=== PATIENT | male | born 1995 | race Caucasian/White ===

== ENCOUNTER 2023-02-11 20:08 | Emergency (ER) | payer OTHER, SELFPAY ==
[2023-02-11 20:14] VITALS: BP 122/84; PULSE 125; RESP 16; TEMP 36.9; O2SAT 99; BMI 52.3
--- NOTE | 2023-02-11 20:29 | ED.ANXIETY1 ---
HPI - Anxiety General Chief Complaint: Anxiety Stated Complaint: ALTERED MENTAL STATE Time Seen by Provider: 02/11/23 20:21 Source: patient Mode of arrival: walk-in Limitations: no limitations History of Present Illness HPI narrative: History of opiate abuse. IV heroin. States he was at [facility] center and was treated with suboxone and weaned off. has not used Heroin in 11 days. Last dose of Suboxone was 3 days ago. He does not have a past history of depression or suicide attempts. States he has several times in the past from opiate overdose. States tonight he found out that his girlfriend has been cheating on him. States he was upset and hurt by it and is going to work himself through this. States his family became concern that he would hurt himself and dropped him off here for clearance. States he has not thoughts of harming himself or his girlfriend. He is hurt because he did want to her but now he realizes he has to move on. States he is only here because his family insisted. He denies using any drugs and has no plans to use opiates. States he is upset about his girlfriend but feels that should be expected Related Data Home Medications Medication Instructions Recorded Confirmed No Known Home Medications 02/11/23 02/11/23 Allergies Allergy/AdvReac Type Severity Reaction Status Date / Time Penicillins Allergy Hives Verified 02/11/23 20:19 Review of Systems ROS Status of ROS 10 or more systems reviewed and unremarkable except as noted in history and below [facility] PFS Social History Smoking status: Current every day smoker Exam Constitutional Vital Signs, click to edit/add: Last Vital Signs Temp 98.4 F 02/11/23 20:14 Pulse 125 H 02/11/23 20:14 Resp 16 02/11/23 20:14 BP 122/84 02/11/23 20:14 Pulse Ox 99 02/11/23 20:14 O2 Del Method Room Air 02/11/23 20:14 Common normals: no apparent distress, average body habitus, oriented x3, no limitations, healthy appearing, alert and well nourished [facility] Common normals: normocephalic and head/scalp atraumatic Eye Common normals: PERRL, EOMs intact bilaterally and conjunctivae normal Respiratory Common normals: normal respiratory effort, no retractions, no use of accessory muscles and clear to auscultation bilaterally Cardio Common normals: regular rate, regular rhythm, S1 normal heart sound and S2 normal heart sound GI Common normals: Normal to inspection, nondistended, normoactive bowel sounds present, soft to palpation and non-tender Extremity Common normals: normal to inspection and full ROM Neuro Common normals: oriented x3, CN's II-XII intact bilaterally and moves all extremities Psych Common normals: mental status grossly normal, thought process normal, cooperative and speech normal Attitude: engaged Activity/motor behavior: appropriate eye contact Speech: normal speech Thought process: normal thought process Thought content: normal thought content Attention/concentration: attention grossly intact Insight: insight good Judgement: judgment good Course Vital Signs Vital signs: Vital Signs Temperature 98.4 F 02/11/23 20:14 Pulse Rate 125 H 02/11/23 20:14 Respiratory Rate 16 02/11/23 20:14 Blood Pressure 122/84 02/11/23 20:14 Pulse Oximetry 99 02/11/23 20:14 Oxygen Delivery Method Room Air 02/11/23 20:14 Temperature 98.4 F 02/11/23 20:14 Pulse Rate 125 H 02/11/23 20:14 Respiratory Rate 16 02/11/23 20:14 Blood Pressure 122/84 02/11/23 20:14 Pulse Oximetry 99 02/11/23 20:14 Oxygen Delivery Method Room Air 02/11/23 20:14 MDM - Anxiety MDM Narrative Medical decision making narrative: patient upset that his girlfriend reportedly is cheating on him. He has past history of heroin abuse but completed rehab and has not used Heroin for 11 days. 13 year history of Opiate abuse. Just left detox center and feels he is doing well and states he has no plan to restart Heroin. Found out about his girlfriend cheating today and became upset. States his family dropped him off here to be cleared concerned he would harm himself. He states he has no plan to harm himself and is only here because his family insisted. He does not have a past history of suicide attempt and does not feel suicidal or homicidal at this time Clinically I do not see a need for in patient treatment for his stress related to his girlfriend cheating. He can follow up with his PCP for assistance if needed Discharge Plan Discharge Chief Complaint: Anxiety Clinical Impression: Reactive depression (situational) Patient Disposition: Home, Self-Care Mode of Transportation: Private Vehicle Prescriptions / Home Meds: No Action No Known Home Medications Instructions: Depression (ED) Stand Alone Forms: Portal Instructions Referrals: ZANA PEPE [Primary Care Provider] - 1 week Discharge Date/Time: 02/11/23 21:07
== END 2023-02-11 21:07 | disposition home or self-care (01) ==
PROVIDERS: Emergency Provider Internal Medicine; PCP Family Medicine
DX: F43.21 Adjustment disorder with depressed mood (principal); F11.11 Opioid abuse, in remission; F17.200 Nicotine dependence, unspecified, uncomplicated
CPT/HCPCS: 99285

== ENCOUNTER 2023-04-17 19:28 | Emergency (ER) | payer OTHER, SELFPAY ==
--- NOTE | 2023-04-17 19:30 | ECG_ITS ---
[facility] Test Date: 2023-04-17 Pat Name: STEPHEN PABON Department: Room: - Gender: Male Telephone Claims Representative: : 1995 Requested By: ZANA PEPE Order Number: [id number] Reading MD: MANAV BROWN Measurements Intervals [place] Rate: 124 P: 61 LA: 126 QRS: 58 QRSD: 96 T: -1 QT: 310 QTc: 384 Interpretive Statements 1120 Sinus tachycardia 1970 with occasional ectopic premature complexes 4068 Nonspecific Twave abnormality 9140 abnormal rhythm ECG Electronically Signed On 04-18-2023 6:40:26 EST by MANAV BROWN
[2023-04-17 19:31] VITALS: BP 133/79; PULSE 112; RESP 20; TEMP 36.8; O2SAT 97
--- NOTE | 2023-04-17 19:32 | ED.PSYCH1 ---
HPI - Psych General Chief Complaint: Psychiatric Symptoms Stated Complaint: Suicidal Time Seen by Provider: 04/17/23 19:29 History of Present Illness HPI Narrative: cc - alleged suicidal ideation The patient was brought in by EMS for allegedly claiming that he was suicidal. The patient denies this on arrival. He told us that his best friend and his girlfriend have hooked up and that made him anxious and upset when he found out about it. He said that the best friend is the one who actually called 911 and told him that the patient was suicidal to get rid of me . He admits to using methamphetamine within the last 12 to 24 hours. He cannot tell if he is active on he used or when his last use was. He reiterated that he has anxiety occasionally feels some depression but denies any suicidality at this time. Denies any recent self injury. Denies any plan to hurt himself. Patient states that he used to take medication for depression but I weaned myself off of them . He is not currently attending any counseling. He has previously been hospitalized for psych reasons but he initially told us he had not. Related Data Home Medications Medication Instructions Recorded Confirmed No Known Home Medications 02/11/23 02/11/23 Allergies Allergy/AdvReac Type Severity Reaction Status Date / Time Penicillins Allergy Hives Verified 04/17/23 19:37 PFSH PFS Social History Smoking status: Current every day smoker Exam Constitutional Vital Signs, click to edit/add: Last Vital Signs Temp 98.3 F 04/17/23 19:31 Pulse 112 H 04/17/23 19:31 Resp 20 04/17/23 19:31 BP 133/79 04/17/23 19:31 Pulse Ox 97 04/17/23 19:31 Course Vital Signs Vital signs: Vital Signs Temperature 98.3 F 04/17/23 19:31 Pulse Rate 112 H 04/17/23 19:31 Respiratory Rate 20 04/17/23 19:31 Blood Pressure 133/79 04/17/23 19:31 Pulse Oximetry 97 04/17/23 19:31 Temperature 98.3 F 04/17/23 19:31 Pulse Rate 112 H 04/17/23 19:31 Respiratory Rate 20 04/17/23 19:31 Blood Pressure 133/79 04/17/23 19:31 Pulse Oximetry 97 04/17/23 19:31 MDM - Psych MDM Narrative Medical decision making narrative: Suicide precautions initiated. EKG obtained. Blood drawn and sent for testing. Urine also ordered to be obtained and sent for testing. EKG reveals sinus tachycardia, likely associated with methamphetamine use. Blood testing was unremarkable. White blood cell count barely elevated at 13,000. Left shift is noted. This is likely reactionary from the methamphetamine use. CMP was negative. Ethanol, salicylate and acetaminophen levels also negative. he was medically cleared for psychiatric evaluation and potential transfer. [facility] and talked with the patient. She told us that the patient was lying to her, not being truthful regarding his prior psych history and was not taking his meds. After talking with police and getting more info, the patient was pink-slipped by [facility] and he will be admitted to [address] for additional psychiatric evaluation and care. Dr Mccarty accepted, per [facility] Lab Data Attestation: I reviewed the patient's lab results. Labs: Lab Results 04/17/23 04/17/23 Range/Units 19:42 21:05 WBC 13.0 H (4.0-11.0) 10^3/uL RBC 4.77 (4.70-6.10) 10^6/uL Hgb 14.3 (14.0-18.0) g/dL Hct 43.3 (42.0-54.0) % MCV 90.8 (80.0-94.0) fL MCH 30.0 (25.9-34.0) pg MCHC 33.0 (29.9-35.2) g/dL RDW 12.1 (11.0-15.0) % Plt Count 228 (150-450) 10^3/uL MPV 10.1 (9.5-13.5) fL Neut % (Auto) 79.2 H (43.0-75.0) % Lymph % (Auto) 13.3 L (20.5-60.0) % [place] % (Auto) 6.1 (1.7-12.0) % Eos % (Auto) 0.7 L (0.9-7.0) % Baso % (Auto) 0.5 (0.2-2.0) % Neut # (Auto) 10.3 H (1.4-6.5) 10^3/uL Lymph # (Auto) 1.7 (1.2-3.8) 10^3/uL [place] # (Auto) 0.8 (0.3-0.8) 10^3/uL Eos # (Auto) 0.1 (0.0-0.7) 10^3/uL Baso # (Auto) 0.1 (0.0-0.1) 10^3/uL Abs Immat Gran (auto) 0.03 (0.00-0.03) 10^3/uL Imm/Tot Granulo (auto) 0.2 (0.0-0.5) % Sodium 142 (136-145) mmol/L Potassium 3.7 (3.5-5.1) mmol/L Chloride 104 (98-107) mmol/L Carbon Dioxide 29.1 (21.0-32.0) mmol/L Anion Gap 12.6 BUN 10.0 (7.0-18.0) mg/dL Creatinine 0.94 (0.70-1.30) mg/dL Est GFR ( Amer) >60 (>=60) Est GFR (Non-Af Amer) >60 (>=60) BUN/Creatinine Ratio 10.6 Glucose 117 H (74-106) mg/dL Calcium 8.8 (8.5-10.1) mg/dL Total Bilirubin 1.1 H (0.2-1.0) mg/dL AST 19 (15-37) U/L ALT 20 (16-63) U/L Alkaline Phosphatase 94 (46-116) U/L Total Protein 7.7 (6.4-8.2) g/dL Albumin 4.0 (3.4-5.0) g/dL Globulin 3.7 g/dL Albumin/Globulin Ratio 1.1 Salicylates <2.8 (<=19.9) mg/dL Urine Opiates Screen Negative (NEGATIVE) Ur Buprenorphine Scrn Negative (NEGATIVE) Ur Oxycodone Screen Negative (NEGATIVE) Urine Methadone Screen Negative (NEGATIVE) Acetaminophen <2.0 L (10.0-30.0) ug/mL Ur Barbiturates Screen Negative (NEGATIVE) U Tricyclic Antidepress Negative (NEGATIVE) Ur Phencyclidine Scrn Negative (NEGATIVE) Ur Amphetamines Screen Positive A (NEGATIVE) U Methamphetamines Scrn Positive A (NEGATIVE) U Benzodiazepines Scrn Negative (NEGATIVE) Urine Cocaine Screen Positive A (NEGATIVE) U Cannabinoids Screen Positive A (NEGATIVE) Ethanol Quant <3 mg/dL ECG Data Attestation: I personally reviewed and interpreted this ECG as follows: Interpretation: EKG interpretation: Emergency Department physician interpretation. Sinus tachycardia at 124bpm. Normal axis. Shortened RR interval. No QTc prolongation. No ST segment elevation or depression. Discharge Plan Discharge Chief Complaint: Psychiatric Symptoms Clinical Impression: Depression, Suicidal ideation, Active substance abuse Patient Disposition: [facility] Time of Disposition Decision: 22:47 Discharge Location: [facility]
--- OUTSIDE RECORDS SUMMARY | 2023-04-17 19:42 | XMS_ITS | CCD ---
Author Name Unknown Address [address] [place] [address] Organization [facility] Care Team Providers Care Data Management Consultant Name Role Phone Unavailable, Family Physician Unavailable Un available Unavailable, Family Physician Unavailable Un available Moysaenbaldo, Karl Unavailable Unavailable Tommy, Aimee A Unavailable Unavailable Tommy, Aimee A Unavailable Unavailable NONE, XXXX Unavailable Unavailable Hajdari, Astrit H Unavailable Unavailable Hajdari, Astrit H Unavailable Unavailable Tommy, Aimee A Unavailable Unavailable Becca Toribio CNP Primary Care Provider DR ZANA PEPE Primary Care Unavailable ANIKA, DR MALIHA Pedroza Attending Unavailluisa DONALDSON, DR MALIHA Pedroza Consulting Unavailluisa DONALDSON, DR MALIHA Pedroza Admitting UnavailMD Perlita Tamayo Primary Care Provider MD Kwan León Admit Provider [phone] MD Kwan León Attending Provider Kwan León Admitting Unavailable Kwan León Attending Unavailable Shaikh Conway Primary Care Unavailable Jesús Mccarty Admitting Unavailab Jesús Jara Attending Unavailab Shaikh Stark Primary Care Unavailable Allergies Allergy Classification Reported Allergen(s) Allergy Type Date of Onset Reaction(s) Facility (2 sources) cefTRIAXone; Translations: [Rocephin] Drug Allergy 5 AOF [facility] Repository (1 source) Penicillin; Translations: [penicillin] Drug Allergy AOF [facility] Repository (20 sources) Penicillins; Translations: [Penicillins] Allergy to substance 5 Hives / Urticaria [facility] Repository Medications Current Medications Medication Drug Class(es) Dates Sig (Normalized) Sig (Original) 1.5 ml buprenorphine 200 mg/ml prefilled syringe (20 sources) Partial Opioid Agonist Start: 11-23-2021 Sublocade 100 MG/0.5ML Subcutaneous Solution Prefilled Syringe 11/23/2021 Provider: Becca Toribio CNP Start: 11-23-2021 Sublocade 300 MG/1.5ML Subcutaneous Solution Prefilled Syringe 11/23/2021 Provider: Becca Toribio CNP 24 hr buPROPion hydrochloride 300 mg extended release oral tablet (20 sources) Aminoketone Start: 10-26-2022 take 300 mg by mouth once daily in the morning Bupropion Hcl Active 300 MG PO Every morning October 26, 2022 12:00am Start: 11-08-2021 End: 12-01-2021 take 1 tablet by mouth every twelve hours Wellbutrin SR 150 MG Oral Tablet Extended Release 12 Hour 11/08/2021 - 12/01/2021 Provider: Becca Toribio CNP Start: 11-06-2021 End: 11-06-2021 take 1 tablet by mouth every twelve hours Wellbutrin SR 150 MG Oral Tablet Extended Release 12 Hour 11/06/2021 - 11/06/2021 Provider: docusate sodium 100 mg oral capsule (15 sources) Start: 11-13-2021 Colace 100 MG Oral Capsule 11/13/2021 Provider: Marily Terrazas CNP gabapentin 600 mg oral tablet (20 sources) Anti-epileptic Agent Start: 10-26-2022 take 600 mg by mouth three times daily Gabapentin Active 600 MG PO Three times daily October 26, 2022 12:00am Start: 08-28-2021 End: 12-01-2021 Gabapentin 800 MG Oral Table t 09/07/2021 - 09/19/2021 Provider: Becca Toribio CNP Start: 11-30-2016 End: 01-31-2021 take 300 mg by mouth three times daily Gabapentin Discontinued 300 MG PO Three times daily November 30, 2016 12:00am January 31, 2021 1:29pm lofexidine 0.18 mg oral tablet (3 sources) Start: 01-03-2022 Lucemyra 0.18 MG Oral Tablet 01/03/2022 Provider: Becca Toribio CNP naloxone hydrochloride 40 mg/ml nasal spray (20 sources) Opioid Antagonist Start: 09-07-2021 End: 11-20-2021 Narcan 4 MG/0.1ML Nasal Liquid 11/20/2021 Provider: Becca Toribio CNP naltrexone 380 mg injection (1 source) Opioid Antagonist Start: 03-29-2022 Vivitrol 380 MG Intramuscular Suspension Reconstituted 03/29/2022 Provider: Becca Toribio CNP Start: 03-29-2022 Vivitrol 380 M G Intramuscular Suspension Reconstituted 03/29/2022 Provider: Becca Toribio CNP nicotine 2 mg chewing gum (1 source) Cholinergic Nicotinic Agonist Start: 10-26-2022 Nicotine (Polacrilex) Active 2 MG BUCCAL Q2H October 26, 2022 12:00am OXcarbazepine 300 mg oral tablet (9 sources) Anti-epileptic Agent Start: 12-01-2021 OXcarbazepine 300 MG Oral Tablet 12/01/2021 Provider: Becca Toribio CNP traZODone hydrochloride 50 mg oral tablet (20 sources) Serotonin Reuptake Inhibitor Start: 10-26-2022 take 50 mg by mouth once daily at bedtime Trazodone Active 50 MG PO Daily at bedtime October 26, 2022 12:00am Start: 11-06-2021 End: 12-01-2021 traZODone HCl 100 MG Oral Ta blet 11/06/2021 - 11/06/2021 Provider: Start: 11-27-2016 End: 01-31-2021 take 50 mg by mouth at bedtime Trazodone Discontinued 50 MG PO Bedtime November 27, 2016 12:00am January 31, 2021 1:29pm Completed/Discontinued Medications Medication Drug Class(es) Dates Sig (Normalized) Sig (Original) buprenorphine 8 mg / naloxone 2 mg sublingual film (20 sources) Partial Opioid Agonist, Opioid Antagonist Start: 11-13-2021 End: 01-09-2022 Suboxone 8-2 MG Sublingual Film 11/20/2021 - 11/23/2021 Provider: Becca Toribio CNP Start: 11-06-2021 End: 11-13-2021 Buprenorphine HCl-Naloxone H Cl 8-2 MG Sublingual Tablet Sublingual 11/13/2021 - 11/13/2021 Provider: Marily Terrazas CNP citalopram 20 mg oral tablet (2 sources) Serotonin Reuptake Inhibitor Start: 11-30-2016 End: 01-31-2021 take 20 mg by mouth once daily Citalopram Discontinued 20 MG PO Daily November 30, 2016 12:00am January 31, 2021 1:29pm Start: 11-27-2016 End: 11-30-2016 take 30 mg by mouth once daily Citalopram Discontinued 30 MG PO Daily November 27, 2016 12:00am November 30, 2016 9:41am clindamycin 300 mg oral capsule (9 sources) Lincosamide Antibacterial Start: 12-01-2021 End: 12-22-2021 Clindamycin HCl 300 MG Oral Capsule 12/01/2021 - 12/22/2021 Provider: Becca Toribio CNP cloNIDine hydrochloride 0.1 mg oral tablet (20 sources) Central alpha-2 Adrenergic Agonist Start: 12-01-2021 End: 01-08-2022 cloNIDine HCl 0.1 MG Oral Tablet 12/01/2021 - 01/08/2022 Provider: Becca Toribio CNP Start: 09-19-2021 End: 11-06-2021 cloNIDine HCl 0.2 MG Oral Ta blet 09/19/2021 - 11/06/2021 Provider: Becca Toribio CNP Start: 09-07-2021 End: 09-19-2021 cloNIDine HCl 0.1 MG Oral Ta blet 09/07/2021 - 09/19/2021 Provider: Becca Toribio CNP DULoxetine 30 mg delayed release oral capsule (1 source) Serotonin and Norepinephrine Reuptake Inhibitor Start: 02-01-2021 End: 10-27-2022 take 1 capsule by mouth once daily Duloxetine (Cymbalta) 30 mg capsule,delayed release(DR/EC) Discontinued 30 MG PO Daily February 01, 2021 1:00am October 27, 2022 9:38am lithium carbonate 300 mg oral tablet (2 sources) Start: 11-30-2016 End: 01-31-2021 take 300 mg by mouth twice daily Tobin Carbonate Discontinued 300 MG PO Twice daily November 30, 2016 12:00am January 31, 2021 1:29pm Start: 11-27-2016 End: 11-30-2016 take 300 mg by mouth three times daily Tobin Carbonate Discontinued 300 MG PO Three times daily November 27, 2016 12:00am November 30, 2016 9:41am methocarbamol 750 mg oral tablet (20 sources) Muscle Relaxant Start: 08-28-2021 End: 11-06-2021 Methocarbamol 750 MG Oral Tablet 08/28/2021 - 11/06/2021 Provider: minocycline 100 mg oral tablet (20 sources) Tetracycline-class Drug Start: 09-19-2021 End: 11-06-2021 Minocycline HCl 100 MG Oral Tablet 09/19/2021 - 11/06/2021 Provider: Becca Toribio CNP OLANZapine 5 mg oral tablet (20 sources) Atypical Antipsychotic Start: 09-07-2021 End: 11-06-2021 OLANZapine 5 MG Oral Tablet 09/07/2021 - 11/06/2021 Provider: Becca Toribio CNP promethazine hydrochloride 12.5 mg oral tablet (20 sources) Phenothiazine Start: 09-07-2021 End: 11-06-2021 Promethazine HCl 12.5 MG Oral Tablet 09/07/2021 - 11/06/2021 Provider: Becca Toribio CNP Problems Active Problems Problem Classification Problem Date Documented Da te Episodic/Chronic Anxiety disorders (20 sources) Generalized anxiety disorder; Translations: [Generalized anxiety disorder] Onset: 09-07-2021 Chronic Cardiac dysrhythmias (1 source) Atrial fibrillation with rapid ventricular response; Translations: [Unspecified atrial fibrillation] 01-31-2021 Chronic Mood disorders (20 sources) Bipolar disorder; Translations: [Bipolar disorder, unspecified] Onset: 09-07-2021 Chronic Respiratory failure; insufficiency; arrest (adult) (4 sources) Respiratory arrest; Translations: [RESPIRATORY ARREST] Onset: 10-20-2021 Episodic Substance-related disorders (20 sources) Opioid dependence; Translations: [Opioid dependence, uncomplicated] Onset: 09-07-2021 Chronic Suicide and intentional self-inflicted injury (1 source) Suicidal thoughts; Translations: [Suicidal ideations] 11-27-2016 Episodic Unclassified (1 source) POISN FENTANYL/FENT ANALOG ACC INIT; Translations: [POISN FENTANYL/FENT ANALOG ACC INIT] Onset: 10-23-2021 Past or Other Problems Problem Classification Problem Date Documented Da te Episodic/Chronic Immunizations and screening for infectious disease (20 sources) Encounter for screening for human immunodeficiency virus [HIV]; Translations: [Screening For Hiv] Onset: 2 Episodic Other gastrointestinal disorders (15 sources) Constipation; Translations: [Constipation, unspecified] Onset: 2 11-13-2021 Episodic Other screening for suspected conditions (not mental disorders or infectious disease) (20 sources) Encounter for screening for diabetes mellitus; Translations: [Diabetes Risk Test Score] Onset: 2 Episodic Residual codes; unclassified (20 sources) Finding of body mass index; Translations: [Body mass index (observable entity)] Onset: 2 Episodic Results Test Name Value Interpretation Reference Range Facility Cholesterol [Mass/volume] in Serum or PlasmaOrdered By: Kwan León on 10-26-2022 Cholesterol [Mass/Vol] 163 mg/dL 140-200 [facility] Comment on above: Chol less than 200 m g/dl low riskChol 201-239 mg/dl borderline riskChol 240 mg/dl and greater high risk Cholesterol in LDL Calc [Mas s/Vol]Ordered By: Kwan León on 10-26-2022 Cholesterol in LDL [Mass/Vol] 90 mg/dL 0-100 [facility] Comment on above: LDL ATP III CLASSIFI CATIONLDL less than 100 mg/dL OptimalLDL 100-129 mg/dL Near or above optimalLDL 130-159 mg/dL Borderline highLDL 160-189 mg/dL HighLDL greater than 189 mg/dL Very high Cholesterol in VLDL Calc [Ma ss/Vol]Ordered By: Kwan León on 10-26-2022 Cholesterol in VLDL [Mass/Vol] 19 mg/dL [facility] Free T4 (Free Thyroxine)on 0 10-26-2022 Free T4 [Mass/Vol] 0.96 ng/dL Normal 0.61-1.12 [facility] Comment on above: Performed By: #### V [id number], T4F, LIPID, TSH3 wRFLX #### [address] Lipid Panelon 10-26-2022 Cholesterol [Mass/Vol] 163 mg/dL Normal 140-200 [facility] Comment on above: Result Comment: Chol less than 200 mg/dl low risk Chol 201-239 mg/dl borderline risk Chol 240 mg/dl and greater high risk Performed By: #### V [id number], T4F, LIPID, TSH3 wRFLX #### [facility] [address] Cholesterol in HDL [Mass/Vol] 54 mg/dL Normal 23-92 [facility] Comment on above: Result Comment: HDL CHOL ATP-III CLASSIFICATION Cardiovascular Risk HDL > or equal to 60 mg/dL LOW HDL < 40 mg/dL HIGH Performed By: #### V [id number], T4F, LIPID, TSH3 wRFLX #### [facility] [address] Cholesterol.total/Cho lesterol in HDL [Mass ratio] 3.0 {ratio} Normal <5.0 [facility] Comment on above: Performed By: #### V [id number], T4F, LIPID, TSH3 wRFLX #### [facility] [address] LDL Cholesterol,Calculate d 90 mg/dL Normal 0-100 [facility] Comment on above: Result Comment: LDL ATP III CLASSIFICATION LDL less than 100 mg/dL Optimal LDL 100-129 mg/dL Near or above optimal LDL 130-159 mg/dL Borderline high LDL 160-189 mg/dL High LDL greater than 189 mg/dL Very high Performed By: #### V [id number], T4F, LIPID, TSH3 wRFLX #### [facility] [address] Triglyceride w/Reflex 97 mg/dL Normal 0-149 [facility] Comment on above: Result Comment: TRIG ATP III CLASSIFICATION TRIG less than 150 mg/dL Normal TRIG 150-199 mg/dL Borderline high TRIG 200-500 mg/dL High TRIG greater than 500 mg/dL Very high Standard traceable to the Center for Disease Conrtrol and Prevention (CDC) test method. Performed By: #### V [id number], T4F, LIPID, TSH3 wRFLX #### [facility] [address] [place] [id number] [facility] VLDL CHOLESTEROL 19 mg/dL Normal [facility] Comment on above: Performed By: #### V [id number], T4F, LIPID, TSH3 wRFLX #### [facility] [address] Serum or plasma high density lipoprotein (HDL) cholesterol measurementOrdered By: Kwan León on 10-26-2022 Cholesterol in HDL [Mass/Vol] 54 mg/dL 23-92 [facility] Comment on above: HDL CHOL ATP-III CLA SSIFICATION Cardiovascular RiskHDL > or equal to 60 mg/dL LOWHDL < 40 mg/dL HIGH Serum or plasma total choles terol/high density lipoprotein (HDL) cholesterol mass ratOrdered By: Kwan León on 10-26-2022 Cholesterol.total/Cho lesterol in HDL [Mass ratio] 3.0 {ratio} <5.0 [facility] Thyroid Stim Hormone w/Rflxo n 10-26-2022 Thyroid Stim Hormone w/Rflx 0.41 u[iU]/mL Low 0.45-5.33 [facility] Comment on above: Performed By: #### V [id number], T4F, LIPID, TSH3 wRFLX #### [facility] [address] Thyrotropin [Units/volume] i n Serum or PlasmaOrdered By: Kwan León on 10-26-2022 TSH Qn 0.41 m[IU]/L 0.45-5.33 [facility] Thyroxine (T4) free [Mass/vo lume] in Serum or PlasmaOrdered By: Kwan León on 10-26-2022 Free T4 [Mass/Vol] 0.96 ng/dL 0.61-1.12 [facility] Triglyceride [Mass/volume] i n Serum or PlasmaOrdered By: Kwan León on 10-26-2022 Triglyceride [Mass/Vol] 97 mg/dL 0-149 [facility] Comment on above: TRIG ATP III CLASSIF ICATIONTRIG less than 150 mg/dL NormalTRIG 150-199 mg/dL Borderline highTRIG 200-500 mg/dL High TRIG greater than 500 mg/dL Very highStandard traceable to the Center for Disease Conrtrol and Prevention (CDC) test method. Vitamin D 25 Hydroxy Totalon 10-26-2022 Vitamin D 25 Hydroxy Total 18.7 ng/mL Low 30-100 [facility] Comment on above: Result Comment: KIMBERLEY MIN D STATUS 25([place])VITAMIN D RANGE (ng/mL) Deficient <20 Insufficient 20 to <30 Sufficient 30 to 100 Reference: Juan Manuel Curtis, Santy WAYNE, et al. Evaluation,treatment, and prevention of vitamin D deficiency; an Endocrine Society clinical practice guideline. JCEM. 2010; 96(7):1911-30. PERFORMED BY: [facility] [address] [place] [address] PATHOLOGIST MANAGER PACKAGING FAY MALCOLM M.D. Performed By: #### V [id number], T4F, LIPID, TSH3 wRFLX #### [facility] [address] Vitamin D+Metabolites [Mass/ volume] in Serum or PlasmaOrdered By: Kwan León on 10-26-2022 Vitamin D+Metabolites [Mass/Vol] 18.7 ng/mL 30-100 [facility] Comment on above: VITAMIN D STATUS 25( [place])VITAMIN D RANGE (ng/mL) Deficient <20 Insufficient 20 to <30Sufficient 30 to 100Reference: Juan Manuel Curtis Bischoff-Ferrari HA, et al. Evaluation,treatment, and prevention of vitamin D deficiency; an Endocrine Society clinical practice guideline. JCEM. 2010; 96(7):1911-30. Coding Summary.on 07-25-2017 Coding Summary. CODING DATE: 018 FINAL [facility] STATUS: Home (Routine DC) PAYOR: [place] ADMIT DX: REASON FOR VISIT DX: R51 Headache R11.2 Nausea with vomiting, unspecified FINAL DX: PRINCIPAL: G44.309 Post-traumatic headache, unspecified, not intractable SECONDARY: F07.81 Postconcussional syndrome R11.2 Nausea with vomiting, unspecified F17.210 Nicotine dependence, cigarettes, uncomplicated Z88.0 Allergy status to penicillin Z88.1 Allergy status to other antibiotic agents status PROCEDURES DOCTOR NAME DATE NOTE: The code number assigned matches the documented diagnosis and / or procedure in the patient's chart. However, the narrative phrase printed from the coding software may appear abbreviated, or result in slightly different terminology. Coded By: Joselyn Martinez Date Saved: 07/25/2017 11:45 am Normal [facility] Auto Diffon 07-24-2017 Basophils Auto #/vol (Bld) 0.7 % Normal 0.0-2.0 [facility] Comment on above: Order Comment: Order Added by Discern Expert. Performed By: #### 2 [id number], 9185318, 0438660, 3121862, 3330072, [id number] ####[address] [place] [address] Basophils/Leukocytes Auto Pure number fraction (Bld) 0.0 E9/L Normal 0.0-0.2 [facility] Comment on above: Order Comment: Order Added by Discern Expert. Performed By: #### 2 043608, 2284491, 1760420, 4099141, 0114522, [id number] ####[facility] [address] [place] [address] Eosinophils/100 WBC Auto (Bld) 0.4 % Normal 0.0-8.0 [facility] Comment on above: Order Comment: Order Added by Discern Expert. Performed By: #### 2 396398, 9576974, 7776350, 8129052, 4608266, 54842553 ####[facility] [address] [place] [address] Eosinophils/Leukocyte s Auto Pure number fraction (Bld) 0.0 E9/L Normal 0.0-0.5 [facility] Comment on above: Order Comment: Order Added by Discern Expert. Performed By: #### 2 708263, 9571630, 4975457, 7771278, 4822127, [id number] ####[facility] [address] [place] [address] Lymphocytes/100 WBC Auto (Bld) 27.6 % Normal 14.0-50.0 [facility] Comment on above: Order Comment: Order Added by Discern Expert. Performed By: #### 2 563523, 9600234, 5162753, 2733075, 0036167, 72921281 ####[address] [place] [address] Lymphocytes/Leukocyte s Auto Pure number fraction (Bld) 1.6 E9/L Normal 1.0-4.0 [facility] Comment on above: Order Comment: Order Added by Iftikhar Expert. Performed By: #### 2 610614, 7141548, 2242931, 7767632, 4903446, 55569542 ####[address] [place] [address] Monocytes/100 WBC Auto (Bld) 6.8 % Normal 4.0-14.0 [facility] Comment on above: Order Comment: Order Added by Iftikhar Expert. Performed By: #### 2 477174, 2844445, 6852305, 5519741, 8934216, 99112576 ####[address] [address] Monocytes/Leukocytes Auto Pure number fraction (Bld) 0.4 E9/L Normal 0.2-1.0 [facility] Comment on above: Order Comment: Order Added by Iftikhar Expert. Performed By: #### 2 204227, 4695756, 9309028, 4205027, 1242992, 70477417 ####[address] [place] [address] Neutrophils/100 WBC Auto (Bld) 64.5 % Normal 36.0-75.0 [facility] Comment on above: Order Comment: Order Added by Iftikhar Expert. Performed By: #### 2 560627, 2815324, 1971410, 5712761, 8738072, 09680630 ####[address] [place] [address] Neutrophils/Leukocyte s Auto Pure number fraction (Bld) 3.8 E9/L Normal 2.0-7.5 [facility] Comment on above: Order Comment: Order Added by Iftikhar Expert. Performed By: #### 2 339259, 1606691, 8908341, 0146092, 4024390, 25064777 ####[facility] [address] [place] [address] BMPon 07-24-2017 Creatinine mass conc 0.9 mg/dL Normal 0.5-1.3 [facility] Comment on above: Performed By: #### 2 478501, 0891901, 0334716, 4978453, 4900637, 10815962 ####[facility] [address] [place] [address] Urea nitrogen mass conc 10 mg/dL Normal 5-21 [facility] Comment on above: Performed By: #### 2 216075, 0697558, 4006315, 7218919, 2418091, 53741507 ####[facility] [address] [place] [address] Urea nitrogen/Creatinine mass ratio 11 No Units Normal 10-20 [facility] Comment on above: Performed By: #### 2 045749, 7495477, 0869077, 5271355, 7659244, 23446732 ####[facility] [address] [place] [address] Anion gap 3 molar conc 12 mmol/L Normal 6-16 [facility] Comment on above: Performed By: #### 2 631143, 2942752, 5768120, 4303574, 6024834, 18246004 ####[facility] [address] [place] [address] Calcium mass conc 9.2 mg/dL Normal 8.9-11.1 [facility] Comment on above: Performed By: #### 2 198399, 4995917, 7425606, 2369626, 3623609, 26961593 ####[facility] [address] [place] [address] Chloride molar conc 104 mmol/L Normal 101-111 [facility] Comment on above: Performed By: #### 2 758260, 9733168, 9272633, 3680789, 5211972, 30839875 ####[facility] [address] [place] [address] CO2 molar conc 27 mmol/L Normal 21-31 [facility] Comment on above: Performed By: #### 2 953521, 5287602, 7885139, 2804073, 8253478, 65493342 ####[facility] [address] [place] [address] Glucose mass conc 92 mg/dL Normal 55-199 [facility] Comment on above: Result Comment: If t his glucose result represents a fasting glucose, interpretation should refer to the following reference range: 55-99 mg/dL Performed By: #### 2 804315, 5287021, 5739211, 0467761, 8149869, 04623836 ####[facility] [address] [place] [address] Potassium molar conc 4.2 mmol/L Normal 3.5-5.3 [facility] Comment on above: Performed By: #### 2 543287, 7030092, 3667934, 6792906, 6766943, 78514309 ####[facility] [address] [place] [address] Sodium molar conc 139 mmol/L Normal 135-145 [facility] Comment on above: Performed By: #### 2 975848, 5888183, 4751186, 8524924, 0950813, 37881619 ####[facility] [address] [place] [address] CBC w/ Auto Diffon 8 Erythrocyte distribution width Auto Ratio (RBC) 13.6 % Normal 10.9-14.2 [facility] Comment on above: Performed By: #### 2 477847, 2594016, 5773211, 6746256, 4016381, 75986883 ####[facility] [address] [place] [address] Hematocrit Auto Volume Fraction (Bld) 43.7 % Normal 37.7-49.0 [facility] Comment on above: Performed By: #### 2 209436, 0057066, 0474798, 7105513, 3034997, 52932158 ####[address] [place] [address] Hemoglobin mass conc (Bld) 15.1 g/dL Normal 13.5-17.5 [facility] Comment on above: Performed By: #### 2 579139, 5144949, 3709579, 3884597, 6873769, 55151807 ####[place] [address] MCH Auto Entitic mass (RBC) 30.8 pg Normal 27.0-34.0 [facility] Comment on above: Performed By: #### 2 706810, 7785692, 1511417, 7782952, 2414136, 74997084 ####[place] [address] MCHC Auto mass conc (RBC) 34.6 g/dL Normal 31.4-39.3 [facility] Comment on above: Performed By: #### 2 505811, 4900193, 9146361, 9162059, 7546030, 75101887 ####[place] [address] MCV Auto Entitic volume (RBC) 89.2 fL Normal 80.0-100.0 [facility] Comment on above: Performed By: #### 2 658416, 7041730, 7544400, 8063355, 1480822, 12822753 ####[place] [address] Platelet mean volume Auto Entitic volume (Bld) 8.1 fL Normal 6.4-10.8 [facility] Comment on above: Performed By: #### 2 313488, 4885237, 3955028, 8104959, 7821783, 92248760 ####[address] [address] Platelets Auto #/vol (Bld) 216.0 E9/L Normal 150.0-500.0 [facility] Comment on above: Performed By: #### 2 961824, 9114238, 0591715, 9238374, 3192327, [id number] ####[facility] [id number] [place] [address] RBC Auto #/vol (Bld) 4.9 E12/L Normal 4.3-5.9 [facility] Comment on above: Performed By: #### 2 [id number] ####[facility] [id number] [place] [id number] WBC corrected for nucl RBC Auto #/vol (Bld) 5.9 E9/L Normal 4.0-11.0 [facility] Comment on above: Performed By: #### 2 [id number], [id number] ####[address] [address] ED Clinical Summaryon 2017 ED Clinical Summary (Inserted Image. Eden ble to display) [place] [id number] ED Clinical SummaryPerson Information Name: BENITO [facility]AND[facility] Age[facility] 21 Years : 1995 12:00 AM Sex: Male Language:Pashto PCP: AIMEE MORATAYA Marital Status:Single Visit Id: Visit Reason:Vomiting; Dizziness; Headache; S/P CONCUSSION Speciality: Acuity: 3 Enc Type: Emergency Med Service: Emergency Arrival:07/24/2017 1:04 PM Discharge: 07/24/2017 3:26 PM LOS: 000 02:22 Checkin:07/24/2017 1:04 PM Checkout: 07/24/2017 3:26 PM Dispo Type: Home (Routine DC) EVENTS:Event Name Event Status Request Date/Time Start Date/Time Complete Date/Time Arrive Complete 07/24/2017 1:04 PM 07/24/2017 1:04 PM 07/24/2017 1:04 PM Document Home Meds Request 07/24/2017 1:04 PM Triage Complete 07/24/2017 1:04 PM 07/24/2017 1:30 PM 07/24/2017 1:[address] Exam Complete 07/24/2017 1:09 PM 07/24/2017 1:09 PM 07/24/2017 1:09 PM Registration Complete 07/24/2017 1:09 PM 07/24/2017 1:19 PM 07/24/2017 2:00 PM Bed Assign Complete 07/24/2017 1:19 PM 07/24/2017 1:19 PM 07/24/2017 1:19 PM RN Exam Complete 07/24/2017 1:19 PM 07/24/2017 1:51 PM 07/24/2017 1:[address] Exam Complete 07/24/2017 1:23 PM 07/24/2017 1:23 PM 07/24/2017 1:23 PM EKG Cancel 07/24/2017 1:29 PM 07/24/2017 1:32 PM Meds Admin Complete 07/24/2017 1:33 PM 07/24/2017 2:33 PM Pending Labs Complete 07/24/2017 1:33 PM 07/24/2017 2:30 PM Lab Complete 07/24/2017 1:33 PM 07/24/2017 2:30 PM Urine Collect Complete 07/24/2017 1:33 PM 07/24/2017 2:20 PM Meds Admin Complete 07/24/2017 1:41 PM 07/24/2017 2:19 PM Reg Complete Request 07/24/2017 2:00 PM Pending Labs Complete 07/24/2017 2:08 PM 07/24/2017 2:08 PM 07/24/2017 2:30 PM Lab Complete 07/24/2017 2:08 PM 07/24/2017 2:08 PM 07/24/2017 2:30 PM Pending Labs Complete 07/24/2017 2:13 PM 07/24/2017 2:13 PM 07/24/2017 2:13 PM Lab Complete 07/24/2017 2:13 PM 07/24/2017 2:13 PM 07/24/2017 2:13 PM Discharge Complete 07/24/2017 3:13 PM 07/24/2017 3:26 PM 07/24/2017 3:26 PM Transfer Complete 07/24/2017 3:26 PM 07/24/2017 3:26 PM 07/24/2017 3:26 PM ADDRESS[facility] [address] [facility] [id number] PHYS DOC NOTES: MEDICAL INFORMATION: Prescriptions Given:Prescription Display ondansetron (Zofran ODT 4 mg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 Phone: Start: 11-23-2021 End: 11-23-2021 General Afshan Akhtar [facility] Work Phone: [facility] Work Phone: Start: 11-20-2021 End: 11-20-2021 General Afshan Akhtar [facility] Work Phone: [facility] Work Phone: Start: 11-20-2021 End: 11-20-2021 ambulatory Becca Malu [employer]IOR [employer] DAT[employer] DEVELOPER Work Phone: [facility] Work Phone: Start: 11-13-2021 End: 11-13-2021 General Chaparrita Emersons [facility] Work Phone: [facility] Work Phone: Start: 11-13-2021 End: 11-13-2021 General Chaparrita Rangelmons [facility] Work Phone: [facility] Work Phone: Start: 11-13-2021 End: 11-13-2021 ambulatory Marily Terrazas [employer]IOR [employer] DEVELOPER Work Phone: [facility] Work Phone: Start: 11-06-2021 End: 11-06-2021 General Afshan Akhtar [facility] Work Phone: [facility] Work Phone: Start: 11-06-2021 End: 11-06-2021 ambulatory Becca Malu [employer]IOR [employer] DAT[employer] DEVELOPER Work Phone: [facility] Work Phone: Start: 11-06-2021 End: 11-06-2021 General Becca Malu [employer]IOR [employer] DAT[employer] DEVELOPER Work Phone: [facility] Work Phone: Start: 10-20-2021 End: 10-20-[address] ZANA PEPE Facility: Start: 09-22-2021 End: 09-22-2021 ambulatory Becca Malu [employer]IOR [employer] DAT[employer] DEVELOPER Work Phone: [facility] Work Phone: Start: 09-22-2021 End: 09-22-2021 General Afshan Akhtar [facility] Work Phone: [facility] Work Phone: Start: 09-19-2021 End: 09-19-2021 General Afshan Akhtar [facility] Work Phone: [facility] Work Phone: Start: 09-19-2021 End: 09-19-2021 ambulatory Becca Malu [employer]ENIOR [employer] DAT[employer] DEVELOPER Work Phone: [facility] Work Phone: Start: 09-19-2021 End: 09-19-2021 General Becca Malu [employer]IOR [employer] DAT[employer] DEVELOPER Work Phone: [facility] Work Phone: Start: 09-15-2021 End: 09-15-2021 [facility] visit, estab pt Daryloni LÓPEZ Work Phone: [facility] Work Phone: Start: 09-15-2021 End: 09-15-2021 ambulatory Becca Toribio [employer]IOR [employer] DAT[employer] DEVELOPER Work Phone: [facility] Work Phone: Start: 09-12-2021 End: 09-12-2021 Nursing evaluation of patient and report Marily Terrazas [employer] DEVELOPER Work Phone: [facility] Work Phone: Start: 09-07-2021 End: 09-07-2021 FQ visit, estab pt Chaparrita Mccullough [facility] Work Phone: [facility] Work Phone: Start: 09-07-2021 End: 09-07-2021 FQ visit new patient Becca Toribio [employer]IOR [employer] DAT[employer] DEVELOPER Work Phone: [facility] Work Phone: Start: 07-24-2017 End: 07-24-2017 Emergency department patient visit Toni Alfonso Facility:[facility] Start: 07-21-2017 End: 07-21-2017 Emergency department patient visit Family Physician Unavailable Facility:[facility] Start: 07-04-2017 End: 07-05-2017 Patient encounter procedure Aimee Sanders Facility:[facility] Procedures Date Procedure Procedure Detail Performing Clinician Start: 01-03-2022 Current tobacco smoker Becca Toribio [employer] DEVELOPER Work Phone: Start: 01-03-2022 Drug test prsmv read direct optical obs pr date Becca Malu DONATO Work Phone: Start: 01-03-2022 Most recent diastoli c blood pressure 80-89 mm hg Becca Toribio [employer]IOR [employer] DEVELOPER Work Phone: Start: 01-03-2022 Most recent systolic blood press 130-139mm hg Becca Toribio CNP Work Phone: Start: 01-03-2022 Psychotherapy w/bethany ent 30 minutes Afshan Akhtar [facility] Work Phone: Start: 01-03-2022 Pt scrnd tobacco use rcvd tobacco cessation talk Becca Toribio [employer]IOR [employer] DAT[employer] DEVELOPER Work Phone: Start: 12-22-2021 Drug test prsmv read direct optical obs pr date Marily Terrazas [employer]IOR [employer] DAT[employer] DEVELOPER Work Phone: Start: 12-22-2021 Most recent diastoli c blood pressure 80-89 mm hg Marily Terrazas [employer]IOR [employer] DAT[employer] DEVELOPER Work Phone: Start: 12-22-2021 Most recent systolic blood pres>/equal 140 mm hg Marily Terrazas [employer]ENIOR [employer] DAT[employer] DEVELOPER Work Phone: Start: 12-22-2021 Psychotherapy w/bethany ent 30 minutes Chaparrita Mccullough [facility] Work Phone: Start: 12-08-2021 Current tobacco smoker Marily Terrazas SENIOR SQL DATAB[employer] DEVELOPER Work Phone: Start: 12-08-2021 Drug test prsmv read direct optical obs pr date Marily Terrazas [employer]IOR SQL DAT[employer] DEVELOPER Work Phone: Start: 12-08-2021 Most recent diastoli c blood pressure < 80 mm hg Marily Terrazas [employer]ENIOR SQL DAT[employer] DEVELOPER Work Phone: Start: 12-08-2021 Most recent systolic blood pressure <130 mm hg Marily Terrazas [employer]ENIOR SQL DAT[employer] DEVELOPER Work Phone: Start: 12-08-2021 Psychotherapy w/bethany ent 30 minutes Chaparrita Mccullough [facility] Work Phone: Start: 12-08-2021 Pt scrnd tobacco use rcvd tobacco cessation talk Marily Terrazas [employer]IOR SQL DAT[employer] DEVELOPER Work Phone: Start: 12-01-2021 Drug test prsmv read direct optical obs pr date Becca Toribio [employer]IOR SQL DAT[employer] DEVELOPER Work Phone: Start: 12-01-2021 Most recent diastol blood pres >/equal 90 mm hg Becca Toribio [employer]ENIOR SQL DAT[employer] DEVELOPER Work Phone: Start: 12-01-2021 Most recent systolic blood press 130-139mm hg Becca Toribio SENIOR SQL DATAB[employer] DEVELOPER Work Phone: Start: 12-01-2021 Psychotherapy w/bethany ent 30 minutes Afshan Akhtar [facility] Work Phone: Start: 11-23-2021 Drug test prsmv read direct optical obs pr date Becca Toribio [employer]IOR [employer] DAT[employer] DEVELOPER Work Phone: Start: 11-23-2021 Most recent diastoli c blood pressure 80-89 mm hg Becca Toribio SENIOR SQL DATAB[employer] DEVELOPER Work Phone: Start: 11-23-2021 Most recent systolic blood pressure <130 mm hg Becca Toribio [employer]ENIOR SQL DAT[employer] DEVELOPER Work Phone: Start: 11-23-2021 Psychotherapy w/bethany ent 30 minutes Afshan Akhtar [facility] Work Phone: Start: 11-20-2021 Current tobacco smoker Becca Toribio [employer]ENIOR SQL DAT[employer] DEVELOPER Work Phone: Start: 11-20-2021 Drug test prsmv read direct optical obs pr date Becca Toribio SENIOR SQL DATAB[employer] DEVELOPER Work Phone: Start: 11-20-2021 Pt scrnd tobacco use rcvd tobacco cessation talk Becca Toribio CNP Work Phone: Start: 11-13-2021 Current tobacco smoker Marily Terrazas CNP Work Phone: Start: 11-13-2021 Drug test prsmv read direct optical obs pr date Marily Terrazas CNP Work Phone: Start: 11-13-2021 Most recent diastol blood pres >/equal 90 mm hg Marily Terrazas [employer]ENIOR SQL DAT[employer] DEVELOPER Work Phone: Start: 11-13-2021 Most recent diastoli c blood pressure 80-89 mm hg Marily Terrazas SENIOR SQL DATAB[employer] DEVELOPER Work Phone: Start: 11-13-2021 Most recent systolic blood pres>/equal 140 mm hg Marily Terrazas SENIOR SQL DAT[employer] DEVELOPER Work Phone: Start: 11-13-2021 Most recent systolic blood pressure <130 mm hg Marily Terrazas CNP Work Phone: Start: 11-13-2021 Psychotherapy w/bethany ent 30 minutes Chaparrita Mccullough [facility] Work Phone: Start: 11-13-2021 Pt scrnd tobacco use rcvd tobacco cessation talk Marily Terrazas [employer]ENIOR SQL DAT[employer] DEVELOPER Work Phone: Start: 11-06-2021 Drug test prsmv read direct optical obs pr date Becca Toribio [employer]ENIOR SQL DATAB[employer] DEVELOPER Work Phone: Start: 11-06-2021 Most recent diastol blood pres >/equal 90 mm hg Becca Toribio CNP Work Phone: Start: 11-06-2021 Most recent systolic blood pressure <130 mm hg Becca Toribio CNP Work Phone: Start: 11-06-2021 Psychotherapy w/bethany ent 30 minutes Afshan Akhtar [facility] Work Phone: Start: 09-22-2021 Current tobacco smoker Becca Toribio CNP Work Phone: Start: 09-22-2021 Most recent diastoli c blood pressure 80-89 mm hg Becca Toribio CNP Work Phone: Start: 09-22-2021 Most recent systolic blood press 130-139mm hg Becca Toribio CNP Work Phone: Start: 09-22-2021 Psychotherapy w/bethany ent 30 minutes [facility] Work Phone: Start: 09-19-2021 Current tobacco smoker Becca Toribio CNP Work Phone: Start: 09-19-2021 Drug test prsmv read direct optical obs pr date Becca Louer SENIOR SQL DATAB[employer] DEVELOPER Work Phone: Start: 09-19-2021 Psychotherapy w/bethany ent 30 minutes Afshan Akhtar [facility] Work Phone: Start: 09-19-2021 Pt scrnd tobacco use rcvd tobacco cessation talk Becca Toribio SENIOR SQL DAT[employer] DEVELOPER Work Phone: Start: 09-15-2021 Psychotherapy w/bethany ent 30 minutes Dary STOVALLW Work Phone: Start: 09-15-2021 Pt scrnd tobacco use rcvd tobacco cessation talk Dary STOVALLW Work Phone: Start: 09-12-2021 Drug test prsmv read direct optical obs pr date Marily Carrionen [employer]ENIOR SQL DATABASE DEVELOPER Work Phone: Start: 09-07-2021 Drug test prsmv read direct optical obs pr date Becca Toribio [employer]IOR [employer] DAT[employer] DEVELOPER Work Phone: Start: 09-07-2021 Ear Pressure Equaliz ation Tube, Insertion, Bilaterally Becca Toribio [employer]IOR [employer] DAT[employer] DEVELOPER Work Phone: Start: 09-07-2021 Hemoglobin glycosylated a1c Becca Toribio [employer]IOR [employer] DAT[employer] DEVELOPER Work Phone: Start: 09-07-2021 Most recent diastoli c blood pressure 80-89 mm hg Becca Toribio SENIOR SQL DAT[employer] DEVELOPER Work Phone: Start: 09-07-2021 Most recent systolic blood pres>/equal 140 mm hg Becca Toribio SENIOR SQL DATAB[employer] DEVELOPER Work Phone: Start: 09-07-2021 Psychotherapy w/bethany ent 30 minutes Chaparrita Mccullough [facility] Work Phone: Start: 09-07-2021 Tonsillectomy and adenoidectomy Becca Toribio S[employer]IOR SQL DAT[employer] DEVELOPER Work Phone: Plan of Treatment Date Care Activity Detail Author Start: 10-27-2022 [facility] Start: 10-25-2022 Hospital admission [facility] Start: 03-29-2022 Medical Substance Abuse [facility] Work Phone: Start: 01-09-2022 Medical Substance Abuse [facility] Work Phone: Start: 01-03-2022 End: 01-03-2022 Patient education based on identified need [facility] offered active listening and supportive feedback; normalized emotions and feelings, also provided pt time to process current issues and sources for triggers. ~Utilized MA; supported benefits of inpatient tx. ~Discussed tx options; promoted development of sober support, use of healthy coping methods, and seeking help, when needed [facility] Start: 12-29-2021 Medical Substance Abuse [facility] Work Phone: Start: 12-27-2021 Antibody screen [facility] Start: 12-27-2021 CBC W Auto Differential panel - Blood CBC WITH DIFF [facility] Start: 12-27-2021 Lipid 1996 panel - Serum or Plasma LIPID PROFILE [facility] Start: 12-27-2021 Reagin Ab [Presence] in Serum by RPR RPR [facility] Start: 12-27-2021 Thyrotropin [Units/volume] in Serum or Plasma TSH [facility] Start: 12-22-2021 End: 12-22-2021 Patient education based on identified need [facility] Start: 12-15-2021 Medical Substance Abuse [facility] Work Phone: Start: 12-08-2021 End: 12-08-2021 Patient education based on identified need [facility] Start: 12-07-2021 Medical Substance Abuse [facility] Work Phone: Start: 12-01-2021 End: 12-01-2021 Patient education based on identified need [facility] Start: 12-01-2021 Medical Substance Abuse [facility] Work Phone: Start: 11-23-2021 End: 11-23-2021 Patient education based on identified need [facility] Start: 11-23-2021 Medical Substance Abuse [facility] Work Phone: Start: 11-20-2021 End: 11-20-2021 Patient education based on identified need [facility] Start: 11-20-2021 Medical Substance Abuse [facility] Work Phone: Start: 11-13-2021 End: 11-13-2021 Patient education based on identified need [facility] Start: 11-06-2021 End: 11-06-2021 Patient education based on identified need [facility] Start: 09-22-2021 Medical Substance Abuse [facility] Work Phone: Start: 09-22-2021 End: 09-22-2021 Patient education based on identified need [facility] Start: 09-19-2021 End: 09-19-2021 Patient education based on identified need [facility] Start: 09-19-2021 Medical Substance Abuse [facility] Work Phone: Start: 09-15-2021 End: 09-15-2021 Patient education based on identified need [facility] Start: 09-15-2021 Medical Substance Abuse [facility] Work Phone: Start: 09-12-2021 Nursing evaluation of patient and report Nurse Visit [facility] Work Phone: Start: 09-07-2021 End: 09-07-2021 Patient education based on identified need [facility] Patient Education Depression, [place] ult ([place] [facility] [place] Instructions [facility] Work Phone: Patient referral [facility] Work Phone: Payers Date Payer Category Payer Self-pay [id number] 2017 Unknown [id number] 1994 Unknown [id number] 1994 Unknown [id number] 1994 Unknown [id number] 1960 Medicaid [id number] Private Health Insurance [id number] Unknown [id number] Unknown [id number] [id number] Social History Date Type Detail Facility Assertion [facility] Assertion Gender identity finding (finding) [facility] Assertion Finding relating to sexual activity (finding) [facility] Finding of sexua l orientation (finding) [facility] Sexually active (finding) [facility] Assertion Intravenous drug user (finding) [facility] Assertion Exposure to poll ution (event) [facility] Tobacco smoking status Unknown if ever smoked [facility] Work Phone: Assertion Benzodiazepine m isuse (finding) [facility] Assertion Opiate misuse (finding) [facility] Assertion Cigarette smoker (finding) [facility] Start: 10-25-2022 Assertion Smoker (finding) [facility] Moderate cigaret te smoker (10-19 cigs/day) (finding) [facility] Assertion Lives with paren ts (finding) [facility] Assertion Emotional stress (finding) [facility] Assertion Patient has move d away (finding) [facility] Assertion Currently not se xually active (finding) [facility] Assertion Social drinker (finding) [facility] Assertion Light cigarette smoker (1-9 cigs/day) (finding) [facility] Assertion Contraception (finding) [facility] Start: 1995 Sex Assigned At Male [facility] NEGATED: Highlighted row Assertion Contraception (finding) [facility] NEGATED: Highlighted row Assertion [facility] NEGATED: Highlighted row Assertion Current drinker of alcohol (finding) [facility] NEGATED: Highlighted row Assertion Exposure to pollution (event) [facility] Work Phone: NEGATED: Highlighted row Assertion Finding relating to drug misuse behavior (finding) [facility] Goals Date Patient Goal Desired Activity /State Functional Status Date Assessment Result Facility 10-27-2022 Functional status Patient at [facility] Work Phone: Mental Status Date Assessment Result Facility 10-27-2022 Cognitive function Cognitive Sta tus Patient at [facility] Work Phone: Cognitive function Oriented to t jose, place, and person Oriented to person, time and place (finding) [facility] Work Phone: Clinical Notes 09-07-2021 to 10-27-2022 Note Date & Type Note Facility 10-27-2022 Hospital Discharg e instructions Additional Instructions Important Contact Information You can call [facility] at [phone] any time day or night if you have emergent questions concerning your inpatient stay and to obtain information for obtaining testing results. If at any time you are feeling an increase in your psychiatric symptoms, call your physician or behavioral healthcare provider. If any time you have thoughts of harming yourself or others contact one of the following: Call (available 10/09) Crisis Text Line (available 10/09) text 4HOPE to [phone] [facility] Hope Line (available 8 a.m. Midnight) call [phone] ([phone]) [facility] Work Phone: 10-26-2022 Progress note Note Date/Time October 26, 2022 1:51pm [facility] [address] [place] [address] Psychiatry Progress Note Signed Patient: Benito Land MR#: [id number] : 1995 Acct:[id number] Age/Sex: 26 / M Adm Date: 3 Loc: 1S Room: [address] [place] [address] Type : ADM IN Attending Dr: Kwan León MD Copies to: ~ Date of Service: 10/26/2022 Subjective Subjective Narrative: Mr. Land reports feeling the same since admission. He denies any SI, HI, AVH. He reports that his appetite is good and just feels sleepy . No new concerns to report. Mental Status Exam Appearance: grossly normal Mental Status: mental status grossly normal Mood: dysthymic mood Affect: dysphoric affect Speech and Movement: speech and movement normal and speech clear Attitude: cooperative Thought Process: normal Thought Content: Denied hallucinations, no homicidality, no suicidality Insight: fair Judgment: fair Patient was personally seen by me on the day of the encounter. I reviewed the history and performed the thomas elements of the physical examination. I formulated the plan of care and confirmed this with the medical student as notedbelow. Exam Physical Exam Vital Signs: Temp Pulse Resp BP Pulse Ox O2 Del Method 97.4 F L 73 16 95/56 L 96 Room Air 10/26/22 07:30 10/26/22 07:30 10/26/22 07:30 10/26/22 07:30 10/26/22 07:30 10/26/22 07:30 Objective Labs Labs: Abnormal Labs 10/26/22 06:35 25-OH Vitamin D Total 18.7 L TSH 3rd Generation 0.41 L Assessment/Plan Assessment/Plan (1) Major depressive disorder, recurrent: Code(s): F33.9 - Major depressive disorder, recurrent, unspecified Status: Acute Plan Patient presenting concern for depression and suicidal ideation History of meth and opiate use, currently sober for 7 days Continue Wellbutrin 300mg daily and increase Neurontin 600mg 3 times a day Plan for discharge tomorrow We will try to get release of information for [facility] Continue to monitor mental status Encourage group participation and medication compliance Risk benefits alternatives explained Documented By: Kwan León MD 10/26/22914 Signed By: <Electronically signed by Kwan León MD> 10/26/22 8818 [facility] Work Phone: 1(697) 852-580009-07-2023 History and physical note Author Kwan León [facility] October 25, 2022 1:46pm Note Date/Time October 25, 2022 1:46pm [facility] [address] [place] [address] Psychiatry H&P Signed Patient: Benito Land MR#: [id number] : 1995 Acct:[id number] Age/Sex: 26 / M Adm Date: 3 Loc: Room: [address] [place] [address] Type: ADM IN Attending Dr: Kwan León MD Copies to: MD Shaikh Man Kendall MD~ Date of Service: 10/25/2022 HPI History of Present Illness History of present illness: Mr. Land is a 26 year old male who reported due to depression and suicidal ideation with plan to overdose on opiates Upon assessment, patient reported that he wanted to get psych medication. He reported that he has been struggling in dealing with his substance use. He reported that he had thoughts of overdosing on opiates. He reported that he hasbeen struggling with anxiety and depression. He reported that he has been isolating and not doing much of things that he normally enjoys. He denied any current hallucinations but did report some substance-induced psychosis in the past. He stated that he does not think he has had any bipolar symptoms but it was difficult for him to know since he uses methamphetamine for the past 4 years. He reported that he is currently 7 days sober. Past psych history: Depression, anxiety Past hospitalizations: Reported prior psychiatric hospitalizations for depression and overdose Past suicide attempts: Reported intentional overdoses in the past Family psych history: Depression and anxiety Previous medications: Cymbalta, Haldol, Lamictal, lithium, Prozac, Effexor Alcohol and drug use: Reported methamphetamine use over the past 4 years and heroin use over the past 13 years Living: Homeless Employment: Unemployed Review of symptoms: Constitutional: Denies chills and Denies fever(s) Eyes: Denies change in vision ENT: Denies abnormal hearing Cardiovascular: Denies chest pain Respiratory: Denies chest congestion and Denies cough Gastrointestinal: Denies change in bowel habits Genitourinary: Denies dysuria Musculoskeletal: Denies atrophy and Denies myalgias Integumentary/Breasts: Denies dry skin Neurologic: Denies abnormal gait and Denies abnormal movements Psychiatric: Reports depression, anxiety and suicidal ideation Physical exam: Const: cooperative Nutritional Appearance: average body habitus Orientation: alert, awake and oriented x3 HEENT: Head normal to inspection, hearing grossly normal bilaterally, external nose normal, face symmetric Eyes: appearance normal, both eyes and all related structures, sclerae normal Neck: normal visual inspection and full ROM Resp: normal respiratory effort, able to speak in complete sentences and symmetric chest movement Cardio: regular rate GI: normal to inspection and non-distended : deferred Skin: no rashes or lesions noted Neuro: CNI: Normal olfaction CNI: normal olfaction CNII: Visual herrera intact, CNIII,IV,: EOM intact, no nystagmus. Pupils equal, round, reactive to light and accommodation, CNV: Sensation intact to light touch, CNVII: Raises eyebrows, smile/frown, puff out cheeks symmetrically, CNVIII: Hearing intact bilaterally, CNIX,X: Voice normal, soft palate elevation normal, symmetrical, CNXI: Shoulder shrug strong, equal bilaterally, CNXII: Tongue protrusion midline, movement symmetrical. Extrem: normal to inspection and full ROM Mental Status Exam: Appearance: grossly normal Mental Status: mental status grossly normal Mood: dysthymic and anxious mood Affect: dysphoric affect Speech and Movement: speech and movement normal and speech clear Attitude: cooperative Thought Process: normal Thought Content: Denied hallucinations, no homicidality, reported suicidality Insight: fair Judgment: fair [facility] Medical History History of heroin use History of narcotic addiction No pertinent past medical history Social History Smoking Status: Current every day smoker Tobacco Type: cigarettes Substance Use Type: Former User Substance Abuse Comment: heroin 1 week ago; occasional ETOH Social History Comments: Lives with grand parents. Meds Medications and Allergies Allergies Penicillins Allergy (Verified 01/31/21 18:44) Hives Home Medications duloxetine 30 mg capsule,delayed release (Cymbalta) 30 mg PO DAILY #30 caps 02/01/21 [Rx] Assessment/Plan (1) Major depressive disorder, recurrent: Code(s): F33.9 - Major depressive disorder, recurrent, unspecified Status: Acute Plan Patient presenting concern for depression and suicidal ideation History of meth and opiate use, currently sober for 7 days Start Wellbutrin 300 mg daily Restart Neurontin 300 mg 3 times a day We will try to get release of information for [facility] Continue to monitor mental status Encourage group participation and medication compliance Risk benefits alternatives explained Documented By: Kwan León MD 10/25/22 1343 Signed By: <Electronically signed by Kwan León MD> 10/25/22 1346 [facility] Work Phone: 1(614) 945-647211-16-2022 Evaluation note Includes: Assessments for all patient encounters Findings Encounter Date Opioid dependence BH Substance Abuse w rox [facility] 01/03/2022 Opioid dependence, on agonist therapy BH Substance Abuse with Afshan Akhtar [facility] 01/03/2022 Bipolar disorder NOS BH Substance Abuse with Chaparrita Mccullough [facility] 12/22/2021 Generalized anxiety disorder BH Substanc e Abuse with Chaparrita Mccullough [facility] 12/22/2021 Opioid dependence uncomplicated BH Subst ance Abuse with Chaparrita Mccullough [facility] 12/22/2021 [Z68.23 - Body mass index [B MA] 23.0-23.9, adult] assessment of body mass index Medical Substance Abuse with Marilyjarod Carrionen [employer]IOR [employer] DEVELOPER 12/22/2021 Opioid dependence uncomplicated Medical Substance Abuse with Mariyl Nini [employer] DAT[employer] DEVELOPER 12/22/2021 Bipolar disorder NOS BH Substance Abuse with Chaparrita Mccullough [facility] 12/08/2021 Generalized anxiety disorder BH Substanc e Abuse with Chaparrita Mccullough [facility] 12/08/2021 Opioid dependence uncomplicated BH Subst ance Abuse with Chaparrita Mccullough [facility] 12/08/2021 [Z68.23 - Body mass index [B MA] 23.0-23.9, adult] assessment of body mass index Medical Substance Abuse with Marilyjarod Carrionen S[employer]IOR SQL DAT[employer]ASE DEVELOPER 12/08/2021 Opioid dependence BH Substance Abuse w ith Afshan Akhtar [facility] 12/01/2021 Opioid dependence, on agonist therapy BH Substance Abuse with Afshan Akhtar [facility] 12/01/2021 [Body mass index [BMI] 23.0- 23.9, adult] assessment of body mass index Medical Substance Abuse with Becca Malu [employer]IOR SQL DAT[employer]ASE DEVELOPER 12/01/2021 Opioid dependence uncomplicated Medical Substance Abuse with Becca Malu [employer]IOR SQL DAT[employer] DEVELOPER 12/01/2021 Opioid dependence BH Substance Abuse w ith Afshan Akhtar [facility] 11/23/2021 Opioid dependence, on agonist therapy BH Substance Abuse with Afshan Akhtar [facility] 11/23/2021 Assessment of body mass inde x [Body mass index [BMI] 23.0-23.9, adult] Medical Substance Abuse with Becca Malu S[employer]IOR SQL DATABASE DEVELOPER 11/23/2021 Opioid dependence uncomplicated Medical Substance Abuse with Becca Malu [employer]IOR SQL DAT[employer]ASE DEVELOPER 11/23/2021 Opioid dependence BH Substance Abuse w ith Afshan Akhtar [facility] 11/20/2021 Opioid dependence, on agonist therapy BH [facility] 11/20/2021 Assessment of body mass inde x [Body mass index [BMI] 23.0-23.9, adult] Medical Substance Abuse with Becca Malu [employer]IOR SQL DAT[employer]ASE DEVELOPER 11/20/2021 Bipolar disorder NOS BH Substance Abuse with [facility]cc[facility] 11/13/2021 Generalized anxiety disorder BH Substanc e Abuse with Chap[facility]rita [facility]ccullough [facility] 11/13/2021 Opioid dependence uncomplicated BH Subst ance Abuse with Chap[facility]rita [facility]ccullough [facility] 11/13/2021 Z68.22 - Body mass index [BM I] 22.0-22.9, adult Medical Substance Abuse with Marily Terrazas [employer] SQL DAT[employer] DEVELOPER 11/13/2021 Opioid dependence BH Substance Abuse w ith Afshanjustus [facility]esAkhtar [facility] 11/06/2021 Assessment of body mass inde x [Body mass index [BMI] 22.0-22.9, adult] Medical Substance Abuse with Becca Malu [employer]IOR SQL DAT[employer]ASE DEVELOPER 11/06/2021 Opioid dependence uncomplicated Medical Substance Abuse with Becca Malu [employer]IOR SQL DAT[employer]ASE DEVELOPER 11/06/2021 Opioid dependence BH Substance Abuse w ith Afshan Cespedeserson [facility] 09/22/2021 Stimulant abuse BH Substance Abuse w ith Afshan [facility] 09/22/2021 Assessment of body mass inde x [Body mass index [BMI] 21.0-21.9, adult] Medical Substance Abuse with Becca Malu [employer]IOR SQL DAT[employer]ASE DEVELOPER 09/22/2021 Opioid dependence uncomplicated Medical Substance Abuse with Becca Malu SENIOR SQL DATABASE DEVELOPER 09/22/2021 Opioid dependence BH Substance Abuse w ith Afshan [facility] 09/19/2021 Stimulant abuse - uncomplicated BH Subst ance Abuse with Afshan [facility] 09/19/2021 Assessment of body mass inde x [Body mass index [BMI] 21.0-21.9, adult] Medical Substance Abuse with Becca Malu [employer]IOR SQL DAT[employer]ASE DEVELOPER 09/19/2021 Opioid dependence uncomplicated Medical Substance Abuse with Becca Malu [employer]IOR SQL DAT[employer] DEVELOPER 09/19/2021 Generalized anxiety disorder BH Establis hed 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 09/15/2021 Nicotine dependence continuous BH Establ ished 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 09/15/2021 Opioid dependence uncomplicated BH Estab lished Patient with Dary Clancy 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 09/15/2021 Assessment of body mass inde x [Body mass index [BMI] 19.9 or less, adult] Medical Substance Abuse with Becca Malu [employer]IOR SQL DAT[employer] DEVELOPER 09/15/2021 Opioid dependence uncomplicated Medical Substance Abuse with Becca Malu [employer]IOR [employer] DAT[employer] DEVELOPER 09/15/2021 Bipolar I disorder, most rec ent episode BH Established Patient with Chaparrita Mccullough [facility] 09/07/2021 Generalized anxiety disorder Establis hed Patient with Chaparrita Mccullough [facility] 09/07/2021 Opioid dependence uncomplicated Estab lished Patient with Chaparrita Mccullough [facility] 09/07/2021 Assessment of body mass inde x [Body mass index [BMI] 23.0-23.9, adult] Medical New Patient with Becca Malu [employer]IOR [employer] DAT[employer] DEVELOPER 09/07/2021 Bipolar disorder NOS Medical New Patient with Becca Malu [employer]IOR SQL DAT[employer] DEVELOPER 09/07/2021 Diabetes Risk Test Score was 1.0 score 09/07/2021 Medical New Patient with Becca Malu [employer]IOR [employer] DAT[employer] DEVELOPER 09/07/2021 Generalized anxiety disorder Medical New Patient with Becca Malu [employer]IOR SQL DAT[employer] DEVELOPER 09/07/2021 Opioid dependence uncomplicated Medical New Patient with Becca Malu [employer]IOR SQL DAT[employer] DEVELOPER 09/07/2021 Screening for HIV Medical New Patient with Becca Malu [employer]IOR SQL DAT[employer] DEVELOPER 09/07/2021 [facility] Work Phone: 1(801) 591-888511-16-2022 Evaluation note Includes: Assessments for all patient encounters Findings Encounter Date Opioid dependence Substance Abuse with Afshan Akhtar [facility] 01/03/2022 Last Documented On 2 6:52AM ; [facility] Opioid dependence, on agonist therapy Substance Abuse with Afshan Akhtar [facility] 01/03/2022 Last Documented On 2 6:52AM ; [facility] Bipolar disorder NOS Substance Abuse with Flor herine Mccullough [facility] 12/22/2021 Last Documented On 2 10:49PM ; [facility] Generalized anxiety disorder Substanc e Abuse with Chaparrita Mccullough [facility] 12/22/2021 Last Documented On 2 10:49PM ; [facility] Opioid dependence uncomplicated BH Subst ance Abuse with Chaparrita Mccullough [facility] 12/22/2021 Last Documented On 2 10:49PM ; [facility] [Z68.23 - Body mass index [B MA] 23.0-23.9, adult] assessment of body mass index Medical Substance Abuse with Marily Nini [employer]IOR SQL DAT[employer] DEVELOPER 12/22/2021 Last Documented On 2 3:34PM ; [facility] Opioid dependence uncomplicated Medical Substance Abuse with Marily Nini [employer]IOR SQL DAT[employer] DEVELOPER 12/22/2021 Last Documented On 2 3:34PM ; [facility] Bipolar disorder NOS BH Substance Abuse with Flor herine Mccullough [facility] 12/08/2021 Last Documented On 2 11:37PM ; [facility] Generalized anxiety disorder BH Substanc e Abuse with Chaparrita Mccullough [facility] 12/08/2021 Last Documented On 2 11:37PM ; [facility] Opioid dependence uncomplicated BH Subst ance Abuse with Chaparrita Mccullough [facility] 12/08/2021 Last Documented On 2 11:37PM ; [facility] [Z68.23 - Body mass index [B MA] 23.0-23.9, adult] assessment of body mass index Medical Substance Abuse with Marily Nini [employer]IOR SQL DAT[employer] DEVELOPER 12/08/2021 Last Documented On 2 1:47PM ; [facility] Opioid dependence BH Substance Abuse with Afshan Akhtar [facility] 12/01/2021 Last Documented On 2 10:18AM ; [facility] Opioid dependence, on agonist therapy BH Substance Abuse with Afshan Akhtar [facility] 12/01/2021 Last Documented On 2 10:18AM ; [facility] [Body mass index [BMI] 23.0- 23.9, adult] assessment of body mass index Medical Substance Abuse with Becca Malu SENIOR SQL DATABASE DEVELOPER 12/01/2021 Last Documented On 2 5:45AM ; [facility] Opioid dependence uncomplicated Medical Substance Abuse with Becca Malu SENIOR SQL DATABASE DEVELOPER 12/01/2021 Last Documented On 2 5:45AM ; [facility] Opioid dependence Substance Abuse with Afshan Akhtar [facility] 11/23/2021 Last Documented On 2 10:30AM ; [facility] Opioid dependence, on agonist therapy BH Substance Abuse with Afshan Akhtar [facility] 11/23/2021 Last Documented On 2 10:30AM ; [facility] Assessment of body mass inde x [Body mass index [BMI] 23.0-23.9, adult] Medical Substance Abuse with Becca Malu SENIOR SQL DATABASE DEVELOPER 11/23/2021 Last Documented On 2 11:27AM ; [facility] Opioid dependence uncomplicated Medical Substance Abuse with Becca Malu SENIOR SQL DATABASE DEVELOPER 11/23/2021 Last Documented On 2 11:27AM ; [facility] Opioid dependence BH Substance Abuse with Afshan Akhtar [facility] 11/20/2021 Last Documented On 2 10:45AM ; [facility] Opioid dependence, on agonist therapy Substance Abuse with Afshan Akhtar [facility] 11/20/2021 Last Documented On 2 10:45AM ; [facility] Assessment of body mass inde x [Body mass index [BMI] 23.0-23.9, adult] Medical Substance Abuse with Becca Malu SENIOR SQL DATABASE DEVELOPER 11/20/2021 Last Documented On 2 5:17AM ; [facility] Bipolar disorder NOS Substance Abuse with Flor herine Mccullough [facility] 11/13/2021 Last Documented On 2 11:27PM ; [facility] Generalized anxiety disorder BH Substanc e Abuse with Chaparrita Mccullough [facility] 11/13/2021 Last Documented On 2 11:27PM ; [facility] Opioid dependence uncomplicated Subst ance Abuse with Chaparrita Mccullough [facility] 11/13/2021 Last Documented On 2 11:27PM ; [facility] Z68.22 - Body mass index [BM I] 22.0-22.9, adult Medical Substance Abuse with Marily Terrazas SENIOR SQL DATABASE DEVELOPER 11/13/2021 Last Documented On 2 5:29PM ; [facility] Opioid dependence Substance Abuse with Afshanjustus CespedesAkhtar [facility] 11/06/2021 Last Documented On 2 2:46PM ; [facility] Assessment of body mass inde x [Body mass index [BMI] 22.0-22.9, adult] Medical Substance Abuse with Becca Malu SENIOR SQL DATABASE DEVELOPER 11/06/2021 Last Documented On 2 6:00AM ; [facility] Opioid dependence uncomplicated Medical Substance Abuse with Becca Malu SENIOR SQL DATABASE DEVELOPER 11/06/2021 Last Documented On 2 6:00AM ; [facility] Opioid dependence Substance Abuse with Afshan Akhtar [facility] 09/22/2021 Last Documented On 2 12:51PM ; [facility] Stimulant abuse Substance Abuse with Afshanjustus alexanderannamarie [facility] 09/22/2021 Last Documented On 2 12:51PM ; [facility] Assessment of body mass inde x [Body mass index [BMI] 21.0-21.9, adult] Medical Substance Abuse with Becca Malu SENIOR SQL DATABASE DEVELOPER 09/22/2021 Last Documented On 2 1:56PM ; [facility] Opioid dependence uncomplicated Medical Substance Abuse with Becca Malu SENIOR SQL DATABASE DEVELOPER 09/22/2021 Last Documented On 2 1:56PM ; [facility] Opioid dependence BH Substance Abuse with Afshan Akhtar [facility] 09/19/2021 Last Documented On 2 12:56PM ; [facility] Stimulant abuse - uncomplicated Subst ance Abuse with Afshan Akhtar [facility] 09/19/2021 Last Documented On 2 12:56PM ; [facility] Assessment of body mass inde x [Body mass index [BMI] 21.0-21.9, adult] Medical Substance Abuse with Becca Malu SENIOR SQL DATABASE DEVELOPER 09/19/2021 Last Documented On 2 7:23PM ; [facility] Opioid dependence uncomplicated Medical Substance Abuse with Becca Malu SENIOR SQL DATABASE DEVELOPER 09/19/2021 Last Documented On 2 7:23PM ; [facility] Generalized anxiety disorder Established [place] ent with Adry Port Jervis 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 09/15/2021 Last Documented On 2 9:37AM ; [facility] Nicotine dependence continuous BH Establ ished 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 09/15/2021 Last Documented On 2 9:37AM ; [facility] Opioid dependence uncomplicated BH Estab lished 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 09/15/2021 Last Documented On 2 9:37AM ; [facility] Assessment of body mass inde x [Body mass index [BMI] 19.9 or less, adult] Medical Substance Abuse with Becca Malu SENIOR SQL DATABASE DEVELOPER 09/15/2021 Last Documented On 2 5:46AM ; [facility] Opioid dependence uncomplicated Medical Substance Abuse with Becca Malu SENIOR SQL DATABASE DEVELOPER 09/15/2021 Last Documented On 2 5:46AM ; [facility] Bipolar I disorder, most rec ent episode BH Established Patient with Chaparrita Mccullough [facility] 09/07/2021 Last Documented On 2 9:13PM ; [facility] Generalized anxiety disorder Establis hed Patient with Chaparrita Mccullough [facility] 09/07/2021 Last Documented On 2 9:13PM ; [facility] Opioid dependence uncomplicated Estab lished Patient with Chaparrita Mccullough [facility] 09/07/2021 Last Documented On 2 9:13PM ; [facility] Assessment of body mass inde x [Body mass index [BMI] 23.0-23.9, adult] Medical New Patient with Becca Malu SENIOR SQL DATABASE DEVELOPER 09/07/2021 Last Documented On 2 9:40AM ; [facility] Bipolar disorder NOS Medical New Patient with Ca ssie Malu SENIOR SQL DATABASE DEVELOPER 09/07/2021 Last Documented On 2 9:40AM ; [facility] Diabetes Risk Test Score was 1.0 score 09/07/2021 Medical New Patient with Becca Malu SENIOR SQL DATABASE DEVELOPER 09/07/2021 Last Documented On 2 9:40AM ; [facility] Generalized anxiety disorder Medical New Patient with Becca Malu SENIOR SQL DATABASE DEVELOPER 09/07/2021 Last Documented On 2 9:40AM ; [facility] Opioid dependence uncomplicated Medical New [place] ent with Becca Malu SENIOR SQL DATABASE DEVELOPER 09/07/2021 Last Documented On 2 9:40AM ; [facility] Screening for HIV Medical New Patient with Kimberly e Malu SENIOR SQL DATABASE DEVELOPER 09/07/2021 Last Documented On 2 9:40AM ; [facility] Work Phone: 1(697) 927-864511-04-2022 Evaluation note Includes: Assessments for all patient encounters Findings Encounter Date Bipolar disorder NOS Substance Abuse with Chaparrita Mccullough [facility] 12/22/2021 Generalized anxiety disorder BH Substanc e Abuse with Chaparrita Mccullough [facility] 12/22/2021 Opioid dependence uncomplicated BH Subst ance Abuse with Chaparrita Mccullough [facility] 12/22/2021 [Z68.23 - Body mass index [B MA] 23.0-23.9, adult] assessment of body mass index Medical Substance Abuse with Marily Nini SENIOR SQL DATABASE DEVELOPER 12/22/2021 Opioid dependence uncomplicated Medical Substance Abuse with Marily Nini SENIOR SQL DAT[employer]ASE DEVELOPER 12/22/2021 Bipolar disorder NOS BH Substance Abuse with Chaparrita Mccullough [facility] 12/08/2021 Generalized anxiety disorder BH Substanc e Abuse with Chaparrita Mccullough [facility] 12/08/2021 Opioid dependence uncomplicated BH Subst ance Abuse with Chaparrita Mccullough [facility] 12/08/2021 [Z68.23 - Body mass index [B MA] 23.0-23.9, adult] assessment of body mass index Medical Substance Abuse with Marily Nini SENIOR SQL DATABASE DEVELOPER 12/08/2021 Opioid dependence BH Substance Abuse w ith Afshan Akhtar [facility] 12/01/2021 Opioid dependence, on agonist therapy BH Substance Abuse with Afshanjustus Akhtar [facility] 12/01/2021 [Body mass index [BMI] 23.0- 23.9, adult] assessment of body mass index Medical Substance Abuse with Becca Malu SENIOR SQL DATABASE DEVELOPER 12/01/2021 Opioid dependence uncomplicated Medical Substance Abuse with Becca Malu SENIOR SQL DATABASE DEVELOPER 12/01/2021 Opioid dependence BH Substance Abuse w ith Afshan Akhtar [facility] 11/23/2021 Opioid dependence, on agonist therapy BH Substance Abuse with Afshan Akhtar [facility] 11/23/2021 Assessment of body mass inde x [Body mass index [BMI] 23.0-23.9, adult] Medical Substance Abuse with Becca Malu SENIOR SQL DATABASE DEVELOPER 11/23/2021 Opioid dependence uncomplicated Medical Substance Abuse with Becca Malu SENIOR SQL DATABASE DEVELOPER 11/23/2021 Opioid dependence BH Substance Abuse w ith Afsahn Akhtar [facility] 11/20/2021 Opioid dependence, on agonist therapy BH Substance Abuse with Afshan Akhtar [facility] 11/20/2021 Assessment of body mass inde x [Body mass index [BMI] 23.0-23.9, adult] Medical Substance Abuse with Becca Malu SENIOR SQL DATABASE DEVELOPER 11/20/2021 Bipolar disorder NOS BH Substance Abuse with Chaparrita Mccullough [facility] 11/13/2021 Generalized anxiety disorder BH Substanc e Abuse with Chaparrita Mccullough [facility] 11/13/2021 Opioid dependence uncomplicated BH Subst ance Abuse with Chaparrita Mccullough [facility] 11/13/2021 Z68.22 - Body mass index [BM I] 22.0-22.9, adult Medical Substance Abuse with Marily Terrazas SENIOR SQL DATABASE DEVELOPER 11/13/2021 Opioid dependence BH Substance Abuse w ith Afshan Akhtar [facility] 11/06/2021 Assessment of body mass inde x [Body mass index [BMI] 22.0-22.9, adult] Medical Substance Abuse with Becca Malu SENIOR SQL DATABASE DEVELOPER 11/06/2021 Opioid dependence uncomplicated Medical Substance Abuse with Becca Malu SENIOR SQL DATABASE DEVELOPER 11/06/2021 Opioid dependence BH Substance Abuse w ith Afshan Akhtar [facility] 09/22/2021 Stimulant abuse BH Substance Abuse w ith Afshan Akhtar [facility] 09/22/2021 Assessment of body mass inde x [Body mass index [BMI] 21.0-21.9, adult] Medical Substance Abuse with Becca Malu SENIOR SQL DATABASE DEVELOPER 09/22/2021 Opioid dependence uncomplicated Medical Substance Abuse with Becca Malu SENIOR SQL DATABASE DEVELOPER 09/22/2021 Opioid dependence BH Substance Abuse w ith Afshan Akhtar [facility] 09/19/2021 Stimulant abuse - uncomplicated BH Subst ance Abuse with Afshan Akhtar [facility] 09/19/2021 Assessment of body mass inde x [Body mass index [BMI] 21.0-21.9, adult] Medical Substance Abuse with Becca Malu SENIOR SQL DATABASE DEVELOPER 09/19/2021 Opioid dependence uncomplicated Medical Substance Abuse with Becca Malu SENIOR SQL DATABASE DEVELOPER 09/19/2021 Generalized anxiety disorder Establis hed 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 09/15/2021 Nicotine dependence continuous BH Establ ished 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 09/15/2021 Opioid dependence uncomplicated BH Estab lished 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 09/15/2021 Assessment of body mass inde x [Body mass index [BMI] 19.9 or less, adult] Medical Substance Abuse with Becca Malu SENIOR SQL DATABASE DEVELOPER 09/15/2021 Opioid dependence uncomplicated Medical Substance Abuse with Becca Malu SENIOR SQL DATABASE DEVELOPER 09/15/2021 Bipolar I disorder, most rec ent episode Established Patient with Chaparrita Mccullough [facility] 09/07/2021 Generalized anxiety disorder Establis hed Patient with Chaparrita Mccullough [facility] 09/07/2021 Opioid dependence uncomplicated Estab lished Patient with Chaparrita Mccullough [facility] 09/07/2021 Assessment of body mass inde x [Body mass index [BMI] 23.0-23.9, adult] Medical New Patient with Becca Malu SENIOR SQL DATABASE DEVELOPER 09/07/2021 Bipolar disorder NOS Medical New Patient with Becca Malu SENIOR SQL DATABASE DEVELOPER 09/07/2021 Diabetes Risk Test Score was 1.0 score 09/07/2021 Medical New Patient with Becca Malu SENIOR SQL DATABASE DEVELOPER 09/07/2021 Generalized anxiety disorder Medical New Patient with Becca Malu SENIOR SQL DATABASE DEVELOPER 09/07/2021 Opioid dependence uncomplicated Medical New Patient with Becca Malu SENIOR SQL DATABASE DEVELOPER 09/07/2021 Screening for HIV Medical New Patient with Becca Malu SENIOR SQL DATABASE DEVELOPER 09/07/2021 [facility] Work Phone: 1(199) 754-722011-04-2022 Reason for referral (narrative)* Date Encounter Description Provider Reason for Referral 12/22/21 Medical Substance Abuse Marily Terrazas CNP Referral To Mental Health Team 09/22/21 Substance Abuse Afshan Akhtar [facility]-S Referral To Mental Health Team 09/07/21 Established Patient Chaparritaandrez Rangelmons [facility]-S Referral To Mental Health Team [facility] Work Phone: 1(817) 623-886510-21-2022 Evaluation note Includes: Assessments for all patient encounters Findings Encounter Date Bipolar disorder NOS BH Substance Abuse with Chaparrita Mccullough [facility] 12/08/2021 Generalized anxiety disorder BH Substanc e Abuse with Chaparrita Mccullough [facility]-S 12/08/2021 Opioid dependence uncomplicated BH Subst ance Abuse with Chaparrita Mccullough [facility]-S 12/08/2021 [Z68.23 - Body mass index [B MA] 23.0-23.9, adult] assessment of body mass index Medical Substance Abuse with Marily Terrazas SENIOR SQL DATABASE DEVELOPER 12/08/2021 Opioid dependence BH Substance Abuse w ith Afshan Akhtar [facility] 12/01/2021 Opioid dependence, on agonist therapy BH Substance Abuse with Afshan Akhtar [facility] 12/01/2021 [Body mass index [BMI] 23.0- 23.9, adult] assessment of body mass index Medical Substance Abuse with Becca Malu SENIOR SQL DATABASE DEVELOPER 12/01/2021 Opioid dependence uncomplicated Medical Substance Abuse with Becca Malu SENIOR SQL DATABASE DEVELOPER 12/01/2021 Opioid dependence BH Substance Abuse w ith Afshan Akhtar [facility]-S 11/23/2021 Opioid dependence, on agonist therapy BH Substance Abuse with Afshan Akhatr LPCC-S 11/23/2021 Assessment of body mass inde x [Body mass index [BMI] 23.0-23.9, adult] Medical Substance Abuse with Becca Malu SENIOR SQL DATABASE DEVELOPER 11/23/2021 Opioid dependence uncomplicated Medical Substance Abuse with Becca Malu SENIOR SQL DATABASE DEVELOPER 11/23/2021 Opioid dependence BH Substance Abuse w ith Afshan Akhtar [facility]-S 11/20/2021 Opioid dependence, on agonist therapy BH Substance Abuse with Afshan Akhtar [facility] 11/20/2021 Assessment of body mass inde x [Body mass index [BMI] 23.0-23.9, adult] Medical Substance Abuse with Becca Malu SENIOR SQL DATABASE DEVELOPER 11/20/2021 Bipolar disorder NOS BH Substance Abuse with Chaparrita Mccullough [facility]-S 11/13/2021 Generalized anxiety disorder BH Substanc e Abuse with Chaparrita Mccullough LP[facility]-S 11/13/2021 Opioid dependence uncomplicated BH Subst ance Abuse with Chaparrita Mccullough LP[facility]-S 11/13/2021 Z68.22 - Body mass index [BM I] 22.0-22.9, adult Medical Substance Abuse with Marily Nini SENIOR SQL DATABASE DEVELOPER 11/13/2021 Opioid dependence BH Substance Abuse w ith Afshan Cespedeserson [facility]-S 11/06/2021 Assessment of body mass inde x [Body mass index [BMI] 22.0-22.9, adult] Medical Substance Abuse with Becca Malu SENIOR SQL DATABASE DEVELOPER 11/06/2021 Opioid dependence uncomplicated Medical Substance Abuse with Becca Malu SENIOR SQL DATABASE DEVELOPER 11/06/2021 Opioid dependence BH Substance Abuse w ith Afshan Cespedeserson [facility]-S 09/22/2021 Stimulant abuse BH Substance Abuse w ith Afshan Akhtar [facility] 09/22/2021 Assessment of body mass inde x [Body mass index [BMI] 21.0-21.9, adult] Medical Substance Abuse with Becca Malu SENIOR SQL DATABASE DEVELOPER 09/22/2021 Opioid dependence uncomplicated Medical Substance Abuse with Becca Malu SENIOR SQL DATABASE DEVELOPER 09/22/2021 Opioid dependence BH [facility]/2021 Stimulant abuse - uncomplicated BH Subst ance Abuse with Afshan Akhtar [facility] 09/19/2021 Assessment of body mass inde x [Body mass index [BMI] 21.0-21.9, adult] Medical Substance Abuse with Becca Malu SENIOR SQL DATABASE DEVELOPER 09/19/2021 Opioid dependence uncomplicated Medical Substance Abuse with Becca Malu SENIOR SQL DATABASE DEVELOPER 09/19/2021 Generalized anxiety disorder BH Establis hed 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 09/15/2021 Nicotine dependence continuous BH Establ ished 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 09/15/2021 Opioid dependence uncomplicated BH Estab lished 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 09/15/2021 Assessment of body mass inde x [Body mass index [BMI] 19.9 or less, adult] Medical Substance Abuse with Becca Malu SENIOR SQL DATABASE DEVELOPER 09/15/2021 Opioid dependence uncomplicated Medical Substance Abuse with Becca Malu SENIOR SQL DATABASE DEVELOPER 09/15/2021 Bipolar I disorder, most rec ent episode BH Established Patient with Chaparrita Mccullough [facility]-S 09/07/2021 Generalized anxiety disorder BH Establis hed Patient with Chaparrita Mccullough [facility]-S 09/07/2021 Opioid dependence uncomplicated BH Estab lished Patient with Chaparrita Rangelmons [facility]-S 09/07/2021 Assessment of body mass inde x [Body mass index [BMI] 23.0-23.9, adult] Medical New Patient with Becca Louer SENIOR SQL DATABASE DEVELOPER 09/07/2021 Bipolar disorder NOS Medical New Patient with Becca Malu SENIOR SQL DATABASE DEVELOPER 09/07/2021 Diabetes Risk Test Score was 1.0 score 09/07/2021 Medical New Patient with Becca Malu SENIOR SQL DATABASE DEVELOPER 09/07/2021 Generalized anxiety disorder Medical New Patient with Becca Malu SENIOR SQL DATABASE DEVELOPER 09/07/2021 Opioid dependence uncomplicated Medical New Patient with Becca Malu SENIOR SQL DATABASE DEVELOPER 09/07/2021 Screening for HIV Medical New Patient with Becca Malu SENIOR SQL DATABASE DEVELOPER 09/07/2021 [facility] Work Phone: [phone]) 908-386310-17-2022 History general Narrative - Reported Includes: Medical History in patient's chart Description Last Updated No suicidal ideation 12/04/2021 No suicidal intent 12/04/2021 No suicidal plans 12/04/2021 Has sex without a condom 09/07/2021 Not planning to have a baby in the next 12 months 09/07/2021 Partners sexually transmitted infection status known 09/07/2021 History of extraction of wisdom tooth History of tooth extraction 09/07/2021 History of anxiety disorder NOS 09/08/19 History of coronary artery disease 09/07 History of depression 09/07/2021 History of diabetes mellitus 09/07/2021 History of psychiatric disorders 022 No previous hospitalizations 09/07/2021 [facility] Work Phone: 1(144) 302-238310-17-2022 History general Narrative - Reported Includes: Medical History in patient's chart Description Last Updated No suicidal ideation 12/04/2021 Last Documented On 2 10:18AM ; [facility] No suicidal intent 12/04/2021 Last Documented On 2 10:18AM ; [facility] No suicidal plans 12/04/2021 Last Documented On 2 10:18AM ; [facility] Has sex without a condom 09/07/2021 Last Documented On 2 9:13PM ; [facility] Not planning to have a baby in the next 12 months 09/07/2021 Last Documented On 2 9:13PM ; [facility] Partners sexually transmitted infection status known 09/07/2021 Last Documented On 2 9:13PM ; [facility] History of extraction of wisdom tooth Last Documented On 2 9:40AM ; [facility] History of tooth extraction 09/07/2021 Last Documented On 2 9:40AM ; [facility] History of anxiety disorder NOS 09/08/19 Last Documented On 2 9:40AM ; [facility] History of coronary artery disease 09/07 Last Documented On 2 9:40AM ; [facility] History of depression 09/07/2021 Last Documented On 2 9:40AM ; [facility] History of diabetes mellitus 09/07/2021 Last Documented On 2 9:40AM ; [facility] History of psychiatric disorders 022 Last Documented On 2 9:40AM ; [facility] No previous hospitalizations 09/07/2021 Last Documented On 2 9:40AM ; [facility] Work Phone: [phone]) 578-259910-14-2022 Evaluation note Includes: Assessments for all patient encounters Findings Encounter Date Opioid dependence BH Substance Abuse w ith Afshan Akhtar [facility] 12/01/2021 Opioid dependence, on agonist therapy BH [facility]/01/[facility]21 [Body mass index [BMI] 23.0- 23.9, adult] assessment of body mass index Medical Substance Abuse with Becca Toribio SENIOR SQL DATABASE DEVELOPER 12/01/2021 Opioid dependence uncomplicated Medical Substance Abuse with Becca Toribio SENIOR SQL DATABASE DEVELOPER 12/01/2021 Opioid dependence BH Substance Abuse w ith Afshan Akhtar [facility] 11/23/2021 Opioid dependence, on agonist therapy BH Substance [facility] 11/23/2021 Assessment of body mass inde x [Body mass index [BMI] 23.0-23.9, adult] Medical Substance Abuse with Becca Malu SENIOR SQL DATABASE DEVELOPER 11/23/2021 Opioid dependence uncomplicated Medical Substance Abuse with Becca Malu SENIOR SQL DATABASE DEVELOPER 11/23/2021 Opioid dependence BH Substance Abuse w ith Afshanjustus CespedesAkhtar LPCC-S 11/20/2021 Opioid dependence, on agonist therapy BH Substance Abuse with Afshan Akhtar [facility] 11/20/2021 Assessment of body mass inde x [Body mass index [BMI] 23.0-23.9, adult] Medical Substance Abuse with Becca Malu SENIOR SQL DATABASE DEVELOPER 11/20/2021 Bipolar disorder NOS BH Substance Abuse with [facility] 11/13/2021 Generalized anxiety disorder BH Substanc e Abuse with Chaparrita Mccullough [facility] 11/13/2021 Opioid dependence uncomplicated BH Subst ance Abuse with [facility]rita [facility]ccull[facility] 11/13/2021 Z68.22 - Body mass index [BM I] 22.0-22.9, adult Medical Substance Abuse with Marily Terrazas SENIOR SQL DATABASE DEVELOPER 11/13/2021 Opioid dependence BH Substance Abuse w ith [facility]an [facility]erson [facility] 11/06/2021 Assessment of body mass inde x [Body mass index [BMI] 22.0-22.9, adult] Medical Substance Abuse with Becca Malu SENIOR SQL DATABASE DEVELOPER 11/06/2021 Opioid dependence uncomplicated Medical Substance Abuse with Becca Malu SENIOR SQL DATABASE DEVELOPER 11/06/2021 Opioid dependence BH Substance Abuse w ith [facility] 09/22/2021 Stimulant abuse BH Substance Abuse w ith Afshan Akhtar [facility] 09/22/2021 Assessment of body mass inde x [Body mass index [BMI] 21.0-21.9, adult] Medical Substance Abuse with Becca Malu SENIOR SQL DATABASE DEVELOPER 09/22/2021 Opioid dependence uncomplicated Medical Substance Abuse with Becca Malu SENIOR SQL DATABASE DEVELOPER 09/22/2021 Opioid dependence BH Substance Abuse w ith Afshan Akhtar [facility] 09/19/2021 Stimulant abuse - uncomplicated BH Subst ance Abuse with Afshan Akhtar [facility] 09/19/2021 Assessment of body mass inde x [Body mass index [BMI] 21.0-21.9, adult] Medical Substance Abuse with Becca Malu SENIOR SQL DATABASE DEVELOPER 09/19/2021 Opioid dependence uncomplicated Medical Substance Abuse with Becca Malu SENIOR SQL DATABASE DEVELOPER 09/19/2021 Generalized anxiety disorder BH Establis hed 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 09/15/2021 Nicotine dependence continuous BH Establ ished 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 09/15/2021 Opioid dependence uncomplicated BH Estab lished 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 09/15/2021 Assessment of body mass inde x [Body mass index [BMI] 19.9 or less, adult] Medical Substance Abuse with Becca Malu SENIOR SQL DATABASE DEVELOPER 09/15/2021 Opioid dependence uncomplicated Medical Substance Abuse with Becca Malu SENIOR SQL DATABASE DEVELOPER 09/15/2021 Bipolar I disorder, most rec ent episode Established Patient with Chaparrita Mccullough [facility] 09/07/2021 Generalized anxiety disorder Establis hed Patient with Chaparrita Mccullough [facility] 09/07/2021 Opioid dependence uncomplicated BH Estab lished Patient with Chaparrita Mccullough [facility] 09/07/2021 Assessment of body mass inde x [Body mass index [BMI] 23.0-23.9, adult] Medical New Patient with Becca Malu SENIOR SQL DATABASE DEVELOPER 09/07/2021 Bipolar disorder NOS Medical New Patient with Becca Malu SENIOR SQL DATABASE DEVELOPER 09/07/2021 Diabetes Risk Test Score was 1.0 score 09/07/2021 Medical New Patient with Becca Malu SENIOR SQL DATABASE DEVELOPER 09/07/2021 Generalized anxiety disorder Medical New Patient with Becca Malu SENIOR SQL DATABASE DEVELOPER 09/07/2021 Opioid dependence uncomplicated Medical New Patient with Becca Malu SENIOR SQL DATABASE DEVELOPER 09/07/2021 Screening for HIV Medical New Patient with Becca Malu SENIOR SQL DATABASE DEVELOPER 09/07/2021 [facility] Work Phone: [phone]) [phone] Evaluation note Includes: Assessments for all patient encounters Findings Encounter Date [Z68.23 - Body mass index [B MA] 23.0-23.9, adult] assessment of body mass index Medical Substance Abuse with Marily Terrazas SENIOR SQL DATABASE DEVELOPER 12/08/2021 Opioid dependence BH Substance Abuse w rox Akhtar [facility] 12/01/2021 Opioid dependence, on agonist therapy BH Substance Abuse with Afshan Akhtar [facility] 12/01/2021 [Body mass index [BMI] 23.0- 23.9, adult] assessment of body mass index Medical Substance Abuse with Becca Malu SENIOR SQL DATABASE DEVELOPER 12/01/2021 Opioid dependence uncomplicated Medical Substance Abuse with Becca Malu SENIOR SQL DATABASE DEVELOPER 12/01/2021 Opioid dependence BH Substance Abuse w ith Afshan Cespedeserson [facility] 11/23/2021 Opioid dependence, on agonist therapy BH Substance Abuse with Afshan Cespedeserson [facility] 11/23/2021 Assessment of body mass inde x [Body mass index [BMI] 23.0-23.9, adult] Medical Substance Abuse with Becca Malu SENIOR SQL DATABASE DEVELOPER 11/23/2021 Opioid dependence uncomplicated Medical Substance Abuse with Becca Malu SENIOR SQL DATABASE DEVELOPER 11/23/2021 Opioid dependence BH Substance Abuse w ith Afshan Cespedeserson [facility] 11/20/2021 Opioid dependence, on agonist therapy BH Substance Abuse with Afshan Akhtar [facility] 11/20/2021 Assessment of body mass inde x [Body mass index [BMI] 23.0-23.9, adult] Medical Substance Abuse with Becca Malu SENIOR SQL DATABASE DEVELOPER 11/20/2021 Bipolar disorder NOS BH Substance Abuse with Chaparrita Mccullough [facility] 11/13/2021 Generalized anxiety disorder BH Substanc e Abuse with Chaparrita Mccullough [facility] 11/13/2021 Opioid dependence uncomplicated BH Subst ance Abuse with Chaparrita Mccullough [facility] 11/13/2021 Z68.22 - Body mass index [BM I] 22.0-22.9, adult Medical Substance Abuse with Marily Terrazas SENIOR SQL DATABASE DEVELOPER 11/13/2021 Opioid dependence BH Substance Abuse w ith Afshan Cespedeserson [facility] 11/06/2021 Assessment of body mass inde x [Body mass index [BMI] 22.0-22.9, adult] Medical Substance Abuse with Becca Malu SENIOR SQL DATABASE DEVELOPER 11/06/2021 Opioid dependence uncomplicated Medical Substance Abuse with Becca Malu SENIOR SQL DATABASE DEVELOPER 11/06/2021 Opioid dependence BH Substance Abuse w ith Afshan Cespedeserson [facility] 09/22/2021 Stimulant abuse BH Substance Abuse w [facility] Afshan Akhtar [facility] 09/22/2021 Assessment of body mass inde x [Body mass index [BMI] 21.0-21.9, adult] Medical Substance Abuse with Becca Malu SENIOR SQL DATABASE DEVELOPER 09/22/2021 Opioid dependence uncomplicated Medical Substance Abuse with Becca Malu SENIOR SQL DATABASE DEVELOPER 09/22/2021 Opioid dependence Substance Abuse w ith Afshan Akhtar [facility] 09/19/2021 Stimulant abuse - uncomplicated Subst ance Abuse with Afshanjustus CespedesAkhtar [facility]-S 09/19/2021 Assessment of body mass inde x [Body mass index [BMI] 21.0-21.9, adult] Medical Substance Abuse with Becca Malu SENIOR SQL DATABASE DEVELOPER 09/19/2021 Opioid dependence uncomplicated Medical Substance Abuse with Becca Malu SENIOR SQL DATABASE DEVELOPER 09/19/2021 Generalized anxiety disorder Establis hed 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 09/15/2021 Nicotine dependence continuous Establ ished 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 09/15/2021 Opioid dependence uncomplicated BH Estab lished 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 09/15/2021 Assessment of body mass inde x [Body mass index [BMI] 19.9 or less, adult] Medical Substance Abuse with Becca Malu SENIOR SQL DATABASE DEVELOPER 09/15/2021 Opioid dependence uncomplicated Medical Substance Abuse with Becca Malu SENIOR SQL DATABASE DEVELOPER 09/15/2021 Bipolar I disorder, most rec ent episode Established Patient with Chaparrita Mccullough [facility] 09/07/2021 Generalized anxiety disorder Establis hed Patient with Chaparrita Mccullough [facility] 09/07/2021 Opioid dependence uncomplicated BH Estab lished Patient with Chaparrita Mccullough [facility] 09/07/2021 Assessment of body mass inde x [Body mass index [BMI] 23.0-23.9, adult] Medical New Patient with Becca Malu SENIOR SQL DATABASE DEVELOPER 09/07/2021 Bipolar disorder NOS Medical New Patient with Becca Malu SENIOR SQL DATABASE DEVELOPER 09/07/2021 Diabetes Risk Test Score was 1.0 score 09/07/2021 Medical New Patient with Becca Malu SENIOR SQL DATABASE DEVELOPER 09/07/2021 Generalized anxiety disorder Medical New Patient with Becca Malu SENIOR SQL DATABASE DEVELOPER 09/07/2021 Opioid dependence uncomplicated Medical New Patient with Becca Malu SENIOR SQL DATABASE DEVELOPER 09/07/2021 Screening for HIV Medical New Patient with Becca Malu SENIOR SQL DATABASE DEVELOPER 09/07/2021 [facility] Work Phone: 1(680) 324-124410-03-2022 Evaluation note Includes: Assessments for all patient encounters Findings Encounter Date Opioid dependence BH Substance Abuse w ith Afshan Cespedeserson [facility] 11/20/2021 Opioid dependence, on agonist therapy BH Substance Abuse with Afshan Akhtar [facility] 11/20/2021 Assessment of body mass inde x [Body mass index [BMI] 23.0-23.9, adult] Medical Substance Abuse with Becca Malu SENIOR SQL DATABASE DEVELOPER 11/20/2021 Bipolar disorder NOS BH Substance Abuse with Chaparrita Mccullough [facility] 11/13/2021 Generalized anxiety disorder BH Substanc e Abuse with Chaparrita Mccullough [facility] 11/13/2021 Opioid dependence uncomplicated BH Subst ance Abuse with [facility] 11/13/2021 Z68.22 - Body mass index [BM I] 22.0-22.9, adult Medical Substance Abuse with Marily Carrionen SENIOR SQL DATABASE DEVELOPER 11/13/2021 Opioid dependence BH Substance Abuse w ith [facility]ped[facility]erson [facility] 11/06/2021 Assessment of body mass inde x [Body mass index [BMI] 22.0-22.9, adult] Medical Substance Abuse with Becca Malu SENIOR SQL DATABASE DEVELOPER 11/06/2021 Opioid dependence uncomplicated Medical Substance Abuse with Becca Malu SENIOR SQL DATABASE DEVELOPER 11/06/2021 Opioid dependence BH Substance Abuse w ith Afshan Akhtar [facility] 09/22/2021 Stimulant abuse BH Substance Abuse w ith Afshan Akhtar [facility] 09/22/2021 Assessment of body mass inde x [Body mass index [BMI] 21.0-21.9, adult] Medical Substance Abuse with Becca Malu SENIOR SQL DATABASE DEVELOPER 09/22/2021 Opioid dependence uncomplicated Medical Substance Abuse with Becca Malu [employer]IOR SQL DAT[employer]ASE DEVELOPER 09/22/2021 Opioid dependence BH Substance Abuse w ith Afshan Akhtar [facility] 09/19/2021 Stimulant abuse - uncomplicated BH Subst ance Abuse with Afshan Akhtar [facility] 09/19/2021 Assessment of body mass inde x [Body mass index [BMI] 21.0-21.9, adult] Medical Substance Abuse with Becca Malu SENIOR SQL DAT[employer]ASE DEVELOPER 09/19/2021 Opioid dependence uncomplicated Medical Substance Abuse with Becca Malu SENIOR SQL DATAB[employer] DEVELOPER 09/19/2021 Generalized anxiety disorder BH Establis hed Patient with Dary Clancy 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 09/15/2021 Nicotine dependence continuous Establ ished 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 09/15/2021 Opioid dependence uncomplicated BH Estab lished 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 09/15/2021 Assessment of body mass inde x [Body mass index [BMI] 19.9 or less, adult] Medical Substance Abuse with Becca Malu SENIOR SQL DATABASE DEVELOPER 09/15/2021 Opioid dependence uncomplicated Medical Substance Abuse with Becca Malu SENIOR SQL DAT[employer]ASE DEVELOPER 09/15/2021 Bipolar I disorder, most rec ent episode BH Established Patient with Chaparrita Mccullough [facility] 09/07/2021 Generalized anxiety disorder Establis hed Patient with Chaparrita Mccullough [facility] 09/07/2021 Opioid dependence uncomplicated BH Estab lished Patient with Chaparrita Mccullough [facility] 09/07/2021 Assessment of body mass inde x [Body mass index [BMI] 23.0-23.9, adult] Medical New Patient with Becca Malu SENIOR SQL DATABASE DEVELOPER 09/07/2021 Bipolar disorder NOS Medical New Patient with Becca Malu SENIOR SQL DATABASE DEVELOPER 09/07/2021 Diabetes Risk Test Score was 1.0 score 09/07/2021 Medical New Patient with Becca Malu [employer]IOR [employer] DAT[employer] DEVELOPER 09/07/2021 Generalized anxiety disorder Medical New Patient with Becca Malu SENIOR SQL DAT[employer]ASE DEVELOPER 09/07/2021 Opioid dependence uncomplicated Medical New Patient with Becca Malu SENIOR SQL DATABASE DEVELOPER 09/07/2021 Screening for HIV Medical New Patient with Becca Malu SENIOR SQL DATABASE DEVELOPER 09/07/2021 [facility] Work Phone: [phone]) [phone] Evaluation note Includes: Assessments for all patient encounters Findings Encounter Date Z68.22 - Body mass index [BM I] 22.0-22.9, adult Medical Substance Abuse with Marily Terrazas SENIOR SQL DAT[employer]ASE DEVELOPER 11/13/2021 Opioid dependence BH Substance Abuse w ith Afshan [facility]htar [facility] 11/06/2021 Assessment of body mass inde x [Body mass index [BMI] 22.0-22.9, adult] Medical Substance Abuse with Becca Malu SENIOR SQL DAT[employer]ASE DEVELOPER 11/06/2021 Opioid dependence uncomplicated Medical Substance Abuse with Becca Malu SENIOR SQL DATABASE DEVELOPER 11/06/2021 Opioid dependence BH [facility] 09/22/2021 Stimulant abuse BH Substance Abuse w ith Afshan Akhtar [facility] 09/22/2021 Assessment of body mass inde x [Body mass index [BMI] 21.0-21.9, adult] Medical Substance Abuse with Becca Malu SENIOR SQL DATABASE DEVELOPER 09/22/2021 Opioid dependence uncomplicated Medical Substance Abuse with Becca Malu SENIOR SQL DATABASE DEVELOPER 09/22/2021 Opioid dependence BH Substance Abuse w ith Afshan Akhtar [facility] 09/19/2021 Stimulant abuse - uncomplicated BH Subst ance Abuse with Afshan Cespedeserson [facility] 09/19/2021 Assessment of body mass inde x [Body mass index [BMI] 21.0-21.9, adult] Medical Substance Abuse with Becca Malu SENIOR SQL DATABASE DEVELOPER 09/19/2021 Opioid dependence uncomplicated Medical Substance Abuse with Becca Malu SENIOR SQL DATABASE DEVELOPER 09/19/2021 Generalized anxiety disorder BH Establis hed 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 09/15/2021 Nicotine dependence continuous BH Establ ished 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 09/15/2021 Opioid dependence uncomplicated BH Estab lished 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 09/15/2021 Assessment of body mass inde x [Body mass index [BMI] 19.9 or less, adult] Medical Substance Abuse with Becca Malu SENIOR SQL DATABASE DEVELOPER 09/15/2021 Opioid dependence uncomplicated Medical Substance Abuse with Becca Malu SENIOR SQL DATABASE DEVELOPER 09/15/2021 Bipolar I disorder, most rec ent episode BH Established Patient with Chaparrita Mccullough [facility] 09/07/2021 Generalized anxiety disorder BH Establis hed Patient with Chaparrita Mccullough [facility] 09/07/2021 Opioid dependence uncomplicated BH Estab lished Patient with Chaparrita Mccullough [facility] 09/07/2021 Assessment of body mass inde x [Body mass index [BMI] 23.0-23.9, adult] Medical New Patient with Becca Malu SENIOR SQL DATABASE DEVELOPER 09/07/2021 Bipolar disorder NOS Medical New Patient with Becca Malu SENIOR SQL DATABASE DEVELOPER 09/07/2021 Diabetes Risk Test Score was 1.0 score 09/07/2021 Medical New Patient with Becca Malu SENIOR SQL DATABASE DEVELOPER 09/07/2021 Generalized anxiety disorder Medical New Patient with Becca Malu SENIOR SQL DATABASE DEVELOPER 09/07/2021 Opioid dependence uncomplicated Medical New Patient with Becca Malu SENIOR SQL DATABASE DEVELOPER 09/07/2021 Screening for HIV Medical New Patient with Becca Malu SENIOR SQL DATABASE DEVELOPER 09/07/2021 [facility] Work Phone: 1([phone]) [phone] Evaluation note Includes: Assessments for all patient encounters Findings Encounter Date Bipolar disorder NOS BH Substance Abuse with Chaparrita Mccullough [facility] 11/13/2021 Generalized anxiety disorder BH Substanc e Abuse with Chaparrita Mccullough [facility] 11/13/2021 Opioid dependence uncomplicated BH Subst ance Abuse with Chaparrita Mccullough [facility] 11/13/2021 Z68.22 - Body mass index [BM I] 22.0-22.9, adult Medical Substance Abuse with Marily Carrionen SENIOR SQL DATABASE DEVELOPER 11/13/2021 Opioid dependence BH [facility]stance [facility]/06/2021 Assessment of body mass inde x [Body mass index [BMI] 22.0-22.9, adult] Medical Substance Abuse with Becca Malu SENIOR SQL DATABASE DEVELOPER 11/06/2021 Opioid dependence uncomplicated Medical Substance Abuse with Becca Malu SENIOR SQL DATABASE DEVELOPER 11/06/2021 Opioid dependence BH Substance Abuse w ith [facility] 09/22/2021 Stimulant abuse BH Substance Abuse w ith Afshan Akhtar [facility] 09/22/2021 Assessment of body mass inde x [Body mass index [BMI] 21.0-21.9, adult] Medical Substance Abuse with Becca Malu SENIOR SQL DATABASE DEVELOPER 09/22/2021 Opioid dependence uncomplicated Medical Substance Abuse with Becca Malu SENIOR SQL DATABASE DEVELOPER 09/22/2021 Opioid dependence BH Substance Abuse w ith Afshan Akhtar [facility] 09/19/2021 Stimulant abuse - uncomplicated BH Subst ance Abuse with Afshan Akhtar [facility] 09/19/2021 Assessment of body mass inde x [Body mass index [BMI] 21.0-21.9, adult] Medical Substance Abuse with Becca Malu SENIOR SQL DATABASE DEVELOPER 09/19/2021 Opioid dependence uncomplicated Medical Substance Abuse with Becca Malu SENIOR SQL DATABASE DEVELOPER 09/19/2021 Generalized anxiety disorder BH Establis hed 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 09/15/2021 Nicotine dependence continuous BH Establ ished 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 09/15/2021 Opioid dependence uncomplicated BH Estab lished 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 09/15/2021 Assessment of body mass inde x [Body mass index [BMI] 19.9 or less, adult] Medical Substance Abuse with Becca Malu SENIOR SQL DATABASE DEVELOPER 09/15/2021 Opioid dependence uncomplicated Medical Substance Abuse with Becca Malu SENIOR SQL DATABASE DEVELOPER 09/15/2021 Bipolar I disorder, most rec ent episode BH Established Patient with Chaparrita Mccullough [facility] 09/07/2021 Generalized anxiety disorder Establis hed Patient with Chaparrita Mccullough [facility] 09/07/2021 Opioid dependence uncomplicated BH Estab lished Patient with Chaparrita Mccullough [facility] 09/07/2021 Assessment of body mass inde x [Body mass index [BMI] 23.0-23.9, adult] Medical New Patient with Becca Malu SENIOR SQL DATABASE DEVELOPER 09/07/2021 Bipolar disorder NOS Medical New Patient with Becca Malu SENIOR SQL DATABASE DEVELOPER 09/07/2021 Diabetes Risk Test Score was 1.0 score 09/07/2021 Medical New Patient with Becca Malu SENIOR SQL DATABASE DEVELOPER 09/07/2021 Generalized anxiety disorder Medical New Patient with Becca Malu SENIOR SQL DATABASE DEVELOPER 09/07/2021 Opioid dependence uncomplicated Medical New Patient with Becca Malu SENIOR SQL DATABASE DEVELOPER 09/07/2021 Screening for HIV Medical New Patient with Becca Malu SENIOR SQL DATABASE DEVELOPER 09/07/2021 [facility] Work Phone: 1([phone]) [phone] Evaluation note Includes: Assessments for all patient encounters Findings Encounter Date Opioid dependence BH Substance Abuse w ith Afshan Akhtar [facility] 11/06/2021 Assessment of body mass inde x [Body mass index [BMI] 22.0-22.9, adult] Medical Substance Abuse with Becca Malu SENIOR SQL DATABASE DEVELOPER 11/06/2021 Opioid dependence BH Substance Abuse w ith Afshan Akhtar [facility] 09/22/2021 Stimulant abuse BH Substance Abuse w ith Afshan Cespedeserson [facility] 09/22/2021 Assessment of body mass inde x [Body mass index [BMI] 21.0-21.9, adult] Medical Substance Abuse with Becca Malu SENIOR SQL DATABASE DEVELOPER 09/22/2021 Opioid dependence uncomplicated Medical Substance Abuse with Becca Malu SENIOR SQL DATABASE DEVELOPER 09/22/2021 Opioid dependence BH Substance Abuse w ith Afshan Akhtar [facility] 09/19/2021 Stimulant abuse - uncomplicated BH Subst ance Abuse with Af[facility]anjustus [facility] 09/19/2021 Assessment of body mass inde x [Body mass index [BMI] 21.0-21.9, adult] Medical Substance Abuse with Becca Malu SENIOR SQL DATABASE DEVELOPER 09/19/2021 Opioid dependence uncomplicated Medical Substance Abuse with Becca Malu SENIOR SQL DATABASE DEVELOPER 09/19/2021 Generalized anxiety disorder BH Establis hed 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 09/15/2021 Nicotine dependence continuous BH Establ ished 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 09/15/2021 Opioid dependence uncomplicated BH Estab lished 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 09/15/2021 Assessment of body mass inde x [Body mass index [BMI] 19.9 or less, adult] Medical Substance Abuse with Becca Malu SENIOR SQL DATABASE DEVELOPER 09/15/2021 Opioid dependence uncomplicated Medical Substance Abuse with Becca Malu SENIOR SQL DATABASE DEVELOPER 09/15/2021 Bipolar I disorder, most rec ent episode BH Established Patient with Chap[facility]rita [facility]ccull[facility] 09/07/2021 Generalized anxiety disorder BH Establis hed Patient with Chaparrita Mccullough [facility] 09/07/2021 Opioid dependence uncomplicated BH Estab lished Patient with Chaparrita Mccullough [facility] 09/07/2021 Assessment of body mass inde x [Body mass index [BMI] 23.0-23.9, adult] Medical New Patient with Becca Malu SENIOR SQL DATABASE DEVELOPER 09/07/2021 Bipolar disorder NOS Medical New Patient with Becca Malu SENIOR SQL DATABASE DEVELOPER 09/07/2021 Diabetes Risk Test Score was 1.0 score 09/07/2021 Medical New Patient with Becca Malu SENIOR SQL DATABASE DEVELOPER 09/07/2021 Generalized anxiety disorder Medical New Patient with Becca Malu SENIOR SQL DATABASE DEVELOPER 09/07/2021 Opioid dependence uncomplicated Medical New Patient with Becca Malu SENIOR SQL DATABASE DEVELOPER 09/07/2021 Screening for HIV Medical New Patient with Becca Malu SENIOR SQL DATABASE DEVELOPER 09/07/2021 [facility] Work Phone: 1([phone]) [phone] Evaluation note Includes: Assessments for all patient encounters Findings Encounter Date Opioid dependence BH Substance Abuse w ith [facility]shan [facility] 11/06/2021 Assessment of body mass inde x [Body mass index [BMI] 22.0-22.9, adult] Medical Substance Abuse with Becca Malu SENIOR SQL DATABASE DEVELOPER 11/06/2021 Opioid dependence uncomplicated Medical Substance Abuse with Becca Malu SENIOR SQL DATABASE DEVELOPER 11/06/2021 Opioid dependence BH Substance Abuse w ith Afshan Cespedeserson [facility] 09/22/2021 Stimulant abuse BH Substance Abuse w ith Afshan Cespedeserson [facility] 09/22/2021 Assessment of body mass inde x [Body mass index [BMI] 21.0-21.9, adult] Medical Substance Abuse with Becca Malu SENIOR SQL DATABASE DEVELOPER 09/22/2021 Opioid dependence uncomplicated Medical Substance Abuse with Becca Malu SENIOR SQL DATABASE DEVELOPER 09/22/2021 Opioid dependence BH Substance Abuse w ith Afshan Cespedeserson [facility] 09/19/2021 Stimulant abuse - uncomplicated Subst ance Abuse with Afshan Akhtar [facility] 09/19/2021 Assessment of body mass inde x [Body mass index [BMI] 21.0-21.9, adult] Medical Substance Abuse with Becca Malu SENIOR SQL DATABASE DEVELOPER 09/19/2021 Opioid dependence uncomplicated Medical Substance Abuse with Becca Malu SENIOR SQL DATABASE DEVELOPER 09/19/2021 Generalized anxiety disorder Establis hed 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 09/15/2021 Nicotine dependence continuous BH Establ ished 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 09/15/2021 Opioid dependence uncomplicated BH Estab lished 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 09/15/2021 Assessment of body mass inde x [Body mass index [BMI] 19.9 or less, adult] Medical Substance Abuse with Becca Malu SENIOR SQL DATABASE DEVELOPER 09/15/2021 Opioid dependence uncomplicated Medical Substance Abuse with Becca Malu SENIOR SQL DATABASE DEVELOPER 09/15/2021 Bipolar I disorder, most rec ent episode Established Patient with Chaparrita Mccullough [facility] 09/07/2021 Generalized anxiety disorder BH Establis hed Patient with Chaparrita Mccullough [facility] 09/07/2021 Opioid dependence uncomplicated BH Estab lished Patient with Chaparrita Mccullough [facility] 09/07/2021 Assessment of body mass inde x [Body mass index [BMI] 23.0-23.9, adult] Medical New Patient with Becca Malu SENIOR SQL DATABASE DEVELOPER 09/07/2021 Bipolar disorder NOS Medical New Patient with Becca Malu SENIOR SQL DATABASE DEVELOPER 09/07/2021 Diabetes Risk Test Score was 1.0 score 09/07/2021 Medical New Patient with Becca Malu SENIOR SQL DATABASE DEVELOPER 09/07/2021 Generalized anxiety disorder Medical New Patient with Becca Malu SENIOR SQL DATABASE DEVELOPER 09/07/2021 Opioid dependence uncomplicated Medical New Patient with Becca Malu SENIOR SQL DATABASE DEVELOPER 09/07/2021 Screening for HIV Medical New Patient with Becca Malu SENIOR SQL DATABASE DEVELOPER 09/07/2021 [facility] Work Phone: 1([phone]) [phone] Evaluation note Includes: Assessments for all patient encounters Findings Encounter Date Opioid dependence BH Substance Abuse w ith Afshan Akhtar [facility] 09/22/2021 Stimulant abuse BH Substance Abuse w ith Afshan Akhtar [facility] 09/22/2021 Assessment of body mass inde x [Body mass index [BMI] 21.0-21.9, adult] Medical Substance Abuse with Becca Malu SENIOR SQL DATABASE DEVELOPER 09/22/2021 Opioid dependence uncomplicated Medical Substance Abuse with Becca Malu SENIOR SQL DATABASE DEVELOPER 09/22/2021 Opioid dependence BH Substance Abuse w ith Afshan Akhtar [facility] 09/19/2021 Stimulant abuse - uncomplicated Subst ance Abuse with Afshan Akhtar [facility] 09/19/2021 Assessment of body mass inde x [Body mass index [BMI] 21.0-21.9, adult] Medical Substance Abuse with Becca Malu SENIOR SQL DATABASE DEVELOPER 09/19/2021 Opioid dependence uncomplicated Medical Substance Abuse with Becca Malu SENIOR SQL DATABASE DEVELOPER 09/19/2021 Generalized anxiety disorder BH Establis hed 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 09/15/2021 Nicotine dependence continuous BH Establ ished 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 09/15/2021 Opioid dependence uncomplicated BH Estab lished 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 09/15/2021 Assessment of body mass inde x [Body mass index [BMI] 19.9 or less, adult] Medical Substance Abuse with Becca Malu SENIOR SQL DATABASE DEVELOPER 09/15/2021 Opioid dependence uncomplicated Medical Substance Abuse with Becca Malu SENIOR SQL DATABASE DEVELOPER 09/15/2021 Bipolar I disorder, most rec ent episode BH Established Patient with Chaparrita Mccullough [facility] 09/07/2021 Generalized anxiety disorder BH Establis hed Patient with Chaparrita Mccullough [facility] 09/07/2021 Opioid dependence uncomplicated BH Estab lished Patient with Chaparrita Mccullough [facility] 09/07/2021 Assessment of body mass inde x [Body mass index [BMI] 23.0-23.9, adult] Medical New Patient with Becca Malu SENIOR SQL DATABASE DEVELOPER 09/07/2021 Bipolar disorder NOS Medical New Patient with Becca Malu SENIOR SQL DATABASE DEVELOPER 09/07/2021 Diabetes Risk Test Score was 1.0 score 09/07/2021 Medical New Patient with Becca Malu SENIOR SQL DATABASE DEVELOPER 09/07/2021 Generalized anxiety disorder Medical New Patient with Becca Malu SENIOR SQL DATABASE DEVELOPER 09/07/2021 Opioid dependence uncomplicated Medical New Patient with Becca Malu SENIOR SQL DATABASE DEVELOPER 09/07/2021 Screening for HIV Medical New Patient with Becca Malu SENIOR SQL DATABASE DEVELOPER 09/07/2021 [facility] Work Phone: 1([phone]) 755-352608-02-2022 Evaluation note Includes: Assessments for all patient encounters Findings Encounter Date Opioid dependence BH Substance Abuse w ith Afshan Akhtar [facility] 09/19/2021 Stimulant abuse - uncomplicated Subst ance Abuse with Afshan Akhtar [facility] 09/19/2021 Assessment of body mass inde x [Body mass index [BMI] 21.0-21.9, adult] Medical Substance Abuse with Becca Malu SENIOR SQL DATABASE DEVELOPER 09/19/2021 Opioid dependence uncomplicated Medical Substance Abuse with Becca Malu SENIOR SQL DATABASE DEVELOPER 09/19/2021 Generalized anxiety disorder Establis hed 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 09/15/2021 Nicotine dependence continuous BH Establ ished 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 09/15/2021 Opioid dependence uncomplicated BH Estab lished 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 09/15/2021 Assessment of body mass inde x [Body mass index [BMI] 19.9 or less, adult] Medical Substance Abuse with Becca Malu SENIOR SQL DATABASE DEVELOPER 09/15/2021 Opioid dependence uncomplicated Medical Substance Abuse with Becca Malu SENIOR SQL DATABASE DEVELOPER 09/15/2021 Bipolar I disorder, most rec ent episode BH Established Patient with Chaparrita Mccullough [facility] 09/07/2021 Generalized anxiety disorder BH Establis hed Patient with Chaparrita Mccullough [facility] 09/07/2021 Opioid dependence uncomplicated BH Estab lished Patient with Chaparrita Mccullough [facility] 09/07/2021 Assessment of body mass inde x [Body mass index [BMI] 23.0-23.9, adult] Medical New Patient with Becca Malu SENIOR SQL DATABASE DEVELOPER 09/07/2021 Bipolar disorder NOS Medical New Patient with Becca Malu SENIOR SQL DATABASE DEVELOPER 09/07/2021 Diabetes Risk Test Score was 1.0 score 09/07/2021 Medical New Patient with Becca Malu SENIOR SQL DATABASE DEVELOPER 09/07/2021 Generalized anxiety disorder Medical New Patient with Becca Malu SENIOR SQL DATABASE DEVELOPER 09/07/2021 Opioid dependence uncomplicated Medical New Patient with Becca Malu SENIOR SQL DATABASE DEVELOPER 09/07/2021 Screening for HIV Medical New Patient with Becca Malu SENIOR SQL DATABASE DEVELOPER 09/07/2021 [facility] Work Phone: 1(250) [phone] Evaluation note Includes: Assessments for all patient encounters Findings Encounter Date Generalized anxiety disorder Establis hed 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 09/15/2021 Nicotine dependence continuous Establ ished 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 09/15/2021 Opioid dependence uncomplicated BH Estab lished 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 09/15/2021 Assessment of body mass inde x [Body mass index [BMI] 19.9 or less, adult] Medical Substance Abuse with Becca Malu SENIOR SQL DATABASE DEVELOPER 09/15/2021 Bipolar I disorder, most rec ent episode Established Patient with Chaparrita Mccullough [facility] 09/07/2021 Generalized anxiety disorder Establis hed Patient with Chaparrita Mccullough [facility] 09/07/2021 Opioid dependence uncomplicated Estab lished Patient with Chaparrita Mccullough [facility] 09/07/2021 Assessment of body mass inde x [Body mass index [BMI] 23.0-23.9, adult] Medical New Patient with Becca Malu SENIOR SQL DATABASE DEVELOPER 09/07/2021 Bipolar disorder NOS Medical New Patient with Becca Malu SENIOR SQL DATABASE DEVELOPER 09/07/2021 Diabetes Risk Test Score was 1.0 score 09/07/2021 Medical New Patient with Becca Malu SENIOR SQL DATABASE DEVELOPER 09/07/2021 Generalized anxiety disorder Medical New Patient with Becca Malu SENIOR SQL DATABASE DEVELOPER 09/07/2021 Opioid dependence uncomplicated Medical New Patient with Becca Malu SENIOR SQL DATABASE DEVELOPER 09/07/2021 Screening for HIV Medical New Patient with Becca Malu SENIOR SQL DATABASE DEVELOPER 09/07/2021 [facility] Work Phone: 1(282) [phone] Evaluation note Includes: Assessments for all patient encounters Findings Encounter Date Generalized anxiety disorder BH Establis hed 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 09/15/2021 Nicotine dependence continuous BH Establ ished 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 09/15/2021 Opioid dependence uncomplicated BH Estab lished 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 09/15/2021 Assessment of body mass inde x [Body mass index [BMI] 19.9 or less, adult] Medical Substance Abuse with Becca Malu SENIOR SQL DATABASE DEVELOPER 09/15/2021 Opioid dependence uncomplicated Medical Substance Abuse with Becca Malu SENIOR SQL DATABASE DEVELOPER 09/15/2021 Bipolar I disorder, most rec ent episode BH Established Patient with Chaparrita Mccullough [facility] 09/07/2021 Generalized anxiety disorder BH Establis hed Patient with Chaparrita Mccullough [facility] 09/07/2021 Opioid dependence uncomplicated Estab lished Patient with Chaparrita Mccullough [facility] 09/07/2021 Assessment of body mass inde x [Body mass index [BMI] 23.0-23.9, adult] Medical New Patient with Becca Malu SENIOR SQL DATABASE DEVELOPER 09/07/2021 Bipolar disorder NOS Medical New Patient with Becca Malu SENIOR SQL DATABASE DEVELOPER 09/07/2021 Diabetes Risk Test Score was 1.0 score 09/07/2021 Medical New Patient with Becca Malu SENIOR SQL DATABASE DEVELOPER 09/07/2021 Generalized anxiety disorder Medical New Patient with Becca Malu SENIOR SQL DATABASE DEVELOPER 09/07/2021 Opioid dependence uncomplicated Medical New Patient with Becca Malu SENIOR SQL DATABASE DEVELOPER 09/07/2021 Screening for HIV Medical New Patient with Becca Malu SENIOR SQL DATABASE DEVELOPER 09/07/2021 [facility] Work Phone: 1([phone]) [phone] Evaluation note Includes: Assessments for all patient encounters Findings Encounter Date Bipolar I disorder, most rec ent episode BH Established Patient with Chaparrita Mccullough [facility] 09/07/2021 Generalized anxiety disorder BH Establis hed Patient with Chaparrita Mccullough [facility] 09/07/2021 Opioid dependence uncomplicated BH Estab lished Patient with Chaparrita Mccullough [facility] 09/07/2021 Assessment of body mass inde x [Body mass index [BMI] 23.0-23.9, adult] Medical New Patient with Becca Malu SENIOR SQL DATABASE DEVELOPER 09/07/2021 Diabetes Risk Test Score was 1.0 score 09/07/2021 Medical New Patient with Becca Malu SENIOR SQL DATABASE DEVELOPER 09/07/2021 Screening for HIV Medical New Patient with Becca Malu SENIOR SQL DATABASE DEVELOPER 09/07/2021 [facility] Work Phone: 1(421) [phone] Evaluation note Includes: Assessments for all patient encounters Findings Encounter Date Bipolar I disorder, most rec ent episode BH Established Patient with Chaparrita Mccullough [facility] 09/07/2021 Generalized anxiety disorder BH Establis hed Patient with Chaparrita Mccullough LPCC-S 09/07/2021 Opioid dependence uncomplicated BH Estab lished Patient with Chaparrita Mccullough LPCC-S 09/07/2021 Assessment of body mass inde x [Body mass index [BMI] 23.0-23.9, adult] Medical New Patient with Becca Malu SENIOR SQL DATABASE DEVELOPER 09/07/2021 Bipolar disorder NOS Medical New Patient with Becca Malu SENIOR SQL DATABASE DEVELOPER 09/07/2021 Diabetes Risk Test Score was 1.0 score 09/07/2021 Medical New Patient with Becca Malu SENIOR SQL DATABASE DEVELOPER 09/07/2021 Generalized anxiety disorder Medical New Patient with Becca Malu SENIOR SQL DATABASE DEVELOPER 09/07/2021 Opioid dependence uncomplicated Medical New Patient with Becca Malu SENIOR SQL DATABASE DEVELOPER 09/07/2021 Screening for HIV Medical New Patient with Becca Malu SENIOR SQL DATABASE DEVELOPER 09/07/2021 Health [facility] Work Phone: 1(528) 894-294607-21-2022 History general Narrative - Reported Includes: Medical History in patient's chart Description Last Updated Has sex without a condom 09/07/2021 Not planning to have a baby in the next 12 months 09/07/2021 Partners sexually transmitted infection status known 09/07/2021 [facility] Work Phone: 1(512) 740-396607-21-2022 History general Narrative - Reported Includes: Medical History in patient's chart Description Last Updated Has sex without a condom 09/07/2021 Not planning to have a baby in the next 12 months 09/07/2021 Partners sexually transmitted infection status known 09/07/2021 History of extraction of wisdom tooth History of tooth extraction 09/07/2021 History of anxiety disorder NOS 09/08/19 History of coronary artery disease 09/07 History of depression 09/07/2021 History of diabetes mellitus 09/07/2021 History of psychiatric disorders 022 No previous hospitalizations 09/07/2021 [facility] Work Phone: Evaluation note Includes: Assessments for all patient encounters Findings Encounter Date Opioid dependence BH Substance Abuse w ith Afshan Hermilo LPCC-S 09/19/2021 Stimulant abuse - uncomplicated Subst ance Abuse with Afshanjustus CespedesAkhtar LPCC-S 09/19/2021 Assessment of body mass inde x [Body mass index [BMI] 21.0-21.9, adult] Medical Substance Abuse with Becca Malu SENIOR SQL DATABASE DEVELOPER 09/19/2021 Generalized anxiety disorder Establis hed 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 09/15/2021 Nicotine dependence continuous Establ ished 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 09/15/2021 Opioid dependence uncomplicated Estab lished 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 09/15/2021 Assessment of body mass inde x [Body mass index [BMI] 19.9 or less, adult] Medical Substance Abuse with Becca Malu SENIOR SQL DATABASE DEVELOPER 09/15/2021 Opioid dependence uncomplicated Medical Substance Abuse with Becca Malu SENIOR SQL DATABASE DEVELOPER 09/15/2021 Bipolar I disorder, most rec ent episode Established Patient with Chaparrita Mccullough LPCC-S 09/07/2021 Generalized anxiety disorder Establis hed Patient with Chaparrita Mccullough LPCC-S 09/07/2021 Opioid dependence uncomplicated Estab lished Patient with Chaparrita Mccullough LPCC-S 09/07/2021 Assessment of body mass inde x [Body mass index [BMI] 23.0-23.9, adult] Medical New Patient with Becca Malu SENIOR SQL DATABASE DEVELOPER 09/07/2021 Bipolar disorder NOS Medical New Patient with Becca Malu SENIOR SQL DATABASE DEVELOPER 09/07/2021 Diabetes Risk Test Score was 1.0 score 09/07/2021 Medical New Patient with Becca Malu SENIOR SQL DATABASE DEVELOPER 09/07/2021 Generalized anxiety disorder Medical New Patient with Becca Malu SENIOR SQL DATABASE DEVELOPER 09/07/2021 Opioid dependence uncomplicated Medical New Patient with Becca Malu SENIOR SQL DATABASE DEVELOPER 09/07/2021 Screening for HIV Medical New Patient with Becca Malu SENIOR SQL DATABASE DEVELOPER 09/07/2021 [facility] Work Phone: Evaluation note Includes: Assessments for all patient encounters Findings Encounter Date Opioid dependence BH Substance Abuse w ith Afshan Akhtar LPCC-S 09/22/2021 Stimulant abuse BH Substance Abuse w ith Afshan Akhtar LPCC-S 09/22/2021 Assessment of body mass inde x [Body mass index [BMI] 21.0-21.9, adult] Medical Substance Abuse with Becca Malu SENIOR SQL DATABASE DEVELOPER 09/22/2021 Opioid dependence BH Substance Abuse w ith Afshan Akhtar LPCC-S 09/19/2021 Stimulant abuse - uncomplicated Subst ance Abuse with Afshan Akhatr LPCC-S 09/19/2021 Assessment of body mass inde x [Body mass index [BMI] 21.0-21.9, adult] Medical Substance Abuse with Becca Malu SENIOR SQL DATABASE DEVELOPER 09/19/2021 Opioid dependence uncomplicated Medical Substance Abuse with Becca Malu SENIOR SQL DATABASE DEVELOPER 09/19/2021 Generalized anxiety disorder BH Establis hed 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 09/15/2021 Nicotine dependence continuous BH Establ ished 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 09/15/2021 Opioid dependence uncomplicated BH Estab lished 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 09/15/2021 Assessment of body mass inde x [Body mass index [BMI] 19.9 or less, adult] Medical Substance Abuse with Becca Malu SENIOR SQL DATABASE DEVELOPER 09/15/2021 Opioid dependence uncomplicated Medical Substance Abuse with Becac Malu SENIOR SQL DATABASE DEVELOPER 09/15/2021 Bipolar I disorder, most rec ent episode BH Established Patient with Chaparrita Mccullough LPCC-S 09/07/2021 Generalized anxiety disorder BH Establis hed Patient with Chaparrita Mccullough LPCC-S 09/07/2021 Opioid dependence uncomplicated BH Estab lished Patient with Chaparrita Mccullough LPCC-S 09/07/2021 Assessment of body mass inde x [Body mass index [BMI] 23.0-23.9, adult] Medical New Patient with Becca Malu SENIOR SQL DATABASE DEVELOPER 09/07/2021 Bipolar disorder NOS Medical New Patient with Becca Malu SENIOR SQL DATABASE DEVELOPER 09/07/2021 Diabetes Risk Test Score was 1.0 score 09/07/2021 Medical New Patient with Becca Malu SENIOR SQL DATABASE DEVELOPER 09/07/2021 Generalized anxiety disorder Medical New Patient with Becca Malu SENIOR SQL DATABASE DEVELOPER 09/07/2021 Opioid dependence uncomplicated Medical New Patient with Becca Malu SENIOR SQL DATABASE DEVELOPER 09/07/2021 Screening for HIV Medical New Patient with Becca Malu SENIOR SQL DATABASE DEVELOPER 09/07/2021 [facility] Work Phone: Evaluation note Includes: Assessments for all patient encounters Findings Encounter Date Opioid dependence BH Substance Abuse w ith Afshan Akhtar LPCC-S 09/22/2021 Stimulant abuse BH Substance Abuse w ith Afshan Akhtar LPCC-S 09/22/2021 Assessment of body mass inde x [Body mass index [BMI] 21.0-21.9, adult] Medical Substance Abuse with Becca Malu SENIOR SQL DATABASE DEVELOPER 09/22/2021 Opioid dependence uncomplicated Medical Substance Abuse with Becca Malu SENIOR SQL DATABASE DEVELOPER 09/22/2021 Opioid dependence BH Substance Abuse w ith Afshan Cespedeserson LPCC-S 09/19/2021 Stimulant abuse - uncomplicated Subst ance Abuse with Afshan Akhtar LPCC-S 09/19/2021 Assessment of body mass inde x [Body mass index [BMI] 21.0-21.9, adult] Medical Substance Abuse with Becca Malu SENIOR SQL DATABASE DEVELOPER 09/19/2021 Opioid dependence uncomplicated Medical Substance Abuse with Becca Malu SENIOR SQL DATABASE DEVELOPER 09/19/2021 Generalized anxiety disorder BH Establis hed 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 09/15/2021 Nicotine dependence continuous Establ ished 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 09/15/2021 Opioid dependence uncomplicated Estab lished 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 09/15/2021 Assessment of body mass inde x [Body mass index [BMI] 19.9 or less, adult] Medical Substance Abuse with Becca Malu SENIOR SQL DATABASE DEVELOPER 09/15/2021 Opioid dependence uncomplicated Medical Substance Abuse with Becca Malu SENIOR SQL DATABASE DEVELOPER 09/15/2021 Bipolar I disorder, most rec ent episode BH Established Patient with Chaparritaandrez Mccullough LPCC-S 09/07/2021 Generalized anxiety disorder BH Establis hed Patient with Chaparrita Mccullough LPCC-S 09/07/2021 Opioid dependence uncomplicated BH Estab lished Patient with Chaparrita Mccullough LPCC-S 09/07/2021 Assessment of body mass inde x [Body mass index [BMI] 23.0-23.9, adult] Medical New Patient with Becca Malu SENIOR SQL DATABASE DEVELOPER 09/07/2021 Bipolar disorder NOS Medical New Patient with Becca Malu SENIOR SQL DATABASE DEVELOPER 09/07/2021 Diabetes Risk Test Score was 1.0 score 09/07/2021 Medical New Patient with Becca Malu SENIOR SQL DATABASE DEVELOPER 09/07/2021 Generalized anxiety disorder Medical New Patient with Becca Malu SENIOR SQL DATABASE DEVELOPER 09/07/2021 Opioid dependence uncomplicated Medical New Patient with Becca Malu SENIOR SQL DATABASE DEVELOPER 09/07/2021 Screening for HIV Medical New Patient with Becca Malu SENIOR SQL DATABASE DEVELOPER 09/07/2021 [facility] Work Phone: Evaluation note Includes: Assessments for all patient encounters Findings Encounter Date Opioid dependence BH Substance Abuse w ith Afshan Akhtar LPCC-S 11/23/2021 Opioid dependence, on agonist therapy BH Substance Abuse with Afshan Akhtar LPCC-S 11/23/2021 Assessment of body mass inde x [Body mass index [BMI] 23.0-23.9, adult] Medical Substance Abuse with Becca Malu SENIOR SQL DATABASE DEVELOPER 11/23/2021 Opioid dependence BH Substance Abuse w ith Afshan Hermilo LPCC-S 11/20/2021 Opioid dependence, on agonist therapy BH Substance Abuse with Afshan Akhtar LPCC-S 11/20/2021 Assessment of body mass inde x [Body mass index [BMI] 23.0-23.9, adult] Medical Substance Abuse with Becca Malu SENIOR SQL DATABASE DEVELOPER 11/20/2021 Bipolar disorder NOS BH Substance Abuse with Chaparrita Mccullough LPCC-S 11/13/2021 Generalized anxiety disorder BH Substanc e Abuse with Chaparrita Mccullough LPCC-S 11/13/2021 Opioid dependence uncomplicated BH Subst ance Abuse with Chaparrita Mccullough LPCC-S 11/13/2021 Z68.22 - Body mass index [BM I] 22.0-22.9, adult Medical Substance Abuse with Marily Terrazas SENIOR SQL DATABASE DEVELOPER 11/13/2021 Opioid dependence BH Substance Abuse w ith Afshan Akhtar LPCC-S 11/06/2021 Assessment of body mass inde x [Body mass index [BMI] 22.0-22.9, adult] Medical Substance Abuse with Becca Malu SENIOR SQL DATABASE DEVELOPER 11/06/2021 Opioid dependence uncomplicated Medical Substance Abuse with Becca Malu SENIOR SQL DATABASE DEVELOPER 11/06/2021 Opioid dependence BH Substance Abuse w ith Afshan Cespedeserson LPCC-S 09/22/2021 Stimulant abuse BH Substance Abuse w ith Afshan Cespedeserson LPCC-S 09/22/2021 Assessment of body mass inde x [Body mass index [BMI] 21.0-21.9, adult] Medical Substance Abuse with Becca Malu SENIOR SQL DATABASE DEVELOPER 09/22/2021 Opioid dependence uncomplicated Medical Substance Abuse with Becca Malu SENIOR SQL DATABASE DEVELOPER 09/22/2021 Opioid dependence BH Substance Abuse w ith Afshan Akhtar LPCC-S 09/19/2021 Stimulant abuse - uncomplicated BH Subst ance Abuse with Afshan Akhtar LPCC-S 09/19/2021 Assessment of body mass inde x [Body mass index [BMI] 21.0-21.9, adult] Medical Substance Abuse with Becca Malu SENIOR SQL DATABASE DEVELOPER 09/19/2021 Opioid dependence uncomplicated Medical Substance Abuse with Becca Malu SENIOR SQL DATABASE DEVELOPER 09/19/2021 Generalized anxiety disorder BH Establis hed 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 09/15/2021 Nicotine dependence continuous BH Establ ished 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 09/15/2021 Opioid dependence uncomplicated BH Estab lished 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 09/15/2021 Assessment of body mass inde x [Body mass index [BMI] 19.9 or less, adult] Medical Substance Abuse with Becca Malu SENIOR SQL DATABASE DEVELOPER 09/15/2021 Opioid dependence uncomplicated Medical Substance Abuse with Becca Malu SENIOR SQL DATABASE DEVELOPER 09/15/2021 Bipolar I disorder, most rec ent episode BH Established Patient with Chaparrita Mccullough LPCC-S 09/07/2021 Generalized anxiety disorder BH Establis hed Patient with Chaparrita Mccullough LPCC-S 09/07/2021 Opioid dependence uncomplicated BH Estab lished Patient with Chaparrita Mccullough LPCC-S 09/07/2021 Assessment of body mass inde x [Body mass index [BMI] 23.0-23.9, adult] Medical New Patient with Becca Malu SENIOR SQL DATABASE DEVELOPER 09/07/2021 Bipolar disorder NOS Medical New Patient with Becca Malu SENIOR SQL DATABASE DEVELOPER 09/07/2021 Diabetes Risk Test Score was 1.0 score 09/07/2021 Medical New Patient with Becca Malu SENIOR SQL DATABASE DEVELOPER 09/07/2021 Generalized anxiety disorder Medical New Patient with Becca Malu SENIOR SQL DATABASE DEVELOPER 09/07/2021 Opioid dependence uncomplicated Medical New Patient with Becca Malu SENIOR SQL DATABASE DEVELOPER 09/07/2021 Screening for HIV Medical New Patient with Becca Malu SENIOR SQL DATABASE DEVELOPER 09/07/2021 [facility] Work Phone: Evaluation note Includes: Assessments for all patient encounters Findings Encounter Date Opioid dependence BH [facility] Opioid dependence, on agonist therapy BH [facility]/23/2021 Assessment of body mass inde x [Body mass index [BMI] 23.0-23.9, adult] Medical Substance Abuse with Becca Malu SENIOR SQL DATABASE DEVELOPER 11/23/2021 Opioid dependence uncomplicated Medical Substance Abuse with Becca Malu SENIOR SQL DATABASE DEVELOPER 11/23/2021 Opioid dependence BH Substance Abuse w ith Af[facility]anjustus [facility]ht[facility]/20/2021 Opioid dependence, on agonist therapy BH Substance [facility] 11/20/2021 Assessment of body mass inde x [Body mass index [BMI] 23.0-23.9, adult] Medical Substance Abuse with Becac Malu SENIOR SQL DATABASE DEVELOPER 11/20/2021 Bipolar disorder NOS BH Substance Abuse with [facility]ull[facility] 11/13/2021 Generalized anxiety disorder BH Substanc e Abuse with [facility]ull[facility] 11/13/2021 Opioid dependence uncomplicated BH Subst ance Abuse with Chaparrita Mccullough [facility] 11/13/2021 Z68.22 - Body mass index [BM I] 22.0-22.9, adult Medical Substance Abuse with Marily Terrazas SENIOR SQL DATABASE DEVELOPER 11/13/2021 Opioid dependence BH Substance [facility] w ith [facility] 11/06/2021 Assessment of body mass inde x [Body mass index [BMI] 22.0-22.9, adult] Medical Substance Abuse with Becca Amlu SENIOR SQL DATABASE DEVELOPER 11/06/2021 Opioid dependence uncomplicated Medical Substance Abuse with Becca Malu SENIOR SQL DATABASE DEVELOPER 11/06/2021 Opioid dependence BH Substance Abuse w ith Afshan Cespedeserson LPCC-S 09/22/2021 Stimulant abuse BH Substance Abuse w ith Afshan Cespedeserson LPCC-S 09/22/2021 Assessment of body mass inde x [Body mass index [BMI] 21.0-21.9, adult] Medical Substance Abuse with Becca Malu SENIOR SQL DATABASE DEVELOPER 09/22/2021 Opioid dependence uncomplicated Medical Substance Abuse with Becca Malu SENIOR SQL DATABASE DEVELOPER 09/22/2021 Opioid dependence BH Substance Abuse w ith Afshan Akhtar LPCC-S 09/19/2021 Stimulant abuse - uncomplicated BH Subst ance Abuse with Afshan Akhtar LPCC-S 09/19/2021 Assessment of body mass inde x [Body mass index [BMI] 21.0-21.9, adult] Medical Substance Abuse with Becca Malu SENIOR SQL DATABASE DEVELOPER 09/19/2021 Opioid dependence uncomplicated Medical Substance Abuse with Becca Malu SENIOR SQL DATABASE DEVELOPER 09/19/2021 Generalized anxiety disorder Establis hed 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 09/15/2021 Nicotine dependence continuous BH Establ ished 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 09/15/2021 Opioid dependence uncomplicated BH Estab lished 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 09/15/2021 Assessment of body mass inde x [Body mass index [BMI] 19.9 or less, adult] Medical Substance Abuse with Becca Malu SENIOR SQL DATABASE DEVELOPER 09/15/2021 Opioid dependence uncomplicated Medical Substance Abuse with Becca Malu SENIOR SQL DATABASE DEVELOPER 09/15/2021 Bipolar I disorder, most rec ent episode Established Patient with Chaparrita Mccullough LPCC-S 09/07/2021 Generalized anxiety disorder BH Establis hed Patient with Chaparrita Mccullough LPCC-S 09/07/2021 Opioid dependence uncomplicated BH Estab lished Patient with Chaparrita Mccullough LPCC-S 09/07/2021 Assessment of body mass inde x [Body mass index [BMI] 23.0-23.9, adult] Medical New Patient with Becca Malu SENIOR SQL DATABASE DEVELOPER 09/07/2021 Bipolar disorder NOS Medical New Patient with Becca Malu SENIOR SQL DATABASE DEVELOPER 09/07/2021 Diabetes Risk Test Score was 1.0 score 09/07/2021 Medical New Patient with Becac Malu SENIOR SQL DATABASE DEVELOPER 09/07/2021 Generalized anxiety disorder Medical New Patient with Becca Toribio SENIOR SQL DATABASE DEVELOPER 09/07/2021 Opioid dependence uncomplicated Medical New Patient with Becca Toribio SENIOR SQL DATABASE DEVELOPER 09/07/2021 Screening for HIV Medical New Patient with Becca Toribio CNP 09/07/2021 Health [facility] Work Phone: Evaluation note* Diagnosis Onset Date Resolution Status Major depressive disorder, recurrent acute [facility] Work Phone: History general Narrative - Reported Includes: Medical History in patient's chart Description Last Updated No suicidal ideation 12/04/2021 No suicidal intent 12/04/2021 No suicidal plans 12/04/2021 Has sex without a condom 09/07/2021 Not planning to have a baby in the next 12 months 09/07/2021 Partners sexually transmitted infection status known 09/07/2021 History of extraction of wisdom tooth History of tooth extraction 09/07/2021 History of anxiety disorder NOS 09/08/19 22 History of coronary artery disease 09/07 History of depression 09/07/2021 History of diabetes mellitus 09/07/2021 History of psychiatric disorders 022 No previous hospitalizations 09/07/2021 [facility] Work Phone: History of Present illness Narrative History of Present Illness not supported for this document type No History of Present Illness [facility] Work Phone: Instructions Instructions not supported for this document type No [facility] Instructions Includes: Instructions for all patient encounters Education and Decision Aids were provided during visit for: BHP offered active listening and supportive feedback; normalized emotions and feelings, also provided pt time to process current issues and sources for triggers. ~Utilized MA; supported benefits of inpatient tx. ~Discussed tx options; promoted development of sober support, use of healthy coping methods, and seeking help, when needed Last Documented On 2 6:51AM ; [facility] Discussed nutritional needs teach healthy choices including fruits and vegetables Last Documented On 2 2:53PM ; [facility] Patient education about a pr oper diet Last Documented On 2 2:53PM ; [facility] Discussed concerns about exe rcise : promote physical activity Last Documented On 2 2:53PM ; [facility] Encouraged pt to develop andre f-awareness and stay busy. ~ ~Pt reports he is staying sober his way, not the perfect way (ie., support groups, treatment, positive supports. Last Documented On 2 11:37PM ; [facility] Discussed nutritional needs teach healthy choices including fruits and vegetables Last Documented On 2 1:14PM ; [facility] Patient education about a pr oper diet Last Documented On 2 1:14PM ; [facility] Discussed concerns about exe rcise : promote physical activity Last Documented On 2 1:14PM ; [facility] provided active listenin g, support and helped pt process though current symptoms and stressor(s) effectiveness of medication, coping mechanisms, and self-care practices. ~Encouraged pt to consider benefits of receiving immediate tx that could be provided at identified inpatient facility Last Documented On 2 10:17AM ; [facility] Discussed nutritional needs teach healthy choices including fruits and vegetables Last Documented On 2 3:07PM ; [facility] Patient education about a pr oper diet Last Documented On 2 3:07PM ; [facility] Discussed concerns about exe rcise : promote physical activity ~ ~Discussed treatment options with Dr Paz, will start on oxcarzepine 300mg twice a day with clonidine as needed for anxiety ~ ~This is just start of medication and will evaluate symptoms and add more medication as tolerated ~ ~Patient encouraged to follow up with psychiatry ~ ~Follow up for MSA in one week Last Documented On 2 5:45AM ; [facility] Provided supporitve listenin g and empathy. ~Helped pt/parent to process thoughts and concerns; supported pt in his ability to make personal health choices. ~Explored support system; discussed benefits of tx; encouraged pt to connect and engage in services. ~Supported contacting the center, as needed, using healthy coping methods and seeking sober support, when needed Last Documented On 2 10:23AM ; [facility] Discussed nutritional needs teach healthy choices including fruits and vegetables Last Documented On 2 9:38AM ; [facility] Patient education about a pr oper diet Last Documented On 2 9:38AM ; [facility] Discussed concerns about exe rcise : promote physical activity ~ ~Discussed sublocade, will work on getting it ordered ~ ~Follow up in one week Last Documented On 2 11:27AM ; [facility] provided supportive liste ranjit and reflective feedback; monitored mood and functioning. ~Explored recent lapse; discussed alcohol and other drugl use, sources for support, coping methods, and medication. ~Utilized MA ~Encouraged pt to connect with MH and Psych provider/s as well as other sources of sober support (community-based recovery groups Last Documented On 2 10:44AM ; [facility] Discussed nutritional needs teach healthy choices including fruits and vegetables Last Documented On 2 5:47PM ; [facility] Patient education about a pr oper diet Last Documented On 2 5:47PM ; [facility] Discussed concerns about exe rcise : promote physical activity ~ ~Will give 3 days of suboxone, fentanyl needs to be negative to recieve more ~ ~Discussed microdosing if any signs of withdrawl after taking suboxone, start out with 1/4 strip every 1-2 hours at first to make sure it does not throw you into excessive withdrawls Last Documented On 2 5:17AM ; [facility] Discussed nutritional needs teach healthy choices including fruits and vegetables Last Documented On 2 4:33PM ; [facility] Patient education about a pr oper diet Last Documented On 2 4:33PM ; [facility] Discussed concerns about exe rcise : promote physical activity Last Documented On 2 4:33PM ; [facility] and supportive feedback validated and normalized pts. feelings while assisting pt. in processing recent events. ~Discussed lifestyle changes to address symptoms. ~Supported patients personal health goals; encouraged pt to ask for help, when needed Last Documented On 2 2:45PM ; [facility] Discussed nutritional needs teach healthy choices including fruits and vegetables Last Documented On 2 6:18PM ; [facility] Patient education about a pr oper diet Last Documented On 2 6:18PM ; [facility] Discussed concerns about exe rcise : promote physical activity ~ ~Will give suboxone to bridge until inpatient rehab Last Documented On 2 5:52AM ; [facility] [facility] Provided supportive listenin g and empathic feedback ~Utilized MA ~Discussed and explored hx and motivation for recovery ~Explored tx options; provided psychoeducation ~Acknowledged and validated emotions ~Supported pt's right to make his own choices ~Promoted use of comfort medication/s, avoid people, places, as needed ~Encouraged pt to contact the center with questiosn or concerns Last Documented On 2 12:49PM ; [facility] Discussed nutritional needs teach healthy choices including fruits and vegetables Last Documented On 2 10:31AM ; [facility] Patient education about a pr oper diet Last Documented On 2 10:31AM ; [facility] Discussed concerns about exe rcise : promote physical activity ~ ~Call saturday after going to [facility] resource novelty Last Documented On 2 1:56PM ; [facility] Provided supportive, empathi c listening and reflective feedback; encouraged, explored, and supported the pt as he processed thoughts, and concerns. ~Utilized MA; acknowledged and validated pt's emotions. ~Explored and assessed mood, symptoms, and functioning; discussed mental health needs/tx options. ~Promoted use of healthy coping methods and seeking support, when needed Last Documented On 2 12:56PM ; [facility] Reviewed side effects and Ri sks/Benefits analysis Last Documented On 2 12:53PM ; [facility] Discussed nutritional needs teach healthy choices including fruits and vegetables Last Documented On 2 11:40AM ; [facility] Patient education about a pr oper diet Last Documented On 2 11:40AM ; [facility] Discussed concerns about exe rcise : promote physical activity ~ ~Discussed with patient that suboxone is recommended due to his continued use ~ ~Patient is strongly against suboxone and believe that if he can take something that helps with the Meth withdrawls that he will be able to be completely clean ~ ~Follow up on Saturday ~ ~Call office before using and can schedule suboxone induction Last Documented On 2 7:23PM ; [facility] provided supportive and active listening, allowing patient the space to discuss concerns and normalized emotions. P collaborated with provider and patient to determine most effective treatment plan. Patient and [facility] explored coping strategies that could improve symptoms discussed today. P educated patient on options for continued detox from opiates. Patient and [facility] discussed relapse prevention stragies and encourage he utilize support system as well as prescribed medication. Patient states, I can get through the detox that isn't the problem. I need something for my mental health . Patient reports understanding that detox should be completed before starting medication for mood, patient is agreeable. Patient agreeable to consider individual therapy to address mental health concerns. Patient provided with a list of counseling options. ~ Last Documented On 2 9:36AM ; [facility] Discussed nutritional needs teach healthy choices including fruits and vegetables Last Documented On 2 11:34AM ; [facility] Patient education about a pr oper diet Last Documented On 2 11:34AM ; [facility] Discussed concerns about exe rcise : promote physical activity ~ ~If patient cannot stay clean for the time it takes to get on vivitrol Suboxone is recommended ~ ~Follow up next Saturday for evaluation Last Documented On 2 5:46AM ; [facility] Discussed nutritional needs teach healthy choices including fruits and vegetables Last Documented On 2 5:34PM ; [facility] Patient education about a pr oper diet Last Documented On 2 5:34PM ; [facility] Discussed concerns about exe rcise : promote physical activity ~ ~Take comfort medications, next UDS is Saturday then full appointment Saturday with [facility], Saturday should be first appropriate UDS Last Documented On 2 9:35AM ; [facility] Work Phone: Patient problem outcome Narrative Includes: Evaluations & Outcomes for active Goals No [facility] Work Phone: Progress note* Progress note Date Encounter Last Documented by 03/29/2022 [Patient Encounter] Hernandez dominguez on 03/29/2022; 8:47 AM, Becca Toribio CNP; [facility] Active Problems & Conditions - F31.9 - Bipolar Disorder Nos - K59.00 - Constipation - F41.1 - Generalized Anxiety Disorder - F11.20 - Opioid Dependence Uncomplicated Current Medication - Colace 100 MG Oral Capsule take 1 capsule by mouth once daily at bedtime, 30 days, 11 refills - Gabapentin 800 MG Oral Tablet Take one tablet three times per day, 30 days, 2 refills - Lucemyra 0.18 MG Oral Tablet Take three tablets every 5 hours during peek withdrawal symptoms, decrease to 1-2 tablets as needed for withdrawal symptoms, 30 days, 0 refills - Narcan 4 MG/0.1ML Nasal Liquid One spray in nostril every 1-2 minutes until awake as needed for over dose, 30 days, 3 refills - OXcarbazepine 300 MG Oral Tablet Take one tablet two times per day, 30 days, 1 refills - Sublocade 100 MG/0.5ML Subcutaneous Solution Prefilled Syringe Inject on syringe (100mg) subcutaneously one time per month, 28 days, 11 refills - Sublocade 300 MG/1.5ML Subcutaneous Solution Prefilled Syringe One injection subcutaneously one time per month, 28 days, 1 refills - Suboxone 8-2 MG Sublingual Film dissolve 1 film completely under tongue twice daily x 8 days , do not eat or drink for 30 minutes afterwards ., 8 days, 0 refills Past Medical/Surgical History Reported: Has sex without a condom. Medical: No previous hospitalizations. Partners sexually transmitted infection status known. : Not planning to have a baby in the next 12 months. Physical Exam: No suicidal ideation No suicidal plans No suicidal intent Diagnoses: Coronary artery disease. Diabetes mellitus. Depression Anxiety disorder NOS Procedural: - Tooth extraction - Insertion of ear pressure equalization tubes in both ears Surgical: - Extraction of wisdom tooth - Tonsillectomy with adenoidectomy Allergies - PENICILLINS Reaction: Hives / Urticaria Family History Maternal: Depression Plan StartCited- Opioid dependence, uncomplicated Vivitrol 380 MG each Inject intrarmuscular every month, 28 days, 11 refills EndCited Advance Directives - Declined to Provide Advance [facility]ive [facility]No Reason for Referral RecordedHealth [facility] Work Phone: Review of systems Narrative - Reported Review of Systems not supported for this document type No [facility] Work Phone: Summary Purpose Family History No Family History Records Found Description Last Updated Maternal history of depression 2 Description Last Updated Maternal history of depression 2 Last Documented On 2 9:40AM ; [facility] Relationship Condition Age at Onset Recorded Date/T jose Not Specified No pertinent family history Unknown Advance Directives No Advanced Directives Records Found Directive Pat Aware Third Alliance Party Effective Date Reviewed Sta tus Declined to Provide Advance Directive Yes 12/22/2021 Current and Verified Note: Patient refuse d advanced directives at this time. Advance Directive Response Recorded Date/ Time Advance Directives No November 27, 2016 4:09am Physical Exam Physical Exam not supported for this document type No Physical Exam Recorded Physical Exam not supported for this document type No Physical Exam Recorded Physical Exam not supported for this document type No Physical Exam Recorded Physical Exam not supported for this document type No Physical Exam Recorded Physical Exam not supported for this document type No Physical Exam Recorded Physical Exam not supported for this document type No Physical Exam Recorded Physical Exam not supported for this document type No Physical Exam Recorded Physical Exam not supported for this document type No Physical Exam Recorded Physical Exam not supported for this document type No Physical Exam Recorded Physical Exam not supported for this document type No Physical Exam Recorded Physical Exam not supported for this document type No Physical Exam Recorded Physical Exam not supported for this document type No Physical Exam Recorded Physical Exam not supported for this document type No Physical Exam Recorded Physical Exam not supported for this document type No Physical Exam Recorded Physical Exam not supported for this document type No Physical Exam Recorded Physical Exam not supported for this document type No Physical Exam Recorded Physical Exam not supported for this document type No Physical Exam Recorded Physical Exam not supported for this document type No Physical Exam Recorded Physical Exam not supported for this document type No Physical Exam Recorded Physical Exam not supported for this document type No Physical Exam Recorded Physical Exam not supported for this document type No Physical Exam Recorded Physical Exam not supported for this document type No Physical Exam Recorded Physical Exam not supported for this document type No Physical Exam Recorded Physical Exam not supported for this document type No Physical Exam Recorded Physical Exam not supported for this document type No Physical Exam Recorded Physical Exam not supported for this document type No Physical Exam Recorded Physical Exam not supported for this document type No Physical Exam Recorded Physical Exam not supported for this document type No Physical Exam Recorded Physical Exam not supported for this document type No Physical Exam Recorded Chief Complaint and Reason for Visit Chief Complaint MDD Reason for Visit Major depressive dis order, recurrent Additional Source Comments (unrecognized sect ion and content) No Status Records FoundNo Status Records FoundNo Status Records FoundNo Status Records Found INFORMATION SOURCE (unrecogn ized section and content) DATE CREATED AUTHOR 09/08/2017 [facility] DATE CREATED AUTHOR AUTHOR'S ORGANIZ ATION 02/01/2018 [facility] DATE CREATED AUTHOR AUTHOR'S ORGANIZ ATION 10/27/2021 [facility] DATE CREATED AUTHOR AUTHOR'S ORGANIZ ATION 02/07/2023 [facility] Care Teams (unrecognized sec tion and content) Team Status: Active Member Role Status Dates Shaikh Man MD Primary Care Provider Active Team Status: Inactive Member Role Status Dates Shaikh Man MD Primary Care Provider Active Kwan León MD Admit Provider, Attending Provider Active FOR RECORDS PERTAINING TO PATIENTS WHO ARE OR HAVE BEEN ENROLLED IN A CHEMICAL DEPENDENCY/SUBSTANCEABUSE PROGRAM, SOME INFORMATION MAY BE OMITTED. This clinical summary was aggregated from multiple sources. Caution should be exercised in using it in the provision of clinical care. This summary normalizes information from multiple sources, and as a consequence, information in this document may materially change the coding, format and clinical context of patient data. In addition, data may be omitted in some cases. CLINICAL DECISIONS SHOULD BE BASED ON THE PRIMARY CLINICAL RECORDS. [employer] provides no warranty or guarantee of the accuracy or completeness of information in this document.
[2023-04-17 19:50] LABS: Basophils Absolute Auto 0.1 10^3/uL (0.0-0.1); Basophils Percent Auto 0.5 % (0.2-2.0); Eosinophils Absolute Auto 0.1 10^3/uL (0.0-0.7); Eosinophils Percent Auto 0.7 % (0.9-7.0); Hematocrit 43.3 % (42.0-54.0); Hemoglobin 14.3 g/dL (14.0-18.0); Immature Granulocytes Abs Auto 0.03 10^3/uL (0.00-0.03); Immature Granulocytes Pct Auto 0.2 % (0.0-0.5); Lymphocytes Absolute Auto 1.7 10^3/uL (1.2-3.8); Lymphocytes Percent Auto 13.3 % (20.5-60.0); Mean Corpuscular Volume 90.8 fL (80.0-94.0); Mean Platelet Volume 10.1 fL (9.5-13.5); Monocytes Absolute Auto 0.8 10^3/uL (0.3-0.8); Monocytes Percent Auto 6.1 % (1.7-12.0); Neutrophils Absolute Auto 10.3 10^3/uL (1.4-6.5); Neutrophils Percent Auto 79.2 % (43.0-75.0); Platelet Count 228 10^3/uL (150-450); Red Blood Count 4.77 10^6/uL (4.70-6.10); Red Cell Distribution Width 12.1 % (11.0-15.0)
[2023-04-17 20:10] LABS: Salicylate <2.8 mg/dL (<=19.9)
[2023-04-17 20:12] LABS: Acetaminophen <2.0 ug/mL (10.0-30.0); Alanine Aminotransferase 20 U/L (16-63); Anion Gap 12.6; Aspartate Amino Transferase 19 U/L (15-37); BUN Creatinine Ratio 10.6; Bilirubin Total 1.1 mg/dL (0.2-1.0); Calcium 8.8 mg/dL (8.5-10.1); Carbon Dioxide 29.1 mmol/L (21.0-32.0); Chloride 104 mmol/L (98-107); Estimated GFR (African America >60 (>=60); Estimated GFR (Non-African Ame >60 (>=60); Glucose 117 mg/dL (74-106); Potassium 3.7 mmol/L (3.5-5.1); Sodium 142 mmol/L (136-145)
[2023-04-17 20:13] LABS: Albumin Globulin Ratio 1.1; Alkaline Phosphatase 94 U/L (46-116); Ethanol <3 mg/dL; Globulin 3.7 g/dL; Total Protein 7.7 g/dL (6.4-8.2)
[2023-04-17 21:24] LABS: Amphetamine Screen Urine POSITIVE (NEGATIVE); Barbiturates Screen Urine NEGATIVE (NEGATIVE); Benzodiazepines Screen Urine NEGATIVE (NEGATIVE); Buprenorphine Screen Urine NEGATIVE (NEGATIVE); Cannabinoid Screen Urine POSITIVE (NEGATIVE); Cocaine Screen Urine POSITIVE (NEGATIVE); Methadone Screen Urine NEGATIVE (NEGATIVE); Methamphetamines Screen Urine POSITIVE (NEGATIVE); Opiate Screen Urine NEGATIVE (NEGATIVE); Oxycodone Screen Urine NEGATIVE (NEGATIVE); Phencyclidine Screen Urine NEGATIVE (NEGATIVE); Tricyclic Antidepressant Urine NEGATIVE (NEGATIVE)
== END 2023-04-18 01:08 ==
PROVIDERS: Emergency Provider Emergency Medicine; PCP Family Medicine
DX: F15.10 Other stimulant abuse, uncomplicated (principal); R45.851 Suicidal ideations; F32.A Depression, unspecified; F17.210 Nicotine dependence, cigarettes, uncomplicated
CPT/HCPCS: 36415; 80053; 80179; 80307; 80320; 80329; 85025; 93005; 99285

== ENCOUNTER 2023-05-11 23:04 | Emergency (ER) | payer OTHER, SELFPAY ==
[2023-05-11 23:05] VITALS: BP 121/98; PULSE 73; RESP 20; TEMP 36.9; O2SAT 97; BMI 41.9
--- OUTSIDE RECORDS SUMMARY | 2023-05-11 23:12 | XMS_ITS | CCD ---
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 [facility] Work Phone: [facility] Work Phone: Start: 02-15-2022 End: 02-15-2022 Patient encounter procedure Becca Toribio CNP Work Phone: [facility] Work Phone: Start: 02-15-2022 End: 02-15-2022 Patient encounter procedure Becca Toribio CNP Work Phone: [facility] Work Phone: Start: 01-03-2022 End: 01-03-2022 ambulatory Becca Toribio CNP Work Phone: [facility] Work Phone: Start: 01-03-2022 End: 01-03-2022 General Afshan Akhtar [facility] Work Phone: [facility] Work Phone: Start: 12-22-2021 End: 12-22-2021 General Chaparrita Mccullough [facility] Work Phone: [facility] Work Phone: Start: 12-22-2021 End: 12-22-2021 ambulatory Marily Terrazas [employer] Work Phone: [facility] Work Phone: Start: 12-08-2021 End: 12-08-2021 General Chaparrita Mccullough [facility] Work Phone: [facility] Work Phone: Start: 12-08-2021 End: 12-08-2021 General Chaparrita Mccullough [facility] Work Phone: [facility] Work Phone: Start: 12-08-2021 End: 12-08-2021 ambulatory Marily Terrazas [employer] Work Phone: [facility] Work Phone: Start: 12-04-2021 End: 12-04-2021 General Afshan Akhtar [facility] Work Phone: [facility] Work Phone: Start: 12-04-2021 End: 12-04-2021 Patient encounter procedure Becca Toribio [employer] Work Phone: [facility] Work Phone: Start: 12-01-2021 End: 12-01-2021 General Afshan Akhtar [facility] Work Phone: [facility] Work Phone: Start: 12-01-2021 End: 12-01-2021 ambulatory Becca Louer [employer] Work Phone: [facility] Work Phone: Start: 11-23-2021 End: 11-23-2021 General Afshan Akhtar [facility] Work Phone: [facility] Work Phone: Start: 11-23-2021 End: 11-23-2021 ambulatory Becca Malu [employer] Work Phone: [facility] Work Phone: Start: 11-23-2021 End: 11-23-2021 General Afshan Akhtar [facility] Work Phone: [facility] Work Phone: Start: 11-20-2021 End: 11-20-2021 General Afshan Akhtar [facility] Work Phone: [facility] Work Phone: Start: 11-20-2021 End: 11-20-2021 ambulatory Becca Malu [employer] Work Phone: [facility] Work Phone: Start: 11-13-2021 End: 11-13-2021 General Chaparrita Emersons [facility] Work Phone: [facility] Work Phone: Start: 11-13-2021 End: 11-13-2021 General Chaparrita Emersons [facility] Work Phone: [facility] Work Phone: Start: 11-13-2021 End: 11-13-2021 ambulatory Marily Terrazas [employer] Work Phone: [facility] Work Phone: Start: 11-06-2021 End: 11-06-2021 General Afshan Akhtar [facility] Work Phone: [facility] Work Phone: Start: 11-06-2021 End: 11-06-2021 ambulatory Becca Malu [employer] Work Phone: [facility] Work Phone: Start: 11-06-2021 End: 11-06-2021 General Becca Toribio [employer] Work Phone: [facility] Work Phone: Start: 10-20-2021 End: 10-20-[address] ZANA PEPE Facility: Start: 09-22-2021 End: 09-22-2021 ambulatory Becca Toribio [employer] Work Phone: [facility] Work Phone: Start: 09-22-2021 End: 09-22-2021 General Afshan Akhtar [facility] Work Phone: [facility] Work Phone: Start: 09-19-2021 End: 09-19-2021 General Afshan Akhtar [facility] Work Phone: [facility] Work Phone: Start: 09-19-2021 End: 09-19-2021 ambulatory Becca Toribio [employer] Work Phone: [facility] Work Phone: Start: 09-19-2021 End: 09-19-2021 General Becca Toribio [employer] Work Phone: [facility] Work Phone: Start: 09-15-2021 End: 09-15-2021 FQHC visit, estab pt Dary Clancy [employer] Work Phone: [facility] End Work Phone: Start: 09-15-2021 End: 09-15-2021 ambulatory Becca Toribio [employer] Work Phone: [facility] Work Phone: Start: 09-12-2021 End: 09-12-2021 Nursing evaluation of patient and report Marily Terrazas CNP Work Phone: [facility] Work Phone: Start: 09-07-2021 End: 09-07-2021 FQ visit, estab pt Chaparritamane Mccullough [facility] Work Phone: [facility] Work Phone: Start: 09-07-2021 End: 09-07-2021 FQ visit new patient Becca Toribio CNP Work Phone: [facility] Work Phone: Start: 07-24-2017 End: 07-24-2017 Emergency department patient visit Toni Alfonso Facility:[facility] Start: 07-21-2017 End: 07-21-2017 Emergency department patient visit Family [facility] Facility:[facility] Start: 07-04-2017 End: 07-05-2017 Patient encounter procedure Aimee Sanders Facility:[facility] Procedures Date Procedure Procedure Detail Performing Clinician Start: 01-03-2022 Current tobacco smoker Becca Toribio CNP Work Phone: Start: 01-03-2022 Drug test prsmv read direct optical obs pr date Becca Toribio [employer] Work Phone: Start: 01-03-2022 Most recent diastoli c blood pressure 80-89 mm hg Becca Toribio [employer] Work Phone: Start: 01-03-2022 Most recent systolic blood press 130-139mm hg Becca Toribio [employer] Work Phone: Start: 01-03-2022 Psychotherapy w/bethany ent 30 minutes Afshan Akhtar [facility] Work Phone: Start: 01-03-2022 Pt scrnd tobacco use rcvd tobacco cessation talk Becca Toribio [employer] Work Phone: Start: 12-22-2021 Drug test prsmv read direct optical obs pr date Marily Terrazas [employer]ED[employer] Work Phone: Start: 12-22-2021 Most recent diastoli c blood pressure 80-89 mm hg Marily Terrazas CNP Work Phone: Start: 12-22-2021 Most recent systolic blood pres>/equal 140 mm hg Marily Terrazas [employer] Work Phone: Start: 12-22-2021 Psychotherapy w/bethany ent 30 minutes Chaparrita Mccullough [facility] Work Phone: Start: 12-08-2021 Current tobacco smoker Marily Terrazas [employer] Work Phone: Start: 12-08-2021 Drug test prsmv read direct optical obs pr date Marily Terrazas CNP Work Phone: Start: 12-08-2021 Most recent diastoli c blood pressure < 80 mm hg Marily Terrazas [employer] Work Phone: Start: 12-08-2021 Most recent systolic blood pressure <130 mm hg Marily Terrazas CNP Work Phone: Start: 12-08-2021 Psychotherapy w/bethany ent 30 minutes Chaparrita Mccullough [facility] Work Phone: Start: 12-08-2021 Pt scrnd tobacco use rcvd tobacco cessation talk Marily Terrazas CNP Work Phone: Start: 12-01-2021 Drug test prsmv read direct optical obs pr date Becca Toribio [employer] Work Phone: Start: 12-01-2021 Most recent diastol blood pres >/equal 90 mm hg Becca Toribio [employer] Work Phone: Start: 12-01-2021 Most recent systolic blood press 130-139mm hg Becca Toribio [employer] Work Phone: Start: 12-01-2021 Psychotherapy w/bethany ent 30 minutes Afshan Akhtar [facility] Work Phone: Start: 11-23-2021 Drug test prsmv read direct optical obs pr date Becca Louer [employer] Work Phone: Start: 11-23-2021 Most recent diastoli c blood pressure 80-89 mm hg Becca Toribio CNP Work Phone: Start: 11-23-2021 Most recent systolic blood pressure <130 mm hg Becca Toribio [employer] Work Phone: Start: 11-23-2021 Psychotherapy w/bethany ent 30 minutes Afshan Akhtar [facility] Work Phone: Start: 11-20-2021 Current tobacco smoker Becca Toribio CNP Work Phone: Start: 11-20-2021 Drug test prsmv read direct optical obs pr date Becca Toribio [employer] Work Phone: Start: 11-20-2021 Pt scrnd tobacco use rcvd tobacco cessation talk Becca Toribio [employer] FEEDER Work Phone: Start: 11-13-2021 Current tobacco smoker Marily Terrazas CNP Work Phone: Start: 11-13-2021 Drug test prsmv read direct optical obs pr date Marily Terrazas CNP Work Phone: Start: 11-13-2021 Most recent diastol blood pres >/equal 90 mm hg Marily Terrazas CNP Work Phone: Start: 11-13-2021 Most recent diastoli c blood pressure 80-89 mm hg Marily Terrazas CNP Work Phone: Start: 11-13-2021 Most recent systolic blood pres>/equal 140 mm hg Marily Terrazas [employer] Work Phone: Start: 11-13-2021 Most recent systolic blood pressure <130 mm hg Marily Terrazas [employer] FEEDER Work Phone: Start: 11-13-2021 Psychotherapy w/bethany ent 30 minutes Chaparrita Mccullough [facility] Work Phone: Start: 11-13-2021 Pt scrnd tobacco use rcvd tobacco cessation talk Marily Terrazas [employer] Work Phone: Start: 11-06-2021 Drug test prsmv read direct optical obs pr date Becca Toribio CNP Work Phone: Start: 11-06-2021 Most recent diastol blood pres >/equal 90 mm hg Becca Toribio CNP Work Phone: Start: 11-06-2021 Most recent systolic blood pressure <130 mm hg Becca Toribio CNP Work Phone: Start: 11-06-2021 Psychotherapy w/bethany ent 30 minutes Afshan Akhtar [facility] Work Phone: Start: 09-22-2021 Current tobacco smoker Becca Toribio CNP Work Phone: Start: 09-22-2021 Most recent diastoli c blood pressure 80-89 mm hg Becca Toribio CNP Work Phone: Start: 09-22-2021 Most recent systolic blood press 130-139mm hg Becca Toribio CNP Work Phone: Start: 09-22-2021 Psychotherapy w/bethany ent 30 minutes Afshan Akhtar [facility] Work Phone: Start: 09-19-2021 Current tobacco smoker Becca Toribio CNP Work Phone: Start: 09-19-2021 Drug test prsmv read direct optical obs pr date Becca Toribio CNP Work Phone: Start: 09-19-2021 Psychotherapy w/bethany ent 30 minutes Afshan Akhtar [facility] Work Phone: Start: 09-19-2021 Pt scrnd tobacco use rcvd tobacco cessation talk Becca Toribio CNP Work Phone: Start: 09-15-2021 Psychotherapy w/bethany ent 30 minutes Dary Clancy [employer] Work Phone: Start: 09-15-2021 Pt scrnd tobacco use rcvd tobacco cessation talk Dary [place] [employer] IN[employer] Work Phone: Start: 09-12-2021 Drug test prsmv read direct optical obs pr date Marily Nini [employer]EDER Work Phone: Start: 09-07-2021 Drug test prsmv read direct optical obs pr date Becca Toribio CNP Work Phone: Start: 09-07-2021 Ear Pressure Equaliz ation Tube, Insertion, Bilaterally Becca Toribio CNP Work Phone: Start: 09-07-2021 Hemoglobin glycosylated a1c Becca Toribio [employer] Work Phone: Start: 09-07-2021 Most recent diastoli c blood pressure 80-89 mm hg Becca Toribio CNP Work Phone: Start: 09-07-2021 Most recent systolic blood pres>/equal 140 mm hg Becca Toribio CNP Work Phone: Start: 09-07-2021 Psychotherapy w/bethany ent 30 minutes Chaparrita Mccullough [facility] Work Phone: Start: 09-07-2021 Tonsillectomy and adenoidectomy Becca Toribio CNP Work Phone: Plan of Treatment Date Care Activity Detail Author Start: 10-27-2022 [facility] Start: 10-25-[address] [facility] Start: 03-29-2022 Medical Substance Abuse [facility] Work Phone: Start: 01-09-2022 Medical Substance Abuse [facility] Work Phone: Start: 01-03-2022 End: 01-03-2022 Patient education based on identified need [facility] offered active listening and supportive feedback; normalized emotions and feelings, also provided pt time to process current issues and sources for triggers. ~Utilized ID; supported benefits of inpatient tx. ~Discussed tx options; promoted development of sober support, use of healthy coping methods, and seeking help, when needed [facility] Start: 12-29-2021 Medical Substance Abuse [facility] Work Phone: Start: 12-27-2021 Antibody screen [facility] Start: 12-27-2021 CBC W Auto Differential panel - Blood CBC WITH DIFF [facility] Start: 12-27-2021 Lipid 1996 panel - Serum or Plasma LIPID PROFILE [facility] Start: 12-27-2021 Reagin Ab [Presence] in Serum by RPR RPR [facility] Start: 12-27-2021 Thyrotropin [Units/volume] in Serum or Plasma TSH [facility] Start: 12-22-2021 End: 12-22-2021 Patient education based on identified need [facility] Start: 12-15-2021 Medical Substance Abuse [facility] Work Phone: Start: 12-08-2021 End: 12-08-2021 Patient education based on identified need [facility] Start: 12-07-2021 Medical Substance Abuse [facility] Work Phone: Start: 12-01-2021 End: 12-01-2021 Patient education based on identified need [facility] Start: 12-01-2021 Medical Substance Abuse [facility] Work Phone: Start: 11-23-2021 End: 11-23-2021 Patient education based on identified need [facility] Start: 11-23-2021 Medical Substance Abuse [facility] Work Phone: Start: 11-20-2021 End: 11-20-2021 Patient education based on identified need [facility] Start: 11-20-2021 Medical Substance Abuse [facility] Work Phone: Start: 11-13-2021 End: 11-13-2021 Patient education based on identified need [facility] Start: 11-06-2021 End: 11-06-2021 Patient education based on identified need [facility] Start: 09-22-2021 Medical Substance Abuse [facility] Work Phone: Start: 09-22-2021 End: 09-22-2021 Patient education based on identified need [facility] Start: 09-19-2021 End: 09-19-2021 Patient education based on identified need [facility] Start: 09-19-2021 Medical Substance Abuse [facility] Work Phone: Start: 09-15-2021 End: 09-15-2021 Patient education based on identified need [facility] Start: 09-15-2021 Medical Substance Abuse [facility] Work Phone: Start: 09-12-2021 Nursing evaluation of patient and report Nurse Visit [facility] Work Phone: Start: 09-07-2021 End: 09-07-2021 Patient education based on identified need [facility] Patient Education Depression, Ad ult ([place]) [facility] [place] Instructions [facility] Work Phone: Patient referral [facility] Work Phone: Payers Date Payer Category Payer Self-pay [id number] 2017 Unknown [id number] 1994 Unknown [id number] 1994 Unknown [id number] 1994 Unknown [id number] 1960 Medicaid [id number] Private Health Insurance [id number] Unknown [id number] Unknown [id number] [id number] Unknown [id number] [id number] Social History Date Type Detail Facility Assertion [facility] Assertion Gender identity finding (finding) [facility] Assertion Finding relating to sexual activity (finding) [facility] Assertion Finding of sexua l orientation (finding) [facility] Assertion Sexually active (finding) [facility] Assertion Intravenous drug user (finding) [facility] Assertion Exposure to poll ution (event) [facility] Tobacco smoking status Unknown if ever smoked [facility] Work Phone: Assertion Benzodiazepine m isuse (finding) [facility] Assertion Opiate misuse (finding) [facility] Assertion Cigarette smoker (finding) [facility] Start: 10-25-2022 Assertion Smoker (finding) [facility] Assertion Moderate cigaret te smoker (10-19 cigs/day) (finding) [facility] Assertion Lives with paren ts (finding) [facility] Assertion Emotional stress (finding) [facility] Assertion Patient has move d away (finding) [facility] Assertion Currently not se xually active (finding) [facility] Assertion Social drinker (finding) [facility] Assertion Light cigarette smoker (1-9 cigs/day) (finding) [facility] Assertion Contraception (finding) [facility] Start: [address] Sex [address] Male [facility] NEGATED: Highlighted row Assertion Contraception (finding) [facility] NEGATED: Highlighted row Assertion [facility] NEGATED: Highlighted row Assertion Current drinker of alcohol (finding) [facility] NEGATED: Highlighted row Assertion Exposure to pollution (event) [facility] Work Phone: NEGATED: Highlighted row Assertion Finding relating to drug misuse behavior (finding) [facility] Goals Date Patient Goal Desired Activity /State Functional Status Date Assessment Result Facility 10-27-2022 Functional status Patient at [facility] Work Phone: Mental Status Date Assessment Result Facility 10-27-2022 Cognitive function Cognitive Sta tus Patient at [facility] Work Phone: Cognitive function Oriented to t jose, place, and person Oriented to person, time and place (finding) [facility] Work Phone: Clinical Notes 09-07-2021 to 10-27-2022 Note Date & Type Note Facility 10-27-2022 Hospital Discharg e instructions Additional Instructions Important Contact Information You can call [facility] at [phone] any time day or night if you [...] Text Line (available 10/09) text 4HOPE to [phone] [facility] Hope Line (available 8 a.m. Midnight) call [phone] ([phone]) [facility] Work Phone: 10-26-2022 Progress note Note Date/Time October 26, 2022 1:51pm [facility] [address] [place] [address] Psychiatry Progress Note Signed Patient: Benito Land MR#: [id number] : 1995 Acct:[id number] Age/Sex: 26 / M Adm Date: 3 Loc: Room: [address] [place] [address] Type : ADM IN Attending Dr: Kwan [...] alternatives explained Documented By: Kwan León MD 10/26/22 0915 Signed By: <Electronically signed by Kwan León MD> 10/26/22 1351 [facility] Work Phone: 1(258) 871-321809-07-2023 History and physical note Author Kwan León [facility] October 25, 2022 1:46pm Note Date/Time October 25, 2022 1:46pm [facility] [address] [place] [address] Psychiatry H&P Signed Patient: Benito Land MR#: [id number] : 1995 Acct:[id number] Age/Sex: 26 / M Adm Date: 3 Loc: Room: [address] [place] [address] Type: ADM IN Attending Dr: Kwan León [...] homicidality, reported suicidality Insight: fair Judgment: fair [facility] Medical History History of heroin use History [...] by Kwan León MD> 10/25/22 1346 [facility] Work Phone: 1(596) 516-427611-16-2022 Evaluation note Includes: Assessments for all patient encounters Findings Encounter Date Opioid dependence Substance Abuse w ith Afshan Akhtar [facility] 01/03/2022 Opioid dependence, on agonist therapy Substance Abuse with Afshanjustus Akhtar [facility] 01/03/2022 Bipolar disorder NOS Substance Abuse with Chaparrita Mccullough [facility] 12/22/2021 Generalized anxiety disorder Substanc e Abuse with Chaparrita Mccullough [facility] 12/22/2021 Opioid dependence uncomplicated BH Subst ance Abuse with Chaparrita Mccullough [facility] 12/22/2021 [Z68.23 - Body mass index [B ID] 23.0-23.9, adult] assessment of body mass index Medical Substance Abuse with Marily Carrionen [facility] 12/22/2021 Opioid dependence uncomplicated Medical Substance Abuse with Marily Nini [facility] 12/22/2021 Bipolar disorder NOS BH Substance Abuse with Chaparrita Mccullough [facility] 12/08/2021 Generalized anxiety disorder BH Substanc e Abuse with Chaparrita Mccullough [facility] 12/08/2021 Opioid dependence uncomplicated BH Subst ance Abuse with Chaparrita Mccullough [facility] 12/08/2021 [Z68.23 - Body mass index [B ID] 23.0-23.9, adult] assessment of body mass index Medical Substance Abuse with Marily Nini [facility] 12/08/2021 Opioid dependence BH Substance Abuse w ith Afshan Akhtar [facility] 12/01/2021 Opioid dependence, on agonist therapy BH Substance Abuse with Afshan Akhtar [facility] 12/01/2021 [Body mass index [BMI] 23.0- 23.9, adult] assessment of body mass index Medical Substance Abuse with Becca Malu [facility] 12/01/2021 Opioid dependence uncomplicated Medical Substance Abuse with Becca Malu [employer] 12/01/2021 Opioid dependence BH Substance Abuse w ith Afshan Akhtar [facility] 11/23/2021 Opioid dependence, on agonist therapy BH Substance Abuse with Afshan Akhtar [facility] 11/23/2021 Assessment of body mass inde x [Body mass index [BMI] 23.0-23.9, adult] Medical Substance Abuse with Becca Malu [facility] 11/23/2021 Opioid dependence uncomplicated Medical Substance Abuse with Becca Malu [facility] 11/23/2021 Opioid dependence BH Substance Abuse w ith Afshan Akhtar [facility] 11/20/2021 Opioid dependence, on agonist therapy BH Substance Abuse with Afshan Akhtar [facility] 11/20/2021 Assessment of body mass inde x [Body mass index [BMI] 23.0-23.9, adult] Medical Substance Abuse with Becca Malu [facility] 11/20/2021 Bipolar disorder NOS BH Substance Abuse with Chaparrita Mccullough [facility] 11/13/2021 Generalized anxiety disorder Substanc e Abuse with Chaparritamane Mccullough [facility] 11/13/2021 Opioid dependence uncomplicated BH Subst ance Abuse with Chaparrita Mccullough [facility] 11/13/2021 Z68.22 - Body mass index [BM I] 22.0-22.9, adult Medical Substance Abuse with Marily Nini [facility] 11/13/2021 Opioid dependence BH Substance Abuse w ith Afshan Cespedeserson [facility] 11/06/2021 Assessment of body mass inde x [Body mass index [BMI] 22.0-22.9, adult] Medical Substance Abuse with Becca Malu [facility] 11/06/2021 Opioid dependence uncomplicated Medical Substance Abuse with Becca Malu [employer] 11/06/2021 Opioid dependence BH Substance Abuse w ith Afshan Cespedeserson [facility] 09/22/2021 Stimulant abuse BH Substance Abuse w ith Afshanjustus CespedesAkhtar [facility] 09/22/2021 Assessment of body mass inde x [Body mass index [BMI] 21.0-21.9, adult] Medical Substance Abuse with Becca Malu [employer] [employer] 09/22/2021 Opioid dependence uncomplicated Medical Substance Abuse with Becca Malu [employer] FEED[facility] 09/22/2021 Opioid dependence BH Substance Abuse w ith Afshan Cespedeserson [facility] 09/19/2021 Stimulant abuse - uncomplicated BH Subst ance Abuse with Afshan Akhtar [facility] 09/19/2021 Assessment of body mass inde x [Body mass index [BMI] 21.0-21.9, adult] Medical Substance Abuse with Becca Malu [employer] [employer] 09/19/2021 Opioid dependence uncomplicated Medical Substance Abuse with Becca Malu [facility] 09/19/2021 Generalized anxiety disorder Establis hed 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 09/15/2021 Nicotine dependence continuous Establ ished 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 09/15/2021 Opioid dependence uncomplicated Estab lished 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 09/15/2021 Assessment of body mass inde x [Body mass index [BMI] 19.9 or less, adult] Medical Substance Abuse with Becca Malu [employer] [employer] 09/15/2021 Opioid dependence uncomplicated Medical Substance Abuse with Becca Malu [employer] [employer] 09/15/2021 Bipolar I disorder, most rec ent episode BH Established Patient with Chaparrita Mccullough [facility] 09/07/2021 Generalized anxiety disorder Establis hed Patient with Chaparrita Mccullough [facility] 09/07/2021 Opioid dependence uncomplicated Estab lished Patient with Chaparrita Mccullough [facility] 09/07/2021 Assessment of body mass inde x [Body mass index [BMI] 23.0-23.9, adult] Medical New Patient with Becca Malu [employer] 09/07/2021 Bipolar disorder NOS Medical New Patient with Becca Malu [employer] [employer] 09/07/2021 Diabetes Risk Test Score was 1.0 score 09/07/2021 Medical New Patient with Becca Malu [employer] 09/07/2021 Generalized anxiety disorder Medical New Patient with Becca Malu [employer] [employer] 09/07/2021 Opioid dependence uncomplicated Medical New Patient with Becca Malu [employer] FEED[facility] 09/07/2021 Screening for HIV Medical New Patient with Becca Malu [employer] FEEDER 09/07/2021 [facility] Work Phone: [phone]) 771-334311-16-2022 Evaluation note Includes: Assessments for all patient encounters Findings Encounter Date Opioid dependence Substance Abuse with Afshan Akhtar [facility] 01/03/2022 Last Documented On 2 6:52AM ; [facility] Opioid dependence, on agonist therapy Substance Abuse with Afshan Akhtar [facility] 01/03/2022 Last Documented On 2 6:52AM ; [facility] Bipolar disorder NOS Substance Abuse with Flor herine Mccullough [facility] 12/22/2021 Last Documented On 2 10:49PM ; [facility] Generalized anxiety disorder Substanc e Abuse with Chaparrita Mccullough [facility] 12/22/2021 Last Documented On 2 10:49PM ; [facility] Opioid dependence uncomplicated Subst ance Abuse with Chaparrita Mccullough [facility] 12/22/2021 Last Documented On 2 10:49PM ; [facility] [Z68.23 - Body mass index [B ID] 23.0-23.9, adult] assessment of body mass index Medical Substance Abuse with Marily Terrazas [facility] 12/22/2021 Last Documented On 2 3:34PM ; [facility] Opioid dependence uncomplicated Medical Substance Abuse with Marily Nini [employer] [employer] 12/22/2021 Last Documented On 2 3:34PM ; [facility] Bipolar disorder NOS BH Substance Abuse with Flor herine Mccullough [facility] 12/08/2021 Last Documented On 2 11:37PM ; [facility] Generalized anxiety disorder BH Substanc e Abuse with Chaparrita Mccullough [facility] 12/08/2021 Last Documented On 2 11:37PM ; [facility] Opioid dependence uncomplicated BH Subst ance Abuse with Chaparrita Mccullough [facility] 12/08/2021 Last Documented On 2 11:37PM ; [facility] [Z68.23 - Body mass index [B ID] 23.0-23.9, adult] assessment of body mass index Medical Substance Abuse with Marily Nini [employer] [employer] 12/08/2021 Last Documented On 2 1:47PM ; [facility] Opioid dependence BH Substance Abuse with Afshan Akhtar [facility] 12/01/2021 Last Documented On 2 10:18AM ; [facility] Opioid dependence, on agonist therapy Substance Abuse with Afshan Akhtar [facility] 12/01/2021 Last Documented On 2 10:18AM ; [facility] [Body mass index [BMI] 23.0- 23.9, adult] assessment of body mass index Medical Substance Abuse with Becca Malu [employer] [employer] 12/01/2021 Last Documented On 2 5:45AM ; [facility] Opioid dependence uncomplicated Medical Substance Abuse with Becca Malu [employer] FE[employer] 12/01/2021 Last Documented On 2 5:45AM ; [facility] Opioid dependence BH Substance Abuse with Afshan Akhtar [facility] 11/23/2021 Last Documented On 2 10:30AM ; [facility] Opioid dependence, on agonist therapy BH Substance Abuse with Afshan Akhtar [facility] 11/23/2021 Last Documented On 2 10:30AM ; [facility] Assessment of body mass inde x [Body mass index [BMI] 23.0-23.9, adult] Medical Substance Abuse with Becca Malu [employer] FEED[facility] 11/23/2021 Last Documented On 2 11:27AM ; [facility] Opioid dependence uncomplicated Medical Substance Abuse with Becca Malu [employer] FEEDER 11/23/2021 Last Documented On 2 11:27AM ; [facility] Opioid dependence BH Substance Abuse with Afshan Akhtar [facility] 11/20/2021 Last Documented On 2 10:45AM ; [facility] Opioid dependence, on agonist therapy BH Substance Abuse with Afshan Akhtar [facility] 11/20/2021 Last Documented On 2 10:45AM ; [facility] Assessment of body mass inde x [Body mass index [BMI] 23.0-23.9, adult] Medical Substance Abuse with Becca Malu [employer] 11/20/2021 Last Documented On 2 5:17AM ; [facility] Bipolar disorder NOS Substance Abuse with Flor herine Mccullough [facility] 11/13/2021 Last Documented On 2 11:27PM ; [facility] Generalized anxiety disorder BH Substanc e Abuse with Chaparrita Mccullough [facility] 11/13/2021 Last Documented On 2 11:27PM ; [facility] Opioid dependence uncomplicated BH Subst ance Abuse with Chaparrita Mccullough [facility] 11/13/2021 Last Documented On 2 11:27PM ; [facility] Z68.22 - Body mass index [BM I] 22.0-22.9, adult Medical Substance Abuse with Marily Terrazas [employer] 11/13/2021 Last Documented On 2 5:29PM ; [facility] Opioid dependence BH Substance Abuse with Afshan Akhtar [facility] 11/06/2021 Last Documented On 2 2:46PM ; [facility] Assessment of body mass inde x [Body mass index [BMI] 22.0-22.9, adult] Medical Substance Abuse with Becca Malu [employer] FEED[facility] 11/06/2021 Last Documented On 2 6:00AM ; [facility] Opioid dependence uncomplicated Medical Substance Abuse with Becca Malu [employer] FEEDER 11/06/2021 Last Documented On 2 6:00AM ; [facility] Opioid dependence BH Substance Abuse with Afshanjustus CespedesAkhtar [facility] 09/22/2021 Last Documented On 2 12:51PM ; [facility] Stimulant abuse Substance Abuse with Afshanjustus hector [facility] 09/22/2021 Last Documented On 2 12:51PM ; [facility] Assessment of body mass inde x [Body mass index [BMI] 21.0-21.9, adult] Medical Substance Abuse with Becca Malu [employer] FEEDER 09/22/2021 Last Documented On 2 1:56PM ; [facility] Opioid dependence uncomplicated Medical Substance Abuse with Becca Malu [employer]STATIC[employer]ER FEEDER 09/22/2021 Last Documented On 2 1:56PM ; [facility] Opioid dependence Substance Abuse with Afshanjustus CespedesAkhtar [facility] 09/19/2021 Last Documented On 2 12:56PM ; [facility] Stimulant abuse - uncomplicated Subst ance Abuse with Afshanjustus Akhtar [facility] 09/19/2021 Last Documented On 2 12:56PM ; [facility] Assessment of body mass inde x [Body mass index [BMI] 21.0-21.9, adult] Medical Substance Abuse with Becca Malu [employer] 09/19/2021 Last Documented On 2 7:23PM ; [facility] Opioid dependence uncomplicated Medical Substance Abuse with Becca Malu [employer] FEEDER 09/19/2021 Last Documented On 2 7:23PM ; [facility] Generalized anxiety disorder BH Established [place] ent with Dary Griffithville [employer] INSTRUCTOR 09/15/2021 Last Documented On 2 9:37AM ; [facility] Nicotine dependence continuous BH Establ ished 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 09/15/2021 Last Documented On 2 9:37AM ; [facility] Opioid dependence uncomplicated Estab lished Patient with Daryloni Clancy [employer] IN[employer] 09/15/2021 Last Documented On 2 9:37AM ; [facility] Assessment of body mass inde x [Body mass index [BMI] 19.9 or less, adult] Medical Substance Abuse with Becca Malu [employer] 09/15/2021 Last Documented On 2 5:46AM ; [facility] Opioid dependence uncomplicated Medical Substance Abuse with Becca Malu [employer] FEEDER 09/15/2021 Last Documented On 2 5:46AM ; [facility] Bipolar I disorder, most rec ent episode BH Established Patient with Chaparrita Mccullough [facility] 09/07/2021 Last Documented On 2 9:13PM ; [facility] Generalized anxiety disorder BH Establis hed Patient with Chaparrita Mccullough [facility] 09/07/2021 Last Documented On 2 9:13PM ; [facility] Opioid dependence uncomplicated Estab lished Patient with Chaparrita Mccullough [facility] 09/07/2021 Last Documented On 2 9:13PM ; [facility] Assessment of body mass inde x [Body mass index [BMI] 23.0-23.9, adult] Medical New Patient with Becca Malu [employer] 09/07/2021 Last Documented On 2 9:40AM ; [facility] Bipolar disorder NOS Medical New Patient with Ca ssie Malu [employer] FE[employer]ER 09/07/2021 Last Documented On 2 9:40AM ; [facility] Diabetes Risk Test Score was 1.0 score 09/07/2021 Medical New Patient with Becca Malu [employer] FEEDER 09/07/2021 Last Documented On 2 9:40AM ; [facility] Generalized anxiety disorder Medical New Patient with Becca Malu [employer] FEEDER 09/07/2021 Last Documented On 2 9:40AM ; [facility] Opioid dependence uncomplicated Medical New [place] ent with Becca Malu DE[employer]ER FEEDER 09/07/2021 Last Documented On 2 9:40AM ; [facility] Screening for HIV Medical New Patient with Kimberly e Malu [employer] FEEDER 09/07/2021 Last Documented On 2 9:40AM ; [facility] Work Phone: 1(972) 991-565311-04-2022 Evaluation note Includes: Assessments for all patient encounters Findings Encounter Date Bipolar disorder NOS BH Substance Abuse with Chaparrita Mccullough [facility] 12/22/2021 Generalized anxiety disorder BH Substanc e Abuse with Chaparrita Mccullough [facility] 12/22/2021 Opioid dependence uncomplicated BH Subst ance Abuse with Chaparrita Mccullough [facility] 12/22/2021 [Z68.23 - Body mass index [B ID] 23.0-23.9, adult] assessment of body mass index Medical Substance Abuse with Marily Nini [employer] 12/22/2021 Opioid dependence uncomplicated Medical Substance Abuse with Marily Nini [employer] FEED[facility] 12/22/2021 Bipolar disorder NOS BH Substance Abuse with Chaparrita Mccullough [facility] 12/08/2021 Generalized anxiety disorder BH Substanc e Abuse with Chaparrita Mccullough [facility] 12/08/2021 Opioid dependence uncomplicated BH Subst ance Abuse with Chaparrita Mccullough [facility] 12/08/2021 [Z68.23 - Body mass index [B ID] 23.0-23.9, adult] assessment of body mass index Medical Substance Abuse with Marily Nini [employer] 12/08/2021 Opioid dependence BH Substance Abuse w ith Afshan Akhtar [facility] 12/01/2021 Opioid dependence, on agonist therapy BH Substance Abuse with Afshan Akhtar [facility] 12/01/2021 [Body mass index [BMI] 23.0- 23.9, adult] assessment of body mass index Medical Substance Abuse with Becca Malu [employer] FEEDER 12/01/2021 Opioid dependence uncomplicated Medical Substance Abuse with Becca Malu DESTATIC[employer]ER FEEDER 12/01/2021 Opioid dependence BH Substance Abuse w ith Afshan Akhtar [facility] 11/23/2021 Opioid dependence, on agonist therapy BH Substance Abuse with Afshan Akhtar [facility] 11/23/2021 Assessment of body mass inde x [Body mass index [BMI] 23.0-23.9, adult] Medical Substance Abuse with Becca Malu [employer] FEEDER 11/23/2021 Opioid dependence uncomplicated Medical Substance Abuse with Becca Malu DESTATIC[employer]ER FEEDER 11/23/2021 Opioid dependence BH Substance Abuse w ith [facility]erson [facility] 11/20/2021 Opioid dependence, on agonist therapy BH Substance Abuse with Afshan Akhtar [facility] 11/20/2021 Assessment of body mass inde x [Body mass index [BMI] 23.0-23.9, adult] Medical Substance Abuse with Becca Malu [employer] FEEDER 11/20/2021 Bipolar disorder NOS BH Substance Abuse with Chaparrita Mccullough [facility] 11/13/2021 Generalized anxiety disorder BH Substanc e Abuse with Chaparrita Mccullough [facility] 11/13/2021 Opioid dependence uncomplicated BH Subst ance Abuse with Chaparrita Mccullough [facility] 11/13/2021 Z68.22 - Body mass index [BM I] 22.0-22.9, adult Medical Substance Abuse with Marily Carrionen [employer] [employer] 11/13/2021 Opioid dependence BH Substance Abuse w ith Afshan Cespedeserson [facility] 11/06/2021 Assessment of body mass inde x [Body mass index [BMI] 22.0-22.9, adult] Medical Substance Abuse with Becca Malu [employer] FEEDER 11/06/2021 Opioid dependence uncomplicated Medical Substance Abuse with Becca Malu DESTATIC[employer]ER FEEDER 11/06/2021 Opioid dependence BH Substance Abuse w ith Afshan Akhtar [facility] 09/22/2021 Stimulant abuse BH Substance Abuse w ith Afshan Akhtar [facility] 09/22/2021 Assessment of body mass inde x [Body mass index [BMI] 21.0-21.9, adult] Medical Substance Abuse with Becca Malu [employer] FEEDER 09/22/2021 Opioid dependence uncomplicated Medical Substance Abuse with Becca Malu DESTATIC[employer]ER FEEDER 09/22/2021 Opioid dependence BH Substance Abuse w ith Afshan Akhtar [facility] 09/19/2021 Stimulant abuse - uncomplicated BH Subst ance Abuse with Afshan Akhtar [facility] 09/19/2021 Assessment of body mass inde x [Body mass index [BMI] 21.0-21.9, adult] Medical Substance Abuse with Becca Malu DE[employer] FEEDER 09/19/2021 Opioid dependence uncomplicated Medical Substance Abuse with Becca Malu DESTATIC[employer]ER FEEDER 09/19/2021 Generalized anxiety disorder BH Establis hed Patient with Dary LÓPEZ 09/15/2021 Nicotine dependence continuous Establ ished 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 09/15/2021 Opioid dependence uncomplicated BH Estab lished 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 09/15/2021 Assessment of body mass inde x [Body mass index [BMI] 19.9 or less, adult] Medical Substance Abuse with Becca Malu DE[employer]ER FEEDER 09/15/2021 Opioid dependence uncomplicated Medical Substance Abuse with Becca Malu DESTATIC[employer]ER FEEDER 09/15/2021 Bipolar I disorder, most rec ent episode Established Patient with Chaparrita Mccullough [facility] 09/07/2021 Generalized anxiety disorder Establis hed Patient with Chaparrita Mccullough [facility] 09/07/2021 Opioid dependence uncomplicated Estab lished Patient with Chaparrita Mccullough [facility] 09/07/2021 Assessment of body mass inde x [Body mass index [BMI] 23.0-23.9, adult] Medical New Patient with Becca Malu [employer] FEEDER 09/07/2021 Bipolar disorder NOS Medical New Patient with Becca Malu [employer] FEEDER 09/07/2021 Diabetes Risk Test Score was 1.0 score 09/07/2021 Medical New Patient with Becca Malu [employer] FEED[employer] 09/07/2021 Generalized anxiety disorder Medical New Patient with Becca Malu [employer]ER FEEDER 09/07/2021 Opioid dependence uncomplicated Medical New Patient with Becca Malu [employer]ER FEEDER 09/07/2021 Screening for HIV Medical New Patient with Becca Malu [employer]ER FEEDER 09/07/2021 [facility] Work Phone: 1(671) 199-585411-04-2022 Reason for referral (narrative)* Date Encounter Description Provider Reason for Referral 12/22/21 Medical Substance Abuse Marily Terrazas [employer] Referral To Mental Health Team 09/22/21 Substance Abuse Afshan Akhtar [facility] Referral To Mental Health Team 09/07/21 Established Patient Chaparrita Mccullough [facility] Referral To Mental Health Team [facility] Work Phone: 1(247) 166-186510-21-2022 Evaluation note Includes: Assessments for all patient encounters Findings Encounter Date Bipolar disorder NOS Substance Abuse with Chaparrita Mccullough [facility] 12/08/2021 Generalized anxiety disorder Substanc e Abuse with Chaparrita Mccullough [facility] 12/08/2021 Opioid dependence uncomplicated BH Subst ance Abuse with Chaparrita Mccullough [facility] 12/08/2021 [Z68.23 - Body mass index [B ID] 23.0-23.9, adult] assessment of body mass index Medical Substance Abuse with Marilyjarod Carrionen [employer] 12/08/2021 Opioid dependence BH Substance Abuse w ith Afshan Akhtar [facility] 12/01/2021 Opioid dependence, on agonist therapy BH Substance Abuse with Afshan Akhtar [facility] 12/01/2021 [Body mass index [BMI] 23.0- 23.9, adult] assessment of body mass index Medical Substance Abuse with Becca Malu DE[employer] FEEDER 12/01/2021 Opioid dependence uncomplicated Medical Substance Abuse with Becca Malu DESTATIC[employer]ER FEEDER 12/01/2021 Opioid dependence BH Substance Abuse w ith Afshan Akhtar [facility] 11/23/2021 Opioid dependence, on agonist therapy BH Substance Abuse with Afshan Akhtar [facility] 11/23/2021 Assessment of body mass inde x [Body mass index [BMI] 23.0-23.9, adult] Medical Substance Abuse with Becca Malu [employer] FEEDER 11/23/2021 Opioid dependence uncomplicated Medical Substance Abuse with Ebcca Malu DE[employer]ER FEEDER 11/23/2021 Opioid dependence BH Substance Abuse w ith Afshan Akhtar [facility] 11/20/2021 Opioid dependence, on agonist therapy BH Substance Abuse with Afshan Akhtar [facility]-S 11/20/2021 Assessment of body mass inde x [Body mass index [BMI] 23.0-23.9, adult] Medical Substance Abuse with Becca Malu [employer]ER 11/20/2021 Bipolar disorder NOS BH Substance Abuse with Chaparrita Mccullough [facility]-S 11/13/2021 Generalized anxiety disorder BH Substanc e Abuse with Chaparrita Mccullough [facility]-S 11/13/2021 Opioid dependence uncomplicated BH Subst ance Abuse with Chaparrita Mccullough [facility]-S 11/13/2021 Z68.22 - Body mass index [BM I] 22.0-22.9, adult Medical Substance Abuse with Marilyjarod Carrionen [employer]EDER 11/13/2021 Opioid dependence BH Substance Abuse w ith Afshan Akhtar [facility]-S 11/06/2021 Assessment of body mass inde x [Body mass index [BMI] 22.0-22.9, adult] Medical Substance Abuse with Becca Malu [employer] FEEDER 11/06/2021 Opioid dependence uncomplicated Medical Substance Abuse with Becca Malu [employer]STATIC[employer]ER FEEDER 11/06/2021 Opioid dependence BH Substance Abuse w ith Afshan Akhtar [facility]-S 09/22/2021 Stimulant abuse BH Substance Abuse w ith Afshan Cespedeserson LP[facility]-S 09/22/2021 Assessment of body mass inde x [Body mass index [BMI] 21.0-21.9, adult] Medical Substance Abuse with Becca Malu [employer] FEEDER 09/22/2021 Opioid dependence uncomplicated Medical Substance Abuse with Becca Malu DESTATIC[employer]ER FEEDER 09/22/2021 Opioid dependence BH Substance Abuse w ith Afshan Cespedeserson LP[facility]-S 09/19/2021 Stimulant abuse - uncomplicated Subst ance Abuse with Afshan Akhtar LP[facility]-S 09/19/2021 Assessment of body mass inde x [Body mass index [BMI] 21.0-21.9, adult] Medical Substance Abuse with Becca Malu [employer] FEEDER 09/19/2021 Opioid dependence uncomplicated Medical Substance Abuse with Becca Malu DESTATICIZER FEEDER 09/19/2021 Generalized anxiety disorder Establis hed 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 09/15/2021 Nicotine dependence continuous Establ ished 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 09/15/2021 Opioid dependence uncomplicated Estab lished 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 09/15/2021 Assessment of body mass inde x [Body mass index [BMI] 19.9 or less, adult] Medical Substance Abuse with Becca Malu [employer] FEEDER 09/15/2021 Opioid dependence uncomplicated Medical Substance Abuse with Becca Malu DESTATIC[employer]ER FEEDER 09/15/2021 Bipolar I disorder, most rec ent episode Established Patient with Chaparrita Mccullough [facility]-S 09/07/2021 Generalized anxiety disorder Establis hed Patient with Chaparrita Mccullough LPCC-S 09/07/2021 Opioid dependence uncomplicated BH Estab lished Patient with Chaparrita Mccullough LPCC-S 09/07/2021 Assessment of body mass inde x [Body mass index [BMI] 23.0-23.9, adult] Medical New Patient with Becca Malu [employer] FEEDER 09/07/2021 Bipolar disorder NOS Medical New Patient with Becca Malu [employer]ER FEEDER 09/07/2021 Diabetes Risk Test Score was 1.0 score 09/07/2021 Medical New Patient with Becca Toribio [employer] FEEDER 09/07/2021 Generalized anxiety disorder Medical New Patient with Becca Toribio [employer]ER FEEDER 09/07/2021 Opioid dependence uncomplicated Medical New Patient with Becca Toribio [employer]ER FEEDER 09/07/2021 Screening for HIV Medical New Patient with Becca Toribio [employer]ER FEEDER 09/07/2021 [facility] Work Phone: [phone]) 411-844610-17-2022 History general Narrative - Reported Includes: Medical [...] psychiatric disorders 022 No previous hospitalizations 09/07/2021 [facility] Work Phone: 1(870) 630-814810-17-2022 History general Narrative - Reported Includes: Medical History in patient's chart Description Last Updated No suicidal ideation 12/04/2021 Last Documented On 2 10:18AM ; [facility] No suicidal intent 12/04/2021 Last Documented On 2 10:18AM ; [facility] No suicidal plans 12/04/2021 Last Documented On 2 10:18AM ; [facility] Has sex without a condom 09/07/2021 Last Documented On 2 9:13PM ; [facility] Not planning to have a baby in the next 12 months 09/07/2021 Last Documented On 2 9:13PM ; [facility] sexually transmitted infection status known 09/07/2021 Last Documented On 2 9:13PM ; [facility] History of extraction of wisdom tooth Last Documented On 2 9:40AM ; [facility] History of tooth extraction 09/07/2021 Last Documented On 2 9:40AM ; [facility] History of anxiety disorder NOS 09/08/19 22 Last Documented On 2 9:40AM ; [facility] History of coronary artery disease 09/07 Last Documented On 2 9:40AM ; [facility] History of depression 09/07/2021 Last Documented On 2 9:40AM ; [facility] History of diabetes mellitus 09/07/2021 Last Documented On 2 9:40AM ; [facility] History of psychiatric disorders 022 Last Documented On 2 9:40AM ; [facility] No previous hospitalizations 09/07/2021 Last Documented On 2 9:40AM ; [facility] Work Phone: [phone]) [phone] Evaluation note Includes: Assessments for all patient encounters Findings Encounter Date Opioid dependence BH Substance Abuse w ith [facility] 12/01/2021 Opioid dependence, on agonist therapy BH Substance Abuse with Afshanjustus CespedesAkhtar [facility] 12/01/2021 [Body mass index [BMI] 23.0- 23.9, adult] assessment of body mass index Medical Substance Abuse with Becca Malu [employer] FEEDER 12/01/2021 Opioid dependence uncomplicated Medical Substance Abuse with Becca Malu [employer]ER FEEDER 12/01/2021 Opioid dependence BH Substance Abuse w ith Afshan Cespedeserson [facility]-S 11/23/2021 Opioid dependence, on agonist therapy BH Substance Abuse with Afshan Akhtar LPCC-S 11/23/2021 Assessment of body mass inde x [Body mass index [BMI] 23.0-23.9, adult] Medical Substance Abuse with Becca Malu [employer] FEEDER 11/23/2021 Opioid dependence uncomplicated Medical Substance Abuse with Becca Malu DE[employer] FEEDER 11/23/2021 Opioid dependence BH Substance Abuse w ith Afshan Cespedeserson [facility]CC-S 11/20/2021 Opioid dependence, on agonist therapy BH Substance Abuse with Afshan Akhtar [facility]CC-S 11/20/2021 Assessment of body mass inde x [Body mass index [BMI] 23.0-23.9, adult] Medical Substance Abuse with Becca Malu [employer] FEEDER 11/20/2021 Bipolar disorder NOS BH Substance Abuse with Chaparrita Mccullough [facility]CC-S 11/13/2021 Generalized anxiety disorder BH Substanc e Abuse with Chaparrita Mccullough LPCC-S 11/13/2021 Opioid dependence uncomplicated BH Subst ance Abuse with Chaparrita Mccullough [facility] 11/13/2021 Z68.22 - Body mass index [BM I] 22.0-22.9, adult Medical Substance Abuse with Marily Terrazas DE[employer] FEEDER 11/13/2021 Opioid dependence BH Substance Abuse w ith Afshanjustus CespedesAkhtar [facility] 11/06/2021 Assessment of body mass inde x [Body mass index [BMI] 22.0-22.9, adult] Medical Substance Abuse with Becca Malu [employer] FEEDER 11/06/2021 Opioid dependence uncomplicated Medical Substance Abuse with Becca Malu DESTATIC[employer]ER FEEDER 11/06/2021 Opioid dependence BH Substance Abuse w ith Afshan Akhtar [facility]-S 09/22/2021 Stimulant abuse BH Substance Abuse w ith Afshan Akhtar LPCC-S 09/22/2021 Assessment of body mass inde x [Body mass index [BMI] 21.0-21.9, adult] Medical Substance Abuse with Becca Malu DE[employer] FEEDER 09/22/2021 Opioid dependence uncomplicated Medical Substance Abuse with Becca Malu DESTATIC[employer]ER FEEDER 09/22/2021 Opioid dependence BH Substance Abuse w ith Afshan Akhtar [facility]-S 09/19/2021 Stimulant abuse - uncomplicated BH Subst ance Abuse with Afshan Akhtar [facility]-S 09/19/2021 Assessment of body mass inde x [Body mass index [BMI] 21.0-21.9, adult] Medical Substance Abuse with Becca Malu [employer] FEEDER 09/19/2021 Opioid dependence uncomplicated Medical Substance Abuse with Becca Malu DESTATIC[employer]ER FEEDER 09/19/2021 Generalized anxiety disorder BH Establis hed 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 09/15/2021 Nicotine dependence continuous BH Establ ished 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 09/15/2021 Opioid dependence uncomplicated BH Estab lished Patient with Dary Clancy [employer] IN[employer]CTOR 09/15/2021 Assessment of body mass inde x [Body mass index [BMI] 19.9 or less, adult] Medical Substance Abuse with Becca Malu DE[employer] FEEDER 09/15/2021 Opioid dependence uncomplicated Medical Substance Abuse with Becca Malu DESTATICIZER FEEDER 09/15/2021 Bipolar I disorder, most rec ent episode BH Established Patient with Chaparrita Mccullough LPCC-S 09/07/2021 Generalized anxiety disorder Establis hed Patient with Chaparrita Mccullough LPCC-S 09/07/2021 Opioid dependence uncomplicated BH Estab lished Patient with Chaparrita Mccullough LPCC-S 09/07/2021 Assessment of body mass inde x [Body mass index [BMI] 23.0-23.9, adult] Medical New Patient with Becca Malu DE[employer]ER FEEDER 09/07/2021 Bipolar disorder NOS Medical New Patient with Becca Malu [employer] FEEDER 09/07/2021 Diabetes Risk Test Score was 1.0 score 09/07/2021 Medical New Patient with Becca Malu DESTATIC[employer]ER FEEDER 09/07/2021 Generalized anxiety disorder Medical New Patient with Becca Malu DESTATIC[employer]ER FEEDER 09/07/2021 Opioid dependence uncomplicated Medical New Patient with Becca Malu DESTATICIZER FEEDER 09/07/2021 Screening for HIV Medical New Patient with Becca Malu DESTATICIZER FEEDER 09/07/2021 [facility] Work Phone: [phone] Evaluation note Includes: Assessments for all patient encounters Findings Encounter Date [Z68.23 - Body mass index [B ID] 23.0-23.9, adult] assessment of body mass index Medical Substance Abuse with Marily Terrazas DE[employer]ER FEEDER 12/08/2021 Opioid dependence BH Substance Abuse w ith Afshan Akhtar [facility]CC-S 12/01/2021 Opioid dependence, on agonist therapy BH Substance Abuse with Afshan Akhtar [facility]CC-S 12/01/2021 [Body mass index [BMI] 23.0- 23.9, adult] assessment of body mass index Medical Substance Abuse with Becca Malu DESTATIC[employer]ER FEEDER 12/01/2021 Opioid dependence uncomplicated Medical Substance Abuse with Becca Malu DESTATIC[employer]ER FEEDER 12/01/2021 Opioid dependence BH Substance Abuse w ith Afshan Akhtar [facility]CC-S 11/23/2021 Opioid dependence, on agonist therapy BH Substance Abuse with Afshan Akhtar [facility]-S 11/23/2021 Assessment of body mass inde x [Body mass index [BMI] 23.0-23.9, adult] Medical Substance Abuse with Becca Malu DESTATIC[employer]ER FEEDER 11/23/2021 Opioid dependence uncomplicated Medical Substance Abuse with Becca Malu DESTATIC[employer]ER FEEDER 11/23/2021 Opioid dependence BH Substance Abuse w ith Afshan Akhtar [facility]-S 11/20/2021 Opioid dependence, on agonist therapy BH Substance Abuse with Afshan Akhtar [facility]-S 11/20/2021 Assessment of body mass inde x [Body mass index [BMI] 23.0-23.9, adult] Medical Substance Abuse with Becca Malu DESTATIC[employer]ER FEEDER 11/20/2021 Bipolar disorder NOS BH Substance Abuse with Chaparrita Mccullough [facility]CC-S 11/13/2021 Generalized anxiety disorder BH Substanc e Abuse with Chaparrita Mccullough LPCC-S 11/13/2021 Opioid dependence uncomplicated BH Subst ance Abuse with Chaparrita Mccullough [facility]CC-S 11/13/2021 Z68.22 - Body mass index [BM I] 22.0-22.9, adult Medical Substance Abuse with Marily Carrionen DE[employer] FEEDER 11/13/2021 Opioid dependence BH Substance Abuse w ith Afshan Akhtar [facility]-S 11/06/2021 Assessment of body mass inde x [Body mass index [BMI] 22.0-22.9, adult] Medical Substance Abuse with Becca Malu DE[employer] FEEDER 11/06/2021 Opioid dependence uncomplicated Medical Substance Abuse with Becca Malu DESTATIC[employer]ER FEEDER 11/06/2021 Opioid dependence BH Substance Abuse w ith Afshan Akhtar [facility] 09/22/2021 Stimulant abuse BH Substance Abuse w ith Afshan Akhtar [facility]-S 09/22/2021 Assessment of body mass inde x [Body mass index [BMI] 21.0-21.9, adult] Medical Substance Abuse with Becca Malu DESTATIC[employer]ER FEEDER 09/22/2021 Opioid dependence uncomplicated Medical Substance Abuse with Becca Malu DESTATICIZER FEEDER 09/22/2021 Opioid dependence BH Substance Abuse w ith Afshan Akhtar [facility]CC-S 09/19/2021 Stimulant abuse - uncomplicated BH Subst ance Abuse with Afshan Akhtar LPCC-S 09/19/2021 Assessment of body mass inde x [Body mass index [BMI] 21.0-21.9, adult] Medical Substance Abuse with Becca Malu DESTATICIZER FEEDER 09/19/2021 Opioid dependence uncomplicated Medical Substance Abuse with Becca Malu DESTATICIZER FEEDER 09/19/2021 Generalized anxiety disorder Establis hed 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 09/15/2021 Nicotine dependence continuous BH Establ ished 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 09/15/2021 Opioid dependence uncomplicated BH Estab lished 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 09/15/2021 Assessment of body mass inde x [Body mass index [BMI] 19.9 or less, adult] Medical Substance Abuse with Becca Malu DESTATIC[employer]ER FEEDER 09/15/2021 Opioid dependence uncomplicated Medical Substance Abuse with Becca Malu DESTATICIZER FEEDER 09/15/2021 Bipolar I disorder, most rec ent episode BH Established Patient with Chaparrita Mccullough LPCC-S 09/07/2021 Generalized anxiety disorder BH Establis hed Patient with Chaparrita Mccullough LPCC-S 09/07/2021 Opioid dependence uncomplicated BH Estab lished Patient with Chaparrita Mccullough LPCC-S 09/07/2021 Assessment of body mass inde x [Body mass index [BMI] 23.0-23.9, adult] Medical New Patient with Becca Malu DESTATIC[employer]ER FEEDER 09/07/2021 Bipolar disorder NOS Medical New Patient with Becca Malu DESTATICIZER FEEDER 09/07/2021 Diabetes Risk Test Score was 1.0 score 09/07/2021 Medical New Patient with Becca Malu DESTATIC[employer]ER FEEDER 09/07/2021 Generalized anxiety disorder Medical New Patient with Becca Malu DESTATICIZER FEEDER 09/07/2021 Opioid dependence uncomplicated Medical New Patient with Becca Malu DESTATICIZER FEEDER 09/07/2021 Screening for HIV Medical New Patient with Becca Malu DESTATICIZER FEEDER 09/07/2021 [facility] Work Phone: [phone]) [phone] Evaluation note Includes: Assessments for all patient encounters Findings Encounter Date Opioid dependence BH Substance Abuse w ith Afshan Akhtar LPCC-S 11/20/2021 Opioid dependence, on agonist therapy BH Substance Abuse with Afshanjustus Akhtar LPCC-S 11/20/2021 Assessment of body mass inde x [Body mass index [BMI] 23.0-23.9, adult] Medical Substance Abuse with Becca Malu DESTATICIZER FEEDER 11/20/2021 Bipolar disorder NOS BH Substance Abuse with Chaparrita Mccullough [facility] 11/13/2021 Generalized anxiety disorder BH Substanc e Abuse with Chaparrita Mccullough [facility] 11/13/2021 Opioid dependence uncomplicated BH Subst ance Abuse with Chaparrita Mccullough [facility] 11/13/2021 Z68.22 - Body mass index [BM I] 22.0-22.9, adult Medical Substance Abuse with Marily Terrazas [employer] FEEDER 11/13/2021 Opioid dependence BH Substance Abuse w ith Afshan Cespedeserson [facility] 11/06/2021 Assessment of body mass inde x [Body mass index [BMI] 22.0-22.9, adult] Medical Substance Abuse with Becca Malu DE[employer]ER FEEDER 11/06/2021 Opioid dependence uncomplicated Medical Substance Abuse with Becca Malu DESTATICIZER FEEDER 11/06/2021 Opioid dependence BH Substance Abuse w ith Afshan Cespedeserson [facility] 09/22/2021 Stimulant abuse BH Substance Abuse w [facility] Afshanjustus CespedesAkhtar [facility] 09/22/2021 Assessment of body mass inde x [Body mass index [BMI] 21.0-21.9, adult] Medical Substance Abuse with Becca Malu DESTATIC[employer]ER FEEDER 09/22/2021 Opioid dependence uncomplicated Medical Substance Abuse with Becca Malu DESTATICIZER FEEDER 09/22/2021 Opioid dependence BH Substance Abuse w ith Afshan Cespedeserson [facility] 09/19/2021 Stimulant abuse - uncomplicated BH Subst ance Abuse with Afshan Akhtar [facility] 09/19/2021 Assessment of body mass inde x [Body mass index [BMI] 21.0-21.9, adult] Medical Substance Abuse with Becca Malu DESTATICIZER FEEDER 09/19/2021 Opioid dependence uncomplicated Medical Substance Abuse with Becca Malu DESTATICIZER FEEDER 09/19/2021 Generalized anxiety disorder BH Establis hed 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 09/15/2021 Nicotine dependence continuous BH Establ ished 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 09/15/2021 Opioid dependence uncomplicated BH Estab lished 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 09/15/2021 Assessment of body mass inde x [Body mass index [BMI] 19.9 or less, adult] Medical Substance Abuse with Becca Malu DE[employer]ER FEEDER 09/15/2021 Opioid dependence uncomplicated Medical Substance Abuse with Becca Malu DESTATIC[employer]ER FEEDER 09/15/2021 Bipolar I disorder, most rec ent episode BH Established Patient with Chaparrita Mccullough [facility]CC-S 09/07/2021 Generalized anxiety disorder BH Establis hed Patient with Chaparrita Mccullough [facility]-S 09/07/2021 Opioid dependence uncomplicated BH Estab lished Patient with Chaparrita Mccullough [facility]-S 09/07/2021 Assessment of body mass inde x [Body mass index [BMI] 23.0-23.9, adult] Medical New Patient with Becca Malu DESTATICIZER FEEDER 09/07/2021 Bipolar disorder NOS Medical New Patient with Becca Malu DESTATIC[employer]ER FEEDER 09/07/2021 Diabetes Risk Test Score was 1.0 score 09/07/2021 Medical New Patient with Becca Malu DESTATIC[employer]ER FEEDER 09/07/2021 Generalized anxiety disorder Medical New Patient with Becca Malu DESTATICIZER FEEDER 09/07/2021 Opioid dependence uncomplicated Medical New Patient with Becca Malu DESTATICIZER FEEDER 09/07/2021 Screening for HIV Medical New Patient with Becca Malu DESTATIC[employer]ER FEEDER 09/07/2021 [facility] Work Phone: [phone]) [phone] Evaluation note Includes: Assessments for all patient encounters Findings Encounter Date Z68.22 - Body mass index [BM I] 22.0-22.9, adult Medical Substance Abuse with Marily Nini [employer] FEEDER 11/13/2021 Opioid dependence BH Substance Abuse w ith Afshan Akhtar [facility] 11/06/2021 Assessment of body mass inde x [Body mass index [BMI] 22.0-22.9, adult] Medical Substance Abuse with Becca Malu DESTATICIZER FEEDER 11/06/2021 Opioid dependence uncomplicated Medical Substance Abuse with Becca Malu DESTATICIZER FEEDER 11/06/2021 Opioid dependence BH Substance Abuse w ith Afshan Akhtar [facility] 09/22/2021 Stimulant abuse BH Substance Abuse w ith Afshan Akhtar [facility] 09/22/2021 Assessment of body mass inde x [Body mass index [BMI] 21.0-21.9, adult] Medical Substance Abuse with Becca Malu DESTATIC[employer]ER FEEDER 09/22/2021 Opioid dependence uncomplicated Medical Substance Abuse with Becca Malu DESTATICIZER FEEDER 09/22/2021 Opioid dependence BH Substance Abuse w [facility] Afshan Akhtar LP[facility]-S 09/19/2021 Stimulant abuse - uncomplicated Subst ance Abuse with Afshan Akhtar LP[facility]-S 09/19/2021 Assessment of body mass inde x [Body mass index [BMI] 21.0-21.9, adult] Medical Substance Abuse with Becca Malu DE[employer]IZER FEEDER 09/19/2021 Opioid dependence uncomplicated Medical Substance Abuse with Becca Malu DESTATICIZER FEEDER 09/19/2021 Generalized anxiety disorder Establis hed 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 09/15/2021 Nicotine dependence continuous BH Establ ished 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 09/15/2021 Opioid dependence uncomplicated BH Estab lished 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 09/15/2021 Assessment of body mass inde x [Body mass index [BMI] 19.9 or less, adult] Medical Substance Abuse with Becca Malu DESTATICIZER FEEDER 09/15/2021 Opioid dependence uncomplicated Medical Substance Abuse with Becca Malu DESTATICIZER FEEDER 09/15/2021 Bipolar I disorder, most rec ent episode Established Patient with Chaparrita Mccullough [facility] 09/07/2021 Generalized anxiety disorder Establis hed Patient with Chaparrita Mccullough [facility]-S 09/07/2021 Opioid dependence uncomplicated BH Estab lished Patient with Chaparrita Mccullough [facility]-S 09/07/2021 Assessment of body mass inde x [Body mass index [BMI] 23.0-23.9, adult] Medical New Patient with Becca Malu DE[employer]ER FEEDER 09/07/2021 Bipolar disorder NOS Medical New Patient with Becca Malu DE[employer]ER FEEDER 09/07/2021 Diabetes Risk Test Score was 1.0 score 09/07/2021 Medical New Patient with Becca Malu DE[employer]ER FEEDER 09/07/2021 Generalized anxiety disorder Medical New Patient with Becca Malu DESTATICIZER FEEDER 09/07/2021 Opioid dependence uncomplicated Medical New Patient with Becca Malu DESTATICIZER FEEDER 09/07/2021 Screening for HIV Medical New Patient with Becca Malu DESTATICIZER FEEDER 09/07/2021 [facility] Work Phone: 1([phone]) 606-486209-26-2022 Evaluation note Includes: Assessments for all patient encounters Findings Encounter Date Bipolar disorder NOS Substance Abuse with Chaparrita Mccullough [facility] 11/13/2021 Generalized anxiety disorder Substanc e Abuse with Chaparritaandrez Emersons [facility] 11/13/2021 Opioid dependence uncomplicated BH Subst ance Abuse with Chaparrita Mccullough [facility] 11/13/2021 Z68.22 - Body mass index [BM I] 22.0-22.9, adult Medical Substance Abuse with Marily Nini [employer] FEEDER 11/13/2021 Opioid dependence BH Substance Abuse w ith Afshan Cespedeserson [facility] 11/06/2021 Assessment of body mass inde x [Body mass index [BMI] 22.0-22.9, adult] Medical Substance Abuse with Becca Malu DESTATIC[employer]ER FEEDER 11/06/2021 Opioid dependence uncomplicated Medical Substance Abuse with Becca Malu DESTATICIZER FEEDER 11/06/2021 Opioid dependence BH Substance Abuse w ith Afshan Akhtar [facility] 09/22/2021 Stimulant abuse BH Substance Abuse w ith Afshan Akhtar [facility] 09/22/2021 Assessment of body mass inde x [Body mass index [BMI] 21.0-21.9, adult] Medical Substance Abuse with Becca Malu DE[employer]ER FEEDER 09/22/2021 Opioid dependence uncomplicated Medical Substance Abuse with Becca Malu DESTATIC[employer]ER FEEDER 09/22/2021 Opioid dependence BH Substance Abuse w ith Afshan Cespedeserson [facility] 09/19/2021 Stimulant abuse - uncomplicated BH Subst ance Abuse with Afshan Akhtar [facility] 09/19/2021 Assessment of body mass inde x [Body mass index [BMI] 21.0-21.9, adult] Medical Substance Abuse with Becca Malu DE[employer]ER FEEDER 09/19/2021 Opioid dependence uncomplicated Medical Substance Abuse with Becca Malu DESTATIC[employer]ER FEEDER 09/19/2021 Generalized anxiety disorder Establis hed 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 09/15/2021 Nicotine dependence continuous Establ ished 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 09/15/2021 Opioid dependence uncomplicated BH Estab lished 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 09/15/2021 Assessment of body mass inde x [Body mass index [BMI] 19.9 or less, adult] Medical Substance Abuse with Becca Malu DE[employer]ER FEEDER 09/15/2021 Opioid dependence uncomplicated Medical Substance Abuse with Becca Malu DESTATIC[employer]ER FEEDER 09/15/2021 Bipolar I disorder, most rec ent episode Established Patient with Chaparrita Mccullough [facility] 09/07/2021 Generalized anxiety disorder BH Establis hed Patient with Chaparrita Mccullough [facility] 09/07/2021 Opioid dependence uncomplicated BH Estab lished Patient with Chaparrita Mccullough [facility] 09/07/2021 Assessment of body mass inde x [Body mass index [BMI] 23.0-23.9, adult] Medical New Patient with Becca Malu DE[employer]ER FEEDER 09/07/2021 Bipolar disorder NOS Medical New Patient with Becca Malu DESTATIC[employer]ER FEEDER 09/07/2021 Diabetes Risk Test Score was 1.0 score 09/07/2021 Medical New Patient with Becca Malu [employer] FEEDER 09/07/2021 Generalized anxiety disorder Medical New Patient with Becca Malu DE[employer]ER FEEDER 09/07/2021 Opioid dependence uncomplicated Medical New Patient with Becca Malu DESTATIC[employer]ER FEEDER 09/07/2021 Screening for HIV Medical New Patient with Becca Malu DESTATICIZER FEEDER 09/07/2021 [facility] Work Phone: 1([phone]) 289-882709-19-2022 Evaluation note Includes: Assessments for all patient encounters Findings Encounter Date Opioid dependence BH Substance Abuse w ith Afshan Akhtar LPCC-S 11/06/2021 Assessment of body mass inde x [Body mass index [BMI] 22.0-22.9, adult] Medical Substance Abuse with Becca Malu [employer]ER 11/06/2021 Opioid dependence BH Substance Abuse w ith Afshan Akhtar LPCC-S 09/22/2021 Stimulant abuse BH Substance Abuse w ith Afshan Akhtar LPCC-S 09/22/2021 Assessment of body mass inde x [Body mass index [BMI] 21.0-21.9, adult] Medical Substance Abuse with Becca Malu [employer] FEEDER 09/22/2021 Opioid dependence uncomplicated Medical Substance Abuse with Becca Malu [employer]STATIC[employer] FEEDER 09/22/2021 Opioid dependence BH Substance Abuse w ith Afshan Akhtar LPCC-S 09/19/2021 Stimulant abuse - uncomplicated BH Subst ance Abuse with Afshan Akhtar LPCC-S 09/19/2021 Assessment of body mass inde x [Body mass index [BMI] 21.0-21.9, adult] Medical Substance Abuse with Becca Malu [employer] FEEDER 09/19/2021 Opioid dependence uncomplicated Medical Substance Abuse with Becca Malu DESTATIC[employer]ER FEEDER 09/19/2021 Generalized anxiety disorder BH Establis hed 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 09/15/2021 Nicotine dependence continuous BH Establ ished 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 09/15/2021 Opioid dependence uncomplicated BH Estab lished 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 09/15/2021 Assessment of body mass inde x [Body mass index [BMI] 19.9 or less, adult] Medical Substance Abuse with Becca Malu [employer] FEEDER 09/15/2021 Opioid dependence uncomplicated Medical Substance Abuse with Becca Malu [employer] FEEDER 09/15/2021 Bipolar I disorder, most rec ent episode Established Patient with Chaparrita Mccullough LPCC-S 09/07/2021 Generalized anxiety disorder BH Establis hed Patient with Chaparrita Mccullough LPCC-S 09/07/2021 Opioid dependence uncomplicated BH Estab lished Patient with Chaparrita Mccullough LPCC-S 09/07/2021 Assessment of body mass inde x [Body mass index [BMI] 23.0-23.9, adult] Medical New Patient with Becca Malu [employer] FEEDER 09/07/2021 Bipolar disorder NOS Medical New Patient with Becca Malu [employer] FEEDER 09/07/2021 Diabetes Risk Test Score was 1.0 score 09/07/2021 Medical New Patient with Becca Malu [employer] FEEDER 09/07/2021 Generalized anxiety disorder Medical New Patient with Becca Malu [employer] FEEDER 09/07/2021 Opioid dependence uncomplicated Medical New Patient with Becca Malu [employer] FEEDER 09/07/2021 Screening for HIV Medical New Patient with Becca Malu [employer] FEEDER 09/07/2021 [facility] Work Phone: [phone]) [phone] Evaluation note Includes: Assessments for all patient encounters Findings Encounter Date Opioid dependence BH Substance Abuse w ith Afshan Akhtar LPCC-S 11/06/2021 Assessment of body mass inde x [Body mass index [BMI] 22.0-22.9, adult] Medical Substance Abuse with Becca Malu [employer] FEEDER 11/06/2021 Opioid dependence uncomplicated Medical Substance Abuse with Becca Malu DESTATIC[employer] FEEDER 11/06/2021 Opioid dependence BH Substance Abuse w ith Afshan Akhtar LPCC-S 09/22/2021 Stimulant abuse BH Substance Abuse w ith Afshan Akhtar LPCC-S 09/22/2021 Assessment of body mass inde x [Body mass index [BMI] 21.0-21.9, adult] Medical Substance Abuse with Becca Malu [employer] FEEDER 09/22/2021 Opioid dependence uncomplicated Medical Substance Abuse with Becca Malu DESTATIC[employer] FEEDER 09/22/2021 Opioid dependence BH Substance Abuse w rox Akhtar LPCC-S 09/19/2021 Stimulant abuse - uncomplicated BH Subst ance Abuse with Afshan Akhtar LPCC-S 09/19/2021 Assessment of body mass inde x [Body mass index [BMI] 21.0-21.9, adult] Medical Substance Abuse with Becca Malu [employer] FEEDER 09/19/2021 Opioid dependence uncomplicated Medical Substance Abuse with Becca Malu [employer] FEEDER 09/19/2021 Generalized anxiety disorder Establis hed 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 09/15/2021 Nicotine dependence continuous BH Establ ished 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 09/15/2021 Opioid dependence uncomplicated BH Estab lished 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 09/15/2021 Assessment of body mass inde x [Body mass index [BMI] 19.9 or less, adult] Medical Substance Abuse with Becca Malu [employer] FEEDER 09/15/2021 Opioid dependence uncomplicated Medical Substance Abuse with Becca Malu DE[employer] FEEDER 09/15/2021 Bipolar I disorder, most rec ent episode Established Patient with Chaparrita Mccullough LPCC-S 09/07/2021 Generalized anxiety disorder BH Establis hed Patient with Chaparrita Mccullough LPCC-S 09/07/2021 Opioid dependence uncomplicated BH Estab lished Patient with Chaparrita Mccullough LPCC-S 09/07/2021 Assessment of body mass inde x [Body mass index [BMI] 23.0-23.9, adult] Medical New Patient with Becca Malu [employer] FEEDER 09/07/2021 Bipolar disorder NOS Medical New Patient with Becca Malu [employer] FEEDER 09/07/2021 Diabetes Risk Test Score was 1.0 score 09/07/2021 Medical New Patient with Becca Malu [employer] FEEDER 09/07/2021 Generalized anxiety disorder Medical New Patient with Becca Malu [employer] FEEDER 09/07/2021 Opioid dependence uncomplicated Medical New Patient with Becca Malu [employer] FEEDER 09/07/2021 Screening for HIV Medical New Patient with Becca Malu [employer] FEEDER 09/07/2021 [facility] Work Phone: 1([phone]) 119-445508-05-2022 Evaluation note Includes: Assessments for all patient encounters Findings Encounter Date Opioid dependence BH Substance Abuse w ith Afshan Cespedeserson LPCC-S 09/22/2021 Stimulant abuse BH Substance Abuse w ith Afshan Cespedeserson LPCC-S 09/22/2021 Assessment of body mass inde x [Body mass index [BMI] 21.0-21.9, adult] Medical Substance Abuse with Becca Malu [employer]EDER 09/22/2021 Opioid dependence uncomplicated Medical Substance Abuse with Becca Malu DE[employer] FEEDER 09/22/2021 Opioid dependence BH Substance Abuse w ith Afshan Cespedeserson LPCC-S 09/19/2021 Stimulant abuse - uncomplicated Subst ance Abuse with Afshan Akhtar LPCC-S 09/19/2021 Assessment of body mass inde x [Body mass index [BMI] 21.0-21.9, adult] Medical Substance Abuse with Becca Malu [employer] FEEDER 09/19/2021 Opioid dependence uncomplicated Medical Substance Abuse with Becca Malu DE[employer] FEEDER 09/19/2021 Generalized anxiety disorder Establis hed 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 09/15/2021 Nicotine dependence continuous Establ ished 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 09/15/2021 Opioid dependence uncomplicated Estab lished 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 09/15/2021 Assessment of body mass inde x [Body mass index [BMI] 19.9 or less, adult] Medical Substance Abuse with Becca Malu [employer] FEEDER 09/15/2021 Opioid dependence uncomplicated Medical Substance Abuse with Becca Malu [employer] FEEDER 09/15/2021 Bipolar I disorder, most rec ent episode Established Patient with Chaparrita Mccullough LPCC-S 09/07/2021 Generalized anxiety disorder Establis hed Patient with Chaparrita Mccullough LPCC-S 09/07/2021 Opioid dependence uncomplicated Estab lished Patient with Chaparrita Mccullough LPCC-S 09/07/2021 Assessment of body mass inde x [Body mass index [BMI] 23.0-23.9, adult] Medical New Patient with Becca Malu [employer] FEEDER 09/07/2021 Bipolar disorder NOS Medical New Patient with Becca Malu [employer] FEEDER 09/07/2021 Diabetes Risk Test Score was 1.0 score 09/07/2021 Medical New Patient with Becca Malu [employer] FEEDER 09/07/2021 Generalized anxiety disorder Medical New Patient with Becca Malu [employer] FEEDER 09/07/2021 Opioid dependence uncomplicated Medical New Patient with Becca Malu [employer] FEEDER 09/07/2021 Screening for HIV Medical New Patient with Becca Malu [employer] FEEDER 09/07/2021 [facility] Work Phone: 1(162) 834-957108-02-2022 Evaluation note Includes: Assessments for all patient encounters Findings Encounter Date Opioid dependence BH Substance Abuse w ith Afshan Akhtar LPCC-S 09/19/2021 Stimulant abuse - uncomplicated BH Subst ance Abuse with Afshan Akhtar LPCC-S 09/19/2021 Assessment of body mass inde x [Body mass index [BMI] 21.0-21.9, adult] Medical Substance Abuse with Becca Malu DE[employer] FEEDER 09/19/2021 Opioid dependence uncomplicated Medical Substance Abuse with Becca Malu DE[employer] FEEDER 09/19/2021 Generalized anxiety disorder Establis hed 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 09/15/2021 Nicotine dependence continuous Establ ished 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 09/15/2021 Opioid dependence uncomplicated BH Estab lished 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 09/15/2021 Assessment of body mass inde x [Body mass index [BMI] 19.9 or less, adult] Medical Substance Abuse with Becca Malu DE[employer] FEEDER 09/15/2021 Opioid dependence uncomplicated Medical Substance Abuse with Becca Malu DE[employer] FEEDER 09/15/2021 Bipolar I disorder, most rec ent episode Established Patient with Chaparrita Mccullough LPCC-S 09/07/2021 Generalized anxiety disorder Establis hed Patient with Chaparrita Mccullough LPCC-S 09/07/2021 Opioid dependence uncomplicated BH Estab lished Patient with Chaparrita Mccullough LPCC-S 09/07/2021 Assessment of body mass inde x [Body mass index [BMI] 23.0-23.9, adult] Medical New Patient with Becca Malu [employer] FEEDER 09/07/2021 Bipolar disorder NOS Medical New Patient with Becca Malu [employer] FEEDER 09/07/2021 Diabetes Risk Test Score was 1.0 score 09/07/2021 Medical New Patient with Becca Malu [employer] FEEDER 09/07/2021 Generalized anxiety disorder Medical New Patient with Becca Malu DE[employer] FEEDER 09/07/2021 Opioid dependence uncomplicated Medical New Patient with Becca Malu DE[employer] FEEDER 09/07/2021 Screening for HIV Medical New Patient with Becca Malu DESTATIC[employer]ER FEEDER 09/07/2021 [facility] Work Phone: [phone]) [phone] Evaluation note Includes: Assessments for all patient encounters Findings Encounter Date Generalized anxiety disorder BH Establis hed 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 09/15/2021 Nicotine dependence continuous BH Establ ished 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 09/15/2021 Opioid dependence uncomplicated BH Estab lished 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 09/15/2021 Assessment of body mass inde x [Body mass index [BMI] 19.9 or less, adult] Medical Substance Abuse with Becca Malu DE[employer] FEEDER 09/15/2021 Bipolar I disorder, most rec ent episode Established Patient with Chaparrita Mccullough LPCC-S 09/07/2021 Generalized anxiety disorder BH Establis hed Patient with Chaparrita Mccullough LPCC-S 09/07/2021 Opioid dependence uncomplicated BH Estab lished Patient with Chaparrita Mccullough LPCC-S 09/07/2021 Assessment of body mass inde x [Body mass index [BMI] 23.0-23.9, adult] Medical New Patient with Becca Malu [employer] FEEDER 09/07/2021 Bipolar disorder NOS Medical New Patient with Becca Malu [employer] FEEDER 09/07/2021 Diabetes Risk Test Score was 1.0 score 09/07/2021 Medical New Patient with Becca Malu [employer] FEEDER 09/07/2021 Generalized anxiety disorder Medical New Patient with Becca Malu DESTATIC[employer] FEEDER 09/07/2021 Opioid dependence uncomplicated Medical New Patient with Becca Malu DESTATIC[employer]ER FEEDER 09/07/2021 Screening for HIV Medical New Patient with Becca Malu [employer]ER FEEDER 09/07/2021 [facility] Work Phone: [phone]) 604-340207-29-2022 Evaluation note Includes: Assessments for all patient encounters Findings Encounter Date Generalized anxiety disorder BH Establis hed 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 09/15/2021 Nicotine dependence continuous BH Establ ished 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 09/15/2021 Opioid dependence uncomplicated BH Estab lished 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 09/15/2021 Assessment of body mass inde x [Body mass index [BMI] 19.9 or less, adult] Medical Substance Abuse with Becca Malu DE[employer] FEEDER 09/15/2021 Opioid dependence uncomplicated Medical Substance Abuse with Becca Malu DESTATIC[employer]ER FEEDER 09/15/2021 Bipolar I disorder, most rec ent episode Established Patient with Chaparrita Mccullough LPCC-S 09/07/2021 Generalized anxiety disorder BH Establis hed Patient with Chaparrita Mccullough LPCC-S 09/07/2021 Opioid dependence uncomplicated BH Estab lished Patient with Chaparrita Mccullough LPCC-S 09/07/2021 Assessment of body mass inde x [Body mass index [BMI] 23.0-23.9, adult] Medical New Patient with Becca Malu [employer] FEEDER 09/07/2021 Bipolar disorder NOS Medical New Patient with Becca Malu [employer] FEEDER 09/07/2021 Diabetes Risk Test Score was 1.0 score 09/07/2021 Medical New Patient with Becca Malu [employer] FEEDER 09/07/2021 Generalized anxiety disorder Medical New Patient with Becca Malu DE[employer] FEEDER 09/07/2021 Opioid dependence uncomplicated Medical New Patient with Becca Malu DE[employer] FEEDER 09/07/2021 Screening for HIV Medical New Patient with Becca Malu DE[employer]ER FEEDER 09/07/2021 [facility] Work Phone: 1([phone]) 675-486907-21-2022 Evaluation note Includes: Assessments for all patient [...] adult] Medical New Patient with Becca Malu [employer] FEEDER 09/07/2021 Diabetes Risk Test Score was 1.0 score 09/07/2021 Medical New Patient with Becca Malu DE[employer] FEEDER 09/07/2021 Screening for HIV Medical New Patient with Becca Malu DESTATIC[employer] FEEDER 09/07/2021 [facility] Work Phone: 1([phone]) 326-332807-21-2022 Evaluation note Includes: Assessments for all patient [...] adult] Medical New Patient with Becca Malu [employer] FEEDER 09/07/2021 Bipolar disorder NOS Medical New Patient with Becca Malu [employer]STATIC[employer] FEEDER 09/07/2021 Diabetes Risk Test Score was 1.0 score 09/07/2021 Medical New Patient with Becca Malu DESTATIC[employer] FEEDER 09/07/2021 Generalized anxiety disorder Medical New Patient with Becca Malu DESTATIC[employer]ER FEEDER 09/07/2021 Opioid dependence uncomplicated Medical New Patient with Becca Malu DE[employer] FEEDER 09/07/2021 Screening for HIV Medical New Patient with Becca Malu DESTATIC[employer]ER FEEDER 09/07/2021 [facility] Work Phone: 1(246) 636-374807-21-2022 History general Narrative - Reported Includes: Medical History in patient's chart Description Last Updated Has sex without a condom 09/07/2021 Not planning to have a baby in the next 12 months 09/07/2021 Partners sexually transmitted infection status known 09/07/2021 [facility] Work Phone: 1(667) 750-379007-21-2022 History general Narrative - Reported Includes: Medical [...] diabetes mellitus 09/07/2021 History of psychiatric disorders 07/21/2 022 No previous hospitalizations 09/07/2021 [facility] Work Phone: Evaluation note Includes: Assessments for all patient encounters Findings Encounter Date Opioid dependence BH Substance Abuse w rox Akhtar LPCC-S 09/19/2021 Stimulant abuse - uncomplicated Subst ance Abuse with Afshanjustus Akhtar LPCC-S 09/19/2021 Assessment of body mass inde x [Body mass index [BMI] 21.0-21.9, adult] Medical Substance Abuse with Becca Malu [employer] FEEDER 09/19/2021 Generalized anxiety disorder BH Establis hed 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 09/15/2021 Nicotine dependence continuous Establ ished 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 09/15/2021 Opioid dependence uncomplicated Estab lished 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 09/15/2021 Assessment of body mass inde x [Body mass index [BMI] 19.9 or less, adult] Medical Substance Abuse with Becca Malu [employer] FEEDER 09/15/2021 Opioid dependence uncomplicated Medical Substance Abuse with Becca Malu DE[employer] FEEDER 09/15/2021 Bipolar I disorder, most rec ent episode Established Patient with Chaparrita Mccullough LPCC-S 09/07/2021 Generalized anxiety disorder BH Establis hed Patient with Chaparrita Mccullough LPCC-S 09/07/2021 Opioid dependence uncomplicated BH Estab lished Patient with Chaparrita Mccullough LPCC-S 09/07/2021 Assessment of body mass inde x [Body mass index [BMI] 23.0-23.9, adult] Medical New Patient with Becca Malu DE[employer] FEEDER 09/07/2021 Bipolar disorder NOS Medical New Patient with Becca Malu DE[employer] FEEDER 09/07/2021 Diabetes Risk Test Score was 1.0 score 09/07/2021 Medical New Patient with Becca Malu [employer] FEEDER 09/07/2021 Generalized anxiety disorder Medical New Patient with Becca Malu DE[employer] FEEDER 09/07/2021 Opioid dependence uncomplicated Medical New Patient with Becca Malu DE[employer] FEEDER 09/07/2021 Screening for HIV Medical New Patient with Becca Malu DESTATIC[employer] FEEDER 09/07/2021 [facility] Work Phone: Evaluation note Includes: Assessments for all patient encounters Findings Encounter Date Opioid dependence BH Substance Abuse w ith Afshan Akhtar LPCC-S 09/22/2021 Stimulant abuse BH Substance Abuse w ith Afshan Cespedeserson LPCC-S 09/22/2021 Assessment of body mass inde x [Body mass index [BMI] 21.0-21.9, adult] Medical Substance Abuse with Becca Malu DE[employer] FEEDER 09/22/2021 Opioid dependence BH Substance Abuse w ith Afshan Akhtar LPCC-S 09/19/2021 Stimulant abuse - uncomplicated Subst ance Abuse with Asfhan Akhtar LPCC-S 09/19/2021 Assessment of body mass inde x [Body mass index [BMI] 21.0-21.9, adult] Medical Substance Abuse with Becca Malu DE[employer] FEEDER 09/19/2021 Opioid dependence uncomplicated Medical Substance Abuse with Becca Malu DESTATIC[employer]ER FEEDER 09/19/2021 Generalized anxiety disorder Establis hed 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 09/15/2021 Nicotine dependence continuous BH Establ ished 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 09/15/2021 Opioid dependence uncomplicated BH Estab lished 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 09/15/2021 Assessment of body mass inde x [Body mass index [BMI] 19.9 or less, adult] Medical Substance Abuse with Becca Malu DESTATIC[employer]ER FEEDER 09/15/2021 Opioid dependence uncomplicated Medical Substance Abuse with Becca Malu DESTATIC[employer]ER FEEDER 09/15/2021 Bipolar I disorder, most rec ent episode Established Patient with Chaparrita Mccullough LPCC-S 09/07/2021 Generalized anxiety disorder BH Establis hed Patient with Chaparrita Mccullough LPCC-S 09/07/2021 Opioid dependence uncomplicated BH Estab lished Patient with Chaparrita Mccullough LPCC-S 09/07/2021 Assessment of body mass inde x [Body mass index [BMI] 23.0-23.9, adult] Medical New Patient with Becca Malu [employer] FEEDER 09/07/2021 Bipolar disorder NOS Medical New Patient with Becca Malu [employer] FEEDER 09/07/2021 Diabetes Risk Test Score was 1.0 score 09/07/2021 Medical New Patient with Becca Malu DESTATIC[employer] FEEDER 09/07/2021 Generalized anxiety disorder Medical New Patient with Becca Malu DESTATIC[employer]ER FEEDER 09/07/2021 Opioid dependence uncomplicated Medical New Patient with Becca Malu DE[employer] FEEDER 09/07/2021 Screening for HIV Medical New Patient with Becca Malu DESTATIC[employer]ER FEEDER 09/07/2021 [facility] Work Phone: Evaluation note Includes: Assessments for all patient encounters Findings Encounter Date Opioid dependence BH Substance Abuse w ith Afshan Akhtar LPCC-S 09/22/2021 Stimulant abuse BH Substance Abuse w ith Afshan Cespedeserson LPCC-S 09/22/2021 Assessment of body mass inde x [Body mass index [BMI] 21.0-21.9, adult] Medical Substance Abuse with Becca Malu DE[employer] FEEDER 09/22/2021 Opioid dependence uncomplicated Medical Substance Abuse with Becca Malu DESTATIC[employer]ER FEEDER 09/22/2021 Opioid dependence BH Substance Abuse w ith Afshan Cespedeserson LPCC-S 09/19/2021 Stimulant abuse - uncomplicated Subst ance Abuse with Afshan Akhtar LPCC-S 09/19/2021 Assessment of body mass inde x [Body mass index [BMI] 21.0-21.9, adult] Medical Substance Abuse with Becca Malu DE[employer] FEEDER 09/19/2021 Opioid dependence uncomplicated Medical Substance Abuse with Becca Malu DESTATIC[employer]ER FEEDER 09/19/2021 Generalized anxiety disorder Establis hed 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 09/15/2021 Nicotine dependence continuous Establ ished 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 09/15/2021 Opioid dependence uncomplicated BH Estab lished 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 09/15/2021 Assessment of body mass inde x [Body mass index [BMI] 19.9 or less, adult] Medical Substance Abuse with Becca Malu DE[employer] FEEDER 09/15/2021 Opioid dependence uncomplicated Medical Substance Abuse with Becca Malu DESTATIC[employer]ER FEEDER 09/15/2021 Bipolar I disorder, most rec ent episode Established Patient with Chaparrita Mccullough LPCC-S 09/07/2021 Generalized anxiety disorder BH Establis hed Patient with Chaparrita Mccullough LPCC-S 09/07/2021 Opioid dependence uncomplicated BH Estab lished Patient with Chaparrita Mccullough LPCC-S 09/07/2021 Assessment of body mass inde x [Body mass index [BMI] 23.0-23.9, adult] Medical New Patient with Becca Malu [employer] FEEDER 09/07/2021 Bipolar disorder NOS Medical New Patient with Becca Malu [employer] FEEDER 09/07/2021 Diabetes Risk Test Score was 1.0 score 09/07/2021 Medical New Patient with Becca Malu [employer] FEEDER 09/07/2021 Generalized anxiety disorder Medical New Patient with Becca Malu [employer] FEEDER 09/07/2021 Opioid dependence uncomplicated Medical New Patient with Becca Malu DESTATIC[employer] FEEDER 09/07/2021 Screening for HIV Medical New Patient with Becca Malu DESTATIC[employer]ER FEEDER 09/07/2021 [facility] Work Phone: Evaluation note Includes: Assessments for all patient encounters Findings Encounter Date Opioid dependence BH Substance Abuse w ith Afshan Akhtar LPCC-S 11/23/2021 Opioid dependence, on agonist therapy BH Substance Abuse with Afshan Akhtar LPCC-S 11/23/2021 Assessment of body mass inde x [Body mass index [BMI] 23.0-23.9, adult] Medical Substance Abuse with Becca Malu [employer] FEEDER 11/23/2021 Opioid dependence BH [facility]/20/2021 Opioid dependence, on agonist therapy BH Substance Abuse with Afshan Akhtar LPCC-S 11/20/2021 Assessment of body mass inde x [Body mass index [BMI] 23.0-23.9, adult] Medical Substance Abuse with Becca Malu [employer] FEEDER 11/20/2021 Bipolar disorder NOS BH Substance Abuse with Chaparrita Mccullough LPCC-S 11/13/2021 Generalized anxiety disorder BH Substanc e Abuse with Chaparrita Mccullough LPCC-S 11/13/2021 Opioid dependence uncomplicated BH Subst ance [facility] 11/13/2021 Z68.22 - Body mass index [BM I] 22.0-22.9, adult Medical Substance Abuse with Marily Terrazas [employer]EDER 11/13/2021 Opioid dependence BH Substance Abuse w ith Afshan Akhtar LPCC-S 11/06/2021 Assessment of body mass inde x [Body mass index [BMI] 22.0-22.9, adult] Medical Substance Abuse with Becca Malu [employer] FEEDER 11/06/2021 Opioid dependence uncomplicated Medical Substance Abuse with Becca Malu [employer]ER FEEDER 11/06/2021 Opioid dependence BH Substance Abuse w ith Afshan Akhtar LPCC-S 09/22/2021 Stimulant abuse BH Substance Abuse w ith Afshan Akhtar LPCC-S 09/22/2021 Assessment of body mass inde x [Body mass index [BMI] 21.0-21.9, adult] Medical Substance Abuse with Becca Malu DE[employer] FEEDER 09/22/2021 Opioid dependence uncomplicated Medical Substance Abuse with Becca Malu DESTATIC[employer]ER FEEDER 09/22/2021 Opioid dependence BH Substance Abuse w ith Afshan Akhtar LPCC-S 09/19/2021 Stimulant abuse - uncomplicated BH Subst ance Abuse with Afshan Cespedeserson LPCC-S 09/19/2021 Assessment of body mass inde x [Body mass index [BMI] 21.0-21.9, adult] Medical Substance Abuse with Becca Malu DESTATIC[employer]ER FEEDER 09/19/2021 Opioid dependence uncomplicated Medical Substance Abuse with Becca Malu DESTATICIZER FEEDER 09/19/2021 Generalized anxiety disorder BH Establis hed 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 09/15/2021 Nicotine dependence continuous BH Establ ished 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 09/15/2021 Opioid dependence uncomplicated BH Estab lished 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 09/15/2021 Assessment of body mass inde x [Body mass index [BMI] 19.9 or less, adult] Medical Substance Abuse with Becca Malu DESTATIC[employer]ER FEEDER 09/15/2021 Opioid dependence uncomplicated Medical Substance Abuse with Becca Malu DESTATICIZER FEEDER 09/15/2021 Bipolar I disorder, most rec ent episode BH Established Patient with Chaparrita Mccullough [facility] 09/07/2021 Generalized anxiety disorder BH Establis hed Patient with Chaparrita Mccullough [facility] 09/07/2021 Opioid dependence uncomplicated BH Estab lished Patient with Chaparrita Mccullough [facility] 09/07/2021 Assessment of body mass inde x [Body mass index [BMI] 23.0-23.9, adult] Medical New Patient with Becca Malu DESTATICIZER FEEDER 09/07/2021 Bipolar disorder NOS Medical New Patient with Becca Malu DESTATICIZER FEEDER 09/07/2021 Diabetes Risk Test Score was 1.0 score 09/07/2021 Medical New Patient with Becca Malu DESTATICIZER FEEDER 09/07/2021 Generalized anxiety disorder Medical New Patient with Becca Malu DESTATICIZER FEEDER 09/07/2021 Opioid dependence uncomplicated Medical New Patient with Becca Malu DESTATICIZER FEEDER 09/07/2021 Screening for HIV Medical New Patient with Becca Malu DESTATICIZER FEEDER 09/07/2021 [facility] Work Phone: Evaluation note Includes: Assessments for all patient encounters Findings Encounter Date Opioid dependence BH Substance Abuse w ith Afshan Cespedeserson [facility] 11/23/2021 Opioid dependence, on agonist therapy BH Substance Abuse with Afshanjustus CespedesAkhtar [facility] 11/23/2021 Assessment of body mass inde x [Body mass index [BMI] 23.0-23.9, adult] Medical Substance Abuse with Becca Malu DESTATICIZER FEEDER 11/23/2021 Opioid dependence uncomplicated Medical Substance Abuse with Becca Malu DESTATICIZER FEEDER 11/23/2021 Opioid dependence BH [facility]stance [facility] 11/20/2021 Opioid dependence, on agonist therapy BH Substance Abuse with Afshan Akhtar [facility] 11/20/2021 Assessment of body mass inde x [Body mass index [BMI] 23.0-23.9, adult] Medical Substance Abuse with Becca Malu DESTATICIZER FEEDER 11/20/2021 Bipolar disorder NOS BH Substance Abuse with Chaparrita Mccullough [facility] 11/13/2021 Generalized anxiety disorder BH Substanc e Abuse with Chaparrita Mccullough [facility] 11/13/2021 Opioid dependence uncomplicated BH Subst ance Abuse with Chaparrita Mccullough [facility] 11/13/2021 Z68.22 - Body mass index [BM I] 22.0-22.9, adult Medical Substance Abuse with Marily Terrazas [employer] FEEDER 11/13/2021 Opioid dependence BH Substance Abuse w ith Afshan Cespedeserson [facility] 11/06/2021 Assessment of body mass inde x [Body mass index [BMI] 22.0-22.9, adult] Medical Substance Abuse with Becca Malu DESTATICIZER FEEDER 11/06/2021 Opioid dependence uncomplicated Medical Substance Abuse with Becca Malu DESTATICIZER FEEDER 11/06/2021 Opioid dependence BH Substance Abuse w ith Afshanjustus CespedesAkhtar [facility] 09/22/2021 Stimulant abuse BH Substance Abuse w ith Afshan Akhtar [facility] 09/22/2021 Assessment of body mass inde x [Body mass index [BMI] 21.0-21.9, adult] Medical Substance Abuse with Becca Malu DESTATICIZER FEEDER 09/22/2021 Opioid dependence uncomplicated Medical Substance Abuse with Becca Malu DESTATICIZER FEEDER 09/22/2021 Opioid dependence Substance Abuse w ith Afshan Akhtar [facility] 09/19/2021 Stimulant abuse - uncomplicated Subst ance Abuse with Afshanjustus CespedesAkhtar [facility] 09/19/2021 Assessment of body mass inde x [Body mass index [BMI] 21.0-21.9, adult] Medical Substance Abuse with Becca Malu DESTATICIZER FEEDER 09/19/2021 Opioid dependence uncomplicated Medical Substance Abuse with Becca Malu DESTATICIZER FEEDER 09/19/2021 Generalized anxiety disorder Establis hed 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 09/15/2021 Nicotine dependence continuous Establ ished 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 09/15/2021 Opioid dependence uncomplicated BH Estab lished 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 09/15/2021 Assessment of body mass inde x [Body mass index [BMI] 19.9 or less, adult] Medical Substance Abuse with Becca Malu DESTATICIZER FEEDER 09/15/2021 Opioid dependence uncomplicated Medical Substance Abuse with Becca Malu DESTATICIZER FEEDER 09/15/2021 Bipolar I disorder, most rec ent episode Established Patient with Chaparrita Mccullough [facility] 09/07/2021 Generalized anxiety disorder Establis hed Patient with Chaparrita Mccullough [facility] 09/07/2021 Opioid dependence uncomplicated BH Estab lished Patient with Chaparrita Mccullough [facility] 09/07/2021 Assessment of body mass inde x [Body mass index [BMI] 23.0-23.9, adult] Medical New Patient with Becca Malu DESTATICIZER FEEDER 09/07/2021 Bipolar disorder NOS Medical New Patient with Becca Malu DESTATICIZER FEEDER 09/07/2021 Diabetes Risk Test Score was 1.0 score 09/07/2021 Medical New Patient with Becca Malu DESTATICIZER FEEDER 09/07/2021 Generalized anxiety disorder Medical New Patient with Becca Malu DESTATICIZER FEEDER 09/07/2021 Opioid dependence uncomplicated Medical New Patient with Becca Malu DESTATICIZER FEEDER 09/07/2021 Screening for HIV Medical New Patient with Becca Malu DESTATICIZER FEEDER 09/07/2021 [facility] Work Phone: Evaluation note* Diagnosis Onset Date Resolution Status Major depressive disorder, recurrent acute [facility] Work Phone: History general Narrative - [...] psychiatric disorders 022 No previous hospitalizations 09/07/2021 [facility] Work Phone: History of Present illness Narrative History of Present Illness not supported for this document type No [facility] of [facility] Work Phone: Instructions Instructions not supported for this document type No [facility]ructions [facility] Work Phone: Instructions Includes: Instructions for all patient encounters Education and Decision Aids were provided during visit for: BHP offered active listening and supportive feedback; normalized emotions and feelings, also provided pt time to process current issues and sources for triggers. ~Utilized ID; supported benefits of inpatient tx. ~Discussed tx options; promoted development of sober support, use of healthy coping methods, and seeking help, when needed Last Documented On 2 6:51AM ; [facility] Discussed nutritional needs teach healthy choices including fruits and vegetables Last Documented On 2 2:53PM ; [facility] Patient education about a pr oper diet Last Documented On 2 2:53PM ; [facility] Discussed concerns about exe rcise : promote physical activity Last Documented On 2 2:53PM ; [facility] Encouraged pt to develop andre f-awareness and stay busy. ~ ~Pt reports he is staying sober his way, not the perfect way (ie., support groups, treatment, positive supports. Last Documented On 2 11:37PM ; [facility] Discussed nutritional needs teach healthy choices including fruits and vegetables Last Documented On 2 1:14PM ; [facility] Patient education about a pr oper diet Last Documented On 2 1:14PM ; [facility] Discussed concerns about exe rcise : promote physical activity Last Documented On 2 1:14PM ; [facility] provided active listenin g, support and helped pt process though current symptoms and stressor(s) effectiveness of medication, coping mechanisms, and self-care practices. ~Encouraged pt to consider benefits of receiving immediate tx that could be provided at identified inpatient facility Last Documented On 2 10:17AM ; [facility] Discussed nutritional needs teach healthy choices including fruits and vegetables Last Documented On 2 3:07PM ; [facility] Patient education about a pr oper diet Last Documented On 2 3:07PM ; [facility] Discussed concerns about exe rcise : [...] week Last Documented On 2 5:45AM ; [facility] Provided supporitve listenin g and empathy. ~Helped pt/parent to process thoughts and concerns; supported pt in his ability to make personal health choices. ~Explored support system; discussed benefits of tx; encouraged pt to connect and engage in services. ~Supported contacting the center, as needed, using healthy coping methods and seeking sober support, when needed Last Documented On 2 10:23AM ; [facility] Discussed nutritional needs teach healthy choices including fruits and vegetables Last Documented On 2 9:38AM ; [facility] Patient education about a pr oper diet Last Documented On 2 9:38AM ; [facility] Discussed concerns about exe rcise : promote physical activity ~ ~Discussed sublocade, will work on getting it ordered ~ ~Follow up in one week Last Documented On 2 11:27AM ; [facility] provided supportive [employer] and reflective feedback; monitored mood and functioning. ~Explored recent lapse; discussed alcohol and other drugl use, sources for support, coping methods, and medication. ~Utilized ID ~Encouraged pt to connect with MH and Psych provider/s as well as other sources of sober support (community-based recovery groups Last Documented On 2 10:44AM ; [facility] Discussed nutritional needs teach healthy choices including fruits and vegetables Last Documented On 2 5:47PM ; [facility] Patient education about a pr oper diet Last Documented On 2 5:47PM ; [facility] Discussed concerns about exe rcise : promote physical activity ~ ~Will give 3 days of suboxone, fentanyl needs to be negative to recieve more ~ ~Discussed microdosing if any signs of withdrawl after taking suboxone, start out with 1/4 strip every 1-2 hours at first to make sure it does not throw you into excessive withdrawls Last Documented On 2 5:17AM ; [facility] Discussed nutritional needs teach healthy choices including fruits and vegetables Last Documented On 2 4:33PM ; [facility] Patient education about a pr oper diet Last Documented On 2 4:33PM ; [facility] Discussed concerns about exe rcise : promote physical activity Last Documented On 2 4:33PM ; [facility] offered active listening and supportive feedback validated and normalized pts. feelings while assisting pt. in processing recent events. ~Discussed lifestyle changes to address symptoms. ~Supported patients personal health goals; encouraged pt to ask for help, when needed Last Documented On 2 2:45PM ; [facility] Discussed nutritional needs teach healthy choices including fruits and vegetables Last Documented On 2 6:18PM ; [facility] Patient education about a pr oper diet Last Documented On 2 6:18PM ; [facility] Discussed concerns about exe rcise : promote physical activity ~ ~Will give suboxone to bridge until inpatient rehab Last Documented On 2 5:52AM ; [facility] Provided supportive listenin g and empathic feedback ~Utilized ID ~Discussed and explored hx and motivation for recovery ~Explored tx options; provided psychoeducation ~Acknowledged and validated emotions ~Supported pt's right to make his own choices ~Promoted use of comfort medication/s, avoid people, places, as needed ~Encouraged pt to contact the center with questiosn or concerns Last Documented On 2 12:49PM ; [facility] Discussed nutritional needs teach healthy choices including fruits and vegetables Last Documented On 2 10:31AM ; [facility] Patient education about a pr oper diet Last Documented On 10:31AM ; [facility] Discussed concerns about exe rcise : promote physical activity ~ ~Call saturday after going to [facility] Last Documented On 2 1:56PM ; [facility] Provided supportive, empathi c listening and reflective feedback; encouraged, explored, and supported the pt as he processed thoughts, and concerns. ~Utilized ID; acknowledged and validated pt's emotions. ~Explored and assessed mood, symptoms, and functioning; discussed mental health needs/tx options. ~Promoted use of healthy coping methods and seeking support, when needed Last Documented On 2 12:56PM ; [facility] Reviewed side effects and Ri sks/Benefits analysis Last Documented On 12:53PM ; [facility] Discussed nutritional needs teach healthy choices including fruits and vegetables Last Documented On 2 11:40AM ; [facility] Patient education about a pr oper diet Last Documented On 2 11:40AM ; [facility] Discussed concerns about exe rcise : [...] induction Last Documented On 2 7:23PM ; [facility] provided supportive and active listening, allowing patient the space to discuss concerns and normalized emotions. BHP collaborated with provider and patient to determine most effective treatment plan. Patient and BHP explored coping strategies that could improve symptoms discussed today. BHP educated patient on options for continued detox [...] ~ Last Documented On 2 9:36AM ; [facility] Discussed nutritional needs teach healthy choices including fruits and vegetables Last Documented On 2 11:34AM ; [facility] Patient education about a pr oper diet Last Documented On 2 11:34AM ; [facility] Discussed concerns about exe rcise : promote physical activity ~ ~If patient cannot stay clean for the time it takes to get on vivitrol Suboxone is recommended ~ ~Follow up next Saturday for evaluation Last Documented On 2 5:46AM ; [facility] Discussed nutritional needs teach healthy choices including fruits and vegetables Last Documented On 2 5:34PM ; [facility] Patient education about a pr oper diet Last Documented On 2 5:34PM ; [facility] Discussed concerns about exe rcise : promote physical activity ~ ~Take comfort medications, next UDS is Saturday then full appointment Saturday with [facility], Saturday should be first appropriate UDS Last Documented On 2 9:35AM ; [facility] Work Phone: Patient problem outcome Narrative Includes: Evaluations & Outcomes for active Goals No [facility] Work Phone: Progress note* Progress note Date Encounter Last Documented by 03/29/2022 [Patient Encounter] Last darrell dominguez on 03/29/2022; 8:47 AM, Becca Toriboi CNP; [facility] Active Problems & Conditions - F31.9 - [...] Directives - Declined to Provide Advance [facility]No Reason for Referral [facility] Work Phone: Review of systems Narrative - Reported Review of Systems not supported for this document type No [facility] of [facility] Work Phone: Summary Purpose Family History No Family History Records Found Description Last Updated Maternal history of depression 2 Description Last Updated Maternal history of depression 2 Last Documented On 2 9:40AM ; [facility] Relationship Condition Age at Onset Recorded Date/T jose Not Specified No pertinent family history Unknown Advance Directives No Advanced Directives Records Found Directive Pat Aware Third Democrat Effective Date Reviewed Sta tus Declined to [...] section and content) DATE CREATED AUTHOR 09/08/2017 [facility] DATE CREATED AUTHOR AUTHOR'S ORGANIZ ATION 02/01/2018 [place] [facility] DATE CREATED AUTHOR AUTHOR'S ORGANIZ ATION 10/27/2021 [facility] DATE CREATED AUTHOR AUTHOR'S ORGANIZ ATION 05/09/2023 [facility] Care Teams (unrecognized sec tion and content) [...] BE BASED ON THE PRIMARY CLINICAL RECORDS. [facility] [employer] [facility]. provides no warranty or guarantee of the accuracy or completeness of information in this document.
--- NOTE | 2023-05-11 23:19 | ED_ITS ---
HPI - Medical Clearance General Chief complaint: Medical Clearance Stated complaint: medical clearance Time Seen by Provider: 05/11/23 23:13 Mode of arrival: law enforcement Limitations: no limitations History of Present Illness HPI Narrative: past history of IVDA. States he use to inject opiates but now injects methamphetamines. Presents via police for clearance. He is cooperative but very restless. Not able to sit still. constantly moving and raising his legs. states he is type II diabetic MD complaint: Reports medical clearance requested Related Information Home Medications ?Medication ?Instructions ?Recorded ?Confirmed No Known Home Medications 02/11/23 02/11/23 Allergies Allergy/AdvReac Type Severity Reaction Status Date / Time ceftriaxone [From Rocephin] Allergy Unknown Verified 05/11/23 23:09 Penicillins Allergy Hives Verified 05/11/23 23:09 Review of Systems ROS Status of ROS 10 or more systems reviewed and unremark able except as noted in history and below PFSH PFS Social History Smoking status: Current every day smoker Exam Constitutional Vital Signs, click to edit/add: Last Vital Signs Temp 98.5 F 05/11/23 23:05 Pulse 120 H 05/12/23 00:25 Resp 24 05/12/23 00:25 BP 112/77 05/12/23 00:25 Pulse Ox 96 05/12/23 00:25 O2 Del Method Room Air 05/12/23 00:25 Other: multiple superficial sores on his face from picking HENMT Common normals: head/scalp atraumatic Eye Common normals: EOMs intact bilaterally and conjunctivae normal Respiratory Common normals: normal respiratory effort, no retractions and no use of accessory muscles Cardio Common normals: regular rate, regular rhythm, S1 normal heart sound and S2 normal heart sound GI Common normals: Normal to inspection, nondistended, normoactive bowel sounds present and soft to palpation Extremity Common normals: normal to inspection and full ROM Neuro Common normals: oriented x3, moves all extremities and no focal motor deficits Course Vital Signs Vital signs: Vital Signs Temperature 98.5 F 05/11/23 23:05 Pulse Rate 73 05/11/23 23:05 Respiratory Rate 20 05/11/23 23:05 Blood Pressure 121/98 H 05/11/23 23:05 Pulse Oximetry 97 05/11/23 23:05 Oxygen Delivery Method Room Air 05/11/23 23:05 Temperature 98.5 F 05/11/23 23:05 Pulse Rate 120 H 05/12/23 00:25 Respiratory Rate 24 05/12/23 00:25 Blood Pressure 112/77 05/12/23 00:25 Pulse Oximetry 96 05/12/23 00:25 Oxygen Delivery Method Room Air 05/12/23 00:25 MDM - Medical Clearance MDM Narrative Medical decision making narrative: patient presents with police for medical clearance. Admits to using methamphetamines. He is constantly moving and not able to sit still . Appears to be tweaking. Picking and rubbing his face. cooperative. AxOx3 patient states is has diabetes but labs without evidence of diabetes. Does have evidence of dehydration for which he was hydrated with NS.Urine drug screen positive for methamphetamines. Patient treated in the department with haldol, benadry and ativan to help calm him down some. discharged in care of the police Lab Data Labs: Lab Results 05/11/23 05/11/23 Range/Units 23:25 23:40 WBC 15.1 H (4.0-11.0) 10^3/uL RBC 5.37 (4.70-6.10) 10^6/uL Hgb 16.0 (14.0-18.0) g/dL Hct 48.3 (42.0-54.0) % MCV 89.9 (80.0-94.0) fL MCH 29.8 (25.9-34.0) pg MCHC 33.1 (29.9-35.2) g/dL RDW 12.3 (11.0-15.0) % Plt Count 318 (150-450) 10^3/uL MPV 9.7 (9.5-13.5) fL Neut % (Auto) 67.5 (43.0-75.0) % Lymph % (Auto) 23.4 (20.5-60.0) % [place] % (Auto) 7.8 (1.7-12.0) % Eos % (Auto) 0.7 L (0.9-7.0) % Baso % (Auto) 0.3 (0.2-2.0) % Neut # (Auto) 10.2 H (1.4-6.5) 10^3/uL Lymph # (Auto) 3.5 (1.2-3.8) 10^3/uL [place] # (Auto) 1.2 H (0.3-0.8) 10^3/uL Eos # (Auto) 0.1 (0.0-0.7) 10^3/uL Baso # (Auto) 0.1 (0.0-0.1) 10^3/uL Abs Immat Gran (auto) 0.04 H (0.00-0.03) 10^3/uL Imm/Tot Granulo (auto) 0.3 (0.0-0.5) % Sodium 145 (136-145) mmol/L Potassium 4.2 (3.5-5.1) mmol/L Chloride 106 (98-107) mmol/L Carbon Dioxide 27.5 (21.0-32.0) mmol/L Anion Gap 15.7 BUN 26.0 H (7.0-18.0) mg/dL Creatinine 1.28 (0.70-1.30) mg/dL Est GFR ( Amer) >60 (>=60) Est GFR (Non-Af Amer) >60 (>=60) BUN/Creatinine Ratio 20.3 Glucose 65 L (74-106) mg/dL Calcium 9.3 (8.5-10.1) mg/dL Urine Opiates Screen Negative (NEGATIVE) Ur Buprenorphine Scrn Negative (NEGATIVE) Ur Oxycodone Screen Negative (NEGATIVE) Urine Methadone Screen Negative (NEGATIVE) Ur Barbiturates Screen Negative (NEGATIVE) U Tricyclic Antidepress Negative (NEGATIVE) Ur Phencyclidine Scrn Negative (NEGATIVE) Ur Amphetamines Screen Positive A (NEGATIVE) U Methamphetamines Scrn Positive A (NEGATIVE) U Benzodiazepines Scrn Negative (NEGATIVE) Urine Cocaine Screen Negative (NEGATIVE) U Cannabinoids Screen Negative (NEGATIVE) Discharge Plan Discharge Stand Alone Forms: Portal Instructions Chief Complaint: Medical Clearance Clinical Impression: Active substance abuse Patient Disposition: Home, Self-Care Prescriptions / Home Meds: No Action No Known Home Medications Print Language: Upper Sorbian Instructions: Methamphetamine Use Disorder (ED) Referrals: ZANA PEPE [Primary Care Provider] - 1 week Discharge Date/Time: 05/12/23 00:30
[2023-05-11] MEDS: 0.9 % SODIUM CHLORIDE 1,000 ML 999 ML IV (23:33)
[2023-05-11] MEDS: LORAZEPAM 2 MG/ML 1 ML VIAL IV (23:33)
[2023-05-11 23:37] LABS: Basophils Absolute Auto 0.1 10^3/uL (0.0-0.1); Basophils Percent Auto 0.3 % (0.2-2.0); Eosinophils Absolute Auto 0.1 10^3/uL (0.0-0.7); Eosinophils Percent Auto 0.7 % (0.9-7.0); Hematocrit 48.3 % (42.0-54.0); Immature Granulocytes Abs Auto 0.04 10^3/uL (0.00-0.03); Immature Granulocytes Pct Auto 0.3 % (0.0-0.5); Lymphocytes Absolute Auto 3.5 10^3/uL (1.2-3.8); Lymphocytes Percent Auto 23.4 % (20.5-60.0); Mean Corpuscular HGB Conc 33.1 g/dL (29.9-35.2); Mean Corpuscular Hemoglobin 29.8 pg (25.9-34.0); Mean Corpuscular Volume 89.9 fL (80.0-94.0); Mean Platelet Volume 9.7 fL (9.5-13.5); Monocytes Absolute Auto 1.2 10^3/uL (0.3-0.8); Monocytes Percent Auto 7.8 % (1.7-12.0); Neutrophils Absolute Auto 10.2 10^3/uL (1.4-6.5); Neutrophils Percent Auto 67.5 % (43.0-75.0); Platelet Count 318 10^3/uL (150-450); Red Blood Count 5.37 10^6/uL (4.70-6.10); Red Cell Distribution Width 12.3 % (11.0-15.0); White Blood Count 15.1 10^3/uL (4.0-11.0)
[2023-05-11 23:46] LABS: Anion Gap 15.7; BUN Creatinine Ratio 20.3; Calcium 9.3 mg/dL (8.5-10.1); Carbon Dioxide 27.5 mmol/L (21.0-32.0); Chloride 106 mmol/L (98-107); Estimated GFR (African America >60 (>=60); Estimated GFR (Non-African Ame >60 (>=60); Glucose 65 mg/dL (74-106); Potassium 4.2 mmol/L (3.5-5.1); Sodium 145 mmol/L (136-145)
[2023-05-12] MEDS: HALOPERIDOL LACTATE 5 MG/ML VIAL IV (00:04)
[2023-05-12 00:12] LABS: Amphetamine Screen Urine POSITIVE (NEGATIVE); Barbiturates Screen Urine NEGATIVE (NEGATIVE); Benzodiazepines Screen Urine NEGATIVE (NEGATIVE); Buprenorphine Screen Urine NEGATIVE (NEGATIVE); Cannabinoid Screen Urine NEGATIVE (NEGATIVE); Cocaine Screen Urine NEGATIVE (NEGATIVE); Methadone Screen Urine NEGATIVE (NEGATIVE); Opiate Screen Urine NEGATIVE (NEGATIVE); Oxycodone Screen Urine NEGATIVE (NEGATIVE); Phencyclidine Screen Urine NEGATIVE (NEGATIVE); Tricyclic Antidepressant Urine NEGATIVE (NEGATIVE)
[2023-05-12 00:15] LABS: Methamphetamines Screen Urine POSITIVE (NEGATIVE)
[2023-05-12] MEDS: DIPHENHYDRAMINE HCL 50 MG/ML (1ML) VIAL IV (00:19)
[2023-05-12 00:25] VITALS: BP 112/77; PULSE 120; RESP 24; O2SAT 96
== END 2023-05-12 00:30 ==
PROVIDERS: Emergency Provider Internal Medicine; PCP Family Medicine
DX: Z02.89 Encounter for other administrative examinations (principal); F15.10 Other stimulant abuse, uncomplicated; F17.210 Nicotine dependence, cigarettes, uncomplicated
CPT/HCPCS: 36415; 80048; 80307; 85025; 96374; 96375; 99284

== ENCOUNTER 2023-12-22 19:37 | Emergency (ER) | payer OTHER, SELFPAY ==
[2023-12-22 19:46] VITALS: BP 104/82; PULSE 107; TEMP 36.9; O2SAT 100; BMI 20.9
--- OUTSIDE RECORDS SUMMARY | 2023-12-22 19:47 | XMS_ITS | CCD ---
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 CNP Work Phone: [facility] Work Phone: 09-12-2021 11:48-0400 SaO2% (BldA) [Mass fraction] 97 % Becca Toribio CNP Work Phone: [facility] Work Phone: 09-12-2021 11:48-0400 Systolic blood pressure 152 mm[Hg] Becca Toribio CNP Work Phone: [facility] Work Phone: 09-07-2021 18:36-0400 Diastolic blood pressure 76 mm[Hg] Becca Toribio CNP Work Phone: [facility] Work Phone: 09-07-2021 18:36-0400 Systolic blood pressure 132 mm[Hg] Becca Toribio CNP Work Phone: [facility] Work Phone: 09-07-2021 17:25-0400 Body height 182.88 cm Becca Toribio CNP Work Phone: [facility] Work Phone: 09-07-2021 17:25-0400 Body mass index (BMI) [Ratio] 23.1 kg/m2 Becca Toribio CNP Work Phone: [facility] Work Phone: 09-07-2021 17:25-0400 Body surface area Derived from formula 1.99 m2 Becca Toribio CNP Work Phone: [facility] Work Phone: 09-07-2021 17:25-0400 Body surface area Derived from formula 2 m2 Becca Toribio CNP Work Phone: [facility] Work Phone: 09-07-2021 17:25-0400 Body temperature 98.3 [degF] Becca Toribio CNP Work Phone: [facility] Work Phone: 09-07-2021 17:25-0400 Body weight 77.2 kg Becca Toribio CNP Work Phone: [facility] Work Phone: 09-07-2021 17:25-0400 Diastolic blood pressure 84 mm[Hg] Becca Toribio CNP Work Phone: [facility] Work Phone: 09-07-2021 17:25-0400 Heart rate 90 /min Becca Toribio CNP Work Phone: [facility] Work Phone: 09-07-2021 17:25-0400 Heart Rate Rhythm 1 1 Becca Toribio CNP Work Phone: [facility] Work Phone: 09-07-2021 17:25-0400 SaO2% (BldA) [Mass fraction] 98 % Becca Toribio CNP Work Phone: [facility] Work Phone: 09-07-2021 17:25-0400 Systolic blood pressure 14 mm[Hg] Becca Toribio CNP Work Phone: [facility] Work Phone: 09-07-2021 17:25-0400 Systolic blood pressure 140 mm[Hg] Becca Toribio CNP Work Phone: [facility] Work Phone: Encounters Encounter Date Encounter Type Care Provider Facility Start: 07-22-2023 End: 07-22-2023 ambulatory YRN VALLES [facility] Start: 04-18-2023 End: 04-22-2023 Evaluation and management of inpatient Jesús Mccarty Facility:[facility] Start: 04-17-2023 ambulatory Jesús Vanegas acility:[facility] Start: 04-06-2023 End: 04-06-2023 [facility]: 04-06-2023 End: 04-06-2023 Emergency department patient visit Juan Saenz MD Work Phone: [facility] ED Comment on above: Accidental overdose, initial encounter (Primary Dx) Start: 10-25-2022 End: 10-27-2022 Evaluation and management of inpatient Kwan León Facility:[facility] Start: 10-25-2022 End: 10-27-2022 Evaluation and management of inpatient MD Shaikh Conway Work Phone: [facility] Work Phone: Start: 09-18-2022 End: 09-18-2022 Emergency department patient visit TACHO ELIZONDO [facility] Start: 09-18-2022 End: 09-18-2022 Emergency department patient visit Tacho Elizondo [facility] ED Comment on above: Opioid overdose, acc idental or unintentional, initial encounter (HCC) (Primary Dx) Start: 02-15-2022 End: 02-15-2022 General Afshan Akhtar [facility] Work Phone: [facility] Work Phone: Start: 02-15-2022 End: 02-15-2022 Patient encounter procedure Becca Toribio CNP Work Phone: [facility] Work Phone: Start: 02-15-2022 End: 02-15-2022 Patient encounter procedure Becca Toribio CNP Work Phone: [facility] Work Phone: Start: 01-03-2022 End: 01-03-2022 ambulatory Becca Toribio CNP Work Phone: [facility] Work Phone: Start: 01-03-2022 End: 01-03-2022 General Afshan Akhtar [facility] Work Phone: [facility] Work Phone: Start: 12-22-2021 End: 12-22-2021 General Chaparrita Mccullough [facility] Work Phone: [facility] Work Phone: Start: 12-22-2021 End: 12-22-2021 ambulatory Marily Terrazas RADIO INTELLIGENCE OPERATOR Work Phone: [facility] Work Phone: Start: 12-08-2021 End: 12-08-2021 General Chaparrita Mccullough [facility] Work Phone: [facility] Work Phone: Start: 12-08-2021 End: 12-08-2021 General Chaparrita Emersons [facility] Work Phone: [facility] Work Phone: Start: 12-08-2021 End: 12-08-2021 ambulatory Marily Terrazas RADIO INTELLIGENCE OPERATOR Work Phone: [facility] Work Phone: Start: 12-04-2021 End: 12-04-2021 General Afshan Akhtar [facility] Work Phone: [facility] Work Phone: Start: 12-04-2021 End: 12-04-2021 Patient encounter procedure Becca Malu RADIO INTELLIGENCE OPERATOR Work Phone: [facility] Work Phone: Start: 12-01-2021 End: 12-01-2021 General Afshan Akhtar [facility] Work Phone: [facility] Work Phone: Start: 12-01-2021 End: 12-01-2021 ambulatory Becca Malu RADIO INTELLIGENCE OPERATOR Work Phone: [facility] Work Phone: Start: 11-23-2021 End: 11-23-2021 General Afshan Cespedeserson [facility] Work Phone: [facility] Work Phone: Start: 11-23-2021 End: 11-23-2021 ambulatory Becca Malu RADIO INTELLIGENCE OPERATOR Work Phone: [facility] Work Phone: Start: 11-23-2021 End: 11-23-2021 General Afshan Akhtar [facility] Work Phone: [facility] Work Phone: Start: 11-20-2021 End: 11-20-2021 General Afshan Cespedeserson [facility] Work Phone: [facility] Work Phone: Start: 11-20-2021 End: 11-20-2021 ambulatory Becca Louer RADIO INTELLIGENCE OPERATOR Work Phone: [facility] Work Phone: Start: 11-13-2021 End: 11-13-2021 General Chaparrita Emersons [facility] Work Phone: [facility] Work Phone: Start: 11-13-2021 End: 11-13-2021 General Chaparrita Emersons [facility] Work Phone: [facility] Work Phone: Start: 11-13-2021 End: 11-13-2021 ambulatory Marily Terrazas RADIO INTELLIGENCE OPERATOR Work Phone: [facility] Work Phone: Start: 11-06-2021 End: 11-06-2021 General Afshan Akhtar [facility] Work Phone: [facility] Work Phone: Start: 11-06-2021 End: 11-06-2021 ambulatory Becca Malu RADIO INTELLIGENCE OPERATOR Work Phone: [facility] Work Phone: Start: 11-06-2021 End: 11-06-2021 General Becca Louer RADIO INTELLIGENCE OPERATOR Work Phone: [facility] Work Phone: Start: 10-20-2021 End: 10-20-[address] ZANA PEPE Facility: Start: 09-22-2021 End: 09-22-2021 ambulatory Becca Malu RADIO INTELLIGENCE OPERATOR Work Phone: [facility] Work Phone: Start: 09-22-2021 End: 09-22-2021 General Afshan Akhtar [facility] Work Phone: [facility] Work Phone: Start: 09-19-2021 End: 09-19-2021 General Afshan Akhtar [facility] Work Phone: [facility] Work Phone: Start: 09-19-2021 End: 09-19-2021 ambulatory Becca Malu RADIO INTELLIGENCE OPERATOR Work Phone: [facility] Work Phone: Start: 09-19-2021 End: 09-19-2021 General Becca Malu RADIO INTELLIGENCE OPERATOR Work Phone: [facility] Work Phone: Start: 09-15-2021 End: 09-15-2021 [facility] visit, estab pt Dary LÓPEZ Work Phone: [facility] Work Phone: Start: 09-15-2021 End: 09-15-2021 ambulatory Becca Malu RADIO INTELLIGENCE OPERATOR Work Phone: [facility] Work Phone: Start: 09-12-2021 End: 09-12-2021 Nursing evaluation of patient and report Marily Terrazas RADIO INTELLIGENCE OPERATOR Work Phone: [facility] Work Phone: Start: 09-07-2021 End: 09-07-2021 [facility] visit, estab pt Chaparrita Rangelmons [facility] Work Phone: [facility] Work Phone: Start: 09-07-2021 End: 09-07-2021 FQ visit new patient Becca Toribio RADIO INTELLIGENCE OPERATOR Work Phone: [facility] Work Phone: Start: 07-24-2017 End: 07-24-2017 Emergency department patient visit Toni Alfonso [facility] Start: 07-21-2017 End: 07-21-2017 Emergency department patient visit Family Physician Unavailable Facility:[facility] Start: 07-04-2017 End: 07-05-2017 Patient encounter procedure Brenda Sanders [facility] Procedures Date Procedure Procedure Detail Performing Clinician Start: 04-06-2023 GLUCOSE, WHOLE BLOOD Ev an Jerson CHAO Work Phone: Start: 01-03-2022 Current tobacco smoker Becca Loudavid DONATO Work Phone: Start: 01-03-2022 Drug test prsmv read direct optical obs pr date Becca Loudavid DONATO Work Phone: Start: 01-03-2022 Most recent diastoli c blood pressure 80-89 mm hg Becca Toribio CNP Work Phone: Start: 01-03-2022 Most recent systolic blood press 130-139mm hg Becca Maludavid DONATO Work Phone: Start: 01-03-2022 Psychotherapy w/bethany ent 30 minutes Afshan Akhtar [facility] Work Phone: Start: 01-03-2022 Pt scrnd tobacco use rcvd tobacco cessation talk Becca Maludavid DONATO Work Phone: Start: 11-04-2022 Drug test prsmv read direct optical obs pr date Marily Terrazas CNP Work Phone: Start: 12-22-2021 Most recent diastoli c blood pressure 80-89 mm hg Marily Terrazas CNP Work Phone: Start: 12-22-2021 Most recent systolic blood pres>/equal 140 mm hg Marily Terrazas CNP Work Phone: Start: 12-22-2021 Psychotherapy w/bethany ent 30 minutes Chaparrita Mccullough [facility] Work Phone: Start: 12-08-2021 Current tobacco smoker Marily Terrazas CNP Work Phone: Start: 12-08-2021 Drug test prsmv read direct optical obs pr date Marily Terrazas CNP Work Phone: Start: 12-08-2021 Most recent diastoli c blood pressure < 80 mm hg Marily Terrazas CNP Work Phone: Start: 12-08-2021 Most recent systolic blood pressure <130 mm hg Marily Terrazas CNP Work Phone: Start: 12-08-2021 Psychotherapy w/bethany ent 30 minutes Chaparrita Mccullough [facility] Work Phone: Start: 12-08-2021 Pt scrnd tobacco use rcvd tobacco cessation talk Marily Terrazas CNP Work Phone: Start: 12-01-2021 Drug test prsmv read direct optical obs pr date Becca Toribio RADIO INTELLIGENCE OPERATOR Work Phone: Start: 12-01-2021 Most recent diastol blood pres >/equal 90 mm hg Becca Toribio RADIO INTELLIGENCE OPERATOR Work Phone: Start: 12-01-2021 Most recent systolic blood press 130-139mm hg Becca Toribio RADIO INTELLIGENCE OPERATOR Work Phone: Start: 12-01-2021 Psychotherapy w/bethany ent 30 minutes Afshan Akhtar [facility] Work Phone: Start: 11-23-2021 Drug test prsmv read direct optical obs pr date Becca Toribio CNP Work Phone: Start: 11-23-2021 Most recent diastoli c blood pressure 80-89 mm hg Becca Toribio RADIO INTELLIGENCE OPERATOR Work Phone: Start: 11-23-2021 Most recent systolic blood pressure <130 mm hg Becca Toribio RADIO INTELLIGENCE OPERATOR Work Phone: Start: 11-23-2021 Psychotherapy w/bethany ent 30 minutes Afshan Akhtar [facility] Work Phone: Start: 11-20-2021 Current tobacco smoker Becca Toribio RADIO INTELLIGENCE OPERATOR Work Phone: Start: 11-20-2021 Drug test prsmv read direct optical obs pr date Becca Toribio RADIO INTELLIGENCE OPERATOR Work Phone: Start: 11-20-2021 Pt scrnd tobacco use rcvd tobacco cessation talk Becca Toribio [facility] Work Phone: Start: 11-13-2021 Current tobacco smoker Marily Terrazas RADIO INTELLIGENCE OPERATOR Work Phone: Start: 11-13-2021 Drug test prsmv read direct optical obs pr date Marily Terrazas RADIO INTELLIGENCE OPERATOR Work Phone: Start: 11-13-2021 Most recent diastol blood pres >/equal 90 mm hg Marily Terrazas RADIO INTELLIGENCE OPERATOR Work Phone: Start: 11-13-2021 Most recent diastoli c blood pressure 80-89 mm hg Marily Terrazas [facility] Work Phone: Start: 11-13-2021 Most recent systolic blood pres>/equal 140 mm hg Marily Terrazas RADIO INTELLIGENCE OPERATOR Work Phone: Start: 11-13-2021 Most recent systolic blood pressure <130 mm hg Marily Terrazas [facility] Work Phone: Start: 11-13-2021 Psychotherapy w/bethany ent 30 minutes Chaparrita Mccullough [facility] Work Phone: Start: 11-13-2021 Pt scrnd tobacco use rcvd tobacco cessation talk Marily Terrazas CNP Work Phone: Start: 11-06-2021 Drug test prsmv [...] Psychotherapy w/bethany ent 30 minutes Dary Clancy PALLETISER OPERATOR Work Phone: Start: 09-15-2021 Pt scrnd tobacco use rcvd tobacco cessation talk Dary LÓPEZ Work Phone: Start: 09-12-2021 Drug test prsmv read direct optical obs pr date Marily Terrazas RADIO INTELLIGENCE OPERATOR Work Phone: Start: 09-07-2021 Drug test prsmv read direct optical obs pr date Becca Toribio RADIO INTELLIGENCE OPERATOR Work Phone: Start: 09-07-2021 Ear Pressure Equaliz ation Tube, Insertion, Bilaterally Becca Toribio RADIO INTELLIGENCE OPERATOR Work Phone: Start: 09-07-2021 Hemoglobin glycosylated a1c Becca Toribio RADIO INTELLIGENCE OPERATOR Work Phone: Start: 09-07-2021 Most recent diastoli c blood pressure 80-89 mm hg Becca Toribio [facility] Work Phone: Start: 09-07-2021 Most recent systolic blood pres>/equal 140 mm hg Becca Maludavid DONATO Work Phone: Start: 09-07-2021 Psychotherapy w/bethany ent 30 minutes Chaparrita Mccullough [facility] Work Phone: Start: 09-07-2021 Tonsillectomy and adenoidectomy Becca Toribio [facility] Work Phone: Plan of Treatment Date Care Activity Detail Author Start: 10-27-2022 [facility] Start: 10-25-2022 Hospital admission [facility] Start: 09-18-2022 Influenza vaccination Flu vaccine (# 1) [facility] Start: 03-29-2022 Medical Substance Abuse [facility] Work Phone: Start: 01-09-2022 Medical Substance Abuse [facility] Work Phone: Start: 01-03-2022 End: 01-03-2022 Patient education based on identified need [facility] offered active listening and supportive feedback; normalized emotions and feelings, also provided pt time to process current issues and sources for triggers. ~Utilized DE; supported benefits of inpatient tx. ~Discussed tx options; promoted development of sober support, use of healthy coping methods, and seeking help, when needed [facility] Start: 12-29-2021 Medical Substance Abuse [facility] Work Phone: Start: 12-27-2021 Antibody screen [facility] Start: 12-27-2021 CBC W Auto Different ial panel - Blood CBC WITH DIFF [facility] Start: 12-27-2021 Lipid 1996 panel - S [place] or Plasma LIPID PROFILE [facility] Start: 12-27-2021 Reagin Ab [Presence] in Serum by RPR RPR [facility] Start: 12-27-2021 Thyrotropin [Units/volume] in Serum or Plasma TSH [facility] Start: 12-22-2021 End: 12-22-2021 Patient education based on identified need [facility] Start: 12-15-2021 Medical Substance Abuse [facility] Work Phone: Start: 12-08-2021 End: 12-08-2021 Patient education based on identified need [facility] Start: 12-07-2021 Medical Substance Abuse [facility] Work Phone: Start: 12-01-2021 End: 12-01-2021 Patient education based on identified need [facility] Start: 12-01-2021 Medical Substance Abuse [facility] Work Phone: Start: 11-23-2021 End: 11-23-2021 Patient education based on identified need [facility] Start: 11-23-2021 Medical Substance Abuse [facility] Work Phone: Start: 11-20-2021 End: 11-20-2021 Patient education based on identified need [facility] Start: 11-20-2021 Medical Substance Abuse [facility] Work Phone: Start: 11-13-2021 End: 11-13-2021 Patient education based on identified need [facility] Start: 11-06-2021 End: 11-06-2021 Patient education based on identified need [facility] Start: 09-22-2021 Medical Substance Abuse [facility] Work Phone: Start: 09-22-2021 End: 09-22-2021 Patient education based on identified need [facility] Start: 09-19-2021 End: 09-19-2021 Patient education based on identified need [facility] Start: 09-19-2021 Medical Substance Abuse [facility] Work Phone: Start: 09-15-2021 End: 09-15-2021 Patient education based on identified need [facility] Start: 09-15-2021 Medical Substance Abuse [facility] Work Phone: Start: 09-12-2021 Nursing evaluation o f patient and report Nurse Visit [facility] Work Phone: Start: 09-07-2021 End: 09-07-2021 Patient education based on identified need [facility] Start: 2013 DTaP/Tdap/Td vaccine (1 - Tdap) DTaP/Tdap/Td vaccine (1 - Tdap) [facility] Start: 2012 Hepatitis C screening Hepatitis C sc reen [facility] Start: 2009 HIV screening HIV screen [facility] Start: 2006 Depression Screen Depression Screen [facility] Start: 2000 Pneumococcal 0-64 ye ars Vaccine (1 - PCV) Pneumococcal 0-64 years Vaccine (1 - PCV) [facility] [facility] Start: 12-13-1995 Varicella vaccine (1 of 2 - 2-dose childhood series) Varicella vaccine (1 of 2 - 2-dose childhood series) [facility] Start: 06-13-1995 COVID-19 Vaccine (#1) COVID-19 Vacci ne (#1) [facility] Start: 1994 Hepatitis B vaccine (1 of 3 - 3-dose series) Hepatitis B vaccine (1 of 3 - 3-dose series) [facility] End: 04-06-2023 Glucose [Mass/volume] in Serum or Plasma POCT glucose Point of Care Testing STAT One Time for 1 Occurrences starting 04/06/2023 until 04/06/2023 [facility] [employer] Comment on above: One Time for 1 Occur rences starting 04/06/2023 until 04/06/2023 Patient Education Depression, Ad ult (DC) [facility] DC Instructions [facility] Work Phone: Patient referral [facility] Work Phone: Payers Date Payer Category Payer Self-pay [id number] 2017 Unknown [id number] 1994 Unknown [id number] 2.16.84 [id number] 1994 Unknown [id number] 2.16.84 [id number] 1994 Unknown [id number] 2.16.84 [id number] 1994 Unknown [id number] 2.16.8 [id number] 1994 Unknown [id number] 2.16.8 [id number] 1994 Unknown [id number] 2.16.8 [id number] 1959 Medicaid [id number] Private Health Insurance [id number] Unknown [id number] 2.16.8 [id number] Unknown [id number] 2.16.8 [id number] Unknown [id number] 2.16.8 [id number] Social History Date Type Detail Facility Assertion [facility] Assertion Gender identity finding (finding) [facility] Assertion Finding relating to sexual activity (finding) [facility] Assertion Finding of sexua l orientation (finding) [facility] Assertion Sexually active (finding) [facility] Assertion Intravenous drug user (finding) [facility] Assertion Exposure to poll ution (event) [facility] Tobacco smoking status Unknown if ever sm oked [facility] Work Phone: Assertion Benzodiazepine m isuse (finding) [facility] Assertion Opiate misuse (finding) [facility] Assertion Cigarette smoker (finding) [facility] Start: 10-25-2022 Assertion Smoker (finding) [facility] Assertion Moderate cigaret te smoker (10-19 cigs/day) (finding) [facility] Assertion Lives with paren ts (finding) [facility] Assertion Emotional stress (finding) [facility] Assertion Patient has move d away (finding) [facility] Assertion Currently not se xually active (finding) [facility] Assertion Social drinker (finding) [facility] Assertion Light cigarette smoker (1-9 cigs/day) (finding) [facility] Assertion Contraception (finding) [facility] Start: 09-18-2022 End: 04-06-2023 Tobacco smoking status NHIS Smokes tobacco daily [employer] Start: 09-18-2022 Cigarettes smoked current (pack per day) - Reported 0.5 [employer] Start: 09-18-2022 History SDOH Alcohol Frequency 1 [employer] [employer] Start: 09-18-2022 History SDOH Alcohol Std Drinks 0 [facility] [employer] Start: 1994 Sex Assigned At Not on file [facility] [employer] Start: 1994 Sex Assigned At Male F [facility] Start: 09-18-2022 Alcohol Use Disorder Identification Test - Consumption [AUDIT-C] [employer] How often to you hav e a drink containing alcohol? Never [employer] [employer] NEGATED: Highlighted row Assertion Contraception (finding) [facility] NEGATED: Highlighted row Assertion [facility] NEGATED: Highlighted row Assertion Current drinker of alcohol (finding) [facility] NEGATED: Highlighted row Assertion Exposure to pollution (event) [facility] Work Phone: NEGATED: Highlighted row Assertion Finding relating to drug misuse behavior (finding) [facility] Goals Date Patient Goal Desired Activity /State Functional Status Date Assessment Result Facility 10-27-2022 Functional status Patient at [facility] Work Phone: Mental Status Date Assessment Result Facility 10-27-2022 Cognitive function Cognitive Sta tus Patient at [facility] Work Phone: Cognitive function Oriented to t jose, place, and person Oriented to person, time and place (finding) [facility] Work Phone: Clinical Notes 09-07-2021 to 04-06-2023 Discharge InstructionsAttachments Note Date & Type Note Facility 04-06-2023 Hospital Discharg e instructions Juan Saenz MD - 04/06/2023 8:27 PM EST You were evaluated in the emergency department after being brought in by police and EMS services for an accidental overdose. Please be careful and use Narcan if you happen to overdose again or feel yourself about overdose. Please if you can stay away from drugs and illicit substances reach out to community resources or the hospital if needs be. The following attachments cannot be sent through Care Everywhere.Drug Overdose: Multidrug (Ukrainian)documented in this encounter [facility] 10-27-2022 Hospital Discharg e instructions Additional Instructions Important Contact Information You can call [facility] at [phone] any time day or night if you have emergent questions concerning your inpatient stay and to obtain information for obtaining testing results. If at any time you are feeling an increase in your psychiatric symptoms, call your physician or behavioral healthcare provider. If any time you have thoughts of harming yourself or others contact one of the following: Call 88 (available 10/09) Crisis Text Line (available 10/09) text 4HOPE to [phone] [facility] Hope Line (available 8 a.m. Midnight) call [phone] ([phone]) [facility] Work Phone: 10-26-2022 Progress note Note Date/Time October 26, 2022 1:51pm [facility] [address] [place] [address] Psychiatry Progress Note Signed Patient: Stephen Land MR#: [id number] : 1995 Acct:[id number] Age/Sex: 26 / M Adm Date: 3 Loc: Room: [address] [place] [address] Type : ADM IN Attending Dr: Kwan [...] <Electronically signed by Kwan León MD> 10/26/22 135[address] [facility] Work Phone: 1(457) 107-937909-07-2023 History and physical note Author Kwan León [facility] October 25, 2022 1:46pm Note Date/Time October 25, 2022 1:46pm [facility] [address] [place] [address] Psychiatry H&P Signed Patient: Stephen Land MR#: [id number] : 1995 Acct:[id number] Age/Sex: 26 / M Adm Date: 3 Loc: Room: [address] [place] [address] Type: ADM IN Attending Dr: Kwan León [...] homicidality, reported suicidality Insight: fair Judgment: fair [facility] Medical History History of heroin use History [...] signed by Kwan León MD> 10/25/22 1346 [facility] Work Phone: 1(935) 605-760608-01-2023 Hospital Discharge instructions* Discharge Instructions* Tacho Elizondo MD - 09/18/2022 5:47 AM EDT You have elected to leave the emergency department against the advice of your physician. In doing so you acknowledge that there are risks involved, including the potential risk of recurrence of drug effect that may lead to permanent or disability. You are welcome to return to the ED at any time to continue your evaluation. * Attachments The following attachments cannot be sent through Care Everywhere. * Drug Overdose: Opioid (Ukrainian) * naloxone (nasal) (Ukrainian) [facility] Evaluation note Includes: Assessments for all patient encounters Findings Encounter Date Opioid dependence Substance Abuse w ith Afshan Hermilo [facility] 01/03/2022 Opioid dependence, on agonist therapy Substance Abuse with Afshanjustus Akhtar [facility] 01/03/2022 Bipolar disorder NOS Substance Abuse with Chaparrita Emersons [facility] 12/22/2021 Generalized anxiety disorder BH Substanc e Abuse with Chaparritaandrez [facility] 12/22/2021 Opioid dependence uncomplicated Subst ance Abuse with Chaparrita Mccullough [facility] 12/22/2021 [Z68.23 - Body mass index [B DE] 23.0-23.9, adult] assessment of body mass index Medical Substance Abuse with Marily Nini [employer] 12/22/2021 Opioid dependence uncomplicated Medical Substance Abuse with Marily Nini [employer]IO INTELLIGENCE OPERATOR 12/22/2021 Bipolar disorder NOS BH Substance Abuse with Chaparrita Mccullough [facility] 12/08/2021 Generalized anxiety disorder BH Substanc e Abuse with Chaparrita Mccullough [facility] 12/08/2021 Opioid dependence uncomplicated BH Subst ance Abuse with Chaparrita Mccullough [facility] 12/08/2021 [Z68.23 - Body mass index [B DE] 23.0-23.9, adult] assessment of body mass index Medical Substance Abuse with Marilyjarod Carrionen [employer]TELLIGENCE OPER[employer] 12/08/2021 Opioid dependence BH Substance Abuse w ith Afshan Akhtar [facility] 12/01/2021 Opioid dependence, on agonist therapy BH Substance Abuse with Afshan Akhtar [facility] 12/01/2021 [Body mass index [BMI] 23.0- 23.9, adult] assessment of body mass index Medical Substance Abuse with Becca Malu RADIO INTELLIGENCE OPERATOR 12/01/2021 Opioid dependence uncomplicated Medical Substance Abuse with Becca Malu RADIO INTELLIGENCE OPERATOR 12/01/2021 Opioid dependence BH Substance Abuse w ith Afshan Akhtar [facility] 11/23/2021 Opioid dependence, on agonist therapy BH Substance Abuse with Afshan Akhtar [facility] 11/23/2021 Assessment of body mass inde x [Body mass index [BMI] 23.0-23.9, adult] Medical Substance Abuse with Becca Malu RADIO INTELLIGENCE OPERATOR 11/23/2021 Opioid dependence uncomplicated Medical Substance Abuse with Becca Malu RADIO INTELLIGENCE OPERATOR 11/23/2021 Opioid dependence BH Substance Abuse w ith Afshan Akhtar [facility] 11/20/2021 Opioid dependence, on agonist therapy BH Substance Abuse with Afshan Akhtar [facility] 11/20/2021 Assessment of body mass inde x [Body mass index [BMI] 23.0-23.9, adult] Medical Substance Abuse with Becca Malu RAD[employer] INTELLIGENCE OPERATOR 11/20/2021 Bipolar disorder NOS BH Substance Abuse with Chaparrita Mccullough [facility] 11/13/2021 Generalized anxiety disorder BH Substanc e Abuse with Chaparrita Mccullough [facility] 11/13/2021 Opioid dependence uncomplicated BH Subst ance Abuse with Chaparrita Mccullough [facility] 11/13/2021 Z68.22 - Body mass index [BM I] 22.0-22.9, adult Medical Substance Abuse with Marily Nini [employer] INTELLIGENCE OPERATOR 11/13/2021 Opioid dependence BH Substance Abuse w ith Afshan Akhtar [facility] 11/06/2021 Assessment of body mass inde x [Body mass index [BMI] 22.0-22.9, adult] Medical Substance Abuse with Becca Malu RADIO INTELLIGENCE OPERATOR 11/06/2021 Opioid dependence uncomplicated Medical Substance Abuse with Becca Malu RADIO INTELLIGENCE OPERATOR 11/06/2021 Opioid dependence BH Substance Abuse w ith Afshan Cespedeserson [facility] 09/22/2021 Stimulant abuse BH Substance Abuse w ith Afshanjustus CespedesAkhtar [facility] 09/22/2021 Assessment of body mass inde x [Body mass index [BMI] 21.0-21.9, adult] Medical Substance Abuse with Becca Malu RADIO INTELLIGENCE OPERATOR 09/22/2021 Opioid dependence uncomplicated Medical Substance Abuse with Becca Malu RADIO INTELLIGENCE OPERATOR 09/22/2021 Opioid dependence BH Substance Abuse w ith Afshan Cespedeserson [facility] 09/19/2021 Stimulant abuse - uncomplicated BH Subst ance Abuse with Afshan Akhtar [facility] 09/19/2021 Assessment of body mass inde x [Body mass index [BMI] 21.0-21.9, adult] Medical Substance Abuse with Becca Malu RADIO INTELLIGENCE OPERATOR 09/19/2021 Opioid dependence uncomplicated Medical Substance Abuse with Becca Malu RADIO INTELLIGENCE OPERATOR 09/19/2021 Generalized anxiety disorder BH Establis hed Patient with Dary Huntingburg PALLETISER OPERATOR 09/15/2021 Nicotine dependence continuous BH Establ ished Patient with Dary [place]burg PALLETISER OPERATOR 09/15/2021 Opioid dependence uncomplicated BH Estab lished Patient with Dary [place]burg PALLETISER OPERATOR 09/15/2021 Assessment of body mass inde x [Body mass index [BMI] 19.9 or less, adult] Medical Substance Abuse with Becca Malu RADIO INTELLIGENCE OPERATOR 09/15/2021 Opioid dependence uncomplicated Medical Substance Abuse with Becca Malu RADIO INTELLIGENCE OPERATOR 09/15/2021 Bipolar I disorder, most rec ent episode BH Established Patient with Chaparrita Mccullough [facility] 09/07/2021 Generalized anxiety disorder BH Establis hed Patient with Chaparrita Mccullough [facility] 09/07/2021 Opioid dependence uncomplicated BH Estab lished Patient with Chaparrita Mccullough [facility] 09/07/2021 Assessment of body mass inde x [Body mass index [BMI] 23.0-23.9, adult] Medical New Patient with Becca Malu RADIO INTELLIGENCE OPERATOR 09/07/2021 Bipolar disorder NOS Medical New Patient with Becca Malu RADIO INTELLIGENCE OPERATOR 09/07/2021 Diabetes Risk Test Score was 1.0 score 09/07/2021 Medical New Patient with Becca Malu RADIO INTELLIGENCE OPERATOR 09/07/2021 Generalized anxiety disorder Medical New Patient with Becca Malu RADIO INTELLIGENCE OPERATOR 09/07/2021 Opioid dependence uncomplicated Medical New Patient with Becca Malu RADIO INTELLIGENCE OPERATOR 09/07/2021 Screening for HIV Medical New Patient with Becca Malu RADIO INTELLIGENCE OPERATOR 09/07/2021 [facility] Work Phone: 1(480) 505-602611-16-2022 Evaluation note Includes: Assessments for all patient encounters Findings Encounter Date Opioid dependence Substance Abuse with Afshan Kahtar [facility] 01/03/2022 Last Documented On 2 6:52AM ; [facility] Opioid dependence, on agonist therapy BH Substance Abuse with Afshan Akhtar [facility] 01/03/2022 Last Documented On 2 6:52AM ; [facility] Bipolar disorder NOS BH Substance Abuse with Flor herine Mccullough [facility] 12/22/2021 Last Documented On 2 10:49PM ; [facility] Generalized anxiety disorder BH Substanc e Abuse with Chaparrita Mccullough [facility] 12/22/2021 Last Documented On 2 10:49PM ; [facility] Opioid dependence uncomplicated BH Subst ance Abuse with Chaparrita Mccullough [facility] 12/22/2021 Last Documented On 2 10:49PM ; [facility] [Z68.23 - Body mass index [B DE] 23.0-23.9, adult] assessment of body mass index Medical Substance Abuse with Marilyjarod Carrionen RADIO INTELLIGENCE OPERATOR 12/22/2021 Last Documented On 2 3:34PM ; [facility] Opioid dependence uncomplicated Medical Substance Abuse with Marily Nini RADIO INTELLIGENCE OPERATOR 12/22/2021 Last Documented On 2 3:34PM ; [facility] Bipolar disorder NOS BH Substance Abuse with Flor herine Mccullough [facility] 12/08/2021 Last Documented On 2 11:37PM ; [facility] Generalized anxiety disorder BH Substanc e Abuse with Chaparrita Mccullough [facility] 12/08/2021 Last Documented On 2 11:37PM ; [facility] Opioid dependence uncomplicated BH Subst ance Abuse with Chaparrita Mccullough [facility] 12/08/2021 Last Documented On 2 11:37PM ; [facility] [Z68.23 - Body mass index [B DE] 23.0-23.9, adult] assessment of body mass index Medical Substance Abuse with Marily Nini RADIO INTELLIGENCE OPERATOR 12/08/2021 Last Documented On 2 1:47PM ; [facility] Opioid dependence BH Substance Abuse with Afshan Akhtar [facility] 12/01/2021 Last Documented On 2 10:18AM ; [facility] Opioid dependence, on agonist therapy BH Substance Abuse with Afshan Akhatr [facility] 12/01/2021 Last Documented On 2 10:18AM ; [facility] [Body mass index [BMI] 23.0- 23.9, adult] assessment of body mass index Medical Substance Abuse with Becca Malu RADIO INTELLIGENCE OPERATOR 12/01/2021 Last Documented On 2 5:45AM ; [facility] Opioid dependence uncomplicated Medical Substance Abuse with Becca Malu RADIO INTELLIGENCE OPERATOR 12/01/2021 Last Documented On 2 5:45AM ; [facility] Opioid dependence BH Substance Abuse with Afshan Akhtar [facility] 11/23/2021 Last Documented On 2 10:30AM ; [facility] Opioid dependence, on agonist therapy BH Substance Abuse with Afshan Akhtar [facility] 11/23/2021 Last Documented On 2 10:30AM ; [facility] Assessment of body mass inde x [Body mass index [BMI] 23.0-23.9, adult] Medical Substance Abuse with Becca Malu RADIO INTELLIGENCE OPERATOR 11/23/2021 Last Documented On 2 11:27AM ; [facility] Opioid dependence uncomplicated Medical Substance Abuse with Becca Malu RADIO INTELLIGENCE OPERATOR 11/23/2021 Last Documented On 2 11:27AM ; [facility] Opioid dependence BH Substance Abuse with Afshan Akhtar [facility] 11/20/2021 Last Documented On 2 10:45AM ; [facility] Opioid dependence, on agonist therapy BH Substance Abuse with Afshan Akhtar [facility] 11/20/2021 Last Documented On 2 10:45AM ; [facility] Assessment of body mass inde x [Body mass index [BMI] 23.0-23.9, adult] Medical Substance Abuse with Becca Malu RADIO INTELLIGENCE OPERATOR 11/20/2021 Last Documented On 2 5:17AM ; [facility] Bipolar disorder NOS BH Substance Abuse with Flor herine [facility]ccullough [facility] 11/13/2021 Last Documented On 2 11:27PM ; [facility] Generalized anxiety disorder BH Substanc e Abuse with Chaparrita Mccullough [facility] 11/13/2021 Last Documented On 2 11:27PM ; [facility] Opioid dependence uncomplicated BH Subst ance Abuse with Chaparrita Mccullough [facility] 11/13/2021 Last Documented On 2 11:27PM ; [facility] Z68.22 - Body mass index [BM I] 22.0-22.9, adult Medical Substance Abuse with Marily Terrazas RADIO INTELLIGENCE OPERATOR 11/13/2021 Last Documented On 2 5:29PM ; [facility] Opioid dependence BH Substance Abuse with Afshan Akhtar [facility] 11/06/2021 Last Documented On 2 2:46PM ; [facility] Assessment of body mass inde x [Body mass index [BMI] 22.0-22.9, adult] Medical Substance Abuse with Becca Malu RADIO INTELLIGENCE OPERATOR 11/06/2021 Last Documented On 2 6:00AM ; [facility] Opioid dependence uncomplicated Medical Substance Abuse with Becca Malu RADIO INTELLIGENCE OPERATOR 11/06/2021 Last Documented On 2 6:00AM ; [facility] Opioid dependence Substance Abuse with Afshanjustus Akhtar [facility] 09/22/2021 Last Documented On 2 12:51PM ; [facility] Stimulant abuse BH Substance Abuse with Afshanjustus hector [facility] 09/22/2021 Last Documented On 2 12:51PM ; [facility] Assessment of body mass inde x [Body mass index [BMI] 21.0-21.9, adult] Medical Substance Abuse with Becca Malu RADIO INTELLIGENCE OPERATOR 09/22/2021 Last Documented On 2 1:56PM ; [facility] Opioid dependence uncomplicated Medical Substance Abuse with Becca Malu RADIO INTELLIGENCE OPERATOR 09/22/2021 Last Documented On 2 1:56PM ; [facility] Opioid dependence Substance Abuse with Afshanjustus CespedesAkhtar [facility] 09/19/2021 Last Documented On 2 12:56PM ; [facility] Stimulant abuse - uncomplicated Subst ance Abuse with Afshanjustus Akhtar [facility] 09/19/2021 Last Documented On 2 12:56PM ; [facility] Assessment of body mass inde x [Body mass index [BMI] 21.0-21.9, adult] Medical Substance Abuse with Becca Malu RADIO INTELLIGENCE OPERATOR 09/19/2021 Last Documented On 2 7:23PM ; [facility] Opioid dependence uncomplicated Medical Substance Abuse with Becca Malu RADIO INTELLIGENCE OPERATOR 09/19/2021 Last Documented On 2 7:23PM ; [facility] Generalized anxiety disorder BH Established [place] ent with Dary Huntingburg PALLETISER OPERATOR 09/15/2021 Last Documented On 2 9:37AM ; [facility] Nicotine dependence continuous BH Establ ished Patient with Dary Huntingburg PALLETISER OPERATOR 09/15/2021 Last Documented On 2 9:37AM ; [facility] Opioid dependence uncomplicated Estab lished Patient with Dary Huntingburg PALLETISER OPERATOR 09/15/2021 Last Documented On 2 9:37AM ; [facility] Assessment of body mass inde x [Body mass index [BMI] 19.9 or less, adult] Medical Substance Abuse with Becca Malu RADIO INTELLIGENCE OPERATOR 09/15/2021 Last Documented On 2 5:46AM ; [facility] Opioid dependence uncomplicated Medical Substance Abuse with Becca Malu RADIO INTELLIGENCE OPERATOR 09/15/2021 Last Documented On 2 5:46AM ; [facility] Bipolar I disorder, most rec ent episode BH Established Patient with Chaparrita Mccullough [facility] 09/07/2021 Last Documented On 2 9:13PM ; [facility] Generalized anxiety disorder BH Establis hed Patient with Chaparrita Mccullough [facility] 09/07/2021 Last Documented On 2 9:13PM ; [facility] Opioid dependence uncomplicated BH Estab lished Patient with Chaparrita Mccullough [facility] 09/07/2021 Last Documented On 2 9:13PM ; [facility] Assessment of body mass inde x [Body mass index [BMI] 23.0-23.9, adult] Medical New Patient with Becca Malu RADIO INTELLIGENCE OPERATOR 09/07/2021 Last Documented On 2 9:40AM ; [facility] Bipolar disorder NOS Medical New Patient with Ca ssie Malu RADIO INTELLIGENCE OPERATOR 09/07/2021 Last Documented On 2 9:40AM ; [facility] Diabetes Risk Test Score was 1.0 score 09/07/2021 Medical New Patient with Becca Malu RADIO INTELLIGENCE OPERATOR 09/07/2021 Last Documented On 2 9:40AM ; [facility] Generalized anxiety disorder Medical New Patient with Becca Malu RADIO INTELLIGENCE OPERATOR 09/07/2021 Last Documented On 2 9:40AM ; [facility] Opioid dependence uncomplicated Medical New [place] ent with Becca Malu RADIO INTELLIGENCE OPERATOR 09/07/2021 Last Documented On 2 9:40AM ; [facility] Screening for HIV Medical New Patient with Kimberly e Malu RADIO INTELLIGENCE OPERATOR 09/07/2021 Last Documented On 2 9:40AM ; [facility] Work Phone: 1(120) 546-201311-04-2022 Evaluation note Includes: Assessments for all patient encounters Findings Encounter Date Bipolar disorder NOS BH Substance Abuse with Chaparrita Mccullough [facility] 12/22/2021 Generalized anxiety disorder BH Substanc e Abuse with Chaparrita Mccullough [facility] 12/22/2021 Opioid dependence uncomplicated BH Subst ance Abuse with Chaparrita Mccullough [facility] 12/22/2021 [Z68.23 - Body mass index [B DE] 23.0-23.9, adult] assessment of body mass index Medical Substance Abuse with Marily Nini RADIO INTELLIGENCE OPERATOR 12/22/2021 Opioid dependence uncomplicated Medical Substance Abuse with Marily Nini RADIO INTELLIGENCE OPERATOR 12/22/2021 Bipolar disorder NOS BH Substance Abuse with Chaparrita Mccullough [facility] 12/08/2021 Generalized anxiety disorder BH Substanc e Abuse with Chaparrita Mccullough [facility] 12/08/2021 Opioid dependence uncomplicated BH Subst ance Abuse with Chaparrita Mccullough [facility] 12/08/2021 [Z68.23 - Body mass index [B DE] 23.0-23.9, adult] assessment of body mass index Medical Substance Abuse with Marily Nini RADIO INTELLIGENCE OPERATOR 12/08/2021 Opioid dependence BH Substance Abuse w ith Afshan Akhtar [facility] 12/01/2021 Opioid dependence, on agonist therapy BH Substance Abuse with Afshan Akhtar [facility] 12/01/2021 [Body mass index [BMI] 23.0- 23.9, adult] assessment of body mass index Medical Substance Abuse with Becca Malu RADIO INTELLIGENCE OPERATOR 12/01/2021 Opioid dependence uncomplicated Medical Substance Abuse with Becca Malu RADIO INTELLIGENCE OPERATOR 12/01/2021 Opioid dependence BH Substance Abuse w ith Afshan Akhtar [facility] 11/23/2021 Opioid dependence, on agonist therapy BH Substance Abuse with Afshan Akhtar [facility] 11/23/2021 Assessment of body mass inde x [Body mass index [BMI] 23.0-23.9, adult] Medical Substance Abuse with Becca Malu RADIO INTELLIGENCE OPERATOR 11/23/2021 Opioid dependence uncomplicated Medical Substance Abuse with Becca Malu RADIO INTELLIGENCE OPERATOR 11/23/2021 Opioid dependence BH Substance Abuse w ith Afshan Akhtar [facility] 11/20/2021 Opioid dependence, on agonist therapy BH Substance Abuse with Afshan Akhtar [facility] 11/20/2021 Assessment of body mass inde x [Body mass index [BMI] 23.0-23.9, adult] Medical Substance Abuse with Becca Malu RADIO INTELLIGENCE OPERATOR 11/20/2021 Bipolar disorder NOS BH Substance Abuse with Chaparrita Mccullough [facility] 11/13/2021 Generalized anxiety disorder BH Substanc e Abuse with Chaparrita Mccullough [facility] 11/13/2021 Opioid dependence uncomplicated BH [facility]st an[facility]/13/2021 Z68.22 - Body mass index [BM I] 22.0-22.9, adult Medical Substance Abuse with Marily Carrionen RADIO INTELLIGENCE OPERATOR 11/13/2021 Opioid dependence BH [facility] 11/06/2021 Assessment of body mass inde x [Body mass index [BMI] 22.0-22.9, adult] Medical Substance Abuse with Becca Malu RADIO INTELLIGENCE OPERATOR 11/06/2021 Opioid dependence uncomplicated Medical Substance Abuse with Becca Malu RADIO INTELLIGENCE OPERATOR 11/06/2021 Opioid dependence BH [facility] 09/22/2021 Stimulant abuse BH Substance Abuse w ith Afshan Akhtar [facility] 09/22/2021 Assessment of body mass inde x [Body mass index [BMI] 21.0-21.9, adult] Medical Substance Abuse with Becca Malu RADIO INTELLIGENCE OPERATOR 09/22/2021 Opioid dependence uncomplicated Medical Substance Abuse with Becca Malu RADIO INTELLIGENCE OPERATOR 09/22/2021 Opioid dependence BH Substance Abuse w ith Afshan Akhtar [facility] 09/19/2021 Stimulant abuse - uncomplicated BH Subst ance Abuse with Afshan Akhtar [facility] 09/19/2021 Assessment of body mass inde x [Body mass index [BMI] 21.0-21.9, adult] Medical Substance Abuse with Becca Malu RADIO INTELLIGENCE OPERATOR 09/19/2021 Opioid dependence uncomplicated Medical Substance Abuse with Becca Malu RADIO INTELLIGENCE OPERATOR 09/19/2021 Generalized anxiety disorder Establis hed Patient with Dary Huntingburg PALLETISER OPERATOR 09/15/2021 Nicotine dependence continuous BH Establ ished Patient with Dary Huntingburg PALLETISER OPERATOR 09/15/2021 Opioid dependence uncomplicated BH Estab lished Patient with Dary Clancy PALLETISER OPERATOR 09/15/2021 Assessment of body mass inde x [Body mass index [BMI] 19.9 or less, adult] Medical Substance Abuse with Becca Malu RADIO INTELLIGENCE OPERATOR 09/15/2021 Opioid dependence uncomplicated Medical Substance Abuse with Becca Malu RADIO INTELLIGENCE OPERATOR 09/15/2021 Bipolar I disorder, most rec ent episode Established Patient with Chaparrita Mccullough [facility] 09/07/2021 Generalized anxiety disorder Establis hed Patient with Chaparrita Mccullough [facility] 09/07/2021 Opioid dependence uncomplicated Estab lished Patient with Chaparrita Mccullough [facility] 09/07/2021 Assessment of body mass inde x [Body mass index [BMI] 23.0-23.9, adult] Medical New Patient with Becca Malu RADIO INTELLIGENCE OPERATOR 09/07/2021 Bipolar disorder NOS Medical New Patient with Becca Malu RADIO INTELLIGENCE OPERATOR 09/07/2021 Diabetes Risk Test Score was 1.0 score 09/07/2021 Medical New Patient with Becca Malu RADIO INTELLIGENCE OPERATOR 09/07/2021 Generalized anxiety disorder Medical New Patient with Becca Malu RADIO INTELLIGENCE OPERATOR 09/07/2021 Opioid dependence uncomplicated Medical New Patient with Becca Malu RADIO INTELLIGENCE OPERATOR 09/07/2021 Screening for HIV Medical New Patient with Becca Malu RADIO INTELLIGENCE OPERATOR 09/07/2021 Health [facility] Work Phone: 1(471) 883-560711-04-2022 Reason for referral (narrative)* Date Encounter Description Provider Reason for Referral 12/22/21 Medical Substance Abuse Marily Terrazas RADIO INTELLIGENCE OPERATOR Referral To Mental Health Team 09/22/21 Substance Abuse Afshan Akhtar [facility] Referral To Mental Health Team 09/07/21 Established Patient Chaparrita Mccullough [facility] Referral To Mental Health Team [facility] Work Phone: 1(653) 856-470510-21-2022 Evaluation note Includes: Assessments for all patient encounters Findings Encounter Date Bipolar disorder NOS Substance Abuse with Chaparrita Mccullough [facility] 12/08/2021 Generalized anxiety disorder Substanc e Abuse with Chaparrita Mccullough [facility] 12/08/2021 Opioid dependence uncomplicated Subst ance Abuse with Chaparrita Mccullough [facility] 12/08/2021 [Z68.23 - Body mass index [B DE] 23.0-23.9, adult] assessment of body mass index Medical Substance Abuse with Marily Terrazas RADIO INTELLIGENCE OPERATOR 12/08/2021 Opioid dependence BH Substance Abuse w ith Afshan Cespedeserson [facility] 12/01/2021 Opioid dependence, on agonist therapy BH Substance Abuse with Afshan Akhtar [facility] 12/01/2021 [Body mass index [BMI] 23.0- 23.9, adult] assessment of body mass index Medical Substance Abuse with Becca Malu RADIO INTELLIGENCE OPERATOR 12/01/2021 Opioid dependence uncomplicated Medical Substance Abuse with Becca Malu RADIO INTELLIGENCE OPERATOR 12/01/2021 Opioid dependence BH Substance Abuse w ith Afshanjustus CespedesAkhtar [facility] 11/23/2021 Opioid dependence, on agonist therapy BH Substance Abuse with Afshan Akhtar [facility] 11/23/2021 Assessment of body mass inde x [Body mass index [BMI] 23.0-23.9, adult] Medical Substance Abuse with Becca Malu RADIO INTELLIGENCE OPERATOR 11/23/2021 Opioid dependence uncomplicated Medical Substance Abuse with Becca Malu RADIO INTELLIGENCE OPERATOR 11/23/2021 Opioid dependence BH Substance Abuse w ith Afshan Cespedeserson [facility] 11/20/2021 Opioid dependence, on agonist therapy BH Substance Abuse with Afshan Akhtar [facility] 11/20/2021 Assessment of body mass inde x [Body mass index [BMI] 23.0-23.9, adult] Medical Substance Abuse with Becca Malu RADIO INTELLIGENCE OPERATOR 11/20/2021 Bipolar disorder NOS BH Substance Abuse with Chaparrita Mccullough [facility] 11/13/2021 Generalized anxiety disorder BH Substanc e Abuse with Chaparrita Mccullough [facility] 11/13/2021 Opioid dependence uncomplicated BH Subst ance Abuse with Chaparrita Mccullough [facility] 11/13/2021 Z68.22 - Body mass index [BM I] 22.0-22.9, adult Medical Substance Abuse with Marilyjarod Carrionen RADIO INTELLIGENCE OPERATOR 11/13/2021 Opioid dependence BH Substance Abuse w ith Afshan Akhtar [facility] 11/06/2021 Assessment of body mass inde x [Body mass index [BMI] 22.0-22.9, adult] Medical Substance Abuse with Becca Malu RADIO INTELLIGENCE OPERATOR 11/06/2021 Opioid dependence uncomplicated Medical Substance Abuse with Becca Malu RADIO INTELLIGENCE OPERATOR 11/06/2021 Opioid dependence BH Substance Abuse w ith Afshan Cespedeserson [facility] 09/22/2021 Stimulant abuse BH Substance Abuse w ith Afshan Cespedeserson [facility] 09/22/2021 Assessment of body mass inde x [Body mass index [BMI] 21.0-21.9, adult] Medical Substance Abuse with Becca Malu RADIO INTELLIGENCE OPERATOR 09/22/2021 Opioid dependence uncomplicated Medical Substance Abuse with Becca Malu RADIO INTELLIGENCE OPERATOR 09/22/2021 Opioid dependence BH Substance Abuse w ith Afshan Akhtar [facility] 09/19/2021 Stimulant abuse - uncomplicated BH Subst ance Abuse with Afshanjustus CespedesAkhtar [facility] 09/19/2021 Assessment of body mass inde x [Body mass index [BMI] 21.0-21.9, adult] Medical Substance Abuse with Becca Malu RADIO INTELLIGENCE OPERATOR 09/19/2021 Opioid dependence uncomplicated Medical Substance Abuse with Becca Malu RADIO INTELLIGENCE OPERATOR 09/19/2021 Generalized anxiety disorder Establis hed Patient with Dary Huntingburg PALLETISER OPERATOR 09/15/2021 Nicotine dependence continuous BH Establ ished Patient with Dary Huntingburg PALLETISER OPERATOR 09/15/2021 Opioid dependence uncomplicated BH Estab lished Patient with Dary Huntingburg PALLETISER OPERATOR 09/15/2021 Assessment of body mass inde x [Body mass index [BMI] 19.9 or less, adult] Medical Substance Abuse with Becca Malu RADIO INTELLIGENCE OPERATOR 09/15/2021 Opioid dependence uncomplicated Medical Substance Abuse with Becca Malu RADIO INTELLIGENCE OPERATOR 09/15/2021 Bipolar I disorder, most rec ent episode Established Patient with Chaparrita Mccullough [facility] 09/07/2021 Generalized anxiety disorder Establis hed Patient with Chaparrita Mccullough [facility] 09/07/2021 Opioid dependence uncomplicated BH Estab lished Patient with Chaparrita Mccullough [facility] 09/07/2021 Assessment of body mass inde x [Body mass index [BMI] 23.0-23.9, adult] Medical New Patient with Becca Malu RADIO INTELLIGENCE OPERATOR 09/07/2021 Bipolar disorder NOS Medical New Patient with Becca Malu RADIO INTELLIGENCE OPERATOR 09/07/2021 Diabetes Risk Test Score was 1.0 score 09/07/2021 Medical New Patient with Becca Malu RADIO INTELLIGENCE OPERATOR 09/07/2021 Generalized anxiety disorder Medical New Patient with Becca Toribio RADIO INTELLIGENCE OPERATOR 09/07/2021 Opioid dependence uncomplicated Medical New Patient with Becca Toribio RADIO INTELLIGENCE OPERATOR 09/07/2021 Screening for HIV Medical New Patient with Becca Toribio RADIO INTELLIGENCE OPERATOR 09/07/2021 Health [facility] Work Phone: 1([phone]) 342-124210-17-2022 History general Narrative - Reported Includes: Medical [...] disorders 022 No previous hospitalizations 09/07/2021 Health [facility] Work Phone: [phone]) 965-384710-17-2022 History general Narrative - Reported Includes: Medical History in patient's chart Description Last Updated No suicidal ideation 12/04/2021 Last Documented On 2 10:18AM ; [facility] No suicidal intent 12/04/2021 Last Documented On 2 10:18AM ; [facility] No suicidal plans 12/04/2021 Last Documented On 2 10:18AM ; [facility] Has sex without a condom 09/07/2021 Last Documented On 2 9:13PM ; [facility] Not planning to have a baby in the next 12 months 09/07/2021 Last Documented On 2 9:13PM ; [facility] sexually transmitted infection status known 09/07/2021 Last Documented On 2 9:13PM ; [facility] History of extraction of wisdom tooth Last Documented On 2 9:40AM ; [facility] History of tooth extraction 09/07/2021 Last Documented On 2 9:40AM ; [facility] History of anxiety disorder NOS 09/08/19 22 Last Documented On 2 9:40AM ; [facility] History of coronary artery disease 09/07 Last Documented On 2 9:40AM ; [facility] History of depression 09/07/2021 Last Documented On 2 9:40AM ; [facility] History of diabetes mellitus 09/07/2021 Last Documented On 2 9:40AM ; [facility] History of psychiatric disorders 022 Last Documented On 2 9:40AM ; [facility] No previous hospitalizations 09/07/2021 Last Documented On 2 9:40AM ; [facility] Work Phone: [phone]) 710-428810-14-2022 Evaluation note Includes: Assessments for all patient encounters Findings Encounter Date Opioid dependence BH Substance Abuse w ith Afshan Cespedeserson [facility] 12/01/2021 Opioid dependence, on agonist therapy BH Substance Abuse with Afshan Akhtar [facility] 12/01/2021 [Body mass index [BMI] 23.0- 23.9, adult] assessment of body mass index Medical Substance Abuse with Becca Malu RADIO INTELLIGENCE OPERATOR 12/01/2021 Opioid dependence uncomplicated Medical Substance Abuse with Becca Malu RADIO INTELLIGENCE OPERATOR 12/01/2021 Opioid dependence BH Substance Abuse w ith Afshan Cespedeserson [facility] 11/23/2021 Opioid dependence, on agonist therapy BH Substance Abuse with Afshan Akhtar [facility] 11/23/2021 Assessment of body mass inde x [Body mass index [BMI] 23.0-23.9, adult] Medical Substance Abuse with Becca Malu RADIO INTELLIGENCE OPERATOR 11/23/2021 Opioid dependence uncomplicated Medical Substance Abuse with Becca Malu RADIO INTELLIGENCE OPERATOR 11/23/2021 Opioid dependence BH Substance Abuse w ith Afshan Akhtar [facility] 11/20/2021 Opioid dependence, on agonist therapy BH Substance Abuse with Afshan Akhtar [facility] 11/20/2021 Assessment of body mass inde x [Body mass index [BMI] 23.0-23.9, adult] Medical Substance Abuse with Becca Malu RADIO INTELLIGENCE OPERATOR 11/20/2021 Bipolar disorder NOS BH [facility]stance [facility] 11/13/2021 Generalized anxiety disorder BH Substanc e Abuse with Chaparrita Mccullough [facility] 11/13/2021 Opioid dependence uncomplicated BH Subst ance Abuse with Chaparrit[facility] Mccullough [facility] 11/13/2021 Z68.22 - Body mass index [BM I] 22.0-22.9, adult Medical Substance Abuse with Marily Carrionen RADIO INTELLIGENCE OPERATOR 11/13/2021 Opioid dependence BH [facility]stance [facility] w ith [facility] 11/06/2021 Assessment of body mass inde x [Body mass index [BMI] 22.0-22.9, adult] Medical Substance Abuse with Becca Malu RADIO INTELLIGENCE OPERATOR 11/06/2021 Opioid dependence uncomplicated Medical Substance Abuse with Becca Malu RADIO INTELLIGENCE OPERATOR 11/06/2021 Opioid dependence BH Substance Abuse w ith Afshanjustus CespedesAkhtar [facility] 09/22/2021 Stimulant abuse BH Substance Abuse w ith Afshanjustus CespedesAkhtar [facility] 09/22/2021 Assessment of body mass inde x [Body mass index [BMI] 21.0-21.9, adult] Medical Substance Abuse with Becca Malu RADIO INTELLIGENCE OPERATOR 09/22/2021 Opioid dependence uncomplicated Medical Substance Abuse with Becca Malu RADIO INTELLIGENCE OPERATOR 09/22/2021 Opioid dependence BH Substance Abuse w ith [facility] 09/19/2021 Stimulant abuse - uncomplicated BH Subst ance Abuse with Afshan Akhtar [facility] 09/19/2021 Assessment of body mass inde x [Body mass index [BMI] 21.0-21.9, adult] Medical Substance Abuse with Becca Malu RADIO INTELLIGENCE OPERATOR 09/19/2021 Opioid dependence uncomplicated Medical Substance Abuse with Becca Maul RADIO INTELLIGENCE OPERATOR 09/19/2021 Generalized anxiety disorder BH Establis hed Patient with Dary Huntingburg PALLETISER OPERATOR 09/15/2021 Nicotine dependence continuous BH Establ ished Patient with Dary Huntingburg PALLETISER OPERATOR 09/15/2021 Opioid dependence uncomplicated BH Estab lished Patient with Dary Huntingburg PALLETISER OPERATOR 09/15/2021 Assessment of body mass inde x [Body mass index [BMI] 19.9 or less, adult] Medical Substance Abuse with Becca Malu RADIO INTELLIGENCE OPERATOR 09/15/2021 Opioid dependence uncomplicated Medical Substance Abuse with Becca Malu RADIO INTELLIGENCE OPERATOR 09/15/2021 Bipolar I disorder, most rec ent episode BH Established Patient with Chaparrita Mccullough [facility] 09/07/2021 Generalized anxiety disorder BH Establis hed Patient with Chaparrita Mccullough [facility] 09/07/2021 Opioid dependence uncomplicated BH Estab lished Patient with Chaparrita Mccullough [facility] 09/07/2021 Assessment of body mass inde x [Body mass index [BMI] 23.0-23.9, adult] Medical New Patient with Becca Malu RADIO INTELLIGENCE OPERATOR 09/07/2021 Bipolar disorder NOS Medical New Patient with Becca Malu RADIO INTELLIGENCE OPERATOR 09/07/2021 Diabetes Risk Test Score was 1.0 score 09/07/2021 Medical New Patient with Becca Malu RADIO INTELLIGENCE OPERATOR 09/07/2021 Generalized anxiety disorder Medical New Patient with Becca Malu RADIO INTELLIGENCE OPERATOR 09/07/2021 Opioid dependence uncomplicated Medical New Patient with Becca Malu RADIO INTELLIGENCE OPERATOR 09/07/2021 Screening for HIV Medical New Patient with Becca Malu RADIO INTELLIGENCE OPERATOR 09/07/2021 [facility] Work Phone: [phone]) 202-185110-14-2022 Evaluation note Includes: Assessments for all patient encounters Findings Encounter Date [Z68.23 - Body mass index [B DE] 23.0-23.9, adult] assessment of body mass index Medical Substance Abuse with Marily Terrazas RADIO INTELLIGENCE OPERATOR 12/08/2021 Opioid dependence BH Substance Abuse w ith Afshan Akhtar [facility] 12/01/2021 Opioid dependence, on agonist therapy BH Substance Abuse with Afshan Akhtar [facility] 12/01/2021 [Body mass index [BMI] 23.0- 23.9, adult] assessment of body mass index Medical Substance Abuse with Becca Malu RADIO INTELLIGENCE OPERATOR 12/01/2021 Opioid dependence uncomplicated Medical Substance Abuse with Becca Malu RADIO INTELLIGENCE OPERATOR 12/01/2021 Opioid dependence BH Substance Abuse w ith Afshan Akhtar [facility] 11/23/2021 Opioid dependence, on agonist therapy BH Substance Abuse with Afshan Akhtar [facility] 11/23/2021 Assessment of body mass inde x [Body mass index [BMI] 23.0-23.9, adult] Medical Substance Abuse with Becca Malu RADIO INTELLIGENCE OPERATOR 11/23/2021 Opioid dependence uncomplicated Medical Substance Abuse with Becca Malu RADIO INTELLIGENCE OPERATOR 11/23/2021 Opioid dependence BH Substance Abuse w ith [facility]eserson [facility] 11/20/2021 Opioid dependence, on agonist therapy BH [facility] 11/20/2021 Assessment of body mass inde x [Body mass index [BMI] 23.0-23.9, adult] Medical Substance Abuse with Becca Malu RADIO INTELLIGENCE OPERATOR 11/20/2021 Bipolar disorder NOS BH Substance Abuse with Chaparrita Mccullough [facility] 11/13/2021 Generalized anxiety disorder BH Substanc e Abuse with Chaparrita [facility]ccullough [facility] 11/13/2021 Opioid dependence uncomplicated BH Subst ance Abuse with Chaparrita Mccullough [facility] 11/13/2021 Z68.22 - Body mass index [BM I] 22.0-22.9, adult Medical Substance Abuse with Marily Terrazas RADIO INTELLIGENCE OPERATOR 11/13/2021 Opioid dependence BH Substance Abuse w ith [facility]pedeserson [facility] 11/06/2021 Assessment of body mass inde x [Body mass index [BMI] 22.0-22.9, adult] Medical Substance Abuse with Becca Malu RADIO INTELLIGENCE OPERATOR 11/06/2021 Opioid dependence uncomplicated Medical Substance Abuse with Becca Malu RADIO INTELLIGENCE OPERATOR 11/06/2021 Opioid dependence BH Substance [facility] w ith [facility] 09/22/2021 Stimulant abuse BH Substance Abuse w ith Afshan Cespedeserson [facility] 09/22/2021 Assessment of body mass inde x [Body mass index [BMI] 21.0-21.9, adult] Medical Substance Abuse with Becca Malu RADIO INTELLIGENCE OPERATOR 09/22/2021 Opioid dependence uncomplicated Medical Substance Abuse with Becca Malu RADIO INTELLIGENCE OPERATOR 09/22/2021 Opioid dependence BH Substance Abuse w ith [facility] 09/19/2021 Stimulant abuse - uncomplicated BH Subst ance Abuse with Afshan Akhtar [facility] 09/19/2021 Assessment of body mass inde x [Body mass index [BMI] 21.0-21.9, adult] Medical Substance Abuse with Becca Malu RADIO INTELLIGENCE OPERATOR 09/19/2021 Opioid dependence uncomplicated Medical Substance Abuse with Becca Malu RADIO INTELLIGENCE OPERATOR 09/19/2021 Generalized anxiety disorder Establis hed Patient with Dary Huntingburg PALLETISER OPERATOR 09/15/2021 Nicotine dependence continuous BH Establ ished Patient with Dary Huntingburg PALLETISER OPERATOR 09/15/2021 Opioid dependence uncomplicated BH Estab lished Patient with Dary Huntingburg PALLETISER OPERATOR 09/15/2021 Assessment of body mass inde x [Body mass index [BMI] 19.9 or less, adult] Medical Substance Abuse with Becca Malu RADIO INTELLIGENCE OPERATOR 09/15/2021 Opioid dependence uncomplicated Medical Substance Abuse with Becca Malu RADIO INTELLIGENCE OPERATOR 09/15/2021 Bipolar I disorder, most rec ent episode Established Patient with Chaparrita Mccullough [facility] 09/07/2021 Generalized anxiety disorder BH Establis hed Patient with Chaparrita Mccullough [facility] 09/07/2021 Opioid dependence uncomplicated BH Estab lished Patient with Chaparrita Mccullough [facility] 09/07/2021 Assessment of body mass inde x [Body mass index [BMI] 23.0-23.9, adult] Medical New Patient with Becca Malu RADIO INTELLIGENCE OPERATOR 09/07/2021 Bipolar disorder NOS Medical New Patient with Becca Malu RADIO INTELLIGENCE OPERATOR 09/07/2021 Diabetes Risk Test Score was 1.0 score 09/07/2021 Medical New Patient with Becca Malu RADIO INTELLIGENCE OPERATOR 09/07/2021 Generalized anxiety disorder Medical New Patient with Becca Malu RADIO INTELLIGENCE OPERATOR 09/07/2021 Opioid dependence uncomplicated Medical New Patient with Becca Malu RADIO INTELLIGENCE OPERATOR 09/07/2021 Screening for HIV Medical New Patient with Becca Malu RADIO INTELLIGENCE OPERATOR 09/07/2021 [facility] Work Phone: 1([phone]) 104-728810-03-2022 Evaluation note Includes: Assessments for all patient encounters Findings Encounter Date Opioid dependence BH Substance Abuse w ith Afshan Akhtar [facility] 11/20/2021 Opioid dependence, on agonist therapy Substance Abuse with Afshan Akhtar [facility] 11/20/2021 Assessment of body mass inde x [Body mass index [BMI] 23.0-23.9, adult] Medical Substance Abuse with Becca Malu RADIO INTELLIGENCE OPERATOR 11/20/2021 Bipolar disorder NOS Substance Abuse with Chaparrita Mccullough [facility] 11/13/2021 Generalized anxiety disorder Substanc e Abuse with Chaparrita Rangelmons [facility] 11/13/2021 Opioid dependence uncomplicated BH Subst ance Abuse with Chaparritaandrez Rangelmons [facility] 11/13/2021 Z68.22 - Body mass index [BM I] 22.0-22.9, adult Medical Substance Abuse with Marily Nini RADIO INTELLIGENCE OPERATOR 11/13/2021 Opioid dependence BH Substance Abuse w ith Afshan Cespedeserson [facility] 11/06/2021 Assessment of body mass inde x [Body mass index [BMI] 22.0-22.9, adult] Medical Substance Abuse with Becca Malu RADIO INTELLIGENCE OPERATOR 11/06/2021 Opioid dependence uncomplicated Medical Substance Abuse with Becca Malu RADIO INTELLIGENCE OPERATOR 11/06/2021 Opioid dependence BH Substance Abuse w ith Afshan Cespedeserson [facility] 09/22/2021 Stimulant abuse BH Substance Abuse w ith Afshanjustus CespedesAkhtar [facility] 09/22/2021 Assessment of body mass inde x [Body mass index [BMI] 21.0-21.9, adult] Medical Substance Abuse with Becca Malu RADIO INTELLIGENCE OPERATOR 09/22/2021 Opioid dependence uncomplicated Medical Substance Abuse with Becca Malu RADIO INTELLIGENCE OPERATOR 09/22/2021 Opioid dependence BH Substance Abuse w ith Afshan Cespedeserson [facility] 09/19/2021 Stimulant abuse - uncomplicated BH Subst ance Abuse with Afshan Akhtar [facility] 09/19/2021 Assessment of body mass inde x [Body mass index [BMI] 21.0-21.9, adult] Medical Substance Abuse with Becca Malu RADIO INTELLIGENCE OPERATOR 09/19/2021 Opioid dependence uncomplicated Medical Substance Abuse with Becca Malu RADIO INTELLIGENCE OPERATOR 09/19/2021 Generalized anxiety disorder Establis hed Patient with Dary Huntingburg PALLETISER OPERATOR 09/15/2021 Nicotine dependence continuous Establ ished Patient with Dary Huntingburg PALLETISER OPERATOR 09/15/2021 Opioid dependence uncomplicated Estab lished Patient with Dary Huntingburg PALLETISER OPERATOR 09/15/2021 Assessment of body mass inde x [Body mass index [BMI] 19.9 or less, adult] Medical Substance Abuse with Becca Malu RADIO INTELLIGENCE OPERATOR 09/15/2021 Opioid dependence uncomplicated Medical Substance Abuse with Becca Malu RADIO INTELLIGENCE OPERATOR 09/15/2021 Bipolar I disorder, most rec ent episode BH Established Patient with Chaparrita Mccullough [facility] 09/07/2021 Generalized anxiety disorder BH Establis hed Patient with Chaparrita Mccullough [facility] 09/07/2021 Opioid dependence uncomplicated BH Estab lished Patient with Chaparrita Mccullough [facility] 09/07/2021 Assessment of body mass inde x [Body mass index [BMI] 23.0-23.9, adult] Medical New Patient with Becca Malu RADIO INTELLIGENCE OPERATOR 09/07/2021 Bipolar disorder NOS Medical New Patient with Becca Malu RADIO INTELLIGENCE OPERATOR 09/07/2021 Diabetes Risk Test Score was 1.0 score 09/07/2021 Medical New Patient with Becca Malu RADIO INTELLIGENCE OPERATOR 09/07/2021 Generalized anxiety disorder Medical New Patient with Becca Malu RADIO INTELLIGENCE OPERATOR 09/07/2021 Opioid dependence uncomplicated Medical New Patient with Becca Malu RADIO INTELLIGENCE OPERATOR 09/07/2021 Screening for HIV Medical New Patient with Becca Malu RADIO INTELLIGENCE OPERATOR 09/07/2021 [facility] Work Phone: 1(718) 535-612309-26-2022 Evaluation note Includes: Assessments for all patient encounters Findings Encounter Date Z68.22 - Body mass index [BM I] 22.0-22.9, adult Medical Substance Abuse with Marily Terrazas RADIO INTELLIGENCE OPERATOR 11/13/2021 Opioid dependence BH Substance Abuse w ith Afshan Akhtar [facility] 11/06/2021 Assessment of body mass inde x [Body mass index [BMI] 22.0-22.9, adult] Medical Substance Abuse with Becca Malu RADIO INTELLIGENCE OPERATOR 11/06/2021 Opioid dependence uncomplicated Medical Substance Abuse with Becca Malu RADIO INTELLIGENCE OPERATOR 11/06/2021 Opioid dependence BH Substance Abuse w ith Afshan Akhtar [facility] 09/22/2021 Stimulant abuse BH Substance Abuse w ith Afshan Akhtar [facility] 09/22/2021 Assessment of body mass inde x [Body mass index [BMI] 21.0-21.9, adult] Medical Substance Abuse with Becca Malu RADIO INTELLIGENCE OPERATOR 09/22/2021 Opioid dependence uncomplicated Medical Substance Abuse with Becca Malu RADIO INTELLIGENCE OPERATOR 09/22/2021 Opioid dependence BH Substance Abuse w ith Afshan Akhtar [facility] 09/19/2021 Stimulant abuse - uncomplicated BH Subst ance Abuse with Afshan Akhtar [facility] 09/19/2021 Assessment of body mass inde x [Body mass index [BMI] 21.0-21.9, adult] Medical Substance Abuse with Becca Malu RADIO INTELLIGENCE OPERATOR 09/19/2021 Opioid dependence uncomplicated Medical Substance Abuse with Becca Malu RADIO INTELLIGENCE OPERATOR 09/19/2021 Generalized anxiety disorder Establis hed Patient with Dary Huntingburg PALLETISER OPERATOR 09/15/2021 Nicotine dependence continuous BH Establ ished Patient with Dary [place] PALLETISER OPERATOR 09/15/2021 Opioid dependence uncomplicated BH Estab lished Patient with Dary [place]burg PALLETISER OPERATOR 09/15/2021 Assessment of body mass inde x [Body mass index [BMI] 19.9 or less, adult] Medical Substance Abuse with Becca Malu RADIO INTELLIGENCE OPERATOR 09/15/2021 Opioid dependence uncomplicated Medical Substance Abuse with Becca Malu RADIO INTELLIGENCE OPERATOR 09/15/2021 Bipolar I disorder, most rec ent episode BH Established Patient with Chaparrita Mccullough [facility] 09/07/2021 Generalized anxiety disorder BH Establis hed Patient with Chaparrita Mccullough [facility] 09/07/2021 Opioid dependence uncomplicated BH Estab lished Patient with Chaparrita Mccullough [facility] 09/07/2021 Assessment of body mass inde x [Body mass index [BMI] 23.0-23.9, adult] Medical New Patient with Becca Malu RADIO INTELLIGENCE OPERATOR 09/07/2021 Bipolar disorder NOS Medical New Patient with Becca Malu RADIO INTELLIGENCE OPERATOR 09/07/2021 Diabetes Risk Test Score was 1.0 score 09/07/2021 Medical New Patient with Becca Malu RADIO INTELLIGENCE OPERATOR 09/07/2021 Generalized anxiety disorder Medical New Patient with Becca Malu RADIO INTELLIGENCE OPERATOR 09/07/2021 Opioid dependence uncomplicated Medical New Patient with Becca Malu RADIO INTELLIGENCE OPERATOR 09/07/2021 Screening for HIV Medical New Patient with Becca Malu RADIO INTELLIGENCE OPERATOR 09/07/2021 [facility] Work Phone: 1([phone]) [phone] Evaluation note Includes: Assessments for all patient encounters Findings Encounter Date Bipolar disorder NOS Substance Abuse with Chaparrita Mccullough [facility] 11/13/2021 Generalized anxiety disorder BH Substanc e Abuse with Chaparrita Mccullough [facility] 11/13/2021 Opioid dependence uncomplicated BH Subst ance [facility]/13/2021 Z68.22 - Body mass index [BM I] 22.0-22.9, adult Medical Substance Abuse with Marily Nini RADIO INTELLIGENCE OPERATOR 11/13/2021 Opioid dependence BH Substance Abuse w ith Afshan Cespedeserson [facility] 11/06/2021 Assessment of body mass inde x [Body mass index [BMI] 22.0-22.9, adult] Medical Substance Abuse with Becca Malu RADIO INTELLIGENCE OPERATOR 11/06/2021 Opioid dependence uncomplicated Medical Substance Abuse with Becca Malu RADIO INTELLIGENCE OPERATOR 11/06/2021 Opioid dependence BH Substance Abuse w ith Afshan Akhtar [facility] 09/22/2021 Stimulant abuse BH Substance Abuse w ith Afshan Akhtar [facility] 09/22/2021 Assessment of body mass inde x [Body mass index [BMI] 21.0-21.9, adult] Medical Substance Abuse with Becca Malu RADIO INTELLIGENCE OPERATOR 09/22/2021 Opioid dependence uncomplicated Medical Substance Abuse with Becca Malu RADIO INTELLIGENCE OPERATOR 09/22/2021 Opioid dependence BH Substance Abuse w ith Afshan Cespedeserson [facility] 09/19/2021 Stimulant abuse - uncomplicated BH Subst ance Abuse with Afshan Akhtar [facility] 09/19/2021 Assessment of body mass inde x [Body mass index [BMI] 21.0-21.9, adult] Medical Substance Abuse with Becca Malu RADIO INTELLIGENCE OPERATOR 09/19/2021 Opioid dependence uncomplicated Medical Substance Abuse with Becca Malu RADIO INTELLIGENCE OPERATOR 09/19/2021 Generalized anxiety disorder BH Establis hed Patient with Dary [place] PALLETISER OPERATOR 09/15/2021 Nicotine dependence continuous BH Establ ished Patient with Dary [place] PALLETISER OPERATOR 09/15/2021 Opioid dependence uncomplicated BH Estab lished Patient with Dary [place] PALLETISER OPERATOR 09/15/2021 Assessment of body mass inde x [Body mass index [BMI] 19.9 or less, adult] Medical Substance Abuse with Becca Malu RADIO INTELLIGENCE OPERATOR 09/15/2021 Opioid dependence uncomplicated Medical Substance Abuse with Becca Malu RADIO INTELLIGENCE OPERATOR 09/15/2021 Bipolar I disorder, most rec ent episode BH Established Patient with Chaparrita Mccullough [facility] 09/07/2021 Generalized anxiety disorder BH Establis hed Patient with Chaparrita Mccullough [facility] 09/07/2021 Opioid dependence uncomplicated BH Estab lished Patient [facility]/07/2021 Assessment of body mass inde x [Body mass index [BMI] 23.0-23.9, adult] Medical New Patient with Becca Malu RADIO INTELLIGENCE OPERATOR 09/07/2021 Bipolar disorder NOS Medical New Patient with Becca Malu RADIO INTELLIGENCE OPERATOR 09/07/2021 Diabetes Risk Test Score was 1.0 score 09/07/2021 Medical New Patient with Becca Malu RADIO INTELLIGENCE OPERATOR 09/07/2021 Generalized anxiety disorder Medical New Patient with Becca Malu RADIO INTELLIGENCE OPERATOR 09/07/2021 Opioid dependence uncomplicated Medical New Patient with Becca Malu RADIO INTELLIGENCE OPERATOR 09/07/2021 Screening for HIV Medical New Patient with Becca Malu RADIO INTELLIGENCE OPERATOR 09/07/2021 [facility] Work Phone: [phone]) [phone] Evaluation note Includes: Assessments for all patient encounters Findings Encounter Date Opioid dependence BH Substance Abuse w ith [facility]anjustus [facility]es[facility]ht[facility] 11/06/2021 Assessment of body mass inde x [Body mass index [BMI] 22.0-22.9, adult] Medical Substance Abuse with Becca Malu RADIO INTELLIGENCE OPERATOR 11/06/2021 Opioid dependence BH Substance [facility] w ith [facility] 09/22/2021 Stimulant abuse BH Substance [facility] w ith [facility] 09/22/2021 Assessment of body mass inde x [Body mass index [BMI] 21.0-21.9, adult] Medical Substance Abuse with Becca Malu RADIO INTELLIGENCE OPERATOR 09/22/2021 Opioid dependence uncomplicated Medical Substance Abuse with Becca Malu RADIO INTELLIGENCE OPERATOR 09/22/2021 Opioid dependence BH Substance Abuse w ith Afshna Akhtar [facility] 09/19/2021 Stimulant abuse - uncomplicated BH Subst ance Abuse with Afshan Akhtar [facility] 09/19/2021 Assessment of body mass inde x [Body mass index [BMI] 21.0-21.9, adult] Medical Substance Abuse with Becca Malu RADIO INTELLIGENCE OPERATOR 09/19/2021 Opioid dependence uncomplicated Medical Substance Abuse with Becca Malu RADIO INTELLIGENCE OPERATOR 09/19/2021 Generalized anxiety disorder BH Establis hed Patient with Dary Julieth PALLETISER OPERATOR 09/15/2021 Nicotine dependence continuous BH Establ ished Patient with Dary Julieth PALLETISER OPERATOR 09/15/2021 Opioid dependence uncomplicated BH Estab lished Patient with Dary [place] PALLETISER OPERATOR 09/15/2021 Assessment of body mass inde x [Body mass index [BMI] 19.9 or less, adult] Medical Substance Abuse with Becca Malu RADIO INTELLIGENCE OPERATOR 09/15/2021 Opioid dependence uncomplicated Medical Substance Abuse with Becca Malu RADIO INTELLIGENCE OPERATOR 09/15/2021 Bipolar I disorder, most rec ent episode BH Established Patient with Chaparrita Mccullough [facility] 09/07/2021 Generalized anxiety disorder BH Establis hed Patient with Chaparrita Mccullough [facility] 09/07/2021 Opioid dependence uncomplicated BH Estab lished Patient with Chaparrita Mccullough [facility] 09/07/2021 Assessment of body mass inde x [Body mass index [BMI] 23.0-23.9, adult] Medical New Patient with Becca Malu RADIO INTELLIGENCE OPERATOR 09/07/2021 Bipolar disorder NOS Medical New Patient with Becca Malu RADIO INTELLIGENCE OPERATOR 09/07/2021 Diabetes Risk Test Score was 1.0 score 09/07/2021 Medical New Patient with Becca Malu RADIO INTELLIGENCE OPERATOR 09/07/2021 Generalized anxiety disorder Medical New Patient with Becca Malu RADIO INTELLIGENCE OPERATOR 09/07/2021 Opioid dependence uncomplicated Medical New Patient with Becca Malu RADIO INTELLIGENCE OPERATOR 09/07/2021 Screening for HIV Medical New Patient with Becca Malu RADIO INTELLIGENCE OPERATOR 09/07/2021 [facility] Work Phone: [phone]) [phone] Evaluation note Includes: Assessments for all patient encounters Findings Encounter Date Opioid dependence BH Substance Abuse w [facility] Afshan Akhtar [facility]-S 11/06/2021 Assessment of body mass inde x [Body mass index [BMI] 22.0-22.9, adult] Medical Substance Abuse with Becca Malu RADIO INTELLIGENCE OPERATOR 11/06/2021 Opioid dependence uncomplicated Medical Substance Abuse with Becca Malu RADIO INTELLIGENCE OPERATOR 11/06/2021 Opioid dependence BH Substance Abuse w [facility] Afshan Akhtar [facility] 09/22/2021 Stimulant abuse BH Substance Abuse w [facility] Afshan Akhtar [facility] 09/22/2021 Assessment of body mass inde x [Body mass index [BMI] 21.0-21.9, adult] Medical Substance Abuse with Becca Malu RADIO INTELLIGENCE OPERATOR 09/22/2021 Opioid dependence uncomplicated Medical Substance Abuse with Becca Malu RADIO INTELLIGENCE OPERATOR 09/22/2021 Opioid dependence BH Substance Abuse w ith Afshan Akhtar [facility] 09/19/2021 Stimulant abuse - uncomplicated Subst ance Abuse with Afshan Akhtar [facility] 09/19/2021 Assessment of body mass inde x [Body mass index [BMI] 21.0-21.9, adult] Medical Substance Abuse with Becca Malu RADIO INTELLIGENCE OPERATOR 09/19/2021 Opioid dependence uncomplicated Medical Substance Abuse with Becca Malu RADIO INTELLIGENCE OPERATOR 09/19/2021 Generalized anxiety disorder Establis hed Patient with Dary [place] PALLETISER OPERATOR 09/15/2021 Nicotine dependence continuous BH Establ ished Patient with Dary [place] PALLETISER OPERATOR 09/15/2021 Opioid dependence uncomplicated BH Estab lished Patient with Dary [place] PALLETISER OPERATOR 09/15/2021 Assessment of body mass inde x [Body mass index [BMI] 19.9 or less, adult] Medical Substance Abuse with Becca Malu RADIO INTELLIGENCE OPERATOR 09/15/2021 Opioid dependence uncomplicated Medical Substance Abuse with Becca Malu RADIO INTELLIGENCE OPERATOR 09/15/2021 Bipolar I disorder, most rec ent episode Established Patient with Chaparrita Mccullough [facility] 09/07/2021 Generalized anxiety disorder BH Establis hed Patient with Chaparrita Mccullough [facility] 09/07/2021 Opioid dependence uncomplicated BH Estab lished Patient with Chaparrita Mccullough [facility] 09/07/2021 Assessment of body mass inde x [Body mass index [BMI] 23.0-23.9, adult] Medical New Patient with Becca Malu RADIO INTELLIGENCE OPERATOR 09/07/2021 Bipolar disorder NOS Medical New Patient with Becca Malu RADIO INTELLIGENCE OPERATOR 09/07/2021 Diabetes Risk Test Score was 1.0 score 09/07/2021 Medical New Patient with Becca Malu RADIO INTELLIGENCE OPERATOR 09/07/2021 Generalized anxiety disorder Medical New Patient with Becca Malu RADIO INTELLIGENCE OPERATOR 09/07/2021 Opioid dependence uncomplicated Medical New Patient with Becca Malu RADIO INTELLIGENCE OPERATOR 09/07/2021 Screening for HIV Medical New Patient with Becca Malu RADIO INTELLIGENCE OPERATOR 09/07/2021 [facility] Work Phone: 1([phone]) 150-592308-05-2022 Evaluation note Includes: Assessments for all patient encounters Findings Encounter Date Opioid dependence BH Substance Abuse w ith Afshan Akhtar [facility] 09/22/2021 Stimulant abuse BH Substance Abuse w ith Afshan Cespedeserson [facility] 09/22/2021 Assessment of body mass inde x [Body mass index [BMI] 21.0-21.9, adult] Medical Substance Abuse with Becca Malu RADIO INTELLIGENCE OPERATOR 09/22/2021 Opioid dependence uncomplicated Medical Substance Abuse with Becca Malu RADIO INTELLIGENCE OPERATOR 09/22/2021 Opioid dependence BH Substance Abuse w ith Afshan Cespedeserson [facility] 09/19/2021 Stimulant abuse - uncomplicated BH Subst ance Abuse with Afshan Akhtar [facility] 09/19/2021 Assessment of body mass inde x [Body mass index [BMI] 21.0-21.9, adult] Medical Substance Abuse with Becca Malu RADIO INTELLIGENCE OPERATOR 09/19/2021 Opioid dependence uncomplicated Medical Substance Abuse with Becca Malu RADIO INTELLIGENCE OPERATOR 09/19/2021 Generalized anxiety disorder BH Establis hed Patient with Dary Huntingburg PALLETISER OPERATOR 09/15/2021 Nicotine dependence continuous BH Establ ished Patient with Dary [place] PALLETISER OPERATOR 09/15/2021 Opioid dependence uncomplicated BH Estab lished Patient with Dary [place] PALLETISER OPERATOR 09/15/2021 Assessment of body mass inde x [Body mass index [BMI] 19.9 or less, adult] Medical Substance Abuse with Becca Malu RADIO INTELLIGENCE OPERATOR 09/15/2021 Opioid dependence uncomplicated Medical Substance Abuse with Becca Malu RADIO INTELLIGENCE OPERATOR 09/15/2021 Bipolar I disorder, most rec ent episode BH Established Patient with Chaparrita Mccullough [facility] 09/07/2021 Generalized anxiety disorder BH Establis hed Patient with Chaparrita Mccullough [facility] 09/07/2021 Opioid dependence uncomplicated BH Estab lished Patient with Chaparrita Mccullough [facility] 09/07/2021 Assessment of body mass inde x [Body mass index [BMI] 23.0-23.9, adult] Medical New Patient with Becca Malu RADIO INTELLIGENCE OPERATOR 09/07/2021 Bipolar disorder NOS Medical New Patient with Becca Malu RADIO INTELLIGENCE OPERATOR 09/07/2021 Diabetes Risk Test Score was 1.0 score 09/07/2021 Medical New Patient with Becca Malu RADIO INTELLIGENCE OPERATOR 09/07/2021 Generalized anxiety disorder Medical New Patient with Becca Malu RADIO INTELLIGENCE OPERATOR 09/07/2021 Opioid dependence uncomplicated Medical New Patient with Becca Malu RADIO INTELLIGENCE OPERATOR 09/07/2021 Screening for HIV Medical New Patient with Becca Malu RADIO INTELLIGENCE OPERATOR 09/07/2021 [facility] Work Phone: [phone]) [phone] Evaluation note Includes: Assessments for all patient encounters Findings Encounter Date Opioid dependence BH Substance Abuse w ith Afshan Akhtar [facility] 09/19/2021 Stimulant abuse - uncomplicated BH Subst ance Abuse with Afshan Akhtar [facility] 09/19/2021 Assessment of body mass inde x [Body mass index [BMI] 21.0-21.9, adult] Medical Substance Abuse with Becca Malu RADIO INTELLIGENCE OPERATOR 09/19/2021 Opioid dependence uncomplicated Medical Substance Abuse with Becca Malu RADIO INTELLIGENCE OPERATOR 09/19/2021 Generalized anxiety disorder BH Establis hed Patient with Dary [place] PALLETISER OPERATOR 09/15/2021 Nicotine dependence continuous BH Establ ished Patient with Dary [place] PALLETISER OPERATOR 09/15/2021 Opioid dependence uncomplicated BH Estab lished Patient with Dary [place] PALLETISER OPERATOR 09/15/2021 Assessment of body mass inde x [Body mass index [BMI] 19.9 or less, adult] Medical Substance Abuse with Becca Malu RADIO INTELLIGENCE OPERATOR 09/15/2021 Opioid dependence uncomplicated Medical Substance Abuse with Becca Malu RADIO INTELLIGENCE OPERATOR 09/15/2021 Bipolar I disorder, most rec ent episode BH Established Patient with Chaparrita Mccullough [facility] 09/07/2021 Generalized anxiety disorder BH Establis hed Patient with Chaparrita Mccullough [facility] 09/07/2021 Opioid dependence uncomplicated BH Estab lished Patient with Chaparrita Mccullough [facility] 09/07/2021 Assessment of body mass inde x [Body mass index [BMI] 23.0-23.9, adult] Medical New Patient with Becca Malu RADIO INTELLIGENCE OPERATOR 09/07/2021 Bipolar disorder NOS Medical New Patient with Becca Malu RADIO INTELLIGENCE OPERATOR 09/07/2021 Diabetes Risk Test Score was 1.0 score 09/07/2021 Medical New Patient with Becca Malu RADIO INTELLIGENCE OPERATOR 09/07/2021 Generalized anxiety disorder Medical New Patient with Becca Malu RADIO INTELLIGENCE OPERATOR 09/07/2021 Opioid dependence uncomplicated Medical New Patient with Becca Malu RADIO INTELLIGENCE OPERATOR 09/07/2021 Screening for HIV Medical New Patient with Becca Malu RADIO INTELLIGENCE OPERATOR 09/07/2021 [facility] Work Phone: [phone]) [phone] Evaluation note Includes: Assessments for all patient encounters Findings Encounter Date Generalized anxiety disorder BH Establis hed Patient with Dary [place]burg PALLETISER OPERATOR 09/15/2021 Nicotine dependence continuous BH Establ ished Patient with Dary [place] PALLETISER OPERATOR 09/15/2021 Opioid dependence uncomplicated BH Estab lished Patient with Dary [place] PALLETISER OPERATOR 09/15/2021 Assessment of body mass inde x [Body mass index [BMI] 19.9 or less, adult] Medical Substance Abuse with Becca Malu RADIO INTELLIGENCE OPERATOR 09/15/2021 Bipolar I disorder, most rec ent episode BH Established Patient with Chaparrita Mccullough [facility] 09/07/2021 Generalized anxiety disorder BH Establis hed Patient with Chaparrita Mccullough [facility] 09/07/2021 Opioid dependence uncomplicated BH Estab lished Patient with Chaparrita Mccullough [facility] 09/07/2021 Assessment of body mass inde x [Body mass index [BMI] 23.0-23.9, adult] Medical New Patient with Becca Malu RADIO INTELLIGENCE OPERATOR 09/07/2021 Bipolar disorder NOS Medical New Patient with Becca Malu RADIO INTELLIGENCE OPERATOR 09/07/2021 Diabetes Risk Test Score was 1.0 score 09/07/2021 Medical New Patient with Becca Malu RADIO INTELLIGENCE OPERATOR 09/07/2021 Generalized anxiety disorder Medical New Patient with Becca Malu RADIO INTELLIGENCE OPERATOR 09/07/2021 Opioid dependence uncomplicated Medical New Patient with Becca Malu RADIO INTELLIGENCE OPERATOR 09/07/2021 Screening for HIV Medical New Patient with Becca Malu RADIO INTELLIGENCE OPERATOR 09/07/2021 [facility] Work Phone: [phone]) [phone] Evaluation note Includes: Assessments for all patient encounters Findings Encounter Date Generalized anxiety disorder BH Establis hed Patient with Dary [place] PALLETISER OPERATOR 09/15/2021 Nicotine dependence continuous BH Establ ished Patient with Dary [place] PALLETISER OPERATOR 09/15/2021 Opioid dependence uncomplicated BH Estab lished Patient with Dary [place] PALLETISER OPERATOR 09/15/2021 Assessment of body mass inde x [Body mass index [BMI] 19.9 or less, adult] Medical Substance Abuse with Becca Malu RADIO INTELLIGENCE OPERATOR 09/15/2021 Opioid dependence uncomplicated Medical Substance Abuse with Becca Malu RADIO INTELLIGENCE OPERATOR 09/15/2021 Bipolar I disorder, most rec ent episode Established Patient with Chaparrita Mccullough [facility] 09/07/2021 Generalized anxiety disorder BH Establis hed Patient with Chaparrita Mccullough [facility] 09/07/2021 Opioid dependence uncomplicated Estab lished Patient with Chaparrita Mccullough [facility] 09/07/2021 Assessment of body mass inde x [Body mass index [BMI] 23.0-23.9, adult] Medical New Patient with Becca Malu RADIO INTELLIGENCE OPERATOR 09/07/2021 Bipolar disorder NOS Medical New Patient with Becca Malu RADIO INTELLIGENCE OPERATOR 09/07/2021 Diabetes Risk Test Score was 1.0 score 09/07/2021 Medical New Patient with Becca Malu RADIO INTELLIGENCE OPERATOR 09/07/2021 Generalized anxiety disorder Medical New Patient with Becca Malu RADIO INTELLIGENCE OPERATOR 09/07/2021 Opioid dependence uncomplicated Medical New Patient with Becca Malu RADIO INTELLIGENCE OPERATOR 09/07/2021 Screening for HIV Medical New Patient with Becca Malu RADIO INTELLIGENCE OPERATOR 09/07/2021 [facility] Work Phone: 1([phone]) 481-139107-21-2022 Evaluation note Includes: Assessments for all patient [...] adult] Medical New Patient with Becca Malu RADIO INTELLIGENCE OPERATOR 09/07/2021 Diabetes Risk Test Score was 1.0 score 09/07/2021 Medical New Patient with Becca Malu RADIO INTELLIGENCE OPERATOR 09/07/2021 Screening for HIV Medical New Patient with Becca Malu RADIO INTELLIGENCE OPERATOR 09/07/2021 [facility] Work Phone: [phone]) [phone] Evaluation note Includes: Assessments for all patient [...] adult] Medical New Patient with Becca Malu RADIO INTELLIGENCE OPERATOR 09/07/2021 Bipolar disorder NOS Medical New Patient with Ebcca Malu RADIO INTELLIGENCE OPERATOR 09/07/2021 Diabetes Risk Test Score was 1.0 score 09/07/2021 Medical New Patient with Becca Malu RADIO INTELLIGENCE OPERATOR 09/07/2021 Generalized anxiety disorder Medical New Patient with Becca Malu RADIO INTELLIGENCE OPERATOR 09/07/2021 Opioid dependence uncomplicated Medical New Patient with Becca Malu RADIO INTELLIGENCE OPERATOR 09/07/2021 Screening for HIV Medical New Patient with Becca Malu RADIO INTELLIGENCE OPERATOR 09/07/2021 [facility] Work Phone: 1(365) 389-357007-21-2022 History general Narrative - Reported Includes: Medical History in patient's chart Description Last Updated Has sex without a condom 09/07/2021 Not planning to have a baby in the next 12 months 09/07/2021 Partners sexually transmitted infection status known 09/07/2021 [facility] Work Phone: 1([phone]) [phone] History general Narrative - Reported Includes: Medical [...] psychiatric disorders 022 No previous hospitalizations 09/07/2021 [facility] Work Phone: Evaluation note Includes: Assessments for all patient encounters Findings Encounter Date Opioid dependence BH Substance Abuse w ith Afshan Cespedeserson [facility] 09/19/2021 Stimulant abuse - uncomplicated BH Subst ance Abuse with Afshan Akhtar [facility] 09/19/2021 Assessment of body mass inde x [Body mass index [BMI] 21.0-21.9, adult] Medical Substance Abuse with Becca Malu RADIO INTELLIGENCE OPERATOR 09/19/2021 Generalized anxiety disorder BH Establis hed Patient with Dary Huntingburg PALLETISER OPERATOR 09/15/2021 Nicotine dependence continuous BH Establ ished Patient with Dary [place] PALLETISER OPERATOR 09/15/2021 Opioid dependence uncomplicated BH Estab lished Patient with Dary Huntingburg PALLETISER OPERATOR 09/15/2021 Assessment of body mass inde x [Body mass index [BMI] 19.9 or less, adult] Medical Substance Abuse with Becca Malu RADIO INTELLIGENCE OPERATOR 09/15/2021 Opioid dependence uncomplicated Medical Substance Abuse with Becca Malu RADIO INTELLIGENCE OPERATOR 09/15/2021 Bipolar I disorder, most rec ent episode BH Established Patient with Chaparrita Mccullough [facility] 09/07/2021 Generalized anxiety disorder BH Establis hed Patient with Chaparrita Mccullough [facility]-S 09/07/2021 Opioid dependence uncomplicated BH Estab lished Patient with Chaparrita Mccullough [facility] 09/07/2021 Assessment of body mass inde x [Body mass index [BMI] 23.0-23.9, adult] Medical New Patient with Becca Malu RADIO INTELLIGENCE OPERATOR 09/07/2021 Bipolar disorder NOS Medical New Patient with Becca Malu RADIO INTELLIGENCE OPERATOR 09/07/2021 Diabetes Risk Test Score was 1.0 score 09/07/2021 Medical New Patient with Becca Malu RADIO INTELLIGENCE OPERATOR 09/07/2021 Generalized anxiety disorder Medical New Patient with Becca Malu RADIO INTELLIGENCE OPERATOR 09/07/2021 Opioid dependence uncomplicated Medical New Patient with Becca Malu RADIO INTELLIGENCE OPERATOR 09/07/2021 Screening for HIV Medical New Patient with Becca Malu RADIO INTELLIGENCE OPERATOR 09/07/2021 [facility] Work Phone: Evaluation note Includes: Assessments for all patient encounters Findings Encounter Date Opioid dependence BH Substance Abuse w ith Afshan Akhtar [facility]-S 09/22/2021 Stimulant abuse BH Substance Abuse w ith Afshan Akhtar [facility] 09/22/2021 Assessment of body mass inde x [Body mass index [BMI] 21.0-21.9, adult] Medical Substance Abuse with Becca Malu RADIO INTELLIGENCE OPERATOR 09/22/2021 Opioid dependence BH Substance Abuse w ith Afshan Akhtar LP[facility]-S 09/19/2021 Stimulant abuse - uncomplicated Subst ance Abuse with Afshan Cespedeserson LPCC-S 09/19/2021 Assessment of body mass inde x [Body mass index [BMI] 21.0-21.9, adult] Medical Substance Abuse with Becca Malu RADIO INTELLIGENCE OPERATOR 09/19/2021 Opioid dependence uncomplicated Medical Substance Abuse with Becca Malu RADIO INTELLIGENCE OPERATOR 09/19/2021 Generalized anxiety disorder Establis hed Patient with Dary Huntingburg PALLETISER OPERATOR 09/15/2021 Nicotine dependence continuous BH Establ ished Patient with Dary [place] PALLETISER OPERATOR 09/15/2021 Opioid dependence uncomplicated BH Estab lished Patient with Dary Huntingburg PALLETISER OPERATOR 09/15/2021 Assessment of body mass inde x [Body mass index [BMI] 19.9 or less, adult] Medical Substance Abuse with Becca Malu RADIO INTELLIGENCE OPERATOR 09/15/2021 Opioid dependence uncomplicated Medical Substance Abuse with Becca Malu RADIO INTELLIGENCE OPERATOR 09/15/2021 Bipolar I disorder, most rec ent episode Established Patient with Chaparrita Mccullough LPCC-S 09/07/2021 Generalized anxiety disorder Establis hed Patient with Chaparrita Mccullough LPCC-S 09/07/2021 Opioid dependence uncomplicated Estab lished Patient with Chaparrita Mccullough LPCC-S 09/07/2021 Assessment of body mass inde x [Body mass index [BMI] 23.0-23.9, adult] Medical New Patient with Becca Malu RADIO INTELLIGENCE OPERATOR 09/07/2021 Bipolar disorder NOS Medical New Patient with Becca Malu RADIO INTELLIGENCE OPERATOR 09/07/2021 Diabetes Risk Test Score was 1.0 score 09/07/2021 Medical New Patient with Becca Malu RADIO INTELLIGENCE OPERATOR 09/07/2021 Generalized anxiety disorder Medical New Patient with Becca Malu RADIO INTELLIGENCE OPERATOR 09/07/2021 Opioid dependence uncomplicated Medical New Patient with Becca Malu RADIO INTELLIGENCE OPERATOR 09/07/2021 Screening for HIV Medical New Patient with Becca Malu RADIO INTELLIGENCE OPERATOR 09/07/2021 [facility] Work Phone: Evaluation note Includes: Assessments for all patient encounters Findings Encounter Date Opioid dependence BH Substance Abuse w ith Afshan Cespedeserson LPCC-S 09/22/2021 Stimulant abuse BH Substance Abuse w ith Afshan Akhtar LPCC-S 09/22/2021 Assessment of body mass inde x [Body mass index [BMI] 21.0-21.9, adult] Medical Substance Abuse with Becca Malu RADIO INTELLIGENCE OPERATOR 09/22/2021 Opioid dependence uncomplicated Medical Substance Abuse with Becca Malu RADIO INTELLIGENCE OPERATOR 09/22/2021 Opioid dependence BH Substance Abuse w ith Afshan Akhtar LPCC-S 09/19/2021 Stimulant abuse - uncomplicated BH Subst ance Abuse with Afshan Akhtar LPCC-S 09/19/2021 Assessment of body mass inde x [Body mass index [BMI] 21.0-21.9, adult] Medical Substance Abuse with Becca Malu RADIO INTELLIGENCE OPERATOR 09/19/2021 Opioid dependence uncomplicated Medical Substance Abuse with Becca Malu RADIO INTELLIGENCE OPERATOR 09/19/2021 Generalized anxiety disorder Establis hed Patient with Dary Huntingburg PALLETISER OPERATOR 09/15/2021 Nicotine dependence continuous BH Establ ished Patient with Dary [place] PALLETISER OPERATOR 09/15/2021 Opioid dependence uncomplicated BH Estab lished Patient with Dary [place] PALLETISER OPERATOR 09/15/2021 Assessment of body mass inde x [Body mass index [BMI] 19.9 or less, adult] Medical Substance Abuse with Becca Malu RADIO INTELLIGENCE OPERATOR 09/15/2021 Opioid dependence uncomplicated Medical Substance Abuse with Becca Malu RADIO INTELLIGENCE OPERATOR 09/15/2021 Bipolar I disorder, most rec ent episode Established Patient with Chaparrita Mccullough LPCC-S 09/07/2021 Generalized anxiety disorder BH Establis hed Patient with Chaparrita Mccullough LPCC-S 09/07/2021 Opioid dependence uncomplicated BH Estab lished Patient with Chaparrita Mccullough LPCC-S 09/07/2021 Assessment of body mass inde x [Body mass index [BMI] 23.0-23.9, adult] Medical New Patient with Becca Malu RADIO INTELLIGENCE OPERATOR 09/07/2021 Bipolar disorder NOS Medical New Patient with Becca Malu RADIO INTELLIGENCE OPERATOR 09/07/2021 Diabetes Risk Test Score was 1.0 score 09/07/2021 Medical New Patient with Becca Malu RADIO INTELLIGENCE OPERATOR 09/07/2021 Generalized anxiety disorder Medical New Patient with Becca Malu RADIO INTELLIGENCE OPERATOR 09/07/2021 Opioid dependence uncomplicated Medical New Patient with Becca Malu RADIO INTELLIGENCE OPERATOR 09/07/2021 Screening for HIV Medical New Patient with Becca Malu RADIO INTELLIGENCE OPERATOR 09/07/2021 [facility] Work Phone: Evaluation note Includes: Assessments for all patient encounters Findings Encounter Date Opioid dependence BH Substance Abuse w ith Afshan Akhtar LPCC-S 11/23/2021 Opioid dependence, on agonist therapy BH Substance Abuse with Afshan Akhtar LPCC-S 11/23/2021 Assessment of body mass inde x [Body mass index [BMI] 23.0-23.9, adult] Medical Substance Abuse with Becca Malu RADIO INTELLIGENCE OPERATOR 11/23/2021 Opioid dependence BH Substance Abuse w ith Afshan Akhtar LPCC-S 11/20/2021 Opioid dependence, on agonist therapy BH Substance Abuse with Afshan Akhtar LPCC-S 11/20/2021 Assessment of body mass inde x [Body mass index [BMI] 23.0-23.9, adult] Medical Substance Abuse with Becca Malu RADIO INTELLIGENCE OPERATOR 11/20/2021 Bipolar disorder NOS BH [facility]stance [facility]/13/2021 Generalized anxiety disorder BH Substanc e Abuse with Chaparrita Mccullough [facility] 11/13/2021 Opioid dependence uncomplicated BH Subst ance Abuse with [facility]rit[facility]ull[facility] 11/13/2021 Z68.22 - Body mass index [BM I] 22.0-22.9, adult Medical Substance Abuse with Marily Terrazas RADIO INTELLIGENCE OPERATOR 11/13/2021 Opioid dependence BH Substance Abuse w ith Afshan Akhtar LPCC-S 11/06/2021 Assessment of body mass inde x [Body mass index [BMI] 22.0-22.9, adult] Medical Substance Abuse with Becca Malu RADIO INTELLIGENCE OPERATOR 11/06/2021 Opioid dependence uncomplicated Medical Substance Abuse with Becca Malu RADIO INTELLIGENCE OPERATOR 11/06/2021 Opioid dependence BH Substance Abuse w ith Afshan Akhtar LPCC-S 09/22/2021 Stimulant abuse BH Substance Abuse w ith Afshan Akhtar LPCC-S 09/22/2021 Assessment of body mass inde x [Body mass index [BMI] 21.0-21.9, adult] Medical Substance Abuse with Becca Malu RADIO INTELLIGENCE OPERATOR 09/22/2021 Opioid dependence uncomplicated Medical Substance Abuse with Becca Malu RADIO INTELLIGENCE OPERATOR 09/22/2021 Opioid dependence BH Substance Abuse w ith Afshan Akhtar LPCC-S 09/19/2021 Stimulant abuse - uncomplicated BH Subst ance Abuse with Afshan Cespedeserson LPCC-S 09/19/2021 Assessment of body mass inde x [Body mass index [BMI] 21.0-21.9, adult] Medical Substance Abuse with Becca Malu RADIO INTELLIGENCE OPERATOR 09/19/2021 Opioid dependence uncomplicated Medical Substance Abuse with Becca Malu RADIO INTELLIGENCE OPERATOR 09/19/2021 Generalized anxiety disorder Establis hed Patient with Dary [place] PALLETISER OPERATOR 09/15/2021 Nicotine dependence continuous BH Establ ished Patient with Dary [place] PALLETISER OPERATOR 09/15/2021 Opioid dependence uncomplicated BH Estab lished Patient with Dary [place] PALLETISER OPERATOR 09/15/2021 Assessment of body mass inde x [Body mass index [BMI] 19.9 or less, adult] Medical Substance Abuse with Becca Malu RADIO INTELLIGENCE OPERATOR 09/15/2021 Opioid dependence uncomplicated Medical Substance Abuse with Becca Malu RADIO INTELLIGENCE OPERATOR 09/15/2021 Bipolar I disorder, most rec ent episode Established Patient with Chaparrita Mccullough LPCC-S 09/07/2021 Generalized anxiety disorder Establis hed Patient with Chaparrita Mccullough LPCC-S 09/07/2021 Opioid dependence uncomplicated BH Estab lished Patient with Chaparrita Mccullough LPCC-S 09/07/2021 Assessment of body mass inde x [Body mass index [BMI] 23.0-23.9, adult] Medical New Patient with Becca Malu RADIO INTELLIGENCE OPERATOR 09/07/2021 Bipolar disorder NOS Medical New Patient with Becca Malu RADIO INTELLIGENCE OPERATOR 09/07/2021 Diabetes Risk Test Score was 1.0 score 09/07/2021 Medical New Patient with Becca Malu RADIO INTELLIGENCE OPERATOR 09/07/2021 Generalized anxiety disorder Medical New Patient with Becca Malu RADIO INTELLIGENCE OPERATOR 09/07/2021 Opioid dependence uncomplicated Medical New Patient with Becca Malu RADIO INTELLIGENCE OPERATOR 09/07/2021 Screening for HIV Medical New Patient with Becca Malu RADIO INTELLIGENCE OPERATOR 09/07/2021 [facility] Work Phone: Evaluation note Includes: Assessments for all patient encounters Findings Encounter Date Opioid dependence BH Substance Abuse w ith Afshan Cespedeserson LPCC-S 11/23/2021 Opioid dependence, on agonist therapy BH Substance Abuse with Afshanjustus CespedesAkhtar LPCC-S 11/23/2021 Assessment of body mass inde x [Body mass index [BMI] 23.0-23.9, adult] Medical Substance Abuse with Becca Malu RADIO INTELLIGENCE OPERATOR 11/23/2021 Opioid dependence uncomplicated Medical Substance Abuse with Becca Malu RADIO INTELLIGENCE OPERATOR 11/23/2021 Opioid dependence BH Substance Abuse w ith Afshan Cespedeserson LPCC-S 11/20/2021 Opioid dependence, on agonist therapy BH Substance Abuse with Afshanjustus CespedesAkhtar LPCC-S 11/20/2021 Assessment of body mass inde x [Body mass index [BMI] 23.0-23.9, adult] Medical Substance Abuse with Becca Malu RADIO INTELLIGENCE OPERATOR 11/20/2021 Bipolar disorder NOS BH Substance Abuse [facility]/13/2021 Generalized anxiety disorder BH Substanc e Abuse with Chaparrita Mccullough LPCC-S 11/13/2021 Opioid dependence uncomplicated BH Subst ance Abuse with Chap[facility]rit[facility]ccullough [facility] 11/13/2021 Z68.22 - Body mass index [BM I] 22.0-22.9, adult Medical Substance Abuse with Marily Terrazas RADIO INTELLIGENCE OPERATOR 11/13/2021 Opioid dependence BH Substance Abuse w ith Afshan Cespedeserson LPCC-S 11/06/2021 Assessment of body mass inde x [Body mass index [BMI] 22.0-22.9, adult] Medical Substance Abuse with Becca Malu RADIO INTELLIGENCE OPERATOR 11/06/2021 Opioid dependence uncomplicated Medical Substance Abuse with Becca Malu RADIO INTELLIGENCE OPERATOR 11/06/2021 Opioid dependence BH Substance Abuse w ith Afshanjustus CespedesAkhtar LPCC-S 09/22/2021 Stimulant abuse BH Substance Abuse w ith Afshan Akhtar [facility]CC-S 09/22/2021 Assessment of body mass inde x [Body mass index [BMI] 21.0-21.9, adult] Medical Substance Abuse with Becca Malu RADIO INTELLIGENCE OPERATOR 09/22/2021 Opioid dependence uncomplicated Medical Substance Abuse with Becca Malu RADIO INTELLIGENCE OPERATOR 09/22/2021 Opioid dependence BH Substance Abuse w ith Afshan Akhtar LPCC-S 09/19/2021 Stimulant abuse - uncomplicated Subst ance Abuse with Afshan Akhtar LPCC-S 09/19/2021 Assessment of body mass inde x [Body mass index [BMI] 21.0-21.9, adult] Medical Substance Abuse with Becca Malu RADIO INTELLIGENCE OPERATOR 09/19/2021 Opioid dependence uncomplicated Medical Substance Abuse with Becca Malu RADIO INTELLIGENCE OPERATOR 09/19/2021 Generalized anxiety disorder BH Establis hed Patient with Dary Huntingburg PALLETISER OPERATOR 09/15/2021 Nicotine dependence continuous BH Establ ished Patient with Dary [place] PALLETISER OPERATOR 09/15/2021 Opioid dependence uncomplicated BH Estab lished Patient with Dary Huntingburg PALLETISER OPERATOR 09/15/2021 Assessment of body mass inde x [Body mass index [BMI] 19.9 or less, adult] Medical Substance Abuse with Becca Malu RADIO INTELLIGENCE OPERATOR 09/15/2021 Opioid dependence uncomplicated Medical Substance Abuse with Becca Malu RADIO INTELLIGENCE OPERATOR 09/15/2021 Bipolar I disorder, most rec ent episode BH Established Patient with Chaparrita Mccullough LPCC-S 09/07/2021 Generalized anxiety disorder BH Establis hed Patient with Chaparrita Mccullough LPCC-S 09/07/2021 Opioid dependence uncomplicated BH Estab lished Patient with Chaparrita Mccullough LPCC-S 09/07/2021 Assessment of body mass inde x [Body mass index [BMI] 23.0-23.9, adult] Medical New Patient with Becca Malu RADIO INTELLIGENCE OPERATOR 09/07/2021 Bipolar disorder NOS Medical New Patient with Becca Malu RADIO INTELLIGENCE OPERATOR 09/07/2021 Diabetes Risk Test Score was 1.0 score 09/07/2021 Medical New Patient with Becca Malu RADIO INTELLIGENCE OPERATOR 09/07/2021 Generalized anxiety disorder Medical New Patient with Becca Malu RADIO INTELLIGENCE OPERATOR 09/07/2021 Opioid dependence uncomplicated Medical New Patient with Becca Malu RADIO INTELLIGENCE OPERATOR 09/07/2021 Screening for HIV Medical New Patient with Becca Malu RADIO INTELLIGENCE OPERATOR 09/07/2021 [facility] Work Phone: Evaluation note* Diagnosis Opioid overdose, accidental or unintentional, initial encounter (HCC)- Primary [facility] Diagnosis Onset Date Resolution Status Major depressive disorder, recurrent acute [facility] Work Phone: Evaluation note* Diagnosis Accidental overdose, initial encounter- Primary documented in this [facility] - Reported Includes: Medical History [...] disorders 022 No previous hospitalizations 09/07/2021 [facility] Work Phone: History of Present illness Narrative History of Present Illness not supported for this document type No [facility] of [facility] Work Phone: Instructions Instructions not supported for this document type No [facility] Work Phone: Instructions Includes: Instructions for all patient encounters Education and Decision Aids were provided during visit for: [facility] offered active listening and supportive feedback; normalized emotions and feelings, also provided pt time to process current issues and sources for triggers. ~Utilized DE; supported benefits of inpatient tx. ~Discussed tx options; promoted development of sober support, use of healthy coping methods, and seeking help, when needed Last Documented On 2 6:51AM ; [facility] Discussed nutritional needs teach healthy choices including fruits and vegetables Last Documented On 2 2:53PM ; [facility] Patient education about a pr oper diet Last Documented On 2 2:53PM ; [facility] Discussed concerns about exe rcise : promote physical activity Last Documented On 2 2:53PM ; [facility] Encouraged pt to develop andre f-awareness and stay busy. ~ ~Pt reports he is staying sober his way, not the perfect way (ie., support groups, treatment, positive supports. Last Documented On 2 11:37PM ; [facility] Discussed nutritional needs teach healthy choices including fruits and vegetables Last Documented On 2 1:14PM ; [facility] Patient education about a pr oper diet Last Documented On 2 1:14PM ; [facility] Discussed concerns about exe rcise : promote physical activity Last Documented On 2 1:14PM ; [facility] provided active listenin g, support and helped pt process though current symptoms and stressor(s) effectiveness of medication, coping mechanisms, and self-care practices. ~Encouraged pt to consider benefits of receiving immediate MH tx that could be provided at identified inpatient facility Last Documented On 2 10:17AM ; [facility] Discussed nutritional needs teach healthy choices including fruits and vegetables Last Documented On 2 3:07PM ; [facility] Patient education about a pr oper diet Last Documented On 2 3:07PM ; [facility] Discussed concerns about exe rcise : [...] week Last Documented On 2 5:45AM ; [facility] Provided supporitve listenin g and empathy. ~Helped pt/parent to process thoughts and concerns; supported pt in his ability to make personal health choices. ~Explored support system; discussed benefits of tx; encouraged pt to connect and engage in services. ~Supported contacting the center, as needed, using healthy coping methods and seeking sober support, when needed Last Documented On 2 10:23AM ; [facility] Discussed nutritional needs teach healthy choices including fruits and vegetables Last Documented On 2 9:38AM ; [facility] Patient education about a pr oper diet Last Documented On 2 9:38AM ; [facility] Discussed concerns about exe rcise : promote physical activity ~ ~Discussed sublocade, will work on getting it ordered ~ ~Follow up in one week Last Documented On 2 11:27AM ; [facility] provided supportive [employer] and reflective feedback; monitored mood and functioning. ~Explored recent lapse; discussed alcohol and other drugl use, sources for support, coping methods, and medication. ~Utilized DE ~Encouraged pt to connect with MH and Psych provider/s as well as other sources of sober support (community-based recovery groups Last Documented On 2 10:44AM ; [facility] Discussed nutritional needs teach healthy choices including fruits and vegetables Last Documented On 2 5:47PM ; [facility] Patient education about a pr oper diet Last Documented On 2 5:47PM ; [facility] Discussed concerns about exe rcise : promote physical activity ~ ~Will give 3 days of suboxone, fentanyl needs to be negative to recieve more ~ ~Discussed microdosing if any signs of withdrawl after taking suboxone, start out with 1/4 strip every 1-2 hours at first to make sure it does not throw you into excessive withdrawls Last Documented On 2 5:17AM ; [facility] Discussed nutritional needs teach healthy choices including fruits and vegetables Last Documented On 2 4:33PM ; [facility] Patient education about a pr oper diet Last Documented On 2 4:33PM ; [facility] Discussed concerns about exe rcise : promote physical activity Last Documented On 2 4:33PM ; [facility] and supportive feedback validated and normalized pts. feelings while assisting pt. in processing recent events. ~Discussed lifestyle changes to address symptoms. ~Supported patients personal health goals; encouraged pt to ask for help, when needed Last Documented On 2 2:45PM ; [facility] Discussed nutritional needs teach healthy choices including fruits and vegetables Last Documented On 2 6:18PM ; [facility] Patient education about a pr oper diet Last Documented On 2 6:18PM ; [facility] Discussed concerns about exe rcise : promote physical activity ~ ~Will give suboxone to bridge until inpatient rehab Last Documented On 2 5:52AM ; [facility] Provided supportive listenin g and empathic feedback ~Utilized DE ~Discussed and explored hx and motivation for recovery ~Explored tx options; provided psychoeducation ~Acknowledged and validated emotions ~Supported pt's right to make his own choices ~Promoted use of comfort medication/s, avoid people, places, as needed ~Encouraged pt to contact the center with questiosn or concerns Last Documented On 2 12:49PM ; [facility] Discussed nutritional needs teach healthy choices including fruits and vegetables Last Documented On 10:31AM ; [facility] Patient education about a pr oper diet Last Documented On 2 10:31AM ; [facility] Discussed concerns about exe rcise : promote physical activity ~ ~Call saturday after going to [facility] Last Documented On 2 1:56PM ; [facility] Provided supportive, empathi c listening and reflective feedback; encouraged, explored, and supported the pt as he processed thoughts, and concerns. ~Utilized DE; acknowledged and validated pt's emotions. ~Explored and assessed mood, symptoms, and functioning; discussed mental health needs/tx options. ~Promoted use of healthy coping methods and seeking support, when needed Last Documented On 2 12:56PM ; [facility] Reviewed side effects and Ri sks/Benefits analysis Last Documented On 12:53PM ; [facility] Discussed nutritional needs teach healthy choices including fruits and vegetables Last Documented On 2 11:40AM ; [facility] Patient education about a pr oper diet Last Documented On 2 11:40AM ; [facility] Discussed concerns about exe rcise : [...] induction Last Documented On 2 7:23PM ; [facility] provided supportive and active listening, allowing patient [...] ~ Last Documented On 2 9:36AM ; [facility] Discussed nutritional needs teach healthy choices including fruits and vegetables Last Documented On 2 11:34AM ; [facility] Patient education about a pr oper diet Last Documented On 2 11:34AM ; [facility] Discussed concerns about exe rcise : promote physical activity ~ ~If patient cannot stay clean for the time it takes to get on vivitrol Suboxone is recommended ~ ~Follow up next Saturday for evaluation Last Documented On 2 5:46AM ; [facility] Discussed nutritional needs teach healthy choices including fruits and vegetables Last Documented On 2 5:34PM ; [facility] Patient education about a pr oper diet Last Documented On 2 5:34PM ; [facility] Discussed concerns about exe rcise : promote physical activity ~ ~Take comfort medications, next UDS is Saturday then full appointment Saturday with [facility], Saturday should be first appropriate UDS Last Documented On 2 9:35AM ; [facility] Work Phone: Patient problem outcome Narrative Includes: Evaluations & Outcomes for active Goals No Outcomes [facility]ed[facility] Work Phone: Progress note* Progress note Date Encounter Last Documented by 03/29/2022 [Patient Encounter] Last darrell dominguez on 03/29/2022; 8:47 AM, Becca Toribio CNP; [facility] Active Problems & Conditions - F31.9 [...] Directives - Declined to Provide Advance Directive [facility] ([facility]ative)No Reason for Referral [facility]ed[facility] Work Phone: Review of systems Narrative - Reported Review of Systems not supported for this document type No [facility] of [facility] Work Phone: Summary Purpose Family History No Family History Records Found Description Last Updated Maternal history of depression 2 Description Last Updated Maternal history of depression 2 Last Documented On 2 9:40AM ; [facility] Relationship Condition Age at Onset [...] section and content) DATE CREATED AUTHOR 09/08/2017 [facility] DATE CREATED AUTHOR AUTHOR'S ORGANIZ ATION 02/01/2018 [facility] DATE CREATED AUTHOR AUTHOR'S ORGANIZ ATION 10/27/2021 [facility] DATE CREATED AUTHOR AUTHOR'S ORGANIZ ATION 04/08/2023 [facility] DATE CREATED AUTHOR AUTHOR'S ORGANIZ ATION 06/23/2023 [facility] DATE CREATED AUTHOR AUTHOR'S ORGANIZ ATION 07/23/2023 [facility] Reason for Visit (unrecogniz ed section and content) Reason Comments Drug Overdose Pt admits to opiate use, 4mg IN narcan admin on scene by EMS Reason Comments Drug Overdose Patient was with his girlfriend and overdosed was given narcan on scene by either his friend or Brett OHARA, EMS was called and he was released into police custody, presents here with Pauline OHARA to be medically cleared prior to incarceration Scheduled Active and Recently Administ ered Medications (unrecognized section and content) Medication Order 09/16/2022 09/17/2022 09/18/2022 sodium chloride 0.9 % bolus 1,000 mL (COMPLETED) 1,000 mL, IntraVENous, at 1,935.5 mL/hr, Administer over 31 Minutes, ONCE, On Sat09/18/22 at 0500, For 1 dose 0503 (New Bag - Prov ider: Lara Naylor RN)0548 (Stopped - Provider: Lara Naylor RN) PRN Medication Order 09/16/2022 09/17/2022 09/18/2022 naloxone opiate overdose kit 4mg 1 spray, Nasal, PRN, Starting on Sat09/18/22 at 0523, Until Discontinued, Opioid Reversal, May repeat every 2 to 3 minutes in alternating nostrils until medical assistance becomes available. 0551 (Furnished to [facility] - Provider: Lara Naylor RN) Care Teams (unrecognized sec tion and content) [...] BE BASED ON THE PRIMARY CLINICAL RECORDS. [facility] [employer] provides no warranty or guarantee of the accuracy or completeness of information in this document.
--- NOTE | 2023-12-22 19:50 | ED.LOWEXI1 ---
HPI HPI - Extremity Injury (Lower) General Chief Complaint: Extremity Injury, Lower Stated Complaint: lower pain Time Seen by Provider: 12/22/23 19:45 History of Present Illness HPI Narrative: This 28-year male presents for evaluation of pain behind his left knee. The patient states that he overdosed and his knee was behind him. He does not know if he injured it or not. EMS was called and he was given Narcan by EMS. He admits that he overdosed on heroin. He comes in complaining of left-sided knee pain. He is writhing and crying in pain and requesting something to drink and a phone senior sales operations analyst. He denies knowing of any injury. Related Data Home Medications ?Medication ?Instructions ?Recorded ?Confirmed No Known Home Medications 02/11/23 12/22/23 Allergies Allergy/AdvReac Type Severity Reaction Status Date / Time ceftriaxone (From Rocephin) Allergy Unknown niesha Verified 12/22/23 19:45 Penicillins Allergy Hives Verified 12/22/23 19:45 Opioid HPI Opioid Management Most Recent Pain and Opioid Data: Last Pain Scale 10 12/22/23 19:55 12/22/23 Last ED Pain Assessment 12/22/23 19:55 Ur Phencyclidine Scrn Negative (NEGATIVE) 05/11/23 23:40 05/11/23 Review of Systems ROS Status of ROS 10 or more systems reviewed and unremarkable except as noted in history and below PFSH PFSH Social History Smoking status: Current every day smoker Little interest or pleasure in doing things: not at all Feeling down, depressed, or hopeless: not at all Exam Narrative Exam Narrative: Vital signs and Nursing Notes reviewed: Patient is afebrile, he is tachycardic with a pulse of 107, blood pressure is normal, he is not hypoxic with pulse ox of 100% on room air General: Awake, alert, oriented, no acute distress, lying comfortably on the stretcher talking on his phone, patient appears comfortable until I walked in the room at which time he starts moaning and grabbing his leg HEENT: Normocephalic atraumatic, mucous membranes are moist and pink, eyes are clear, normal conjunctiva, vision is grossly intact Chest: Lungs are clear to auscultation with good air entry, there is no wheezing rhonchi or rales appreciated no accessory muscle use, patient is speaking in complete sentences-no chest wall tenderness to palpation CVS: Regular rate and rhythm S1-S2, no murmurs rubs or gallops, pulses are brisk and equal bilaterally ABD: Soft, nondistended, nontender, no rebound guarding or rigidity, bowel sounds are normal, no pulsatile masses appreciated Extremities: There is no notable deformity to the left knee or left leg. He refuses range of motion testing. There is no effusion, ecchymosis induration or other notable abnormality. Calf muscles are soft and equal bilaterally. Dorsalis pedis and posterior tibialis pulses are brisk and equal bilaterally Skin: Normal in appearance without rash,pallor, petechiae or purpura Neuro: No focal deficits MDM - Extremity Injury (Lower) MDM Narrative Medical decision making narrative: This 28-year-old male with a history of substance abuse presents for evaluation of left knee pain. The patient states that he overdosed and his left knee was bent behind him in a weird position. Upon EMS arrival he was given Narcan with clinical improvement but complained of ongoing left knee pain. Upon arrival to emergency department he was clutching his left knee and moaning and groaning in pain. When he was left in the room I did not think we were watching him he was comfortable on the stretcher talking on his phone however when I entered the room he again clutches left knee and pain. He requested a phone senior sales operations analyst and something to drink. His physical exam is benign. He refused any range of motion of the left knee but there was no notable swelling, redness or deformity. Pulses are brisk and equal. Calves are warm and equal in size bilaterally. X-ray of the left knee was ordered and is negative for acute findings. I explained this to him. He is explaining to me that he thinks that the blood flow was cut off to his knee for a period of time when he overdosed. He is now laying on the bed with the left leg flexed and states his pain has resolved. He will call his mother for a ride to take him home. Discharge Plan Discharge Chief Complaint: Extremity Injury, Lower Clinical Impression: Active substance abuse, Acute pain of left knee Patient Disposition: Home, Self-Care Time of Disposition Decision: 20:48 Condition: Good Prescriptions / Home Meds: No Action No Known Home Medications Print Language: Korean Instructions: Polysubstance Use Disorder (ED), Knee Pain (ED) Referrals: ZANA PEPE [Primary Care Provider] - 1 week
--- NOTE | 2023-12-22 20:00 | XR_ITS ---
[address] [address] Patient Name: STEPHEN PABON MRN: [id number] date: 1995 Sex: M Assigned Patient Location: ER Current Patient Location: ED.MAIN Accession/Order Number: [id number] Exam Date: 12/22/2023 20:05 Report Date: 12/22/2023 21:00 At the request of: MALLORY MARKER Procedure: XR knee LT 4V EXAM: XR knee LT 4V HISTORY: left knee pain COMPARISON: None. TECHNIQUE: 3 views Left knee FINDINGS: Bones: No acute fracture or aggressive appearing bony lesion. Joints: Normal alignment. No effusion. No significant degenerative findings. Soft tissues: Unremarkable. XR/XR knee LT 4V IMPRESSION: Unremarkable examination. No evidence of fracture. Electronically authenticated by: NICOLE CARNEY Date: 12/22/2023 21:00
--- NOTE | 2023-12-22 20:19 | PC.NURSE ---
Patient was found in a curled up position on floor and given Narcan.C/O left knee pain no injury. Good pedal pulse no trauma noted
[2023-12-22 21:03] VITALS: BP 105/75; PULSE 113; O2SAT 98
== END 2023-12-22 21:13 | disposition home or self-care (01) ==
PROVIDERS: Emergency Provider Emergency Medicine; PCP Family Medicine
DX: M25.562 Pain in left knee (principal); F17.200 Nicotine dependence, unspecified, uncomplicated; F11.10 Opioid abuse, uncomplicated
CPT/HCPCS: 73564; 99283